=== PATIENT | male | born 1950 | race Caucasian/White ===

== ENCOUNTER 2016-06-14 17:12 | Inpatient (IN) | payer OTHER, MEDICAID ==
[~2016-06-14] VITALS: Ht 165.1 cm; Wt 86.6 kg
[~2016-06-14 17:12] MED LIST: ASPI81TA2 PO; AZIT250T PO; CIPR-211 PO; CLOP75TA2 PO; CYM30 PO; FURO-149 PO; GABA-533 PO; GLIP5TAB13 PO; INSU100V9 SUBCUT; LACT10SO66 PO; METF-510 PO; MORP15TA60 PO; NADO80TA14 PO; OMEP20CA10 PO; TRAM50TA92 PO; TRAZ-123 PO
[2016-06-14 17:32] VITALS: BP 89/57; PULSE 86; RESP 20; TEMP 97.8; O2SAT 97
--- NOTE | 2016-06-14 17:40 | NUR ---
Placed in room 02. Placed on manager cardiac cath, blood pressure machine and pulse oximeter. To gown for exam. Side rails up. Report given to NOREEN Daniels.
--- NOTE | 2016-06-14 17:51 | NUR ---
Patient returning to ER C/O sore throat for the past 7 days. 7 days ago patient was admitted to [facility] and discharged 2 days ago. Patient is returning stating that the sore throat did not get better, mild throat swelling and reddness. Patient has chronic liver failure with lower back and abdominal pain 01/15. At this time patient C/O sore throat, nausea, belching, hicups, lower back pain and abdominal pain. Significant abdominal distension.
--- NOTE | 2016-06-14 18:03 | NUR ---
ER MD Null at bedside for evaluation
[2016-06-14] MEDS ORDERED: NACL 0.9% 1,000 ML IV ONE (18:17)
--- NOTE | 2016-06-14 18:25 | NUR ---
# 22 gauge angiocath placed to left forearm. Use of asceptic technique. Opsite placed over site. Blood return noted. Blood for lab drawn from site. Flushed with 10 cc of normal saline. No evidence of infiltration noted. Patient tolerated well.
[2016-06-14] MEDS ORDERED: DIPHENHYDRAMINE INJ 50 MG/ML VIAL IVP ONE (18:30)
[2016-06-14] MEDS ORDERED: chlorproMAZINE HCL 50 MG/ 2 ML AMP IV ONE (18:30)
[2016-06-14 18:48] LABS: BILIRUBIN,URINE NEGATIVE (NEGATIVE); BLOOD, URINE NEGATIVE (NEGATIVE); CLARITY/URINE CLEAR (CLEAR); COLOR,URINE YELLOW (YELLOW); GLUCOSE,URINE NEGATIVE (NEGATIVE); KETONES,URINE NEGATIVE (NEGATIVE); LEUKOCYTE ESTERASE ,URINE NEGATIVE (NEGATIVE); NITRITE, URINE NEGATIVE (NEGATIVE); PH,URINE 5.5 (5.0-8.0); PROTEIN URINE NEGATIVE (NEGATIVE)
[2016-06-14 18:54] LABS: HEMATOCRIT 24.4 % (36-54); HEMOGLOBIN 8.2 g/dL (14.0-18.0); MEAN CORPUSCULAR HEMOGLOBIN 29 pg (27-31); MEAN CORPUSCULAR HGB CONC 34 % (32-36); MEAN CORPUSCULAR VOLUME 85 fL (79.0-98.0); PLATELET COUNT (AUTO) 142 K/uL (130-430); RED BLOOD CELL COUNT(AUTO) 2.85 MIL/uL (4.2-6.2); RED CELL DISTRIBUTION WIDTH 15.5 % (9.0-15.0); WHITE BLOOD COUNT (AUTO) 3.9 K/uL (4.8-10.8)
[2016-06-14 18:57] LABS: CALCIUM 7.9 mg/dL (8.4-11.0); CREATININE 1.3 mg/dL (0.55-1.30); POTASSIUM 4.6 mmol/L (3.5-5.1)
[2016-06-14 19:02] LABS: ALBUMIN 1.7 g/dL (3.4-4.8); TOTAL BILIRUBIN 0.6 mg/dL (0.0-1.0); TOTAL PROTEIN, SERUM 7.1 g/dL (6.4-8.3)
[2016-06-14 19:24] LABS: ATYPICAL LYMPHOCYTES % 5 % (0-0); BAND % (MANUAL) 18 % (0-6); BASOPHILS % (MANUAL) 1 % (0-2); EOSINOPHILS % (MANUAL) 2 % (0-7); LYMPHOCYTES % (MANUAL) 14 % (20-46); MONOCYTES % (MANUAL) 14 % (0-11)
--- NOTE | 2016-06-14 19:47 | NUR ---
Medication reconciliation completed with information provided by - patient states no change in home meds since last admission. Any prior medication reconciliation on file was reviewed and corrected.
--- NOTE | 2016-06-14 20:04 | NUR ---
Patient will be admitted to care of DR FARNSWORTH. Admitted to MS unit. Will go to room 135. Belongings list completed. Summary report printed. Report given to NOREEN.
--- NOTE | 2016-06-14 20:09 | NUR ---
Transfer to [facility]. IV present no sign or symptom of infiltration.
[2016-06-14] MEDS ORDERED: INSULIN REGULAR, HUMAN 100 UNITS/ML, 10 ML VIAL (novoLIN R) SUBCUT PRN ×2 (20:15→21:45)
--- NOTE | 2016-06-14 20:22 | NUR ---
ADMISSION: The patient, DECLAN GATICA, 66 y/o, M admitted by DEVON FARNSWORTH MD, was given written information regarding hospital policies, unit procedures and contact persons. Valuables were checked and .
--- NOTE | 2016-06-14 20:30 | NUR ---
Opening note Patient is new admit with chief complaint of back pain and sore throat. Complaining of 6/10 back pain at this time. Skin is intact with a bruise on the inner aspect of the right anticubital space, 2 cmX 2cm noted. Patient is alert and oriented X4, breath sounds reveal wheezes on expiration in all lobes bilaterally. self repositioning and uses urinal which is at bedside. Continue to monitor
[2016-06-14 20:50] VITALS: BP 112/66; PULSE 74; RESP 16; TEMP 97.2; O2SAT 99
--- NOTE | 2016-06-14 21:08 | NUR ---
DR. FARNSWORTH AT BEDSIDE. MD AT BEDSIDE. CONTINUING SEPSIS PROTOCOL. ORDERED BLOOD CULTURES AND LACTIC ACIDS, NO FLUIDS PER MD.
[2016-06-14] MEDS: MORPHINE 2 MG/ML INJ. SYRINGE IVP PRN (21:25)
[2016-06-14] MEDS ORDERED: AZITHROMYCIN 500 MG in NS 250 ML IV ONE (21:30)
--- NOTE | 2016-06-14 22:35 | NUR ---
rounds Patient is self repositioning, is voiding with urinal at bedside. No signs of acute distress noted at this time, bed in low position, and call light within reach. Awaiting results of pneumococcal and strep swabs from lab. frequent visual checks made, continue to monitor
--- NOTE | 2016-06-14 23:16 | NUR ---
PENDING CALL BACK FROM DAUGHTER STILL WAITING FOR CALL BACK FROM JOHN CHOI'S DAUGHTER, TO CONFIRM MEDICATION RECONCILIATION.
[2016-06-14] MEDS ORDERED: AZITHROMYCIN 500 MG/VIAL (ZITHROMAX) IV ONE (23:29)
[2016-06-14] MEDS: BENZOCAINE/MENTHOL 1 EACH LOZENGE MM PRN (23:55)
[2016-06-14 23:58] VITALS: BP 112/66; PULSE 74; RESP 16; TEMP 97.4; O2SAT 99
[2016-06-15 00:08] VITALS: BP 93/60; PULSE 76; RESP 18; TEMP 97.4; O2SAT 94
--- NOTE | 2016-06-15 00:09 | NUR ---
SPOKE TO PT'S DAUGHTER PER STEPH, PT'S DAUGHTER, PT IS STILL TAKING MS CONTIN WHICH SHE MONITORS INTAKE CLOSELY. WILL PAGE MD TO LET HIM KNOW. MD ASKED TO BE NOTIFIED.
--- NOTE | 2016-06-15 00:10 | NUR ---
PAGED DR. FARNSWORTH TO INFORM HIM OF PT'S HOME MED MS CONTIN.
[2016-06-15] MEDS ORDERED: MORPHINE SULFATE 15 MG TABLET.SA PO ONE (00:30)
--- NOTE | 2016-06-15 00:49 | NUR ---
Consultation(s) Paged Reason for consultation: Bandemia Was consult called: Yes Person who was notified: Lori Consulting Physician: Eloisa Patel; Dr Dutta is on-call for Dr Peter Boarding Kennel Or Cattery Operator Specialty: ID Boarding Kennel Or Cattery Operator Reason for consultation: Liver Cirrhosis Was consult called: Yes Person who was notified: Lori Consulting Physician: Mirela Tabor Boarding Kennel Or Cattery Operator Specialty: GI Boarding Kennel Or Cattery Operator
[2016-06-15 01:45] LABS: INFLUENZA A&B ANTIGEN SCREEN NEGATIVE FOR A & B (NEGATIVE)
--- NOTE | 2016-06-15 02:16 | NUR ---
rounds Patient has received extended release ms contin for complaint of back pain, respirations are even, and measure 16 breaths per minute. no signs of acute distress, bed is in low position, call light within reach, urinal at bedside frequent visual checks made, continue to monitor Addendum: 06/15/16 at 0221 by Mg Rutledge RN note entered for 29 time slot
--- NOTE | 2016-06-15 02:19 | NUR ---
rounds Patient is sleeping in supine position, no pain behaviors noted at this time. No signs of acute distress.Bed in low position, call light is within reach, IV fluids are infusing per MAR instructions, no signs of infiltration, or phlebitis at the site. Frequent visual checks made, continue to monitor
[2016-06-15 02:33] LABS: STREPTOCOCCUS A SCREEN (RAPID) NEGATIVE (NEGATIVE)
[2016-06-15] MEDS: MORPHINE 2 MG/ML INJ. SYRINGE IVP PRN ×5 (04:08→23:35)
[2016-06-15 04:10] VITALS: BP 112/50; PULSE 57; RESP 18; TEMP 97.1; O2SAT 95
--- NOTE | 2016-06-15 07:33 | NUR ---
closing note Patient in supine position, able to make needs known, able to reposition, self. No reports of pain or signs of acute distress. Bedding and clothing clean and dry Report given to oncoming day shift nurse, care endorsed.
--- NOTE | 2016-06-15 08:00 | NUR ---
HANDOFF REPORT WITH WALKING ROUNDS TO PATIENT. NEEDS MET AT THIS TIME. VITAL SIGNS WITHIN NORMAL LIMITS.
[2016-06-15] MEDS: ASPIRIN 81 MG TAB.CHEW PO SCH (08:58)
[2016-06-15] MEDS: GABAPENTIN 400 MG CAPSULE PO SCH ×2 (08:58→20:43)
[2016-06-15] MEDS: OMEPRAZOLE 20 MG CAPSULE.DR (PriLOSEC) PO SCH (08:58)
[2016-06-15] MEDS: LACTULOSE 20 GM/30 ML UDC PO SCH (08:58)
[2016-06-15] MEDS: DULoxetine HCL 30 MG CAPSULE.DR (CYMBALTA) PO SCH (08:58)
--- NOTE | 2016-06-15 10:00 | NUR ---
PATIENT GIVEN PRN PAIN MEDICATION LAST HOUR. GOOD RELIEF. RESTING BUT AWAKEN TO TOUCH. SAYS PAIN IS BETTER.
[2016-06-15 10:59] LABS: CALCIUM 7.9 mg/dL (8.4-11.0); CREATININE 1.21 mg/dL (0.55-1.30); POTASSIUM 4.7 mmol/L (3.5-5.1)
[2016-06-15 11:05] LABS: HEMATOCRIT 22.9 % (36-54); HEMOGLOBIN 7.6 g/dL (14.0-18.0); MEAN CORPUSCULAR HEMOGLOBIN 28 pg (27-31); MEAN CORPUSCULAR HGB CONC 33 % (32-36); MEAN CORPUSCULAR VOLUME 86 fL (79.0-98.0); PLATELET COUNT (AUTO) 119 K/uL (130-430); RED BLOOD CELL COUNT(AUTO) 2.68 MIL/uL (4.2-6.2); RED CELL DISTRIBUTION WIDTH 15.7 % (9.0-15.0); WHITE BLOOD COUNT (AUTO) 3.3 K/uL (4.8-10.8)
[2016-06-15 11:19] LABS: BAND % (MANUAL) 3 % (0-6); BASOPHILS % (MANUAL) 0 % (0-2); EOSINOPHILS % (MANUAL) 5 % (0-7); LYMPHOCYTES % (MANUAL) 11 % (20-46); METAMYELOCYTES % 1 % (0-0); MONOCYTES % (MANUAL) 23 % (0-11)
--- NOTE | 2016-06-15 11:30 | NUR ---
BEDSIDE VISIT FROM PATIENT DAUGHTER AND SON-IN-LAW. PATIENT SAYS HE IS READY FOR LUNCH. NO INSULIN COVERAGE REQUIRED.
[2016-06-15 12:01] VITALS: BP 98/56; PULSE 93; RESP 18; TEMP 97.9; O2SAT 93
--- NOTE | 2016-06-15 13:00 | NUR ---
PATIENT ROUNDS. NEEDS MET AT THIS TIME. REPOSITION WITH HEELS FLOATING.
--- NOTE | 2016-06-15 15:00 | NUR ---
ROUNDS TO PATIENT. RESTING AT THIS TIME. TOLERATED LUNCH 75%.
[2016-06-15 16:29] VITALS: BP 108/56; PULSE 81; RESP 18; TEMP 97.3; O2SAT 97
--- NOTE | 2016-06-15 17:00 | NUR ---
PATIENT ROUNDS, ACCUCHECK, REPOSITION AND PRN MORPHINE FOR PAIN. REQUESTS LOZENGE FOR THROAT DISCOMFORT.
[2016-06-15] MEDS: BENZOCAINE/MENTHOL 1 EACH LOZENGE MM PRN ×2 (18:16→23:39)
--- NOTE | 2016-06-15 19:11 | NUR ---
HANDOFF REPORT FOR NOC NURSE.
[2016-06-15 19:40] VITALS: BP 130/68; PULSE 87; RESP 18; TEMP 97.5; O2SAT 95
--- NOTE | 2016-06-15 19:50 | NUR ---
Initial Notes Pt is A/Ox4. Pt is pleasant and cooperative. VSS. POC discussed with pt, pt verbalized understanding. IV intact with no s/s of infection. Pt is ambulatory with assist, with steady gait noted. Safety precautions in place, side rails up x3 with bed in lowest, locked position, bed alarm on at all times. Pt stated that he felt sleepy and requested his medications early. Abdominal distention noted, with tenderness. Pt hx of chronic liver failure. Pt educated air conditioning unit tester light use, and correct back demonstration noted. Call light in hand. Will continue to monitor.
[2016-06-15] MEDS: AZITHROMYCIN 500 MG in NS 250 ML IV SCH (20:48)
--- NOTE | 2016-06-15 23:40 | NUR ---
Pain Management Pt c/o lower back pain 12/15. Covering RN notified and medicated with Morphine 2MG IVP for severe pain. No acute distress or sob noted. All needs met. Call light in hand. Will continue to monitor.
--- NOTE | 2016-06-15 23:41 | NUR ---
PAIN AND COUGH Pt. c/o severe pain to back and lower left side. Pt. also has a dry cough and requested lozenge. Pt. medicated with Morphine IVP as ordered PRN for severe pain and Cepacol as ordered PRN for cough. See EMAR. Emptied 100ml from urinal. Pt. requested ice chips. Educated pt. regarding medication and s/e. Pt. verbalized understanding. Safety measures in place. Call light to right hand. Will cont. to monitor.
[2016-06-16 00:04] VITALS: BP 113/68; PULSE 92; RESP 18; TEMP 97.6; O2SAT 95
--- NOTE | 2016-06-16 00:29 | NUR ---
ROUNDS Late entry due to pt. care. Checked on pt. to reassess pain. Pt. states pain is currently at a "5/10" and that Morphine "worked a little bit." Pt. denies any other needs at this time. Will endorse to SHARA Cespedes.
--- NOTE | 2016-06-16 03:29 | NUR ---
REQUESTED SNACK Pt. requested cranberry juice and saltine crackers. Emptied 100ml of yellow urine from urinal. Pt. denies any other needs at this time. Safety measures in place. Will continue to monitor.
[2016-06-16 03:52] VITALS: BP 118/62; PULSE 90; RESP 18; TEMP 97; O2SAT 97
[2016-06-16] MEDS: BENZOCAINE/MENTHOL 1 EACH LOZENGE MM PRN (05:52)
--- NOTE | 2016-06-16 06:01 | NUR ---
Blood sugar/I/S Blood sugar checked, 103, no insulin coverage given per sliding scale. Pt c/o sob, oxygen checked 96% on room air. Some audible wheezing noted. Pt given I/S at this time, and educated regarding helping prevent PNA and expanding lungs. Correct back demonstration noted. Pt noted to use a total of 750cc of total inspiratory effort at this time. All needs met at this time. Call light in hand. Will continue to monitor,
--- NOTE | 2016-06-16 06:47 | NUR ---
Closing Notes Pt is awake, alert and oriented. Pt denies any pain at this time. VSS. IV intact. Pt in stable condition. Blood sugar checked, 103. No insulin given per sliding scale. All needs met throughout shift. Will endorse care to am nurse. Call light in hand. Will continue to monitor.
[2016-06-16 07:08] LABS: HEMATOCRIT 24.2 % (36-54); MEAN CORPUSCULAR HEMOGLOBIN 29 pg (27-31); MEAN CORPUSCULAR HGB CONC 33 % (32-36); MEAN CORPUSCULAR VOLUME 87 fL (79.0-98.0); PLATELET COUNT (AUTO) 129 K/uL (130-430); RED BLOOD CELL COUNT(AUTO) 2.79 MIL/uL (4.2-6.2); RED CELL DISTRIBUTION WIDTH 16.3 % (9.0-15.0)
[2016-06-16 07:44] LABS: INR 1.1 (0.80-1.20); PROTHROMBIN TIME 11.8 SECS (9.5-12.5)
[2016-06-16 07:51] LABS: ALBUMIN 1.6 g/dL (3.4-4.8); CREATININE 1.12 mg/dL (0.55-1.30); POTASSIUM 4.7 mmol/L (3.5-5.1); TOTAL BILIRUBIN 0.8 mg/dL (0.0-1.0)
[2016-06-16 08:00] VITALS: BP 93/58; PULSE 91; RESP 20; TEMP 97.7; O2SAT 95
--- NOTE | 2016-06-16 08:00 | NUR ---
OPENING NOTE PATIENT IS SLEEPING, DENIES ANY PAIN AT THIS TIME. SBP93, NO SIGNS OF DISTRESS. VITALS OBTAINED. ALL WNL EXCEPT LOW BP IS TYPICAL FOR PATIENT'S HISTORY
--- NOTE | 2016-06-16 08:31 | NUR ---
PATIENT IS SITTING UP EATING BREAKFAST. NO SIGNS OF ASPIRATION.
--- NOTE | 2016-06-16 09:14 | NUR ---
Nutrition Update Lauri Scale 16 noted. Pt admitted for intractable back pain. Diet: CCHO, 2 gm Na BMI: 32 kg/m2 RD to follow per nutrition care standards.
[2016-06-16 09:25] LABS: ATYPICAL LYMPHOCYTES % 0 % (0-0); BAND % (MANUAL) 2 % (0-6); BASOPHILS % (MANUAL) 0 % (0-2); EOSINOPHILS % (MANUAL) 2 % (0-7); LYMPHOCYTES % (MANUAL) 12 % (20-46); MONOCYTES % (MANUAL) 21 % (0-11)
[2016-06-16] MEDS: GABAPENTIN 400 MG CAPSULE PO SCH ×2 (09:58→20:43)
[2016-06-16] MEDS: OMEPRAZOLE 20 MG CAPSULE.DR (PriLOSEC) PO SCH (09:58)
[2016-06-16] MEDS: DULoxetine HCL 30 MG CAPSULE.DR (CYMBALTA) PO SCH (09:58)
[2016-06-16] MEDS: LACTULOSE 20 GM/30 ML UDC PO SCH (09:58)
[2016-06-16] MEDS: ASPIRIN 81 MG TAB.CHEW PO SCH (09:58)
--- NOTE | 2016-06-16 10:09 | NUR ---
PATIENT MEDICATED PER ORDERS. DENIES ANY PAIN. ABLE TO SWALLOW WITHOUT DIFFICULTY
--- NOTE | 2016-06-16 11:41 | NUR ---
DR RASMUSSEN IN TO SEE PATIENT. NEW ORDERS GIVEN
[2016-06-16 12:00] VITALS: BP 88/50; PULSE 99; RESP 18; TEMP 97.2
--- NOTE | 2016-06-16 12:12 | NUR ---
BG 154, INSULIN HELD PT RECEIVED 20 UNITS OF LEVEMIR EARLIER AND TENDS TO DROP HIS BG QUICKLY
[2016-06-16] MEDS: ONDANSETRON HCL 4 MG/2 ML VIAL IVP PRN (12:43)
--- NOTE | 2016-06-16 12:49 | NUR ---
PT C/O NAUSEA. IS NOT EATING HIS MEAL. MEDICATED WITH ZOFRAN IVP.
--- NOTE | 2016-06-16 14:00 | NUR ---
DIFLUCAN IV AVAILABLE. PHARMACY NOTIFIED TO CHANGE EMAR TIME TO REFLECT MEDICATION AVAILABILITY. ISO COORDINATOR AT BEDSIDE TO PREP FOR PARACENTESIS. PT BP CURRENTLY 115/65. DENIES ANY NAUSEA.
[2016-06-16] MEDS ORDERED: COMMUNICATION ORDER XX ONE (14:15)
[2016-06-16] MEDS: FLUCONAZOLE 200 mg/ NS 100 ML IV SCH (14:15)
[2016-06-16] MEDS ORDERED: FLUCONAZOLE 200 mg/ NS 100 ML IV SCH (14:30)
--- NOTE | 2016-06-16 14:53 | NUR ---
MD AT BEDSIDE FOR PARACENTESIS. PATIENT IS TOLERATING WELL.
[2016-06-16] MEDS ORDERED: ALBUMIN HUMAN 25% 100 ML IV ONE (16:30)
[2016-06-16 16:41] VITALS: Ht 165.1 cm; Wt 86.6 kg
[2016-06-16 18:01] VITALS: BP 105/62; PULSE 89; RESP 18; TEMP 97.8; O2SAT 95
--- NOTE | 2016-06-16 20:15 | NUR ---
OPENING NOTE PATIENT IS A/OX4. VITAL SIGNS ARE STABLE. BREATHING IS NON LABORED. NO SIGNS OF DISTRESS. IV SHOWS NO SIGNS OF COMPLICATIONS. PATIENT REFUSED BED ALARM. PATIENT INSTRUCTED TO CALL FOR ASSISTANCE. CALL LIGHT IS WITHIN REACH. WILL CONTINUE TO MONITOR.
[2016-06-16] MEDS: MORPHINE 2 MG/ML INJ. SYRINGE IVP PRN (20:44)
[2016-06-16] MEDS: AZITHROMYCIN 500 MG in NS 250 ML IV SCH (20:44)
--- NOTE | 2016-06-16 22:30 | NUR ---
ROUNDS PATIENT IV INFILTRATED. INSERTED NEW IV TO THE RIGHT HAND 22G.
[2016-06-16 23:56] VITALS: BP 97/58; PULSE 84; RESP 16; TEMP 97.6; O2SAT 95
[2016-06-17] MEDS: MORPHINE 2 MG/ML INJ. SYRINGE IVP PRN ×5 (00:40→22:48)
--- NOTE | 2016-06-17 00:45 | NUR ---
ROUNDS PROVIDE PATIENT JUICE AND ICE WATER.
--- NOTE | 2016-06-17 02:50 | NUR ---
ROUNDS PATIENT IS IN BED SLEEPING. NO SIGNS OF DISTRESS. BREATHING IS NON LABORED. CALL LIGHT IS WITHIN REACH. PATIENT REFUSES BED ALARM. WILL CONTINUE TO MONITOR.
[2016-06-17 04:24] VITALS: BP_SYST 131; BP_SYST 133; BP_DIAS 65; BP_DIAS 90; PULSE 76; RESP 20; TEMP 99; O2SAT 96
--- NOTE | 2016-06-17 06:30 | NUR ---
CLOSING NOTES PATIENT IS IN BED SLEEPING. BREATHING IS NON LABORED. NO SIGNS OF DISTRESS. CALL LIGHT IS WITHIN REACH. PATIENT REFUSED BED ALARM. SAFETY MEASURES ARE IN PLACE. WILL ENDORSE TO THE MORNING NURSE
[2016-06-17 07:16] LABS: CALCIUM 8.3 mg/dL (8.4-11.0); CREATININE 1.1 mg/dL (0.55-1.30); PHOSPHORUS 3.5 mg/dL (2.7-4.5); POTASSIUM 4.7 mmol/L (3.5-5.1)
[2016-06-17 07:35] LABS: HEMATOCRIT 23.1 % (36-54); HEMOGLOBIN 7.8 g/dL (14.0-18.0); MEAN CORPUSCULAR HEMOGLOBIN 29 pg (27-31); MEAN CORPUSCULAR HGB CONC 34 % (32-36); MEAN CORPUSCULAR VOLUME 86 fL (79.0-98.0); PLATELET COUNT (AUTO) 125 K/uL (130-430); RED BLOOD CELL COUNT(AUTO) 2.69 MIL/uL (4.2-6.2); RED CELL DISTRIBUTION WIDTH 16.5 % (9.0-15.0)
[2016-06-17 07:43] LABS: WHITE BLOOD COUNT (AUTO) 4.4 K/uL (4.8-10.8)
[2016-06-17 08:00] VITALS: BP 111/66; PULSE 96; RESP 18; TEMP 97.4; O2SAT 96
--- NOTE | 2016-06-17 08:00 | NUR ---
initial notes rec patient awake, eating breakfast with ivl on the r hand intact. no infiltration noted. c/o pain on his lower back and will medicate patient. resp easy and unlabored. bed in low position and call light within reached. fall/ safety measures rendered. will continue to monitor patient.
[2016-06-17] MEDS: ASPIRIN 81 MG TAB.CHEW PO SCH (08:42)
[2016-06-17] MEDS: OMEPRAZOLE 20 MG CAPSULE.DR (PriLOSEC) PO SCH (08:42)
[2016-06-17] MEDS: DULoxetine HCL 30 MG CAPSULE.DR (CYMBALTA) PO SCH (08:42)
[2016-06-17] MEDS: GABAPENTIN 400 MG CAPSULE PO SCH ×2 (08:42→21:08)
[2016-06-17] MEDS: LACTULOSE 20 GM/30 ML UDC PO SCH (08:54)
[2016-06-17 10:16] LABS: ATYPICAL LYMPHOCYTES % 0 % (0-0); BAND % (MANUAL) 3 % (0-6); BASOPHILS % (MANUAL) 0 % (0-2); EOSINOPHILS % (MANUAL) 2 % (0-7); LYMPHOCYTES % (MANUAL) 18 % (20-46); MONOCYTES % (MANUAL) 20 % (0-11)
[2016-06-17 12:12] VITALS: BP 115/68; PULSE 93; RESP 19; TEMP 97.1; O2SAT 93
[2016-06-17] MEDS: FLUCONAZOLE 200 mg/ NS 100 ML IV SCH (12:25)
--- NOTE | 2016-06-17 12:43 | NUR ---
rounds pt was medicated for pain as requested. no hypo hyperglycemic reaction noted.
[2016-06-17 18:10] VITALS: BP 108/72; PULSE 85; RESP 20; TEMP 97.8; O2SAT 96
--- NOTE | 2016-06-17 18:30 | NUR ---
closing notes medicated for pain as requested. no sob noted. call light withn reached for assistance.
[2016-06-17 20:20] VITALS: BP 113/72; PULSE 91; RESP 16; TEMP 97.9; O2SAT 97
--- NOTE | 2016-06-17 20:27 | NUR ---
OPENING NOTES PATIENT IS IN BED RESTING. VITAL SIGNS ARE STABLE. BREATHING IS NON LABORED. NO SIGNS OF DISTRESS. PATIENT HAS COMPLAINTS OF PAINFUL HICCUPS. WILL NOTIFY MD. CALL LIGHT IS WITHIN REACH. PATIENT REFUSES BED ALARM. FAMILY IS AT BEDSIDE. WILL CONTINUE TO MONITOR.
--- NOTE | 2016-06-17 20:30 | NUR ---
SPOKE TO [facility]. WILL INPUT KNEW ORDERS.
[2016-06-17] MEDS ORDERED: THORAZINE (chlorproMAZINE) 25 MG TAB PO PRN (20:45)
[2016-06-17] MEDS ORDERED: NITROGLYCERIN 0.4 MG TAB.SUBL SL PRN (20:45)
[2016-06-17] MEDS: AZITHROMYCIN 500 MG in NS 250 ML IV SCH (21:09)
--- NOTE | 2016-06-17 23:15 | NUR ---
ROUNDS PATIENT IS IN BED RESTING AND WATCHING TV. NO SIGNS OF DISTRESS. BREATHING IS NON LABORED. CALL LIGHT IS WITHIN REACH. PATIENT REFUSED BED ALARM. WILL CONTINUE TO MONITOR.
[2016-06-17] MEDS: ONDANSETRON HCL 4 MG/2 ML VIAL IVP PRN (23:18)
[2016-06-18] VITALS (7 sets, daily range): BP systolic 88–124; BP diastolic 56–74; PULSE 90–103; RESP 16–18; TEMP 96.8–99.2; O2SAT 94–97
[2016-06-18] MEDS: chlorproMAZINE HCL 50 MG/ 2 ML AMP IVP PRN (00:10)
--- NOTE | 2016-06-18 00:50 | NUR ---
ROUNDS GAVE PATIENT A BLANKET.
--- NOTE | 2016-06-18 03:55 | NUR ---
ROUNDS PATIENT IS IN BED SLEEPING. NO SIGNS OF DISTRESS. BREATHING IS NON LABORED. CALL LIGHT IS WITHIN REACH WILL CONTINUE TO MONITOR.
[2016-06-18] MEDS ORDERED: NITROGLYCERIN 0.4 MG TAB.SUBL SL ONE (06:30)
--- NOTE | 2016-06-18 06:34 | NUR ---
CLOSING NOTES PATIENT IS IN BED SLEEPING. NO SIGNS OF DISTRESS. BREATHING IS NON LABORED. CALL LIGHT IS WITHIN REACH. PATIENT REFUSES BED ALARM. SAFETY MEASURES ARE IN PLACE. WILL ENDORSE TO MORNING NURSE.
[2016-06-18] MEDS: MORPHINE 2 MG/ML INJ. SYRINGE IVP PRN ×3 (06:46→21:30)
--- NOTE | 2016-06-18 08:20 | NUR ---
initial notes rec patient asleep with hob elevated. ivf infusing well on the r hand. no infiltration noted. c/o pain on his lower back and will medicated patient. bed in low position and side rails up and locked. call light within reached and knows when to call for assists.will continue to monitor patient.
[2016-06-18] MEDS: LACTULOSE 20 GM/30 ML UDC PO SCH (09:06)
[2016-06-18] MEDS: DULoxetine HCL 30 MG CAPSULE.DR (CYMBALTA) PO SCH (09:06)
[2016-06-18] MEDS: ASPIRIN 81 MG TAB.CHEW PO SCH (09:06)
[2016-06-18] MEDS: GABAPENTIN 400 MG CAPSULE PO SCH ×2 (09:06→21:33)
[2016-06-18] MEDS: OMEPRAZOLE 20 MG CAPSULE.DR (PriLOSEC) PO SCH (09:07)
--- NOTE | 2016-06-18 10:00 | NUR ---
rounds due meds given and reminded that pain med is due at 11a. pt went to sleep.
[2016-06-18] MEDS: FLUCONAZOLE 200 mg/ NS 100 ML IV SCH (12:02)
--- NOTE | 2016-06-18 12:10 | NUR ---
rounds seen by dr mtz and with orders. no hypo hyperglycemic reaction noted. medicated for painno acute distress.
--- NOTE | 2016-06-18 12:43 | NUR ---
DISCHARGE PLANNING DC to SNF. Faxed SNF referral to [facility]. Will follow up. Addendum: 06/18/16 at 1529 by Yuridia TYLER Met with patient at bedside regarding SNF placement at [facility]. Patient agreeable and did not have any questions or concerns pertaining to his discharge plan at this time. Spoke with Kyrie in admitting at [facility], patient accepted and will give bed assignment upon discharge order. NOREEN Mcnamara made aware.
--- NOTE | 2016-06-18 14:00 | NUR ---
rounds seen by dr mtz and with orders.
--- NOTE | 2016-06-18 17:49 | NUR ---
rounds dr garrido was called re pt is accepted at [facility].
--- NOTE | 2016-06-18 19:00 | NUR ---
closing notes made charge nurses aware cynthia and neeraj that [facility] called and pt is accepted. also that dr morris was called and awaiting to call back. no sob noted. call light within reached.
[2016-06-18] MEDS: AZITHROMYCIN 500 MG in NS 250 ML IV SCH (21:34)
[2016-06-19 00:10] VITALS: BP 121/70; PULSE 98; RESP 16; TEMP 99.7; O2SAT 95
[2016-06-19] MEDS: MORPHINE 2 MG/ML INJ. SYRINGE IVP PRN ×2 (01:34→10:24)
[2016-06-19 04:48] VITALS: BP 110/63; PULSE 90; RESP 18; TEMP 97.5; O2SAT 96
[2016-06-19] MEDS: chlorproMAZINE HCL 50 MG/ 2 ML AMP IVP PRN ×2 (05:35→14:58)
--- NOTE | 2016-06-19 08:00 | NUR ---
Received patient alert, awake, orientedx4 no s/s of distress. informed about the plan of care. pt verbalized understanding. ivf at kvo rate infusing site patent. encourage to call when assistance needed. call light within reach. will monitor
[2016-06-19 08:17] VITALS: BP 94/56; PULSE 97; RESP 17; TEMP 96.1; O2SAT 95
[2016-06-19] MEDS: GABAPENTIN 400 MG CAPSULE PO SCH (10:22)
[2016-06-19] MEDS: LACTULOSE 20 GM/30 ML UDC PO SCH (10:23)
[2016-06-19] MEDS: DULoxetine HCL 30 MG CAPSULE.DR (CYMBALTA) PO SCH (10:23)
[2016-06-19] MEDS: OMEPRAZOLE 20 MG CAPSULE.DR (PriLOSEC) PO SCH (10:23)
[2016-06-19] MEDS: ASPIRIN 81 MG TAB.CHEW PO SCH (10:23)
[2016-06-19 12:00] VITALS: BP 100/64; PULSE 90; RESP 17; TEMP 96.9; O2SAT 96
--- NOTE | 2016-06-19 12:30 | NUR ---
BLOOD SUGAR 157. PATIENT REFUSED SLIDING SCALE COVERAGE.
[2016-06-19] MEDS: FLUCONAZOLE 200 mg/ NS 100 ML IV SCH (12:31)
--- NOTE | 2016-06-19 12:32 | NUR ---
DC PLANNING Received call from Dipti @ [facility], pt is on transplant list & wanted labs faxed to her. States already spoke w Dr Hua, & they will follow pt when @ SNF. Faxed labs to Dipti, fax [phone], ph [phone].
--- NOTE | 2016-06-19 13:30 | NUR ---
PATIENT REFUSED TO EAT LUNCH TRAY SERVED.
[2016-06-19 16:00] VITALS: BP 105/65; PULSE 65; RESP 18; TEMP 96.9; O2SAT 96
--- NOTE | 2016-06-19 16:00 | NUR ---
NOTES: INFORMED MD MARROQUIN (DAUGHTER) STEPH WANTS TO TALK TO HIM.CALLED STEPH AND SPOKE WITH HER.
--- NOTE | 2016-06-19 16:08 | NUR ---
DISCHARGE PLANNING DC order to SNF. Spoke with Kyrie in admitting at [facility] patient assigned to room 12B RN to report , bed available anytime. RN Cathy made aware. Called [facility] spoke with Roxana placed BLS transport on will call. Placed transportation packet in nurses station. Met with patient at bedside who is agreeable with his discharge to SNF today.
[2016-06-19] MEDS ORDERED: traMADol HCL HCL 50 MG TABLET (ULTRAM) PO PRN (16:45)
--- NOTE | 2016-06-19 17:31 | NUR ---
[facility] P[facility] Spoke with Roxana to set up pick-up time for 1999.
--- NOTE | 2016-06-19 18:54 | NUR ---
assisted patient to the restroom had large bowel movement.
--- NOTE | 2016-06-19 18:55 | NUR ---
notes: all needs met, vital sign stable, afebrile. family was informed about the transfer. belongings check and patient agreed. report given Marquis douglass. [phone]. Addendum: 06/19/16 at 1905 by Thong Faria RN [facility], room assigned 12B.
[2016-06-20] MEDS ORDERED: CIPROFLOXACIN HCL 500 MG TABLET PO SCH (10:00)
== END 2016-06-19 20:15 | DRG 871 ==
LOC: SED 17:12 → SMU 20:04
PROVIDERS: ADMIT Internal Medicine; ATTEND Family Medicine
PROC: 0W9G3ZZ Drainage of Peritoneal Cavity, Percutaneous Approach (ICD-10-PCS; principal; 2016-06-16)
DX: A41.9 Sepsis, unspecified organism (principal); E43 Unspecified severe protein-calorie malnutrition; B37.89 Other sites of candidiasis; D61.818 Other pancytopenia; R18.8 Other ascites; E87.1 Hypo-osmolality and hyponatremia; J02.8 Acute pharyngitis due to other specified organisms; K74.60 Unspecified cirrhosis of liver; K75.81 Nonalcoholic steatohepatitis (NASH); D72.825 Bandemia; I10 Essential (primary) hypertension; N28.9 Disorder of kidney and ureter, unspecified; D73.1 Hypersplenism; E11.9 Type 2 diabetes mellitus without complications; K21.9 Gastro-esophageal reflux disease without esophagitis; Z85.05 Personal history of malignant neoplasm of liver; R13.10 Dysphagia, unspecified; Z95.5 Presence of coronary angioplasty implant and graft
CPT/HCPCS: 36415; 49083; 80048; 80053; 81003; 82962; 83605; 83690-TC; 83735-TC; 84100-TC; 85007; 85027; 85610-TC; 85730-TC; 86403; 86710; 86738; 87040-TC; 87081; 96361; 96374; 96375; 99285; C1729; J0456; J1200; J1450; J1815; J2270; J2405; J3230; J7030; J7050; P9046

== ENCOUNTER 2016-07-10 18:34 | Inpatient (IN) | payer OTHER, MEDICAID ==
[~2016-07-10] VITALS: Ht 165.1 cm; Wt 91.6 kg
--- NOTE | 2016-07-10 18:35 | NUR ---
Arrived via S ambulance for paracentesis. Patient to ER bed 1 to gown for evaluation. Side rails up. Report given to Jessa SORTO.
[2016-07-10 18:40] VITALS: BP 113/83; PULSE 110; RESP 18; TEMP 97.3; O2SAT 99
--- NOTE | 2016-07-10 18:57 | NUR ---
Patient awake in bed, stable condition, no shortness of breath noted, breathing unlabored. Patient states began having lower back pain and diffuse abdominal pain yesterday. Abdomen firm and distended. Patient denies nausea/vomtiing. No other complaints/injuries per patient or noted. Addendum: 07/10/16 at 1859 by MAMIE Denies injury/trauma.
--- NOTE | 2016-07-10 19:10 | NUR ---
Pt BIB ambulance from [facility] with c/o bilateral quadrants pain and RUQ pain 7/10, constant per pt. Pt stated that he was sent by primary physician Melita for paracentesis. Pt A&Ox4, denies chestpain, denies N/V/D. Pt on 4L O2 via NC, abdomen distended and tender, bowel sound x4, skin jaundice. No sign of injury noted. WIll continue to monitor
[2016-07-10 19:44] LABS: BASOPHILS % (AUTO) 0.6 % (0.0-2.0); EOSINOPHILS # (AUTO) 0.1 K/uL (0.0-0.4); EOSINOPHILS % (AUTO) 3.4 % (0.0-4.0); HEMOGLOBIN 8.8 g/dL (14.0-18.0); LYMPHOCYTES # (AUTO) 0.4 K/uL (1.0-5.5); MEAN CORPUSCULAR HEMOGLOBIN 30 pg (27-31); MEAN CORPUSCULAR HGB CONC 34 % (32-36); MEAN CORPUSCULAR VOLUME 87 fL (79.0-98.0); MONOCYTES # (AUTO) 0.6 K/uL (0.0-1.0); MONOCYTES % (AUTO) 15.1 % (1.7-9.3); NEUTROPHILS # (AUTO) 2.8 K/uL (1.8-7.7); NEUTROPHILS % (AUTO) 70.9 % (40.0-70.0); PLATELET COUNT (AUTO) 139 K/uL (130-430); RED BLOOD CELL COUNT(AUTO) 2.99 MIL/uL (4.2-6.2); RED CELL DISTRIBUTION WIDTH 16.3 % (9.0-15.0)
[2016-07-10 19:52] LABS: CALCIUM 8.5 mg/dL (8.4-11.0); CREATININE 1.4 mg/dL (0.55-1.30); POTASSIUM 4.3 mmol/L (3.5-5.1)
[2016-07-10 19:53] LABS: WHITE BLOOD COUNT (AUTO) 3.9 K/uL (4.8-10.8)
[2016-07-10 19:56] LABS: ALBUMIN 1.9 g/dL (3.4-4.8); TOTAL BILIRUBIN 0.6 mg/dL (0.0-1.0); TOTAL PROTEIN, SERUM 8.2 g/dL (6.4-8.3)
--- NOTE | 2016-07-10 20:00 | NUR ---
stated that pt is not sepsis
[2016-07-10 20:04] LABS: BILIRUBIN,URINE NEGATIVE (NEGATIVE); BLOOD, URINE NEGATIVE (NEGATIVE); CLARITY/URINE CLEAR (CLEAR); COLOR,URINE YELLOW (YELLOW); GLUCOSE,URINE TRACE (NEGATIVE); KETONES,URINE TRACE (NEGATIVE); LEUKOCYTE ESTERASE ,URINE NEGATIVE (NEGATIVE); NITRITE, URINE NEGATIVE (NEGATIVE); PH,URINE 5.5 (5.0-8.0); PROTEIN URINE TRACE (NEGATIVE)
[2016-07-10 20:07] LABS: INR 1.1 (0.80-1.20); PROTHROMBIN TIME 11.8 SECS (9.5-12.5)
[2016-07-10] MEDS ORDERED: ONDA4TAB5 PO (20:07)
[2016-07-10] MEDS ORDERED: MEGE400O PO (20:07)
[2016-07-10] MEDS ORDERED: TRAM50TA92 PO (20:07)
[2016-07-10] MEDS ORDERED: OMEP20CA10 PO (20:07)
--- NOTE | 2016-07-10 20:30 | NUR ---
Pt stated his pain is controlled after receiving morphine, and he feels comfortable
[2016-07-10] MEDS ORDERED: MORPHINE 4 MG/ML INJ. SYRINGE IVP ONE (20:45)
--- NOTE | 2016-07-10 21:05 | NUR ---
Patient will be admitted to care of . Admitted to med-surg unit. Will go to room 101B. Belongings list completed. Summary report printed. Report given to Rocael SORTO
--- NOTE | 2016-07-10 21:10 | NUR ---
ADMISSION NOTE Received patient from ER via [facility], received report from TETO SORTO. Patient admitted with diagnosis of ASCITES. Patient oriented to hospital routine, call light, toileting and safety-patient verbalized understanding.
[2016-07-10 21:21] VITALS: BP 154/93; PULSE 106; RESP 20; TEMP 98.4; O2SAT 98
--- NOTE | 2016-07-10 21:30 | NUR ---
INITIAL NOTES: PT IS ALERT AND ORIENTED ; ON O2 2L NC ; VITALS ARE STABLE ; NOT IN ANY ACUTE DISTRESS;PT STATED PAIN IS TOLERABLE SINCE HE RECEIVED PAIN MEDICATION IN ER ; ABDOMEN IS DISTENDED ; ASSESSMENT DONE AND DOCUMENTED ; CALL ROUSSEAU IN REACH ; INSTRUCTED TO CALL FOR ANY HELP;WILL CONTINUE TO MONITOR.
[2016-07-10 21:34] VITALS: BP 132/87; PULSE 107; RESP 18; O2SAT 98
--- NOTE | 2016-07-10 22:00 | NUR ---
PAGED: DR MARROQUIN PAGED TO DO THE MED REC AND OTHER ORDERS
--- NOTE | 2016-07-10 22:30 | NUR ---
PAGED: DR MARROQUIN PAGED AGAIN SINCE NO CALL BACK YET
--- NOTE | 2016-07-10 22:40 | NUR ---
CALLED BACK : DR MARROQUIN CALLED BACK AND STATED THAT HE WILL BE HERE IS 10 MINUTES
--- NOTE | 2016-07-10 23:00 | NUR ---
ROUNDS: DR MARROQUIN MADE ROUNDS; ENTERED ORDERES AND MED REC Addendum: 07/11/16 at 0126 by Sara Ellison RN REQUESTED MD TO ORDER ONE TIME ORDER FOR THE REGULAR MEDS THAT HE TAKES AT NIGHT ; STATED HE CAN START HIS ALL MEDS FROM TOMORROW EXCEPT REGULAR INSULIN . ASKED ABOUT THE LEVEMIR ; STATED "YOU CAN START IT FROM TOMORROW"
--- NOTE | 2016-07-10 23:05 | NUR ---
MD ORDER: INFORMED MD ABOUT THE AMMONIA LEVEL ,WBC AND ALL ABNORMAL LABS; MD STATED PT IS NOT SEPTIC ,FOR AMMONIA , PT IS GETTING LACTULOSE EVERY DAY, MD STATED HE ENTERED THE ORDER TO CONTINUE THE SAME DOSE FROM TOMORROW .
--- NOTE | 2016-07-10 23:15 | NUR ---
BS : BS 258, PROVIDED 6 UNITS OF REGULAR INSULIN
[2016-07-10] MEDS: INSULIN REGULAR, HUMAN 100 UNITS/ML, 10 ML VIAL (novoLIN R) SUBCUT PRN (23:17)
[2016-07-11] VITALS (7 sets, daily range): BP systolic 131–145; BP diastolic 77–83; PULSE 98–115; RESP 16–20; TEMP 96.7–98.4; O2SAT 93–100
--- NOTE | 2016-07-11 01:26 | NUR ---
RN ROUNDS: PT IS SLEEPING COMFORTABLY ; NOT IN ANY ACUTE DISTRESS;ON O2 2L NC ; WILL CONTINUE TO MONITOR.
--- NOTE | 2016-07-11 03:00 | NUR ---
RN NOTES: PT IS SLEEPING COMFORTABLY; NOT IN ANY ACUTE DISTRESS; WILL CONTINUE TO MONITOR.
--- NOTE | 2016-07-11 05:20 | NUR ---
RN NOTES: PT IS AWAKE; NOT IN ANY ACUTE DISTRESS; WILL CONTINUE TO MONITOR.
[2016-07-11] MEDS: OMEPRAZOLE 20 MG CAPSULE.DR (PriLOSEC) PO SCH ×2 (06:14→17:38)
[2016-07-11] MEDS: INSULIN REGULAR, HUMAN 100 UNITS/ML, 10 ML VIAL (novoLIN R) SUBCUT PRN ×4 (06:17→21:42)
--- NOTE | 2016-07-11 06:20 | NUR ---
BS: BS 214, R INSULIN 4 UNITS GIVEN ; PT IS COMFORTABLE .
--- NOTE | 2016-07-11 07:20 | NUR ---
CLOSING NOTES: REPORT GIVEN TO RN AT BEDSIDE , PT IS SLEEPING, NOT IN ANY ACUTE DISTRESS; NO SIGNIFICANT CHANGES IN THE CONDITION.
[2016-07-11] MEDS ORDERED: ONDANSETRON 4 MG ODT TAB PO PRN (08:00)
--- NOTE | 2016-07-11 08:00 | NUR ---
initial notes rec patient awake alert and eating breakfast with hob elevated. ivl on the r hand intact. no infiltration noted. ambulates with min assists to the br. noted abd to be distended and will have paracentesis later. no co/ pain. bed in low position and side rails up and locked. call light within reached. willcontinue to monitor patient.
--- NOTE | 2016-07-11 08:00 | NUR ---
initial rounds rec patient awake alert but non verbally responsive. hob elevated, with a trache and no sob noted. noted with non productive cough and suctioned obtaining small amount of thick phlegm. ivl on the l hand. no infiltration noted. bed in low position and side rails up and locked. call light within reached. fall safety precaution observed. Addendum: 07/11/16 at 1557 by Cici Kim RN intended for another patient.
[2016-07-11] MEDS ORDERED: INSULIN GLARGINE 100 UNITS/ML 10 ML VIAL SUBCUT SCH (09:00)
[2016-07-11] MEDS: MEGESTROL ACETATE 400 MG/10 ML UDC PO SCH ×2 (09:28→21:30)
[2016-07-11] MEDS: GABAPENTIN 400 MG CAPSULE PO SCH ×2 (09:28→21:31)
[2016-07-11] MEDS: CLOPIDOGREL BISULFATE 75 MG TABLET PO SCH (09:29)
[2016-07-11] MEDS: LACTULOSE 20 GM/30 ML UDC PO SCH (09:29)
[2016-07-11] MEDS: DULoxetine HCL 30 MG CAPSULE.DR (CYMBALTA) PO SCH (09:29)
[2016-07-11] MEDS: ASPIRIN 81 MG TAB.CHEW PO SCH (09:29)
[2016-07-11] MEDS: traMADol HCL HCL 50 MG TABLET (ULTRAM) PO PRN ×2 (09:32→21:31)
--- NOTE | 2016-07-11 10:00 | NUR ---
rounds due meds given as ordered. sleeps at intervals. no sob noted.
--- NOTE | 2016-07-11 12:00 | NUR ---
rounds seen by dr mtz and examined patient. informed that paracentesis procedure will be done at 1400. denies pain.
--- NOTE | 2016-07-11 14:00 | NUR ---
rounds no hypo hyperglycemic reaction noted. call light within reached.
--- NOTE | 2016-07-11 15:03 | NUR ---
rounds paracentesis was done at bedside and obtaining 350 cc of cloudy looking drainage. dr mtz was called and notified.
[2016-07-11] MEDS: LEVALBUTEROL HCL 0.63 MG/3 ML VIAL.NEB INH PRN (15:54)
--- NOTE | 2016-07-11 18:30 | NUR ---
closing notes ambulating at bedside. no hypo hyperglycemic reaction noted. denies pain.
--- NOTE | 2016-07-11 20:01 | NUR ---
Opening note Patient is alert and oriented X4, report received from day shift RN. No complaints of pain, able to reposition self, currently in supine position. BP 131/78, 96.9, o2 sat 95% r/a, HR 100, RR14 and no labored. frequent visual checks to be made, continue to monitor
--- NOTE | 2016-07-11 22:10 | NUR ---
Rounds Patient is able to reposition self, he is currently in supine position, turned to left. Bed is in low position, call light is within reach. Patient able to make needs known, no complaints of pain and no signs of acute distress at this time. Continue to monitor
[2016-07-12 00:36] VITALS: BP 136/72; PULSE 111; RESP 18; TEMP 97.2; O2SAT 95
--- NOTE | 2016-07-12 00:47 | NUR ---
Pt reports SOB Patient reports shortness of breath. He had removed his nasal canula and it was on ground. New canula given, O2 therapy resumed at 2lpm per MD orders. O2 sat is 99 at this time. Frequent check backs to be made.
[2016-07-12] MEDS: TEMAZEPAM 15 MG CAPSULE PO PRN ×2 (01:04→21:56)
--- NOTE | 2016-07-12 02:07 | NUR ---
Patient refuses bed alarm Patient refuses to allow bed alarm to be activated, but he is consistent in using call light for bathroom needs. He also has a urinal within reach at bedside. call light is within reach, bed is in low position, nasal canula is in use, O2 flow is 2lpm. No signs of acute distress. Patient makes no pain behaviors at this time, he is sleeping, continue to monitor
--- NOTE | 2016-07-12 02:47 | NUR ---
Care endorsed Report given to NOREEN Cote at bedside, patient is sleeping no signs of pain, care endorsed
--- NOTE | 2016-07-12 03:00 | NUR ---
Hourly Rounding patient resting this hour on NC @ 2 LPM HOB elevated respirations regular also unlabored bed to low position , monitor for safety / .
--- NOTE | 2016-07-12 03:26 | NUR ---
Patient is Refusing SCD procedures explained / .
[2016-07-12 03:55] VITALS: BP 134/71; PULSE 89; RESP 18; TEMP 97.2; O2SAT 96
--- NOTE | 2016-07-12 05:15 | NUR ---
Patient resting this hour call reyna with patient , on 02 NC @ 2 LPM respirations regular also unlabored no complaints made / .
[2016-07-12] MEDS: OMEPRAZOLE 20 MG CAPSULE.DR (PriLOSEC) PO SCH ×2 (06:29→16:28)
[2016-07-12] MEDS: INSULIN REGULAR, HUMAN 100 UNITS/ML, 10 ML VIAL (novoLIN R) SUBCUT PRN ×4 (06:33→22:01)
[2016-07-12 07:26] LABS: CALCIUM 8.6 mg/dL (8.4-11.0); CREATININE 0.99 mg/dL (0.55-1.30); POTASSIUM 4.2 mmol/L (3.5-5.1)
[2016-07-12 07:27] LABS: BASOPHILS % (AUTO) 0.5 % (0.0-2.0); EOSINOPHILS # (AUTO) 0.2 K/uL (0.0-0.4); EOSINOPHILS % (AUTO) 4.9 % (0.0-4.0); HEMATOCRIT 25.8 % (36-54); HEMOGLOBIN 8.6 g/dL (14.0-18.0); LYMPHOCYTES # (AUTO) 0.4 K/uL (1.0-5.5); MEAN CORPUSCULAR HEMOGLOBIN 29 pg (27-31); MEAN CORPUSCULAR HGB CONC 33 % (32-36); MEAN CORPUSCULAR VOLUME 87 fL (79.0-98.0); MONOCYTES # (AUTO) 0.7 K/uL (0.0-1.0); MONOCYTES % (AUTO) 14.3 % (1.7-9.3); NEUTROPHILS # (AUTO) 3.3 K/uL (1.8-7.7); NEUTROPHILS % (AUTO) 71.3 % (40.0-70.0); PLATELET COUNT (AUTO) 153 K/uL (130-430); RED BLOOD CELL COUNT(AUTO) 2.98 MIL/uL (4.2-6.2); RED CELL DISTRIBUTION WIDTH 16.4 % (9.0-15.0); WHITE BLOOD COUNT (AUTO) 4.6 K/uL (4.8-10.8)
--- NOTE | 2016-07-12 07:45 | NUR ---
PATIENT SITTING ON CHAIR ALERT AWAKE ORIENTED X 4 NO SIGN OF DISTRESS OR SOB NO PAIN VERBALIZED, MONITORED CANE DEVICE USE PATIENT AMBULATED TO RESTROOM NO COMPLICATIONS, HAD BM AND URINE, IV SITE SLAINE LOCK RIGHT HAND INTACT, STOMACH DISTENDED NONTENDER, CURENTLY SITTING ON CHAIR EATING BREAKFAST, CALL LIGHT WITHIN REACH CHANGED LINENS
--- NOTE | 2016-07-12 08:27 | NUR ---
DOCTOR WAS HERE IN THE HOSPITAL HE WAS NOTIFIED ABOUT THE CONSULTATION
[2016-07-12] MEDS: ASPIRIN 81 MG TAB.CHEW PO SCH (08:32)
[2016-07-12] MEDS: CLOPIDOGREL BISULFATE 75 MG TABLET PO SCH (08:32)
[2016-07-12] MEDS: LACTULOSE 20 GM/30 ML UDC PO SCH (08:32)
[2016-07-12] MEDS: MEGESTROL ACETATE 400 MG/10 ML UDC PO SCH ×2 (08:32→21:56)
[2016-07-12] MEDS: GABAPENTIN 400 MG CAPSULE PO SCH ×2 (08:32→21:56)
[2016-07-12] MEDS: DULoxetine HCL 30 MG CAPSULE.DR (CYMBALTA) PO SCH (08:37)
--- NOTE | 2016-07-12 09:22 | NUR ---
Nutrition Update Lauri Scale 16 noted. Pt admitted for ascites. Diet: [facility] BMI: 33.6 kg/m2 RD to follow per nutrition care standards.
[2016-07-12 09:53] VITALS: BP 132/81; PULSE 100; RESP 18; TEMP 97; O2SAT 96
[2016-07-12 12:00] VITALS: BP 136/93; PULSE 110; RESP 18; TEMP 96.5; O2SAT 97
[2016-07-12] MEDS: MUPIROCIN 2% TOPICAL OINTMENT 22 GM TP SCH ×2 (12:00→21:57)
--- NOTE | 2016-07-12 12:02 | NUR ---
PATIENT SLEEPING IN BED EASILY AROUSABLE, NO COMPLAINT OF PAIN VITALS WNL, NO SOB, BS 226 GAVE 4 UNITS REGULAR INSULIN, CALL FROM LAB PATIENT POSITIVE FOR MRSA NARES ISOLATION PROTOCOL IN PLACE, DR MARROQUIN ORDERED BACTROBIN, PATIENT LYING SUPINE BED IN LOW POSITION CALL LIGHT IN PLACE SIDE RAISL UP
[2016-07-12 16:05] VITALS: BP 137/90; PULSE 118; RESP 18; TEMP 96.8; O2SAT 95
--- NOTE | 2016-07-12 18:10 | NUR ---
PATIENT ALERT AND ORIENTED X 4 UP IN BED EATING DINNER HOB ELEVATED MRSA NARES PRECAUTIONS IN [place], BS 222 GAVE 4 UNITS OF REGULAR INSULIN, NO COMPLAINT OF PAIN NO SOB, ABDOMEN UNCHANGED, BED IN LOW POSITION CALL LIGHT IN APLCE SIDE RAILS UP
--- NOTE | 2016-07-12 20:21 | NUR ---
patient awake alert sitting up in bed , uses cane for ambulation fall measures implemented call reyna with patient / .
[2016-07-12 20:37] VITALS: BP 131/70; PULSE 92; RESP 20; TEMP 97.5; O2SAT 96
--- NOTE | 2016-07-12 22:00 | NUR ---
Bactroban Topical ointment applied to nares as ordered / .
--- NOTE | 2016-07-12 22:52 | NUR ---
Patient on Isolation contact for MRSA & aware ( nares ) .
[2016-07-13 00:45] VITALS: BP 135/78; PULSE 90; RESP 18; TEMP 97.6; O2SAT 98
--- NOTE | 2016-07-13 01:12 | NUR ---
Hourly Rounding patient awake using bedside urinal , fall precautions implemented no Diabetic reactions noted call reyna with patient / .
[2016-07-13] MEDS: traMADol HCL HCL 50 MG TABLET (ULTRAM) PO PRN ×3 (02:12→22:06)
[2016-07-13 04:00] VITALS: BP 140/76; PULSE 86; RESP 17; TEMP 98.4; O2SAT 100
--- NOTE | 2016-07-13 04:34 | NUR ---
Ultram 50 MG PO given for general pain 09/15 & helpful .
[2016-07-13] MEDS: OMEPRAZOLE 20 MG CAPSULE.DR (PriLOSEC) PO SCH ×2 (06:12→16:36)
[2016-07-13] MEDS: INSULIN REGULAR, HUMAN 100 UNITS/ML, 10 ML VIAL (novoLIN R) SUBCUT PRN ×4 (06:15→22:13)
[2016-07-13 07:21] LABS: BASOPHILS % (AUTO) 0.2 % (0.0-2.0); EOSINOPHILS # (AUTO) 0.2 K/uL (0.0-0.4); EOSINOPHILS % (AUTO) 4.5 % (0.0-4.0); HEMATOCRIT 25.6 % (36-54); HEMOGLOBIN 8.6 g/dL (14.0-18.0); LYMPHOCYTES # (AUTO) 0.4 K/uL (1.0-5.5); LYMPHOCYTES % (AUTO) 8.9 % (20.5-51.5); MEAN CORPUSCULAR HEMOGLOBIN 29 pg (27-31); MEAN CORPUSCULAR HGB CONC 34 % (32-36); MEAN CORPUSCULAR VOLUME 87 fL (79.0-98.0); MONOCYTES # (AUTO) 0.8 K/uL (0.0-1.0); MONOCYTES % (AUTO) 15.5 % (1.7-9.3); NEUTROPHILS # (AUTO) 3.5 K/uL (1.8-7.7); NEUTROPHILS % (AUTO) 70.9 % (40.0-70.0); PLATELET COUNT (AUTO) 132 K/uL (130-430); RED BLOOD CELL COUNT(AUTO) 2.95 MIL/uL (4.2-6.2); RED CELL DISTRIBUTION WIDTH 16.4 % (9.0-15.0); WHITE BLOOD COUNT (AUTO) 4.9 K/uL (4.8-10.8)
[2016-07-13 08:06] LABS: ALBUMIN 1.7 g/dL (3.4-4.8); CALCIUM 8.6 mg/dL (8.4-11.0); CREATININE 1.1 mg/dL (0.55-1.30); POTASSIUM 4.4 mmol/L (3.5-5.1); TOTAL BILIRUBIN 0.7 mg/dL (0.0-1.0); TOTAL PROTEIN, SERUM 7.8 g/dL (6.4-8.3)
[2016-07-13] MEDS: MUPIROCIN 2% TOPICAL OINTMENT 22 GM TP SCH ×2 (08:32→22:11)
[2016-07-13] MEDS: MEGESTROL ACETATE 400 MG/10 ML UDC PO SCH ×2 (08:32→22:05)
[2016-07-13] MEDS: ASPIRIN 81 MG TAB.CHEW PO SCH (08:32)
[2016-07-13] MEDS: LACTULOSE 20 GM/30 ML UDC PO SCH (08:32)
[2016-07-13] MEDS: DULoxetine HCL 30 MG CAPSULE.DR (CYMBALTA) PO SCH (08:32)
[2016-07-13] MEDS: GABAPENTIN 400 MG CAPSULE PO SCH ×2 (08:32→22:05)
[2016-07-13] MEDS: CLOPIDOGREL BISULFATE 75 MG TABLET PO SCH (08:32)
[2016-07-13 11:11] VITALS: BP 135/94; PULSE 121; RESP 20; TEMP 97; O2SAT 93
[2016-07-13 14:00] VITALS: BP 108/79; PULSE 116; RESP 20; TEMP 96.5; O2SAT 97
--- NOTE | 2016-07-13 17:53 | NUR ---
0800 PATIENT ALERT ADN ORIENTED NO SIGN OF DISTRESS OR SOB NO PAIN VERBALIZED, DR MORAN ORDERED U/S GUIDED PARACENTESIS CANNOT BE DONE TIL TOMORROW, PATIENT LYING IN BED SUPINE BED IN LOW POSITION CALL LIGHT IN APCLE SIDE RAILS UP
--- NOTE | 2016-07-13 17:54 | NUR ---
PATIENT SLEEPING EASILY AROUSABLE, NO SIGN OF DISTRESS, EATING DINNER ON BEDSIDE TABLE, HOB ELEVATED, BS 285 GAVE 6 UNITS OF REGULAR INSULIN PRESCRIBED, BED IN LOW POSITION CALL LIGHT IN PLACE SIDE RAISL UP, FAMILY MEMBER HAD QUESTION IN REGARDS TO PATIENT GOING TO [facility] FOR LIVER TRANSPLANT ASSESSMENT TOMORROW, DR MORAN INFORM FAMILY MEMBER PATIENT WILL NOT BE GOING TOMORROW
[2016-07-13] MEDS: LEVALBUTEROL HCL 0.63 MG/3 ML VIAL.NEB INH PRN ×2 (19:45→23:16)
[2016-07-13 20:32] VITALS: BP 114/65; PULSE 95; RESP 18; TEMP 97.8; O2SAT 96
--- NOTE | 2016-07-13 20:57 | NUR ---
Patient awake alert family @ the bedside patient alert verbally indicative , skin dry warm assist for position change , call reyna with patient / .
--- NOTE | 2016-07-13 20:58 | NUR ---
Patient for AM procedure U/S Guided Paracentesis and aware , family also here & aware / .
[2016-07-13] MEDS: TEMAZEPAM 15 MG CAPSULE PO PRN (22:05)
[2016-07-14 00:43] VITALS: BP 138/72; PULSE 82; RESP 17; TEMP 98.7; O2SAT 98
--- NOTE | 2016-07-14 02:31 | NUR ---
Hourly Rounding patient resting HOB elevated call reyna with patient using bedside urinal as needed / .
--- NOTE | 2016-07-14 02:33 | NUR ---
Ultram 50 MG po given for general pain 09/15 & helpful .
--- NOTE | 2016-07-14 02:35 | NUR ---
Restoril 15 MG po given for insomnia & helpful / .
[2016-07-14 04:14] VITALS: BP 136/70; PULSE 80; RESP 17; TEMP 97.9; O2SAT 96
--- NOTE | 2016-07-14 05:46 | NUR ---
assist patient out of bed to rest room , ambulates with cane fall measures implemented activity tolerated / .
[2016-07-14] MEDS: OMEPRAZOLE 20 MG CAPSULE.DR (PriLOSEC) PO SCH ×2 (06:53→17:22)
[2016-07-14] MEDS: INSULIN REGULAR, HUMAN 100 UNITS/ML, 10 ML VIAL (novoLIN R) SUBCUT PRN ×4 (06:55→21:32)
[2016-07-14 07:46] VITALS: BP 148/79; PULSE 107; PULSE 79; RESP 19; TEMP 96.9; O2SAT 100; O2SAT 97
--- NOTE | 2016-07-14 07:55 | NUR ---
INITIAL NOTES RECEIVED PATIENT ON BED ASLEEP.BREATHING EVEN AND UNLABORED WITH O2 AT 2L/M VIA NASAL CANNULA.NO ACUTE DISTRESS.IV SALINE LOCK INTACT AND PATENT;NO SIGNS AND SYMPTOMS OF INFILTRATION.SAFETY AND FALL PRECAUTIONS IN PLACE.CALL LIGHT WITHIN REACH
[2016-07-14] MEDS: GABAPENTIN 400 MG CAPSULE PO SCH ×2 (08:33→21:43)
[2016-07-14] MEDS: DULoxetine HCL 30 MG CAPSULE.DR (CYMBALTA) PO SCH (08:33)
[2016-07-14] MEDS: MEGESTROL ACETATE 400 MG/10 ML UDC PO SCH ×2 (08:33→21:35)
[2016-07-14] MEDS: CLOPIDOGREL BISULFATE 75 MG TABLET PO SCH (08:33)
[2016-07-14] MEDS: LACTULOSE 20 GM/30 ML UDC PO SCH (08:33)
[2016-07-14] MEDS: ASPIRIN 81 MG TAB.CHEW PO SCH (08:33)
[2016-07-14] MEDS: MUPIROCIN 2% TOPICAL OINTMENT 22 GM TP SCH ×2 (08:34→21:00)
[2016-07-14] MEDS: traMADol HCL HCL 50 MG TABLET (ULTRAM) PO PRN ×2 (08:37→21:35)
--- NOTE | 2016-07-14 11:20 | NUR ---
NOTES WITH ONGOING PARACENTESIS;TOLERATING PROCEDURE WELL
[2016-07-14 12:00] VITALS: BP 144/95; PULSE 108; RESP 20; TEMP 97; O2SAT 97
--- NOTE | 2016-07-14 12:03 | NUR ---
NOTES PATIENT'S S/P PARACENTESIS SITE BLEEDING;NEW PRESSURE DRESSING APPLIED
[2016-07-14 14:50] VITALS: Ht 165.1 cm; Wt 91.6 kg
--- NOTE | 2016-07-14 14:50 | NUR ---
NOTES PATIENT ON BED ASLEEP;NO ACUTE DISTRESS
[2016-07-14 15:53] LABS: SOURCE/TYPE ,BODY FLUID PARACENTESIS
[2016-07-14 15:54] LABS: APPEARANCE,SPUN,BODY FLUID CLEAR (CLEAR); BF APPEARANCE UNSPUN SLIGHTLY CLOUDY (CLEAR); BODY FLUID COLOR LT YELLOW (LT YELLOW); BODY FLUID SOURCE/ TYPE ASCITES; BODY FLUID TOTAL VOLUME 4400 mL; LYMPHOCYTES, BODY FLUID 12 %; MONOCYTES,BODY FLUID 85 %; NEUTROPHIL, BODY FLUID 3 %
[2016-07-14 16:00] VITALS: BP 150/96; PULSE 89; RESP 20; TEMP 97; O2SAT 97
--- NOTE | 2016-07-14 16:00 | NUR ---
NOTES CHECKED PATIENT;NEEDS ATTENDED TO
[2016-07-14 17:13] LABS: RBC, BODY FLUID 2486 /uL
[2016-07-14 17:14] LABS: BODY FLUID GLUCOSE 277 mg/dL; BODY FLUID TOTAL PROTEIN 0.5 g/dL
--- NOTE | 2016-07-14 18:23 | NUR ---
CLOSING NOTES PATIENT ON BED AWAKE.BREATHING EVEN AND UNLABORED WITH O2 AT 2L/M VIA NASAL CANNULA.IV SALINE LOCK INTACT AND PATENT;NO SIGNS AND SYMPTOMS OF INFILTRATION.SAFETY AND FALL PRECAUTIONS IN PLACE.CALL LIGHT WITHIN REACH.WILL ENDORSE TO NEXT SHIFT ACCORDINGLY
[2016-07-14] MEDS: LEVALBUTEROL HCL 0.63 MG/3 ML VIAL.NEB INH PRN (19:43)
--- NOTE | 2016-07-14 19:50 | NUR ---
initial nursing notes: Patient is awake. Patient has BLE edema +2. Patient has family members at the bedside visiting the patient.
[2016-07-14 20:03] VITALS: BP 152/84; RESP 16; TEMP 97.2; O2SAT 98
--- NOTE | 2016-07-14 21:50 | NUR ---
nursing rounds: Patient is ambulatory to the bathroom using a cane.
--- NOTE | 2016-07-14 23:50 | NUR ---
nursing rounds: Patient is asleep in bed. Patient has no shortness of breath.
[2016-07-15] VITALS: BP 148/84; PULSE 92; RESP 17; TEMP 97.8; O2SAT 98
[2016-07-15] MEDS: LEVALBUTEROL HCL 0.63 MG/3 ML VIAL.NEB INH PRN (00:46)
--- NOTE | 2016-07-15 01:50 | NUR ---
nursing rounds: Patient calmly resting in bed. Patient has no respiratory distress.
--- NOTE | 2016-07-15 03:50 | NUR ---
nursing rounds: Patient ambulates to the bathroom with a cane. No falls and no injuries noted.
[2016-07-15 04:07] VITALS: BP 145/82; PULSE 90; RESP 18; TEMP 97.9; O2SAT 98
--- NOTE | 2016-07-15 05:50 | NUR ---
nursing rounds: Patient is asleep in bed.
[2016-07-15] MEDS: OMEPRAZOLE 20 MG CAPSULE.DR (PriLOSEC) PO SCH (06:39)
[2016-07-15] MEDS: INSULIN REGULAR, HUMAN 100 UNITS/ML, 10 ML VIAL (novoLIN R) SUBCUT PRN ×2 (06:41→11:05)
--- NOTE | 2016-07-15 07:41 | NUR ---
INITIAL NOTES RECEIVED PATIENT ON BED ASLEEP.BREATHING EVEN AND UNLABORED.NO ACUTE DISTRESS.IV SALINE LOCK INTACT AND PATENT;NO SIGNS AND SYMPTOMS OF INFILTRATION.SAFETY AND FALL PRECAUTIONS IN PLACE.CALL LIGHT WITHIN REACH
[2016-07-15 07:43] VITALS: BP 136/84; PULSE 113; RESP 20; TEMP 96.9; O2SAT 94
[2016-07-15 07:47] LABS: BASOPHILS % (AUTO) 0.5 % (0.0-2.0); EOSINOPHILS # (AUTO) 0.2 K/uL (0.0-0.4); EOSINOPHILS % (AUTO) 3.5 % (0.0-4.0); HEMATOCRIT 26.4 % (36-54); HEMOGLOBIN 8.7 g/dL (14.0-18.0); LYMPHOCYTES # (AUTO) 0.4 K/uL (1.0-5.5); LYMPHOCYTES % (AUTO) 7.9 % (20.5-51.5); MEAN CORPUSCULAR HEMOGLOBIN 29 pg (27-31); MEAN CORPUSCULAR HGB CONC 33 % (32-36); MEAN CORPUSCULAR VOLUME 87 fL (79.0-98.0); MONOCYTES # (AUTO) 0.8 K/uL (0.0-1.0); NEUTROPHILS % (AUTO) 74.1 % (40.0-70.0); PLATELET COUNT (AUTO) 129 K/uL (130-430); RED BLOOD CELL COUNT(AUTO) 3.02 MIL/uL (4.2-6.2); RED CELL DISTRIBUTION WIDTH 16.9 % (9.0-15.0); WHITE BLOOD COUNT (AUTO) 5.4 K/uL (4.8-10.8)
[2016-07-15 07:53] LABS: CALCIUM 8.6 mg/dL (8.4-11.0); CREATININE 1.07 mg/dL (0.55-1.30); POTASSIUM 4.4 mmol/L (3.5-5.1)
--- NOTE | 2016-07-15 09:06 | NUR ---
closing nursing notes: Patient is awake, alert and oriented X 4. Patient denies of having pain. Patient is in no acute respiratory distress. Saline lock intact, no bleeding and no infiltration noted. No episodes of fall and no injuries throughout the maintenance mechanic 2nd shift. Provided nursing report to incoming morning shift nurse, NOREEN Carlos, at patient's bedside.
[2016-07-15] MEDS: GABAPENTIN 400 MG CAPSULE PO SCH (09:30)
[2016-07-15] MEDS: MEGESTROL ACETATE 400 MG/10 ML UDC PO SCH (09:30)
[2016-07-15] MEDS: CLOPIDOGREL BISULFATE 75 MG TABLET PO SCH (09:30)
[2016-07-15] MEDS: DULoxetine HCL 30 MG CAPSULE.DR (CYMBALTA) PO SCH (09:30)
[2016-07-15] MEDS: ASPIRIN 81 MG TAB.CHEW PO SCH (09:30)
[2016-07-15] MEDS: LACTULOSE 20 GM/30 ML UDC PO SCH (09:31)
[2016-07-15] MEDS: MUPIROCIN 2% TOPICAL OINTMENT 22 GM TP SCH (09:32)
[2016-07-15] MEDS: traMADol HCL HCL 50 MG TABLET (ULTRAM) PO PRN (09:39)
[2016-07-15 11:02] LABS: WBC, BODY FLUID 40 /uL
[2016-07-15 11:32] VITALS: BP 126/76; PULSE 110; RESP 19; TEMP 97; O2SAT 93
--- NOTE | 2016-07-15 12:59 | NUR ---
NOTES CAME AND EXAMINED THE PATIENT;WITH ORDER FOR DISCHARGE AND CARRIED OUT
--- NOTE | 2016-07-15 13:36 | NUR ---
DISCHARGE PLANNING DC order back to [facility]. Faxed SNF referral to [facility] . Will follow up. Addendum: 07/15/16 at 1456 by Yuridia Jacobson DP Spoke with Yobany in admitting at [facility] patient assigned to room 12B RN to report , bed available anytime. NOREEN Carlos made aware. Called [facility] spoke with Manual arranged BLS transport brain picker 4:30pm. Placed transportation packet in nurses station. JAGDEEP Mon notifying family.
[2016-07-15 15:11] VITALS: BP 126/76; PULSE 110; RESP 19; TEMP 97; O2SAT 94
--- NOTE | 2016-07-15 15:20 | NUR ---
NOTES CALLED PATIENT'S DAUGHTER;SPOKE WITH TONIA;INFORMED REGARDING PATIENT'S TRANSFER TO [facility] TODAY AT 1630 SAID OK
[2016-07-15 15:23] VITALS: BP 132/87; PULSE 106; RESP 19; TEMP 97; O2SAT 98
--- NOTE | 2016-07-15 15:50 | NUR ---
NOTES CALLED [facility];SPOKE WITH ROXANN);REPORT GIVEN
--- NOTE | 2016-07-15 16:13 | NUR ---
NOTES CHECKED PATIENT;NEEDS ATTENDED TO
--- NOTE | 2016-07-15 17:30 | NUR ---
NOTES SERVED DINNER;ABLE TO EAT WELL
--- NOTE | 2016-07-15 17:51 | NUR ---
PT TRANSFERRED Report given to MARY fisher . Transfer packet with Transfer Orders and Medication Reconciliation form given to EMT with report. Exitcare provided. [facility] ID band removed, replaced with ID band with pt's name and . IV catheter removed, intact and dressing applied, no active bleeding. All belongings sent with patient. Patient left floor via gurney escorted by EMT in no distress.
== END 2016-07-15 17:51 | DRG 441 ==
LOC: SED 18:34 → SMU 20:56
PROVIDERS: ADMIT Family Medicine; ATTEND Family Medicine
PROC: 0W9G3ZX Drainage of Peritoneal Cavity, Percutaneous Approach, Diagnostic (ICD-10-PCS; principal; 2016-07-11)
PROC: BW40ZZZ Ultrasonography of Abdomen (ICD-10-PCS; 2016-07-11)
DX: K72.90 Hepatic failure, unspecified without coma (principal); E43 Unspecified severe protein-calorie malnutrition; R18.8 Other ascites; E11.9 Type 2 diabetes mellitus without complications; K74.60 Unspecified cirrhosis of liver; I10 Essential (primary) hypertension; D63.8 Anemia in other chronic diseases classified elsewhere; Z68.33 Body mass index [BMI] 33.0-33.9, adult; Z79.82 Long term (current) use of aspirin; Z79.899 Other long term (current) drug therapy; Z85.05 Personal history of malignant neoplasm of liver
CPT/HCPCS: 36415; 49083; 71010; 80048; 80053; 81003; 82140-TC; 82947-TC; 82962; 84157-TC; 85025; 85610-TC; 85730-TC; 87070-TC; 87081; 88108; 88305; 89051-TC; 89060-TC; 93005; 94640; 94760; 96374; 97116-GP; 99285; C1729; J1815; J2270; Q0162

== ENCOUNTER 2016-07-21 14:35 | Inpatient (IN) | payer OTHER, MEDICAID ==
[~2016-07-21] VITALS: Ht 165.1 cm; Wt 86.2 kg
[2016-07-21 14:35] VITALS: BP 150/83; PULSE 110; RESP 20; TEMP 97.7; O2SAT 96
[~2016-07-21 14:35] MED LIST changes: +MEGE400O PO; +ONDA4TAB5 PO
[2016-07-21 16:32] LABS: ABG TOTAL HEMOGLOBIN 9.3 G/dL (12.0-18.0); BLOOD GAS BASE EXCESS 1.9 mmol/L (-3.0-3.0); BLOOD GAS HHB 7.7 % (0.0-6.0); BLOOD GAS PH 7.441 (7.350-7.450); BLOOD O2Hb% 90.7 % (94.0-97.0)
[2016-07-21 16:42] LABS: BASOPHILS # (AUTO) 0.1 K/uL (0.0-0.2); BASOPHILS % (AUTO) 2.3 % (0.0-2.0); EOSINOPHILS # (AUTO) 0.1 K/uL (0.0-0.4); EOSINOPHILS % (AUTO) 2.4 % (0.0-4.0); HEMATOCRIT 27.6 % (36-54); HEMOGLOBIN 9.1 g/dL (14.0-18.0); LYMPHOCYTES # (AUTO) 0.4 K/uL (1.0-5.5); LYMPHOCYTES % (AUTO) 7.8 % (20.5-51.5); MEAN CORPUSCULAR HEMOGLOBIN 29 pg (27-31); MEAN CORPUSCULAR HGB CONC 33 % (32-36); MEAN CORPUSCULAR VOLUME 88 fL (79.0-98.0); MONOCYTES # (AUTO) 0.6 K/uL (0.0-1.0); MONOCYTES % (AUTO) 12.3 % (1.7-9.3); NEUTROPHILS # (AUTO) 3.5 K/uL (1.8-7.7); NEUTROPHILS % (AUTO) 75.2 % (40.0-70.0); PLATELET COUNT (AUTO) 125 K/uL (130-430); RED BLOOD CELL COUNT(AUTO) 3.13 MIL/uL (4.2-6.2); RED CELL DISTRIBUTION WIDTH 17.3 % (9.0-15.0); WHITE BLOOD COUNT (AUTO) 4.7 K/uL (4.8-10.8)
[2016-07-21] MEDS ORDERED: FUROSEMIDE 100 MG/10 ML VIAL IVP ONE (16:45)
[2016-07-21 17:04] LABS: INR 1.1 (0.80-1.20); PROTHROMBIN TIME 12.1 SECS (9.5-12.5)
[2016-07-21 17:08] LABS: CALCIUM 8.9 mg/dL (8.4-11.0); CREATININE 1.06 mg/dL (0.55-1.30); POTASSIUM 4.2 mmol/L (3.5-5.1)
[2016-07-21 17:13] LABS: ALBUMIN 1.9 g/dL (3.4-4.8); TOTAL BILIRUBIN 0.6 mg/dL (0.0-1.0); TOTAL PROTEIN, SERUM 8.3 g/dL (6.4-8.3)
[2016-07-21] MEDS ORDERED: traMADol HCL HCL 50 MG TABLET (ULTRAM) PO ONE (17:45)
[2016-07-21] MEDS ORDERED: LEVALBUTEROL HCL 0.63 MG/3 ML VIAL.NEB INH PRN (19:45)
[2016-07-21 19:50] VITALS: BP 134/76; PULSE 117; RESP 20; TEMP 96.8; O2SAT 96
[2016-07-21 21:25] VITALS: BP 139/81; PULSE 112
[2016-07-21 21:35] VITALS: BP 134/76; PULSE 117; RESP 20; TEMP 96.8; O2SAT 96
[2016-07-21] MEDS: GABAPENTIN 400 MG CAPSULE PO SCH (22:23)
[2016-07-21] MEDS: OMEPRAZOLE 20 MG CAPSULE.DR (PriLOSEC) PO SCH (22:23)
[2016-07-21] MEDS: MEGESTROL ACETATE 400 MG/10 ML UDC PO SCH (22:23)
[2016-07-21] MEDS: traMADol HCL HCL 50 MG TABLET (ULTRAM) PO PRN (22:24)
[2016-07-21] MEDS: INSULIN REGULAR, HUMAN 100 UNITS/ML, 10 ML VIAL (novoLIN R) SUBCUT PRN (22:25)
[2016-07-22] VITALS (17 sets, daily range): BP systolic 105–139; BP diastolic 56–86; PULSE 105–123; RESP 14–24; TEMP 97–98.1; O2SAT 96–99
[2016-07-22] MEDS: LEVALBUTEROL HCL 0.63 MG/3 ML VIAL.NEB INH SCH ×3 (00:57→16:36)
[2016-07-22] MEDS: INSULIN REGULAR, HUMAN 100 UNITS/ML, 10 ML VIAL (novoLIN R) SUBCUT PRN ×2 (05:52→12:31)
[2016-07-22] MEDS ORDERED: INSULIN GLARGINE 100 UNITS/ML 10 ML VIAL SUBCUT SCH (09:00)
[2016-07-22] MEDS: MEGESTROL ACETATE 400 MG/10 ML UDC PO SCH (09:12)
[2016-07-22] MEDS: DULoxetine HCL 30 MG CAPSULE.DR (CYMBALTA) PO SCH (09:12)
[2016-07-22] MEDS: GABAPENTIN 400 MG CAPSULE PO SCH ×2 (09:12→21:39)
[2016-07-22] MEDS: OMEPRAZOLE 20 MG CAPSULE.DR (PriLOSEC) PO SCH ×2 (09:12→21:00)
[2016-07-22] MEDS: LACTULOSE 20 GM/30 ML UDC PO SCH (09:12)
[2016-07-22] MEDS: ASPIRIN 81 MG TAB.CHEW PO SCH (09:12)
[2016-07-22] MEDS: CLOPIDOGREL BISULFATE 75 MG TABLET PO SCH (09:12)
[2016-07-22] MEDS: traMADol HCL HCL 50 MG TABLET (ULTRAM) PO PRN (12:36)
[2016-07-22] MEDS: ONDANSETRON 4 MG ODT TAB PO PRN (13:24)
[2016-07-22] MEDS ORDERED: ONDANSETRON HCL 4 MG/2 ML VIAL IVP PRN (13:30)
[2016-07-22] MEDS ORDERED: NITROGLYCERIN 0.4 MG TAB.SUBL SL PRN (13:30)
[2016-07-22] MEDS ORDERED: ONDANSETRON HCL 4 MG/2 ML VIAL IVP ONE (13:30)
[2016-07-22] MEDS ORDERED: NITROGLYCERIN 0.4 MG TAB.SUBL SL ONE (13:36)
[2016-07-22] MEDS: NITROGLYCERIN 0.4 MG/HR PATCH.TD24 TD SCH (13:45)
[2016-07-22 14:05] LABS: CALCIUM 8.8 mg/dL (8.4-11.0); POTASSIUM 4.1 mmol/L (3.5-5.1)
[2016-07-22 14:06] LABS: CREATININE 1.13 mg/dL (0.55-1.30)
[2016-07-22 14:14] LABS: ALBUMIN 1.8 g/dL (3.4-4.8); TOTAL BILIRUBIN 0.7 mg/dL (0.0-1.0)
[2016-07-22] MEDS ORDERED: NITROGLYCERIN 0.4 MG/HR PATCH.TD24 TD ONE (17:00)
[2016-07-22] MEDS: FAMOTIDINE 20 MG TABLET PO SCH (21:40)
[2016-07-23] VITALS (24 sets, daily range): BP systolic 93–140; BP diastolic 39–96; PULSE 78–115; RESP 14–22; TEMP 97.9–98.6; O2SAT 94–100; Ht 165.1 cm; Wt 86.2 kg
[2016-07-23] MEDS: LEVALBUTEROL HCL 0.63 MG/3 ML VIAL.NEB INH SCH ×5 (00:22→19:51)
[2016-07-23 07:14] LABS: ANION GAP 5 (5-15); CALCIUM 8.6 mg/dL (8.4-11.0); CHLORIDE 101 mmol/L (98-107); CREATININE 1.14 mg/dL (0.55-1.30); GLUCOSE 125 mg/dL (70-99); POTASSIUM 4.2 mmol/L (3.5-5.1); SODIUM SERUM 135 mmol/L (136-145); UREA NITROGEN, BLOOD 32 mg/dL (8-21)
[2016-07-23 07:23] LABS: ALANINE AMINOTRANSFERASE 24 U/L (12-78); ALBUMIN 1.7 g/dL (3.4-4.8); ASPARTATE AMINOTRANSFERASE 24 U/L (10-37); TOTAL BILIRUBIN 0.6 mg/dL (0.0-1.0); TOTAL PROTEIN, SERUM 7.5 g/dL (6.4-8.3)
[2016-07-23 08:02] LABS: GFR AFRICAN AMERICAN 83 mL/min (>90)
[2016-07-23] MEDS: GABAPENTIN 400 MG CAPSULE PO SCH ×2 (09:10→20:46)
[2016-07-23] MEDS: CLOPIDOGREL BISULFATE 75 MG TABLET PO SCH (09:10)
[2016-07-23] MEDS: ASPIRIN 81 MG TAB.CHEW PO SCH (09:10)
[2016-07-23] MEDS: DULoxetine HCL 30 MG CAPSULE.DR (CYMBALTA) PO SCH (09:10)
[2016-07-23] MEDS: LACTULOSE 20 GM/30 ML UDC PO SCH (09:10)
[2016-07-23] MEDS: NITROGLYCERIN 0.4 MG/HR PATCH.TD24 TD SCH (09:11)
[2016-07-23] MEDS ORDERED: SPIRONOLACTONE 25 MG TABLET (ALDACTONE) PO ONE (10:00)
[2016-07-23] MEDS: traMADol HCL HCL 50 MG TABLET (ULTRAM) PO PRN (10:06)
[2016-07-23] MEDS ORDERED: FUROSEMIDE 40 MG/4 ML VIAL IVP ONE (10:15)
[2016-07-23] MEDS ORDERED: PROPRANOLOL HCL 10 MG TABLET (INDERAL) PO ONE (10:15)
[2016-07-23] MEDS: OMEPRAZOLE 20 MG CAPSULE.DR (PriLOSEC) PO SCH ×2 (11:12→20:46)
[2016-07-23] MEDS: FAMOTIDINE 20 MG TABLET PO SCH ×2 (11:12→20:47)
[2016-07-23] MEDS: INSULIN REGULAR, HUMAN 100 UNITS/ML, 10 ML VIAL (novoLIN R) SUBCUT PRN (13:36)
[2016-07-23] MEDS: MUPIROCIN 2% TOPICAL OINTMENT 22 GM TP SCH ×2 (13:41→20:47)
[2016-07-23] MEDS: PROPRANOLOL HCL 10 MG TABLET (INDERAL) PO SCH (20:48)
[2016-07-24] VITALS (20 sets, daily range): BP systolic 95–129; BP diastolic 55–77; PULSE 70–83; RESP 13–19; TEMP 95.7–98.5; O2SAT 95–100
[2016-07-24] MEDS: traMADol HCL HCL 50 MG TABLET (ULTRAM) PO PRN ×3 (00:14→23:13)
[2016-07-24] MEDS: LEVALBUTEROL HCL 0.63 MG/3 ML VIAL.NEB INH SCH ×4 (01:49→19:00)
[2016-07-24 06:48] LABS: BASOPHILS % (AUTO) 0.4 % (0.0-2.0); EOSINOPHILS # (AUTO) 0.1 K/uL (0.0-0.4); EOSINOPHILS % (AUTO) 3.5 % (0.0-4.0); HEMOGLOBIN 8.6 g/dL (14.0-18.0); LYMPHOCYTES # (AUTO) 0.5 K/uL (1.0-5.5); LYMPHOCYTES % (AUTO) 11.3 % (20.5-51.5); MEAN CORPUSCULAR HEMOGLOBIN 29 pg (27-31); MEAN CORPUSCULAR HGB CONC 33 % (32-36); MEAN CORPUSCULAR VOLUME 89 fL (79.0-98.0); MONOCYTES # (AUTO) 0.5 K/uL (0.0-1.0); MONOCYTES % (AUTO) 12.4 % (1.7-9.3); NEUTROPHILS % (AUTO) 72.4 % (40.0-70.0); PLATELET COUNT (AUTO) 125 K/uL (130-430); RED BLOOD CELL COUNT(AUTO) 2.94 MIL/uL (4.2-6.2); RED CELL DISTRIBUTION WIDTH 17.6 % (9.0-15.0); WHITE BLOOD COUNT (AUTO) 4.1 K/uL (4.8-10.8)
[2016-07-24 06:51] LABS: ALBUMIN 1.6 g/dL (3.4-4.8); CALCIUM 8.4 mg/dL (8.4-11.0); CREATININE 1.17 mg/dL (0.55-1.30); POTASSIUM 4.5 mmol/L (3.5-5.1); TOTAL BILIRUBIN 0.5 mg/dL (0.0-1.0); TOTAL PROTEIN, SERUM 7.4 g/dL (6.4-8.3)
[2016-07-24] MEDS: FUROSEMIDE 40 MG/4 ML VIAL IVP SCH (08:56)
[2016-07-24] MEDS: SPIRONOLACTONE 25 MG TABLET (ALDACTONE) PO SCH (08:56)
[2016-07-24] MEDS: GABAPENTIN 400 MG CAPSULE PO SCH ×2 (08:57→21:38)
[2016-07-24] MEDS: ASPIRIN 81 MG TAB.CHEW PO SCH (08:57)
[2016-07-24] MEDS: OMEPRAZOLE 20 MG CAPSULE.DR (PriLOSEC) PO SCH ×2 (08:57→21:38)
[2016-07-24] MEDS: CLOPIDOGREL BISULFATE 75 MG TABLET PO SCH (08:57)
[2016-07-24] MEDS: LACTULOSE 20 GM/30 ML UDC PO SCH (08:58)
[2016-07-24] MEDS: PROPRANOLOL HCL 10 MG TABLET (INDERAL) PO SCH ×2 (08:58→23:20)
[2016-07-24] MEDS: DULoxetine HCL 30 MG CAPSULE.DR (CYMBALTA) PO SCH (08:58)
[2016-07-24] MEDS: FAMOTIDINE 20 MG TABLET PO SCH ×2 (08:58→21:38)
[2016-07-24] MEDS: NITROGLYCERIN 0.4 MG/HR PATCH.TD24 TD SCH (09:01)
[2016-07-24] MEDS: MUPIROCIN 2% TOPICAL OINTMENT 22 GM TP SCH ×2 (09:01→21:40)
[2016-07-24] MEDS: INSULIN REGULAR, HUMAN 100 UNITS/ML, 10 ML VIAL (novoLIN R) SUBCUT PRN (12:35)
[2016-07-24] MEDS: ONDANSETRON 4 MG ODT TAB PO PRN (15:48)
[2016-07-25 00:02] VITALS: BP 102/59; PULSE 82; RESP 18; TEMP 97; O2SAT 96
[2016-07-25] MEDS: LEVALBUTEROL HCL 0.63 MG/3 ML VIAL.NEB INH SCH ×3 (01:00→13:43)
[2016-07-25 04:13] VITALS: BP 105/68; PULSE 88; RESP 18; TEMP 97.2; O2SAT 93
[2016-07-25 07:21] LABS: BASOPHILS % (AUTO) 0.2 % (0.0-2.0); EOSINOPHILS # (AUTO) 0.1 K/uL (0.0-0.4); EOSINOPHILS % (AUTO) 3.1 % (0.0-4.0); HEMATOCRIT 25.6 % (36-54); HEMOGLOBIN 8.5 g/dL (14.0-18.0); LYMPHOCYTES # (AUTO) 0.5 K/uL (1.0-5.5); LYMPHOCYTES % (AUTO) 11.1 % (20.5-51.5); MEAN CORPUSCULAR HEMOGLOBIN 29 pg (27-31); MEAN CORPUSCULAR HGB CONC 33 % (32-36); MEAN CORPUSCULAR VOLUME 88 fL (79.0-98.0); MONOCYTES # (AUTO) 0.7 K/uL (0.0-1.0); MONOCYTES % (AUTO) 15.2 % (1.7-9.3); NEUTROPHILS # (AUTO) 3.3 K/uL (1.8-7.7); NEUTROPHILS % (AUTO) 70.4 % (40.0-70.0); PLATELET COUNT (AUTO) 138 K/uL (130-430); RED CELL DISTRIBUTION WIDTH 16.5 % (9.0-15.0); WHITE BLOOD COUNT (AUTO) 4.6 K/uL (4.8-10.8)
[2016-07-25 07:34] LABS: CALCIUM 8.5 mg/dL (8.4-11.0); CREATININE 1.37 mg/dL (0.55-1.30)
[2016-07-25] MEDS: LACTULOSE 20 GM/30 ML UDC PO SCH (10:08)
[2016-07-25] MEDS: PROPRANOLOL HCL 10 MG TABLET (INDERAL) PO SCH (10:10)
[2016-07-25] MEDS: OMEPRAZOLE 20 MG CAPSULE.DR (PriLOSEC) PO SCH (10:10)
[2016-07-25] MEDS: SPIRONOLACTONE 25 MG TABLET (ALDACTONE) PO SCH (10:11)
[2016-07-25] MEDS: CLOPIDOGREL BISULFATE 75 MG TABLET PO SCH (10:11)
[2016-07-25] MEDS: GABAPENTIN 400 MG CAPSULE PO SCH (10:12)
[2016-07-25] MEDS: FAMOTIDINE 20 MG TABLET PO SCH (10:12)
[2016-07-25] MEDS: DULoxetine HCL 30 MG CAPSULE.DR (CYMBALTA) PO SCH (10:13)
[2016-07-25] MEDS: ASPIRIN 81 MG TAB.CHEW PO SCH (10:13)
[2016-07-25] MEDS: FUROSEMIDE 40 MG/4 ML VIAL IVP SCH (10:13)
[2016-07-25] MEDS: NITROGLYCERIN 0.4 MG/HR PATCH.TD24 TD SCH (10:14)
[2016-07-25 10:17] VITALS: BP 100/55; TEMP 96.9
[2016-07-25] MEDS: traMADol HCL HCL 50 MG TABLET (ULTRAM) PO PRN (10:38)
[2016-07-25] MEDS: MUPIROCIN 2% TOPICAL OINTMENT 22 GM TP SCH (10:39)
[2016-07-25 12:28] VITALS: BP 109/67; PULSE 85; RESP 16; TEMP 97; O2SAT 95
[2016-07-25 16:00] VITALS: BP 109/64; PULSE 90; RESP 17; TEMP 96.9; O2SAT 96
[2016-07-25] MEDS ORDERED: SUCRALFATE 1 GM/10 ML UDC GT SCH (17:00)
[2016-07-25] MEDS: INSULIN REGULAR, HUMAN 100 UNITS/ML, 10 ML VIAL (novoLIN R) SUBCUT PRN (17:55)
[2016-07-25 23:15] VITALS: BP 102/49; PULSE 95; RESP 17; TEMP 97.1; O2SAT 99
== END 2016-07-25 23:30 | disposition short-term general hospital (02) | DRG 432 ==
LOC: SED 14:35 → STU 18:30 → SIC 07-22 13:40 → SMU 07-24 18:29
PROVIDERS: ADMIT Family Medicine; ATTEND Family Medicine
PROC: 0W993ZZ Drainage of Right Pleural Cavity, Percutaneous Approach (ICD-10-PCS; principal; 2016-07-22)
DX: K74.60 Unspecified cirrhosis of liver (principal); E43 Unspecified severe protein-calorie malnutrition; J90 Pleural effusion, not elsewhere classified; R18.8 Other ascites; E11.9 Type 2 diabetes mellitus without complications; D64.9 Anemia, unspecified; I25.10 Atherosclerotic heart disease of native coronary artery without angina pectoris; Z85.05 Personal history of malignant neoplasm of liver; Z95.5 Presence of coronary angioplasty implant and graft; Z85.858 Personal history of malignant neoplasm of other endocrine glands; Z68.31 Body mass index [BMI] 31.0-31.9, adult
CPT/HCPCS: 32555; 36415; 36600; 49083; 71010; 80048; 80053; 82140-TC; 82550-TC; 82803-TC; 82962; 83735-TC; 83880; 84100-TC; 84484; 85025; 85610-TC; 85730-TC; 87081; 93005; 93306; 94640; 94760; 96374; 99285; C1729; J1815; J1940; J2405; Q0162

== ENCOUNTER 2016-08-07 13:47 | Inpatient (IN) | payer OTHER, MEDICAID ==
[~2016-08-07] VITALS: Ht 165.1 cm; Wt 84.4 kg
[2016-08-07 14:10] VITALS: BP 131/92; PULSE 122; RESP 26; TEMP 97.8; O2SAT 98
--- NOTE | 2016-08-07 14:16 | NUR ---
Placed in room 03. Placed on cardiac/vascular sonographer, blood pressure machine and pulse oximeter. To gown for exam. Side rails up.
[2016-08-07] MEDS ORDERED: PIPERACILLIN/TAZO 3.38 GM in NS 50 ML IV ONE (14:30)
--- NOTE | 2016-08-07 14:36 | NUR ---
Zosyn infusing to rt wrist with no s/s of infiltration at this time.
--- NOTE | 2016-08-07 14:41 | NUR ---
BIb family for n/v x3 days and abd pain.
[2016-08-07] MEDS ORDERED: MORPHINE 4 MG/ML INJ. SYRINGE IVP ONE (14:45)
[2016-08-07] MEDS ORDERED: ONDANSETRON HCL 4 MG/2 ML VIAL IVP ONE (14:45)
[2016-08-07 14:46] LABS: BASOPHILS % (AUTO) 0.8 % (0.0-2.0); EOSINOPHILS # (AUTO) 0.1 K/uL (0.0-0.4); EOSINOPHILS % (AUTO) 1.6 % (0.0-4.0); HEMATOCRIT 25.6 % (36-54); HEMOGLOBIN 8.6 g/dL (14.0-18.0); LYMPHOCYTES # (AUTO) 0.4 K/uL (1.0-5.5); LYMPHOCYTES % (AUTO) 8.2 % (20.5-51.5); MEAN CORPUSCULAR HEMOGLOBIN 29 pg (27-31); MEAN CORPUSCULAR HGB CONC 34 % (32-36); MEAN CORPUSCULAR VOLUME 87 fL (79.0-98.0); MONOCYTES # (AUTO) 0.5 K/uL (0.0-1.0); MONOCYTES % (AUTO) 10.6 % (1.7-9.3); NEUTROPHILS # (AUTO) 3.8 K/uL (1.8-7.7); NEUTROPHILS % (AUTO) 78.8 % (40.0-70.0); PLATELET COUNT (AUTO) 122 K/uL (130-430); RED BLOOD CELL COUNT(AUTO) 2.94 MIL/uL (4.2-6.2); RED CELL DISTRIBUTION WIDTH 17.4 % (9.0-15.0); WHITE BLOOD COUNT (AUTO) 4.8 K/uL (4.8-10.8)
--- NOTE | 2016-08-07 14:49 | NUR ---
ER MD Mendoza at bedside evaluating the patient
[2016-08-07 15:02] LABS: CALCIUM 8.4 mg/dL (8.4-11.0); CREATININE 1.44 mg/dL (0.55-1.30); POTASSIUM 4.3 mmol/L (3.5-5.1)
[2016-08-07 15:05] LABS: INR 1.2 (0.80-1.20); PROTHROMBIN TIME 12.8 SECS (9.5-12.5)
[2016-08-07 15:06] LABS: TOTAL BILIRUBIN 0.5 mg/dL (0.0-1.0); TOTAL PROTEIN, SERUM 7.9 g/dL (6.4-8.3)
[2016-08-07 15:34] LABS: BILIRUBIN,URINE 1+ (NEGATIVE); BLOOD, URINE NEGATIVE (NEGATIVE); CLARITY/URINE CLEAR (CLEAR); COLOR,URINE YELLOW (YELLOW); GLUCOSE,URINE NEGATIVE (NEGATIVE); KETONES,URINE TRACE (NEGATIVE); LEUKOCYTE ESTERASE ,URINE NEGATIVE (NEGATIVE); NITRITE, URINE NEGATIVE (NEGATIVE); PH,URINE 5.5 (5.0-8.0); PROTEIN URINE NEGATIVE (NEGATIVE); UROBILINOGEN,URINE 0.2 (0.2-1.0)
--- NOTE | 2016-08-07 15:42 | NUR ---
Medication reconciliation - family states "no changes since last admission"
[2016-08-07] MEDS ORDERED: FUROSEMIDE 40 MG/4 ML VIAL IVP ONE (16:30)
--- NOTE | 2016-08-07 16:56 | NUR ---
Patient will be admitted to care of DR MARROQUIN. Admitted to TELE unit. Will go to room 135. Belongings list completed. Summary report printed. Report given to NOREEN.
--- NOTE | 2016-08-07 17:07 | NUR ---
Transfer to TELE 102A via ACLS protocol. Licensed nurse present. IV present no signs or symptoms of infiltration.
--- NOTE | 2016-08-07 17:17 | NUR ---
ADMIT NOTE Received pt from ER to the floor with a diagnosis of intractable n/v, pleural effusion. Admission process initiated. patient oriented to pain management, safety and call light-teach back done.
[2016-08-07] MEDS ORDERED: LevALBUTEROL HCL 1.25 MG/0.5 ML *CONC.* VIAL.NEB (XOPENEX CONC.) INH PRN (17:30)
--- NOTE | 2016-08-07 17:30 | NUR ---
initial notes rec patient form er from home. c/o of nausea /vomiting for 3 days . awake alert oriented with hob elevated. accompanied by 2 daughters, ivl on the r forearm intact. no infiltration noted. no nausea and vomiting at this time or c/o pain. made patient comfortable. bed in low position and side rails up and locked. call light within reached and knows when to call for assistance. wii continue to monitor patient.
[2016-08-07 17:36] VITALS: BP 135/79; PULSE 105; RESP 18; TEMP 96.8; O2SAT 99
--- NOTE | 2016-08-07 17:44 | NUR ---
CALLED PULMONOLOGY CONSULT TO DR WILBERT PEREZ QUALITY IMPROVEMENT ANALYST RE: PLEURAL EFFUSION. SPOKE TO AILEEN
[2016-08-07] MEDS ORDERED: PANTOPRAZOLE SODIUM 40 MG/VIAL (PROTONIX) IVP ONE (18:00)
[2016-08-07] MEDS: KCL 20 mEq in 0.45% NS 1000 mL 1,000 ML IV SCH (18:03)
[2016-08-07] MEDS: MORPHINE 2 MG/ML INJ. SYRINGE IVP PRN (18:38)
--- NOTE | 2016-08-07 19:00 | NUR ---
closing notes pt is comfortable at this time. no acute distress. with o2 at 2 liters via nasal cannula. no nausea vomiting noted. bed in low position, side rails up and locked. will endorsed to night nurse.
--- NOTE | 2016-08-07 19:26 | NUR ---
paged for Dr Hua, dialed pager #: .
[2016-08-07 19:30] VITALS: BP 117/73; PULSE 101; RESP 18; TEMP 97.9
--- NOTE | 2016-08-07 19:30 | NUR ---
INITIAL NOTE Patient resting on the bed. Denied of pain. AO x 4. Respiration even and unlabored. No acute distress. On O2 2L/min via NC, O2 sat 98%. Skin warm and dry to touch. IV intact to MELINA, no redness, no swelling, no drainage. On 1/2NS with 20mEqKCl at 75ml/hr, infusing well. Discussed the safety issue, use call light when need help, and plan of care, verbally understanding. Per morning shift nurse-NOREEN Salgado patient requested sleeping pill, will follow up with Dr. Hua. Safety measure maintained. Call light within reached. Bed in low position, side rails up, bed alarm on. Will continue to monitor.
[2016-08-07] MEDS: LevALBUTEROL HCL 1.25 MG/0.5 ML *CONC.* VIAL.NEB (XOPENEX CONC.) INH SCH (19:35)
[2016-08-07 19:36] VITALS: BP 135/79; PULSE 99
--- NOTE | 2016-08-07 19:45 | NUR ---
ALENA DIAZ CALLED BACK AND REFUSED TO GIVE ORDER OF SLEEPING PILL
[2016-08-07] MEDS: GABAPENTIN 400 MG CAPSULE PO SCH (21:29)
[2016-08-07] MEDS: MEGESTROL ACETATE 400 MG/10 ML UDC PO SCH (21:29)
[2016-08-07] MEDS: INSULIN REGULAR, HUMAN 100 UNITS/ML, 10 ML VIAL (novoLIN R) SUBCUT PRN (21:38)
--- NOTE | 2016-08-07 21:40 | NUR ---
ROUND Patient resting on the bed comfortable. Respiration even and unlabored. No acute distress. Continue on O2 2L/min via NC. Call light within reached. Bed in low position, side rails up, bed alarm on. Emptied urinal at this time. Will continue to monitor.
--- NOTE | 2016-08-07 23:35 | NUR ---
ROUND Patient sleeping comfortable. Respiration even and unlabored. No acute distress. Continue on O2 2L/min via NC. Call light within reached. Bed in low position, side rails up, bed alarm on. Will continue to monitor.
[2016-08-08] VITALS (7 sets, daily range): BP systolic 101–129; BP diastolic 53–67; PULSE 94–117; RESP 16–19; TEMP 96.2–97.9; O2SAT 95–100
[2016-08-08] MEDS: LevALBUTEROL HCL 1.25 MG/0.5 ML *CONC.* VIAL.NEB (XOPENEX CONC.) INH SCH ×4 (01:00→20:59)
--- NOTE | 2016-08-08 01:40 | NUR ---
ROUND Patient sleeping comfortable. Respiration even and unlabored. No acute distress. On O2 2L/min via NC. Bed in low position, side rails up, bed alarm on. Call light within reached. Will continue to monitor.
--- NOTE | 2016-08-08 03:35 | NUR ---
ROUND Patient sleeping comfortable. Respiration even an unlabored. On O2 via NC. No acute distress. Bed in low position, side rails up, bed alarm on. Call light within reached. Continue to monitor.
--- NOTE | 2016-08-08 05:20 | NUR ---
ROUND Patient resting on the bed. Denied of pain. Respiration even and unlabored. On O2 2L/min via NC. No acute distress. Call light within reached. safety measure maintained. Bed in low position, bed alarm on, side rails up. Continue to monitor.
[2016-08-08] MEDS: KCL 20 mEq in 0.45% NS 1000 mL 1,000 ML IV SCH ×2 (06:35→19:27)
--- NOTE | 2016-08-08 06:55 | NUR ---
CLOSING NOTE Patient resting on the bed. Denied of pain. Respiration even and unlabored. No acute distress. On O2 2L/min via NC. Skin warm and dry to touch. IV intact to MELINA, no redness, no swelling, no drainage. On 1/2NS with 20mEqKCl at 75ml/hr, infusing well. All needs met. Hourly rounding during shift. Safety measure maintained. Call light within reached. Bed in low position, side rails up, bed alarm on. Will endorse to morning shift nurse.
--- NOTE | 2016-08-08 07:31 | NUR ---
PATIENT REFUSED TO SIGN THE BELONGING LIST Patient stated "I don't sign the paper. Ask my daughter to sign when she come." Endorse to morning shift Rebeca.
[2016-08-08 07:34] LABS: CALCIUM 8.3 mg/dL (8.4-11.0); CREATININE 1.5 mg/dL (0.55-1.30); PHOSPHORUS 4.5 mg/dL (2.7-4.5); POTASSIUM 4.9 mmol/L (3.5-5.1)
[2016-08-08 07:37] LABS: HEMATOCRIT 24.6 % (36-54); HEMOGLOBIN 8.1 g/dL (14.0-18.0); MEAN CORPUSCULAR HEMOGLOBIN 29 pg (27-31); MEAN CORPUSCULAR HGB CONC 33 % (32-36); MEAN CORPUSCULAR VOLUME 89 fL (79.0-98.0); PLATELET COUNT (AUTO) 90 K/uL (130-430); RED BLOOD CELL COUNT(AUTO) 2.75 MIL/uL (4.2-6.2); RED CELL DISTRIBUTION WIDTH 17.4 % (9.0-15.0)
--- NOTE | 2016-08-08 08:30 | NUR ---
Patient wants to hold medication. Says he would like a paracentesis for his abdomen.
[2016-08-08] MEDS: ASPIRIN 81 MG TAB.CHEW PO SCH (08:51)
[2016-08-08] MEDS: DULoxetine HCL 30 MG CAPSULE.DR (CYMBALTA) PO SCH (08:51)
[2016-08-08] MEDS: GABAPENTIN 400 MG CAPSULE PO SCH ×2 (08:51→20:30)
[2016-08-08] MEDS: PANTOPRAZOLE SODIUM 40 MG/VIAL (PROTONIX) IVP SCH (08:52)
[2016-08-08] MEDS: CLOPIDOGREL BISULFATE 75 MG TABLET PO SCH (08:52)
[2016-08-08] MEDS: LACTULOSE 20 GM/30 ML UDC PO SCH (08:52)
[2016-08-08] MEDS: MEGESTROL ACETATE 400 MG/10 ML UDC PO SCH ×2 (08:52→20:30)
[2016-08-08 09:04] LABS: ATYPICAL LYMPHOCYTES % 0 % (0-0); BAND % (MANUAL) 2 % (0-6); BASOPHILS % (MANUAL) 0 % (0-2); EOSINOPHILS % (MANUAL) 5 % (0-7); LYMPHOCYTES % (MANUAL) 15 % (20-46); MONOCYTES % (MANUAL) 14 % (0-11)
--- NOTE | 2016-08-08 10:29 | NUR ---
Rounds to patient. Needs met at this time.
[2016-08-08] MEDS: INSULIN REGULAR, HUMAN 100 UNITS/ML, 10 ML VIAL (novoLIN R) SUBCUT PRN ×2 (11:35→21:41)
[2016-08-08] MEDS: MORPHINE 2 MG/ML INJ. SYRINGE IVP PRN ×2 (14:28→19:44)
--- NOTE | 2016-08-08 19:35 | NUR ---
PM ASSESSMENT PT. A/OX4, VITAL SIGNS STABLE, NO DISTRESS NOTED, PT. C/O PAIN RATED 7/10 ACHING PAIN TO ABDOMEN AREA, NOTED WITH ABDOMINAL DISTENTION AND BANDAGE TO LEFT LOWER ABDOMEN, UPDATED WITH PLAN OF CARE, ENCOURAGED PT. TO USE CALL LIGHT FOR ASSISTANCE, CALL LIGHT WITHIN REACH, WILL CONTINUE TO MONITOR.
[2016-08-08] MEDS: ONDANSETRON HCL 4 MG/2 ML VIAL IVP PRN (19:43)
--- NOTE | 2016-08-08 21:30 | NUR ---
ACCUCHECK BLOOD OFYZW=[id number], 6 UNITS REGULAR INSULIN GIVEN ORDERED. WILL CONTINUE TO MONITOR.
[2016-08-08] MEDS: TEMAZEPAM 15 MG CAPSULE PO PRN (21:39)
--- NOTE | 2016-08-08 22:30 | NUR ---
RN ROUNDS PT. RESTING QUIETLY, VITAL SIGNS STABLE, NO DISTRESS NOTED, DENIES PAIN, CALL LIGHT WITHIN REACH, WILL CONTINUE TO MONITOR.
--- NOTE | 2016-08-09 | NUR ---
RN ROUNDS PT. RESTING QUIETLY, VITAL SIGNS STABLE, NO DISTRESS NOTED, DENIES PAIN, CALL LIGHT WITHIN REACH, WILL CONTINUE TO MONITOR.
[2016-08-09] MEDS: LevALBUTEROL HCL 1.25 MG/0.5 ML *CONC.* VIAL.NEB (XOPENEX CONC.) INH SCH ×4 (01:18→19:32)
--- NOTE | 2016-08-09 02:00 | NUR ---
RN ROUNDS PT. RESTING QUIETLY, VITAL SIGNS STABLE, NO DISTRESS NOTED, DENIES PAIN, CALL LIGHT WITHIN REACH, WILL CONTINUE TO MONITOR.
--- NOTE | 2016-08-09 04:00 | NUR ---
RN ROUNDS PT. RESTING QUIETLY, VITAL SIGNS STABLE, NO DISTRESS NOTED, DENIES PAIN, CALL LIGHT WITHIN REACH, WILL CONTINUE TO MONITOR.
[2016-08-09 04:25] VITALS: BP 107/67; PULSE 56; RESP 18; TEMP 96.4; O2SAT 100
[2016-08-09] MEDS: ONDANSETRON HCL 4 MG/2 ML VIAL IVP PRN ×4 (05:20→19:44)
[2016-08-09] MEDS: MORPHINE 2 MG/ML INJ. SYRINGE IVP PRN ×4 (05:21→19:44)
--- NOTE | 2016-08-09 05:21 | NUR ---
PAIN AND NAUSEA PT. C/O NAUSEA AND "LOWER ABDOMINAL PAIN RATED 8/10 ACHING PAIN." ZOFRAN 4 MG IVP AND MORPHINE 2MG IVP GIVEN ORDERED. VITAL SIGNS STABLE, NO DISTRESS NOTED, WILL CONTINUE TO MONITOR.
[2016-08-09] MEDS: INSULIN REGULAR, HUMAN 100 UNITS/ML, 10 ML VIAL (novoLIN R) SUBCUT PRN ×3 (06:16→20:58)
--- NOTE | 2016-08-09 06:27 | NUR ---
ACCUCHECK, CLOSING NOTES BLOOD CCCLI=771, 4 UNITS REGULAR INSULIN GIVEN ORDERED, VITAL SIGNS STABLE, NO DISTRESS NOTED, DENIES PAIN. IV ACCESS PATENT AND BENIGN, KEPT COMFORTABLE.
[2016-08-09 06:30] LABS: BASOPHILS % (AUTO) 0.5 % (0.0-2.0); EOSINOPHILS # (AUTO) 0.1 K/uL (0.0-0.4); EOSINOPHILS % (AUTO) 3.2 % (0.0-4.0); HEMATOCRIT 24.7 % (36-54); HEMOGLOBIN 8.1 g/dL (14.0-18.0); LYMPHOCYTES # (AUTO) 0.3 K/uL (1.0-5.5); LYMPHOCYTES % (AUTO) 8.8 % (20.5-51.5); MEAN CORPUSCULAR HEMOGLOBIN 29 pg (27-31); MEAN CORPUSCULAR HGB CONC 33 % (32-36); MEAN CORPUSCULAR VOLUME 89 fL (79.0-98.0); MONOCYTES # (AUTO) 0.5 K/uL (0.0-1.0); MONOCYTES % (AUTO) 12.6 % (1.7-9.3); NEUTROPHILS # (AUTO) 2.8 K/uL (1.8-7.7); NEUTROPHILS % (AUTO) 74.9 % (40.0-70.0); PLATELET COUNT (AUTO) 94 K/uL (130-430); RED BLOOD CELL COUNT(AUTO) 2.78 MIL/uL (4.2-6.2); RED CELL DISTRIBUTION WIDTH 17.7 % (9.0-15.0); WHITE BLOOD COUNT (AUTO) 3.7 K/uL (4.8-10.8)
[2016-08-09 06:54] LABS: ALBUMIN 1.6 g/dL (3.4-4.8); CALCIUM 7.9 mg/dL (8.4-11.0); CREATININE 1.38 mg/dL (0.55-1.30); POTASSIUM 4.2 mmol/L (3.5-5.1); TOTAL BILIRUBIN 0.3 mg/dL (0.0-1.0); TOTAL PROTEIN, SERUM 6.9 g/dL (6.4-8.3)
[2016-08-09 09:02] VITALS: BP 102/65; PULSE 112; RESP 18; TEMP 96.6; O2SAT 97
[2016-08-09] MEDS: MEGESTROL ACETATE 400 MG/10 ML UDC PO SCH ×2 (10:39→20:54)
[2016-08-09] MEDS: PANTOPRAZOLE SODIUM 40 MG/VIAL (PROTONIX) IVP SCH (10:39)
[2016-08-09] MEDS: LACTULOSE 20 GM/30 ML UDC PO SCH (10:39)
[2016-08-09] MEDS: CLOPIDOGREL BISULFATE 75 MG TABLET PO SCH (10:40)
[2016-08-09] MEDS: GABAPENTIN 400 MG CAPSULE PO SCH ×2 (10:40→20:54)
[2016-08-09] MEDS: DULoxetine HCL 30 MG CAPSULE.DR (CYMBALTA) PO SCH (10:40)
[2016-08-09] MEDS: ASPIRIN 81 MG TAB.CHEW PO SCH (10:40)
[2016-08-09] MEDS: KCL 20 mEq in 0.45% NS 1000 mL 1,000 ML IV SCH (10:58)
[2016-08-09 12:01] VITALS: BP 101/65; PULSE 116; RESP 20; TEMP 97.3; O2SAT 100
[2016-08-09 16:02] VITALS: BP 110/65; PULSE 121; RESP 20; TEMP 97.3; O2SAT 99
--- NOTE | 2016-08-09 16:03 | NUR ---
Nutrition Update Lauri Scale 16 noted Pt was admitted for intractable nausea and vomiting, pleural effusion Diet: [facility] BMI: 31.0 kg/m2 RD to follow up per nutrition care standards.
[2016-08-09 19:35] VITALS: BP 107/67; PULSE 114; RESP 18; TEMP 96.9
--- NOTE | 2016-08-09 19:35 | NUR ---
PM ASSESSMENT PT. A/OX4, VITAL SIGNS STABLE, NO DISTRESS NOTED, PT. C/O LOWER ABDOMINAL PAIN RATED 7/10 ACHING PAIN, MORPHINE 2 MG IVP GIVEN, PT. ALSO C/O NAUSEA, ZOFRAN 4 MG IVP GIVEN. UPDATED WITH PLAN OF CARE, ENCOURAGED PT. TO USE CALL LIGHT FOR ASSISTANCE, CALL LIGHT WITHIN REACH, WILL CONTINUE TO MONITOR.
[2016-08-09] MEDS: TEMAZEPAM 15 MG CAPSULE PO PRN (20:54)
--- NOTE | 2016-08-09 21:37 | NUR ---
ACCUCHECK BLOOD ELZXI=282, 6 UNITS REGULAR INSULIN GIVEN ORDERED. WILL CONTINUE TO MONITOR.
--- NOTE | 2016-08-09 23:40 | NUR ---
RN ROUNDS PT. RESTING QUIETLY, VITAL SIGNS STABLE, NO DISTRESS NOTED, DENIES PAIN, CALL LIGHT WITHIN REACH, WILL CONTINUE TO MONITOR.
[2016-08-09 23:57] VITALS: BP 107/71; PULSE 107; RESP 18; TEMP 97.4; O2SAT 100
[2016-08-10] MEDS: KCL 20 mEq in 0.45% NS 1000 mL 1,000 ML IV SCH ×2 (00:44→13:45)
[2016-08-10] MEDS: MORPHINE 2 MG/ML INJ. SYRINGE IVP PRN ×4 (00:45→17:05)
[2016-08-10] MEDS: ONDANSETRON HCL 4 MG/2 ML VIAL IVP PRN ×4 (00:45→17:05)
[2016-08-10] MEDS: LevALBUTEROL HCL 1.25 MG/0.5 ML *CONC.* VIAL.NEB (XOPENEX CONC.) INH SCH ×4 (01:21→23:02)
--- NOTE | 2016-08-10 01:46 | NUR ---
RN ROUNDS PT. RESTING QUIETLY, VITAL SIGNS STABLE, NO DISTRESS NOTED, DENIES PAIN, CALL LIGHT WITHIN REACH, WILL CONTINUE TO MONITOR.
--- NOTE | 2016-08-10 03:41 | NUR ---
RN ROUNDS PT. RESTING QUIETLY, VITAL SIGNS STABLE, NO DISTRESS NOTED, DENIES PAIN, CALL LIGHT WITHIN REACH, WILL CONTINUE TO MONITOR.
[2016-08-10 04:11] VITALS: BP 111/67; PULSE 112; RESP 18; TEMP 98.3; O2SAT 93
--- NOTE | 2016-08-10 05:30 | NUR ---
RN ROUNDS PT. RESTING QUIETLY, VITAL SIGNS STABLE, NO DISTRESS NOTED, DENIES PAIN, CALL LIGHT WITHIN REACH, WILL CONTINUE TO MONITOR.
--- NOTE | 2016-08-10 06:18 | NUR ---
PAIN, ACCUCHECK, CLOSING NOTE PT. C/O SEVERE PAIN TO LOWER ABDOMINAL AREA, MORPHINE 2 MG IVP GIVEN ORDERED, PT. C/O NAUSEA, ZOFRAN 4 MG IVP GIVEN ORDERED, BLOOD SUGAR [id number]=203, 6 UNITS REGULAR INSULIN GIVEN ORDERED. IV ACCESS PATENT AND BENIGN, ALL ANTICIPATED NEEDS MET, KEPT COMFORTABLE.
[2016-08-10] MEDS: INSULIN REGULAR, HUMAN 100 UNITS/ML, 10 ML VIAL (novoLIN R) SUBCUT PRN ×4 (06:19→21:18)
[2016-08-10 08:00] VITALS: BP 117/76; PULSE 110; RESP 18; TEMP 97.3; O2SAT 98
--- NOTE | 2016-08-10 08:00 | NUR ---
INITIAL NOTE PT LAYING IN BED, RESTING, NO S/S OF DISTRESS OR COMPLAINT OF PAIN AT THIS TIME, PT ALERT AND ORIENTED X4, NASAL CANULA IN PLACE, VSS, IV TO RIGHT FOREARM INTACT, NO S/S OF INFILTRATION NOTED. PT REORIENTED TO USE OF CALL LIGHT AND IT IS PLACED WITHIN REACH, BED IN LOW POSITION AN LOCKED, SAFETY MEASURES IN PLACE, WILL CONTINUE TO MONITOR.
[2016-08-10] MEDS: ASPIRIN 81 MG TAB.CHEW PO SCH (08:38)
[2016-08-10] MEDS: DULoxetine HCL 30 MG CAPSULE.DR (CYMBALTA) PO SCH (08:38)
[2016-08-10] MEDS: LACTULOSE 20 GM/30 ML UDC PO SCH (08:38)
[2016-08-10] MEDS: MEGESTROL ACETATE 400 MG/10 ML UDC PO SCH ×2 (08:38→21:07)
[2016-08-10] MEDS: GABAPENTIN 400 MG CAPSULE PO SCH ×2 (08:38→21:06)
[2016-08-10] MEDS: PANTOPRAZOLE SODIUM 40 MG/VIAL (PROTONIX) IVP SCH (08:39)
[2016-08-10] MEDS: CLOPIDOGREL BISULFATE 75 MG TABLET PO SCH (08:39)
[2016-08-10 09:52] VITALS: BP 111/67; PULSE 103
--- NOTE | 2016-08-10 10:00 | NUR ---
Pt sitting in side chair, no s/s of distress or complaint of pain at this time, safety measures in place, call light within reach, will continue to monitor
--- NOTE | 2016-08-10 12:00 | NUR ---
ACCUCHECK 258, 6 UNITS ADMINISTERED PER SLIDING SCALE COMPLAINT OF ABDOMINAL/ BACK PAIN AND NAUSEA, PRN MEDICATION ADMINISTERED, WILL REASSESS. CALL LIGHT WITHIN REACH, SAFETY MEASURES IN PLACE.
--- NOTE | 2016-08-10 12:30 | NUR ---
DR HEARN, COVERING FOR DR WON TOMLIN Addendum: 08/10/16 at 1233 by Salima Grullon RN DR ATKINS*
[2016-08-10 12:32] VITALS: BP 107/67; PULSE 107; RESP 17; TEMP 97.6; O2SAT 97
--- NOTE | 2016-08-10 14:30 | NUR ---
Rounds pt is nauseous and vomiting despite being administration of Zofran prn, pt states this happens daily, asked for crackers and jemageno and stated it will pass, crackers and lauern provided, will reasses
--- NOTE | 2016-08-10 15:15 | NUR ---
pt states he in longer nauseous or vomiting, states the felling has passed and his stomach has settled now. needs attended to, safety measures in place, will continue to monitor.
[2016-08-10 15:29] VITALS: BP 106/65; PULSE 104; RESP 19; TEMP 97; O2SAT 99
--- NOTE | 2016-08-10 17:25 | NUR ---
Accucheck and pain management Accucheck 325, covered with 8 units per sliding scale per sliding scale Pt complained of abdominal and back pain, administered prn pain medication and antinausea medication, will reassess. safety measures in place, needs attended too, pt reminded to please call for assistance when getting out of bed due to pain medication administration strength. Will follow up.
--- NOTE | 2016-08-10 19:00 | NUR ---
CLOSING NOTE PT LAYING IN BED, RECEIVING BREATHING TREATMENT AT THIS TIME, NO S/S OF DISTRESS OR COMPLAINT OF PAIN AT THIS TIME, IV TO RIGHT FOREARM PATENT AND INFUSING, SCDS IN PLACE. ALL NEEDS ATTENDED TO THROUGH OUT THE SHIFT, SAFETY MEASURES IN PLACE, BED IN LOW POSITION AND LOCKED, CALL LIGHT WITHIN REACH, WILL GIVE REPORT TO FOLLOW ING SHIFT.
[2016-08-10 19:10] VITALS: BP 111/73; PULSE 112; RESP 18; TEMP 97.8; O2SAT 99
--- NOTE | 2016-08-10 19:10 | NUR ---
INITIAL NOTES RECVD PT IN BED, A/A/O X4.NO C/O PAIN AND NO SOB NOTED. V/S 111/73,97.8,112,18,99%. IV NOTED TO R F/A G20,NO INFILTRATE AND GOOD BLOOD RETURN. BUE ARE STRONG AND BLE ARE WEAK. DISCUSSED PLAN OF CARE WITH PT AND VERBALIZED UNDERSTANDING. CALL LIGHT WITHIN REACH,WILL CONT TO MONITOR.
--- NOTE | 2016-08-10 21:10 | NUR ---
ROUNDS PT IS AWAKE @ THIS TIME.NO C/O PAIN AND NO RESPI DISTRESS NOTED. CALL LIGHT WITHIN REACH,WILL CONT TO MONITOR.
[2016-08-10] MEDS: TEMAZEPAM 15 MG CAPSULE PO PRN (21:20)
--- NOTE | 2016-08-10 23:10 | NUR ---
ROUNDS PT IS COMFORTABLY RESTING @ THIS TIME. NO C/O PAIN AND NO RESPI DISTRESS NOTED. NO C/O PAIN AND NO DISTRESS NOTED.CALL LIGHT WITHIN REACH,WILL CONT TO MONITOR.
[2016-08-11] VITALS: BP 95/63; PULSE 98; RESP 17; TEMP 96.9; O2SAT 99
[2016-08-11] MEDS: LevALBUTEROL HCL 1.25 MG/0.5 ML *CONC.* VIAL.NEB (XOPENEX CONC.) INH SCH ×4 (01:00→19:42)
--- NOTE | 2016-08-11 01:10 | NUR ---
ROUNDS ADMIN SNACKS PT REQUESTED. CALL LIGHT WITHIN REACH,WILL CONT OT MONITOR.
[2016-08-11] MEDS: MORPHINE 2 MG/ML INJ. SYRINGE IVP PRN ×3 (02:26→23:30)
[2016-08-11] MEDS: ONDANSETRON HCL 4 MG/2 ML VIAL IVP PRN ×3 (02:27→22:23)
[2016-08-11] MEDS: KCL 20 mEq in 0.45% NS 1000 mL 1,000 ML IV SCH (02:27)
--- NOTE | 2016-08-11 03:10 | NUR ---
ROUNDS PT IS RESTING COMFORTABLY. NO C/O PAIN AND NO SOB NOTED. BED IN LOW POSITION, CALL LIGHT WITHIN REACH. WILL CONT TO MONITOR.
[2016-08-11 04:00] VITALS: BP 109/68; PULSE 62; RESP 18; TEMP 97.4; O2SAT 97
[2016-08-11] MEDS: INSULIN REGULAR, HUMAN 100 UNITS/ML, 10 ML VIAL (novoLIN R) SUBCUT PRN ×4 (06:24→22:51)
--- NOTE | 2016-08-11 06:59 | NUR ---
FINAL NOTES PT IS AWAKE,COMFORTABLY RESTING IN BED. NO C/O PAIN AND NO SOB NOTED.V/S ARE WNL. ALL NEEDS MET AND ANTICIPATED BY NOC NURSES. CALL LIGHT IN REACH. BED IN LOW POSITION. ENDORSED.
[2016-08-11 07:27] LABS: BASOPHILS % (AUTO) 0.4 % (0.0-2.0); EOSINOPHILS # (AUTO) 0.1 K/uL (0.0-0.4); EOSINOPHILS % (AUTO) 2.7 % (0.0-4.0); HEMATOCRIT 25.3 % (36-54); HEMOGLOBIN 8.2 g/dL (14.0-18.0); LYMPHOCYTES # (AUTO) 0.3 K/uL (1.0-5.5); LYMPHOCYTES % (AUTO) 5.8 % (20.5-51.5); MEAN CORPUSCULAR HEMOGLOBIN 29 pg (27-31); MEAN CORPUSCULAR HGB CONC 33 % (32-36); MEAN CORPUSCULAR VOLUME 89 fL (79.0-98.0); MONOCYTES # (AUTO) 0.4 K/uL (0.0-1.0); MONOCYTES % (AUTO) 8.5 % (1.7-9.3); NEUTROPHILS % (AUTO) 82.6 % (40.0-70.0); RED BLOOD CELL COUNT(AUTO) 2.84 MIL/uL (4.2-6.2); RED CELL DISTRIBUTION WIDTH 17.3 % (9.0-15.0); WHITE BLOOD COUNT (AUTO) 4.8 K/uL (4.8-10.8)
[2016-08-11 07:34] LABS: ALBUMIN 1.7 g/dL (3.4-4.8); CALCIUM 8.2 mg/dL (8.4-11.0); CREATININE 1.3 mg/dL (0.55-1.30); TOTAL BILIRUBIN 0.4 mg/dL (0.0-1.0)
[2016-08-11 07:57] VITALS: BP 120/67; PULSE 96; RESP 20; TEMP 97.3; O2SAT 94
[2016-08-11 07:58] LABS: POTASSIUM 6.1 mmol/L (3.5-5.1)
--- NOTE | 2016-08-11 08:00 | NUR ---
NOTE PT SITTING UP IN BED EATING HIS BREAKFAST. NO SOB/RESP DISTRESS OR ABDOMINAL PAIN/DISCOMFORT OR N/V NOTED AT THIS TIME. PT HAS HIS TELE UNIT ATTACHED AND IVF'S INFUSING WELL THROUGH RIGHT HAND IV SITE. PT HAS O2 ON AT 2L/NC AT THIS TIME. CALL LIGHT WITHIN REACH.
[2016-08-11 08:32] LABS: PLATELET COUNT (AUTO) 96 K/uL (130-430)
[2016-08-11] MEDS: LACTULOSE 20 GM/30 ML UDC PO SCH (08:42)
[2016-08-11] MEDS: MEGESTROL ACETATE 400 MG/10 ML UDC PO SCH ×2 (08:42→22:49)
[2016-08-11] MEDS: CLOPIDOGREL BISULFATE 75 MG TABLET PO SCH (08:42)
[2016-08-11] MEDS: DULoxetine HCL 30 MG CAPSULE.DR (CYMBALTA) PO SCH (08:43)
[2016-08-11] MEDS: ASPIRIN 81 MG TAB.CHEW PO SCH (08:43)
[2016-08-11] MEDS: GABAPENTIN 400 MG CAPSULE PO SCH ×2 (08:43→22:49)
[2016-08-11] MEDS: PANTOPRAZOLE SODIUM 40 MG/VIAL (PROTONIX) IVP SCH (08:43)
[2016-08-11] MEDS ORDERED: D5/0.45 NS 1,000 ML IV SCH (08:45)
[2016-08-11] MEDS ORDERED: SODIUM POLYSTYRENE SULFONATE 15 GM/60 ML UDBTL PO ONE (08:45)
--- NOTE | 2016-08-11 11:00 | NUR ---
NOTE PT AMBULATES TO THE RESTROOM INDEPENDENTLY WITH WALKER, GAIT IS WEAK AND SLOW. IVF'S INFUSING AND KAYEXALATE PO GIVEN. NO NEEDS NOTED AT THIS TIME. CALL LIGHT WITHIN REACH.
--- NOTE | 2016-08-11 11:30 | NUR ---
NOTE PT WAS ONLY ABLE TO DRINK 45MG OF KAYEXALATE - PT HAS HAD 2 SMALL EPISODES OF EMESIS FROM DRINKING KAYEXALATE. PT SITTING ON SIDE OF BED AT THIS TIME FOR COMFORT AT THIS TIME.
[2016-08-11 11:35] VITALS: BP 122/67; PULSE 117; RESP 16; TEMP 97.6; O2SAT 91
--- NOTE | 2016-08-11 15:30 | NUR ---
NOTE PT HAS BEEN AMBULATING TO THE RESTROOM WITH IV POLE WITH STEADY GAIT. PT HAD BOWEL MOVEMENT AND VOIDS WITHOUT DIFFICULTY OR ANY PROBLEMS AT THIS TIME. CALL LIGHT WITHIN REACH. NO NEEDS NOTED AT THIS TIME.
[2016-08-11 15:48] VITALS: BP 118/74; PULSE 118; RESP 19; TEMP 96.6; O2SAT 100
--- NOTE | 2016-08-11 18:35 | NUR ---
NOTE PT SITTING UP IN BED EATING HIS DINNER. PT WAS IN AND OUT OF SLEEP ALL AFTERNOON. PT STATES HE HAS SOME NAUSEA, ZOFRAN IVP WAS GIVEN TO PT DURING DINNER. NO SOB/RESP DISTRESS OR PAIN/DISCOMFORT NOTED AT THIS TIME. PT HAS HIS O2 AT 2L/NC ON, WHICH HE TAKES ON AND OFF ALL SHIFT. IVF'S INFUSING WELL ALL SHIFT THROUGH RIGHT HAND IV SITE. CALL LIGHT WITHIN REACH.
[2016-08-11 20:00] VITALS: BP 125/76; PULSE 117; RESP 22; TEMP 97.5; O2SAT 96
--- NOTE | 2016-08-11 20:00 | NUR ---
Rounds Received patient lying in bed resting and watching tv, denies of any pain, no acute distress, no nausea or vomiting noted. IV fluid infusing well. Instructed patient to call nurse when getting out of bed, call light within reach, bed alarm on. Family at the bedside.
--- NOTE | 2016-08-11 21:12 | NUR ---
Nausea and vomiting Informed Dr Hua patient vomited x3 small amount with at least 50ml of liquid with food and c/o nausea, Zofran not due yet. Order received just wait for the next dose of Zofran and DC IV fluid.
[2016-08-12] VITALS (8 sets, daily range): BP systolic 109–130; BP diastolic 64–78; PULSE 64–117; RESP 17–18; TEMP 96.6–97.8; O2SAT 92–99; Ht 165.1 cm; Wt 84.4 kg
[2016-08-12] MEDS: LevALBUTEROL HCL 1.25 MG/0.5 ML *CONC.* VIAL.NEB (XOPENEX CONC.) INH SCH ×4 (00:12→19:40)
--- NOTE | 2016-08-12 00:26 | NUR ---
PATIENT RESTING: Patient resting quietly. No acute distress noted. Zofran and Morphine given with effective result noted. Call light within reach.
[2016-08-12] MEDS: TEMAZEPAM 15 MG CAPSULE PO PRN (00:33)
--- NOTE | 2016-08-12 02:10 | NUR ---
PATIENT RESTING: Patient resting quietly. No acute distress noted. Call light within reach.
--- NOTE | 2016-08-12 04:02 | NUR ---
PATIENT RESTING: Patient resting quietly. No acute distress noted. Call light within reach.
[2016-08-12] MEDS: INSULIN REGULAR, HUMAN 100 UNITS/ML, 10 ML VIAL (novoLIN R) SUBCUT PRN ×4 (06:15→22:30)
[2016-08-12] MEDS: ONDANSETRON HCL 4 MG/2 ML VIAL IVP PRN ×3 (06:20→21:05)
[2016-08-12] MEDS: MORPHINE 2 MG/ML INJ. SYRINGE IVP PRN ×3 (06:23→21:05)
--- NOTE | 2016-08-12 06:49 | NUR ---
Closing notes Patient slept most of the night. pain medication and nausea medication given this morning.
[2016-08-12 07:37] LABS: CREATININE 1.11 mg/dL (0.55-1.30); POTASSIUM 4.6 mmol/L (3.5-5.1)
[2016-08-12] MEDS: MEGESTROL ACETATE 400 MG/10 ML UDC PO SCH ×2 (08:54→22:24)
[2016-08-12] MEDS: ASPIRIN 81 MG TAB.CHEW PO SCH (08:54)
[2016-08-12] MEDS: DULoxetine HCL 30 MG CAPSULE.DR (CYMBALTA) PO SCH (08:54)
[2016-08-12] MEDS: LACTULOSE 20 GM/30 ML UDC PO SCH (08:54)
[2016-08-12] MEDS: CLOPIDOGREL BISULFATE 75 MG TABLET PO SCH (08:54)
[2016-08-12] MEDS: GABAPENTIN 400 MG CAPSULE PO SCH ×2 (08:55→22:24)
--- NOTE | 2016-08-12 09:00 | NUR ---
Nutrition Update Lauri Scale 18 noted. Pt admitted for intractable nausea and vomiting, pleural effusion. Diet: [facility] BMI: 31 kg/m2 RD to follow per nutrition care standards.
[2016-08-12] MEDS: PANTOPRAZOLE SODIUM 40 MG/VIAL (PROTONIX) IVP SCH (09:40)
--- NOTE | 2016-08-12 13:29 | NUR ---
CONSULT CALLED FOR CONSULT WITH KATLYN LAYTON REASON: INTRACTABLE NAUSEA AND VOMITING. SPOKE WITH RUDY
[2016-08-12] MEDS ORDERED: FUROSEMIDE 40 MG/4 ML VIAL IVP ONE (14:15)
--- NOTE | 2016-08-12 17:45 | NUR ---
PAGED DR. MEYER REGARDING BS [phone]; AWAITING CALL BACK.
--- NOTE | 2016-08-12 18:30 | NUR ---
RE PAGED DR. MEYER REGARDING BS [phone]; AWAITING CALL BACK FOR ANY FURTHER ORDERS.
--- NOTE | 2016-08-12 18:43 | NUR ---
SPOKE WITH DR. MEYER; NO NEW ORDERS, JUST COVER PATIENT WITH EXISTING SLIDING SCALE ORDERS OF 12 UNITS; ALREADY CARRIED OUT. NO EVIDENCE OF ANY HYPO OR HYOERGLYCEMIA.
--- NOTE | 2016-08-12 20:00 | NUR ---
Rounds Received patient lying in bed resting, denies of any pain, no nausea or vomiting, no acute distress noted. IV site checked intact and patent on saline lock. Instructed patient to call nurse when getting out of bed, call light within reach.
--- NOTE | 2016-08-12 21:05 | NUR ---
Rounds Patient resting quietly, pain medication and nausea medication given earlier with effective result noted. call light within reach.
--- NOTE | 2016-08-13 00:10 | NUR ---
Rounds Instructed patient NPO due to procedure EGD in A.M. patient verbalizes understanding. Vital sign wnl. call light within reach.
[2016-08-13 00:23] VITALS: BP 124/70; PULSE 111; RESP 20; TEMP 96.2; O2SAT 99
[2016-08-13] MEDS: LevALBUTEROL HCL 1.25 MG/0.5 ML *CONC.* VIAL.NEB (XOPENEX CONC.) INH SCH ×4 (01:00→19:00)
--- NOTE | 2016-08-13 02:00 | NUR ---
Rounds Patient resting quietly, no s/s of any pain, no acute distress noted. call light within reach.
[2016-08-13] MEDS: ONDANSETRON HCL 4 MG/2 ML VIAL IVP PRN ×3 (02:47→21:01)
[2016-08-13] MEDS: MORPHINE 2 MG/ML INJ. SYRINGE IVP PRN ×3 (02:48→18:07)
--- NOTE | 2016-08-13 04:10 | NUR ---
Rounds Patient resting quietly, pain medication given earlier with effective result noted. call light within reach.
[2016-08-13 04:25] VITALS: BP 113/93; PULSE 116; RESP 16; TEMP 97; O2SAT 98
--- NOTE | 2016-08-13 07:00 | NUR ---
Closing notes Patient on breathing tx at this time. Blood sugar this morning 261, insulin coverage not administer due to patient NPO, plan for EGD today, no IV fluid going, will call MD to notify. Endorsed to on coming nurse to monitor blood sugar. Charge nurse made aware.
--- NOTE | 2016-08-13 07:11 | NUR ---
Paged Dr Mcintosh paged Dr Mcintosh regarding clarification if patient is going to have EGD today we need order. And also need a diet order.
--- NOTE | 2016-08-13 07:13 | NUR ---
Awaiting for Dr Mcintosh to call back
[2016-08-13 07:15] LABS: ALBUMIN 1.7 g/dL (3.4-4.8); CALCIUM 8.2 mg/dL (8.4-11.0); CREATININE 1.32 mg/dL (0.55-1.30); PHOSPHORUS 3.3 mg/dL (2.7-4.5); POTASSIUM 4.6 mmol/L (3.5-5.1); TOTAL BILIRUBIN 0.3 mg/dL (0.0-1.0); TOTAL PROTEIN, SERUM 6.8 g/dL (6.4-8.3)
--- NOTE | 2016-08-13 07:29 | NUR ---
trade union secretary paged Dr Mcintosh, Dr Nation senior construction estimator. awaiting for MD to call back. This is 2nd paged.
--- NOTE | 2016-08-13 07:35 | NUR ---
Notes Endorsed to on coming nurse to follow up the call to Dr Nation and the blood sugar coverage.
[2016-08-13 07:36] LABS: HEMATOCRIT 23.2 % (36-54); HEMOGLOBIN 7.8 g/dL (14.0-18.0); MEAN CORPUSCULAR HEMOGLOBIN 30 pg (27-31); MEAN CORPUSCULAR HGB CONC 34 % (32-36); MEAN CORPUSCULAR VOLUME 89 fL (79.0-98.0); RED BLOOD CELL COUNT(AUTO) 2.61 MIL/uL (4.2-6.2); RED CELL DISTRIBUTION WIDTH 17.7 % (9.0-15.0)
--- NOTE | 2016-08-13 07:50 | NUR ---
AM ROUNDS PT A/Ox4, denies pain at this time...HL to RFA flushes well...Pt aware of NPO status for EGD today...calll light/phone w/in reach....Will cont to monitor
[2016-08-13] MEDS: PANTOPRAZOLE SODIUM 40 MG/VIAL (PROTONIX) IVP SCH (08:29)
--- NOTE | 2016-08-13 08:35 | NUR ---
RN ROUNDS PATIENT RESTING IN BED, STATES HE HAS ABDOMINAL PAIN AND IS FEELING NAUSEA, EDUCATED THE PATIENT ON MEDICATIONS AND POTENTIAL SIDE EFFECTS, PATIENT VERBALIZED UNDERSTANDING AND TOLERATED WELL, IV SITE IS PATENT WITH NO SIGNS OF INFILTRATION AT THIS TIME, PATIENT UNDERSTANDS PLAN OF CARE AND THAT HE IS NPO AT THIS TIME FOR AN EGD TODAY WITH DR VENTURA, PATIENT HAS NO QUESTIONS AT THIS TIME REGARDING THE PROCEDURE, BED IN LOWEST POSITION, TWO SIDE RAILS UP, BED ALARM ON, CALL LIGHT NEXT TO THE PATIENT'S HAND, INSTRUCTED PATIENT TO CALL FOR ANY ASSISTANCE, PATIENT VERBALIZED UNDERSTANDING, FALL PRECAUTIONS IN PLACE.
[2016-08-13 08:50] VITALS: BP 113/93; PULSE 115
[2016-08-13] MEDS ORDERED: MIDAZOLAM HCL 5 MG/5 ML VIAL ONE (08:54)
[2016-08-13] MEDS ORDERED: fentaNYL CITRATE/PF 100 MCG/2 ML AMP ONE (08:54)
[2016-08-13] MEDS: GABAPENTIN 400 MG CAPSULE PO SCH ×2 (09:00→21:03)
[2016-08-13] MEDS: MEGESTROL ACETATE 400 MG/10 ML UDC PO SCH ×2 (09:00→21:03)
[2016-08-13] MEDS ORDERED: fentaNYL CITRATE/PF 100 MCG/2 ML AMP IVP ONE (09:26)
[2016-08-13] MEDS ORDERED: MIDAZOLAM HCL 5 MG/5 ML VIAL IVP ONE (09:28)
[2016-08-13 09:31] LABS: ATYPICAL LYMPHOCYTES % 0 % (0-0); BAND % (MANUAL) 0 % (0-6); BASOPHILS % (MANUAL) 0 % (0-2); EOSINOPHILS % (MANUAL) 3 % (0-7); LYMPHOCYTES % (MANUAL) 6 % (20-46); MONOCYTES % (MANUAL) 9 % (0-11)
[2016-08-13 09:32] LABS: PLATELET COUNT (AUTO) 108 K/uL (130-430)
[2016-08-13] MEDS ORDERED: FLUCONAZOLE 200 MG TABLET (DIFLUCAN) PO ONE (09:45)
--- NOTE | 2016-08-13 10:49 | NUR ---
BACK IN ROOM FROM GI LAB PT W/EYES CLOSED..EASILY AROUSABLE W/VERBAL STIMULI....PT INFORMED OF CONTINUED NPO STATUS FOR GASTRIC EMPTING STUDY...WILL MONITOR
--- NOTE | 2016-08-13 11:30 | NUR ---
BS: 265..INSULIN HELD..PT NPO SINCE MIDNIGHT FOR EGD AND GASTRIC EMPTYING PROCEDURE PT SALINE LOCK, NO FLUIDS....
--- NOTE | 2016-08-13 12:05 | NUR ---
Initial note: RECEIVED REPORT AT BEDSIDE, PT RESTING, EASY TO AROUSE, ALERT AND ORIENTED X4, NO S/S OF DISTRESS OR COMPLAINT OF PAIN, CURRENTLY NPO PENDING PROCEDURE, IV NOTED TO RFA SALINE LOCKED, PATENT, NO S/S OF INFILTRATION NOTED. SAFETY MEASURES IN PLACE, BED IN LOW POSITION AND LOCKED, CALL LIGHT WITHIN REACH, WILL FOLLOW UP.
--- NOTE | 2016-08-13 12:07 | NUR ---
NOREEN FONG TO ASSUME CARE...REPORT GIVEN
[2016-08-13 12:15] VITALS: BP 120/82; PULSE 120; RESP 20; TEMP 99; O2SAT 97
--- NOTE | 2016-08-13 13:33 | NUR ---
PT PICKED UP FOR PROCEDURE
--- NOTE | 2016-08-13 16:13 | NUR ---
PT RETURNED FROM PROCEDURE VIA WHEEL CHAIR, NO S/S OF DISTRESS OR SOB NOTED, PT RETURNED TO BED, SAFETY MEASURES IN PLACE, CALL LIGHT WITHIN REACH, WILL FOLLOW UP
[2016-08-13 16:15] VITALS: BP 122/80; PULSE 110; RESP 18; TEMP 98.6; O2SAT 96
[2016-08-13] MEDS: DULoxetine HCL 30 MG CAPSULE.DR (CYMBALTA) PO SCH (16:47)
[2016-08-13] MEDS: ASPIRIN 81 MG TAB.CHEW PO SCH (16:47)
[2016-08-13] MEDS: CLOPIDOGREL BISULFATE 75 MG TABLET PO SCH (16:47)
[2016-08-13] MEDS: LACTULOSE 20 GM/30 ML UDC PO SCH (17:26)
[2016-08-13] MEDS: INSULIN REGULAR, HUMAN 100 UNITS/ML, 10 ML VIAL (novoLIN R) SUBCUT PRN ×2 (17:27→21:07)
--- NOTE | 2016-08-13 17:30 | NUR ---
ACCUCHECK 248, COVERED PER SLIDING SCALE.
--- NOTE | 2016-08-13 18:30 | NUR ---
CLOSING NOTE PT LAYING IN BED, FAMILY AT BEDSIDE, NO COMPLAINT OF PAIN OR S/S OF DISTRESS NOTED, IV TO RFA PATENT AND INTACT, ALL NEEDS ATTENDED TO THROUGHOUT SHIFT, SAFETY MEASURES IN PLACE, BED IN LOW POSITION AND LOCKED, CALL LIGHT WITHIN REACH, WILL GIVE REPORT TO FOLLOWING SHIFT.
--- NOTE | 2016-08-13 20:00 | NUR ---
OPENING NOTE Pt. and bedside report received from day shift nurse. Pt. is awake and in stable condition. Spouse at bedside. Safety measures discussed with pt. and how to use call light for any needs. Bed alarm on. Will continue to monitor.
--- NOTE | 2016-08-13 20:50 | NUR ---
HEMOGLOBIN Late entry due to pt. care. Dr. Partidaium aware of pt.'s hemoglobin level of 7.8. No new orders were given at this time.
[2016-08-13] MEDS: TEMAZEPAM 15 MG CAPSULE PO PRN (21:03)
--- NOTE | 2016-08-13 22:01 | NUR ---
NAUSEA/DUE MEDS Late entry due to pt. care. Due meds administered as ordered. Zofran administered as ordered d/t pt. c/o nausea and vomiting. Educated pt. regarding his ordered (clear liqiuid, no red ) diet because he asked for crackers. Pt. verbalized understanding and requested chicken broth and orange jello instead. Accucheck done, pt.'s blood sugar 301. Insulin coverage given as ordered. Educated pt. regarding medications. Pt. verbalized understanding. Plan of care and safety measures reviewed with pt. Pt. denies any other needs at this time. Encouraged pt. to use call light for any needs, tony. when getting OOB. Will continue to monitor.
[2016-08-13 22:17] VITALS: BP 130/85; PULSE 92; RESP 18; TEMP 97; O2SAT 95
[2016-08-14] VITALS (7 sets, daily range): BP systolic 106–136; BP diastolic 64–80; PULSE 49–111; RESP 16–20; TEMP 96–98.1; O2SAT 93–98
--- NOTE | 2016-08-14 01:47 | NUR ---
ROUNDS Pt. is resting quietly in bed with no s/s of acute distress. Safety measures in place. Call light to right hand. Bed alarm on. Will continue to monitor.
[2016-08-14] MEDS: LevALBUTEROL HCL 1.25 MG/0.5 ML *CONC.* VIAL.NEB (XOPENEX CONC.) INH SCH ×4 (02:19→19:48)
[2016-08-14] MEDS: ONDANSETRON HCL 4 MG/2 ML VIAL IVP PRN ×3 (02:52→18:14)
[2016-08-14] MEDS: MORPHINE 2 MG/ML INJ. SYRINGE IVP PRN ×3 (02:53→18:15)
--- NOTE | 2016-08-14 03:05 | NUR ---
REQUESTED JELLO Late entry due to pt. care. Resource nurse, Fabrice Bravo RN stated pt. was medicated for pain and nausea. Pt. requested orange jello and ice chips. No other needs at this time. Safety measures in place. Bed alarm on. Will continue to monitor.
--- NOTE | 2016-08-14 04:59 | NUR ---
ROUNDS Pt. is resting quietly in bed with no s/s of acute distress. Safety measures in place. Bed alarm on. Will continue to monitor.
[2016-08-14] MEDS: INSULIN REGULAR, HUMAN 100 UNITS/ML, 10 ML VIAL (novoLIN R) SUBCUT PRN ×4 (06:27→21:01)
[2016-08-14 07:11] LABS: BASOPHILS % (AUTO) 0.6 % (0.0-2.0); EOSINOPHILS # (AUTO) 0.1 K/uL (0.0-0.4); EOSINOPHILS % (AUTO) 3.8 % (0.0-4.0); HEMATOCRIT 24.1 % (36-54); HEMOGLOBIN 7.9 g/dL (14.0-18.0); LYMPHOCYTES # (AUTO) 0.3 K/uL (1.0-5.5); LYMPHOCYTES % (AUTO) 8.1 % (20.5-51.5); MEAN CORPUSCULAR HEMOGLOBIN 29 pg (27-31); MEAN CORPUSCULAR HGB CONC 33 % (32-36); MEAN CORPUSCULAR VOLUME 90 fL (79.0-98.0); MONOCYTES # (AUTO) 0.4 K/uL (0.0-1.0); MONOCYTES % (AUTO) 11.2 % (1.7-9.3); NEUTROPHILS % (AUTO) 76.3 % (40.0-70.0); PLATELET COUNT (AUTO) 85 K/uL (130-430); RED BLOOD CELL COUNT(AUTO) 2.68 MIL/uL (4.2-6.2); RED CELL DISTRIBUTION WIDTH 17.7 % (9.0-15.0); WHITE BLOOD COUNT (AUTO) 3.8 K/uL (4.8-10.8)
[2016-08-14 07:41] LABS: ALBUMIN 1.8 g/dL (3.4-4.8); BILIRUBIN,DIRECT 0.2 mg/dL (0.0-0.3); CALCIUM 8.5 mg/dL (8.4-11.0); CREATININE 1.08 mg/dL (0.55-1.30); PHOSPHORUS 3.2 mg/dL (2.7-4.5); POTASSIUM 4.5 mmol/L (3.5-5.1); TOTAL BILIRUBIN 0.4 mg/dL (0.0-1.0); TOTAL PROTEIN, SERUM 6.8 g/dL (6.4-8.3)
--- NOTE | 2016-08-14 07:49 | NUR ---
CLOSING NOTE All needs met throughout shift. Pt. is stable; report given and endorsed care to day shift nurse.
--- NOTE | 2016-08-14 08:00 | NUR ---
OPENING NOTE PT LAYING IN BED, EASY TO AROUSE, ALERT AND ORIENTED X4, NO S/S OF DISTRESS OR PAIN NOTED, VSS, IV TO RFA INTACT, SAFETY MEASURES IN PLACE, BED IN LOW POSITION AND LOCKED, CALL LIGHT WITHIN REACH.
--- NOTE | 2016-08-14 09:30 | NUR ---
DAUGHTER AT BEDSIDE, REQUESTED IF SHE COULD AID HER FATHER IN TAKING A SHOWER, MATERIAL AND TOWELS PROVIDED IV SITE WRAPPED IN GLOVE AND TAPPED, AIDED TO RESTROOM, WILL FOLLOW UP
[2016-08-14] MEDS: MEGESTROL ACETATE 400 MG/10 ML UDC PO SCH ×2 (09:33→20:57)
[2016-08-14] MEDS: LACTULOSE 20 GM/30 ML UDC PO SCH (09:33)
[2016-08-14] MEDS: PANTOPRAZOLE SODIUM 40 MG/VIAL (PROTONIX) IVP SCH (09:33)
[2016-08-14] MEDS: DULoxetine HCL 30 MG CAPSULE.DR (CYMBALTA) PO SCH (09:34)
[2016-08-14] MEDS: CLOPIDOGREL BISULFATE 75 MG TABLET PO SCH (09:34)
[2016-08-14] MEDS: ASPIRIN 81 MG TAB.CHEW PO SCH (09:34)
[2016-08-14] MEDS: GABAPENTIN 400 MG CAPSULE PO SCH ×2 (09:34→20:57)
[2016-08-14] MEDS: FLUCONAZOLE 100 MG TABLET (DIFLUCAN) PO SCH (09:34)
--- NOTE | 2016-08-14 11:30 | NUR ---
ACCUCHECK 224, COVERED PER SLIDING SCALE
--- NOTE | 2016-08-14 13:30 | NUR ---
ROUNDS PT SITTING IN BED, NO COMPLAINT OF NAUSEA, VOMITING OR PAIN AT THIS TIME, TOLERATING CHANGE IN DIET WELL, PT STATES HE HAS NO NEEDS AT THIS TIME, WILL CONTINUE TO MONITOR
--- NOTE | 2016-08-14 15:30 | NUR ---
ROUNDS PT RESTING, EVEN RISE AND FALL OF CHEST NOTED, SAFETY MEASURES IN PLACE, CALL LIGHT WITHIN REACH, WILL CONTINUE TO MONITOR.
[2016-08-14] MEDS ORDERED: FUROSEMIDE 20 MG/2 ML VIAL IVP ONE (16:00)
--- NOTE | 2016-08-14 17:00 | NUR ---
accucheck 285, covered per sliding scale
--- NOTE | 2016-08-14 19:00 | NUR ---
CLOSING NOTE PT SITTING IN BED, EATING, NO S/S OF DISTRESS NOTED, NO COMPLAINT OF PAIN, NAUSEA OR VOMITING, IV SITE PATENT AND INTACT, ALL NEEDS ATTENDED TO THROUGHOUT SHIFT, SAFETY MEASURES MAINTAINED, CALL LIGHT WITHIN REACH, WILL GIVE REPORT TO FOLLOWING SHIFT.
--- NOTE | 2016-08-14 19:50 | NUR ---
OPENING NOTE Pt. and bedside report received from day shift nurse. Pt. is awake and in stable condition. Safety measures discussed with pt. and how to use call light for any needs. Bed alarm on. Will continue to monitor.
[2016-08-14] MEDS: TEMAZEPAM 15 MG CAPSULE PO PRN (21:06)
--- NOTE | 2016-08-14 22:00 | NUR ---
ROUNDS Late entry due to pt. care. Pt. is resting quietly in bed with no s/s of acute distress. Safety measures in place. Bed alarm on. Will continue to monitor.
--- NOTE | 2016-08-15 00:19 | NUR ---
ROUNDS Pt. is awake and resting quietly in bed with no s/s of acute distress. Pt. denies any pain or discomfort. Denies any nausea at this time. Safety measures in place. Bed alarm on. Encouraged pt. to use call light for any needs. Will continue to monitor.
[2016-08-15 00:41] VITALS: BP 125/80; PULSE 108; RESP 16; TEMP 97.2; O2SAT 97
[2016-08-15] MEDS: MORPHINE 2 MG/ML INJ. SYRINGE IVP PRN ×4 (00:52→16:16)
[2016-08-15] MEDS: ONDANSETRON HCL 4 MG/2 ML VIAL IVP PRN ×3 (00:52→16:17)
--- NOTE | 2016-08-15 00:52 | NUR ---
PAIN/NAUSEA Pt. c/o pain and nausea. Pt. medicated with Morphine and Zofran IVP as ordered PRN. See EMAR. Educated pt. regarding medication and s/e. Pt. verbalized understanding. Safety measures in place. Encouraged pt. to use call light for any needs. Will continue to monitor.
[2016-08-15] MEDS: LevALBUTEROL HCL 1.25 MG/0.5 ML *CONC.* VIAL.NEB (XOPENEX CONC.) INH SCH ×3 (01:25→13:28)
--- NOTE | 2016-08-15 01:25 | NUR ---
RT AT BEDSIDE Pt. resting quietly in bed, RT at bedside. No s/s of acute distress. Safety measures in place. Bed alarm on. Will continue to monitor.
[2016-08-15 03:46] VITALS: BP 116/74; PULSE 108; RESP 18; TEMP 97.2; O2SAT 94
--- NOTE | 2016-08-15 04:07 | NUR ---
ROUNDS Pt. is resting quietly in bed with no s/s of acute distress. Safety measures in place. Bed alarm on. Call light on lap. Will continue to monitor.
--- NOTE | 2016-08-15 04:56 | NUR ---
PAIN/NAUSEA/JELLO Pt. is awake with c/o generalized "7/10" pain and nausea. Pt. medicated with Morphine IVP and Zofran IVP as ordered PRN. See EMAR. No s/s of acute distress. Educated pt. regarding medication and s/e and to use call light for any needs especially when gettign OOB. Pt. verbalized understanding. Pt. requested jello. Safety measures in place. Call light on lap. Will continue to monitor.
[2016-08-15] MEDS: INSULIN REGULAR, HUMAN 100 UNITS/ML, 10 ML VIAL (novoLIN R) SUBCUT PRN ×3 (06:49→17:19)
[2016-08-15 07:47] LABS: ALBUMIN 1.7 g/dL (3.4-4.8); BILIRUBIN,DIRECT 0.2 mg/dL (0.0-0.3); CALCIUM 8.4 mg/dL (8.4-11.0); CREATININE 1.06 mg/dL (0.55-1.30); POTASSIUM 4.3 mmol/L (3.5-5.1); TOTAL BILIRUBIN 0.3 mg/dL (0.0-1.0); TOTAL PROTEIN, SERUM 6.8 g/dL (6.4-8.3)
[2016-08-15 08:00] VITALS: BP 124/75; PULSE 107; RESP 20; TEMP 96; O2SAT 95
--- NOTE | 2016-08-15 08:24 | NUR ---
OPENING NOTE RECEIVED REPORT FROM NIGHT NURSE, PATIENT IS RESTING IN BED COMFORTABLY WITH COMPLAINTS OF PAIN BUT IS AWARE THAT HE CANNOT GET PAIN MEDICATION UNTIL 0900, NO NOTED DISTRESS OR SOB. PATIENT IS ALERT AND ORIENTED AND ABLE TO COMMUNICATE NEEDS TO STAFF. PATIENT IS AMBULATORY WITH ASSISTANCE. BED IS IN LOWEST POSITION AND PATIENT IS EDUCATED NOT TO GET UP WITHOUT ASSISTANCE. CALL LIGHT IS WITHIN REACH AND WILL CONTINUE TO MONITOR.
[2016-08-15] MEDS: FLUCONAZOLE 100 MG TABLET (DIFLUCAN) PO SCH (08:58)
[2016-08-15] MEDS: MEGESTROL ACETATE 400 MG/10 ML UDC PO SCH (08:58)
[2016-08-15] MEDS: LACTULOSE 20 GM/30 ML UDC PO SCH (08:58)
[2016-08-15] MEDS: DULoxetine HCL 30 MG CAPSULE.DR (CYMBALTA) PO SCH (08:58)
[2016-08-15] MEDS: PANTOPRAZOLE SODIUM 40 MG/VIAL (PROTONIX) IVP SCH (08:58)
[2016-08-15] MEDS: CLOPIDOGREL BISULFATE 75 MG TABLET PO SCH (08:58)
[2016-08-15] MEDS: ASPIRIN 81 MG TAB.CHEW PO SCH (08:58)
[2016-08-15] MEDS: GABAPENTIN 400 MG CAPSULE PO SCH (08:58)
--- NOTE | 2016-08-15 11:37 | NUR ---
NOTE PATIENT'S BS WAS 263 AND 6 UNITS OF REGULAR INSULIN WAS GIVEN WITH ANOTHER RN TO WITNESS. DR ARRIAGA WAS IN TO SEE THE PATIENT AND NEW ORDER TO INCREASE THE DIET TO CCHO AND TO GIVE REGLAN 10MG PO TID BEFORE MEALS WAS NOTED AND CARRIED OUT. THE PATIENT IS AWARE. NO COMPLAINTS OF PAIN, NO NOTED DISTRESS, DISCOMFORT OR SOB. FAMILY IS AT BEDSIDE AND CALL LIGHT IS WITHIN REACH AND WILL CONTINUE TO MONITOR.
[2016-08-15 12:30] VITALS: BP 140/81; PULSE 115; RESP 18; TEMP 98; O2SAT 97
--- NOTE | 2016-08-15 14:19 | NUR ---
NOTE PATIENT IS RESTING IN BED COMFORTABLY WITH NO COMPLAINTS OF PAIN, NO NOTED DISTRESS, DISCOMFORT OR SOB. PATIENT TOLERATED CCHO DIET. BED IS IN LOWEST POSITION AND CALL LIGHT IS WITHIN REACH. WILL CONTINUE TO MONITOR.
--- NOTE | 2016-08-15 16:00 | NUR ---
NOTE DR MARROQUIN WAS IN TO SEE THE PATIENT AND NEW ORDER TO DISCHARGE HOME. DAUGHTER TONIA WAS CALLED AND SPOKE TO DR MARROQUIN. HE WANTS THE PATIENT TO FOLLOW UP WITH HIM ON THURSDAY AND GAVE PRESCRIPTIONS TO THE PATIENT. TRANSITIONAL CARE WILL BE PROVIDED AND DISCHARGE PAPERWORK WILL BE COMPLETED. PATIENT IS COMPLAINING OF PAIN AND MORPHINE WAS GIVEN. CALL LIGHT IS WITHIN REACH AND WILL CONTINUE TO MONITOR.
[2016-08-15 16:07] VITALS: BP 138/78; PULSE 109; RESP 18; TEMP 97.9; O2SAT 97
[2016-08-15] MEDS: METOCLOPRAMIDE HCL 10 MG TABLET PO SCH ×2 (16:16→17:18)
[2016-08-15 17:37] VITALS: BP 135/70; PULSE 102; RESP 18; TEMP 97.9; O2SAT 97
--- NOTE | 2016-08-15 18:58 | NUR ---
DISCHARGE PATIENT'S GRANDSON IS HERE TO TAKE THE PATIENT HOME AND TRANSITIONAL CARE WAS PROVIDED TO THE PATIENT AND HE VERBALIZED UNDERSTANDING. PATIENT WILL BE LEAVING IN STABLE CONDITION WITH NO COMPLAINTS OF PAIN, NO NOTED DISTRESS, DISCOMFORT OR SOB. ALL BELONGINGS WERE TAKEN WITH THE GRANDSON
--- NOTE | 2016-08-27 16:21 | NUR ---
Late Entry for Discharge Follow Up Phone Call ASSEMBLING INSPECTOR phoned patient's daughter Daphne, , on 08/18/16 and left a voicemail message with offer of assistance and Social Service contact information. On 08/19/16, the voicemail was full. Patient was readmitted before more follow up calls could be made.
== END 2016-08-15 18:58 | disposition home or self-care (01) | DRG 441 ==
LOC: SED 13:47 → STU 17:01 → SMU 08-12 15:21
PROVIDERS: ADMIT Family Medicine; ATTEND Family Medicine
PROC: 0W9G3ZZ Drainage of Peritoneal Cavity, Percutaneous Approach (ICD-10-PCS; 2016-08-08)
PROC: 0W993ZZ Drainage of Right Pleural Cavity, Percutaneous Approach (ICD-10-PCS; 2016-08-09)
PROC: 0DB58ZX Excision of Esophagus, Via Natural or Artificial Opening Endoscopic, Diagnostic (ICD-10-PCS; 2016-08-13)
PROC: 0DB68ZX Excision of Stomach, Via Natural or Artificial Opening Endoscopic, Diagnostic (ICD-10-PCS; 2016-08-13)
PROC: 0DB98ZX Excision of Duodenum, Via Natural or Artificial Opening Endoscopic, Diagnostic (ICD-10-PCS; principal; 2016-08-13 09:00)
DX: K76.6 Portal hypertension (principal); E43 Unspecified severe protein-calorie malnutrition; J90 Pleural effusion, not elsewhere classified; E87.1 Hypo-osmolality and hyponatremia; R18.8 Other ascites; K21.0 Gastro-esophageal reflux disease with esophagitis; E11.65 Type 2 diabetes mellitus with hyperglycemia; D64.9 Anemia, unspecified; E86.0 Dehydration; K74.69 Other cirrhosis of liver; D69.6 Thrombocytopenia, unspecified; N18.9 Chronic kidney disease, unspecified; E11.43 Type 2 diabetes mellitus with diabetic autonomic (poly)neuropathy; E11.22 Type 2 diabetes mellitus with diabetic chronic kidney disease; E11.69 Type 2 diabetes mellitus with other specified complication; K29.70 Gastritis, unspecified, without bleeding; K31.84 Gastroparesis; K80.20 Calculus of gallbladder without cholecystitis without obstruction; Z85.05 Personal history of malignant neoplasm of liver; Z87.891 Personal history of nicotine dependence; Z68.31 Body mass index [BMI] 31.0-31.9, adult
CPT/HCPCS: 32555; 36415; 43239; 49083; 71010; 78264-TC; 80048; 80053; 80076; 81003; 82962; 83605; 83690-TC; 83735-TC; 84100-TC; 85007; 85025; 85027; 85610-TC; 87040-TC; 87070-TC; 87081; 87116; 88108; 88305; 88312; 88313; 93005; 94640; 94760; 96365; 96375; 99285; A9541; C1729; C9113; J1815; J1940; J2250; J2270; J2405; J3010; J3480; J8597

== ENCOUNTER 2016-08-22 10:16 | Inpatient (IN) | payer OTHER, MEDICAID ==
[~2016-08-22] VITALS: Ht 162.6 cm; Wt 99.8 kg
[2016-08-22 10:17] VITALS: BP 126/80; PULSE 91; RESP 16; TEMP 98.4; O2SAT 97
--- NOTE | 2016-08-22 10:30 | NUR ---
Radiolgy tech at the bedside performing cxr.
--- NOTE | 2016-08-22 10:40 | NUR ---
# 20 gauge angiocath placed to right wrist SL. Use of asceptic technique. Opsite placed over site. Blood return noted. Blood for lab drawn from site. Flushed with 10 cc of normal saline. No evidence of infiltration noted. Patient tolerated well.
[2016-08-22 11:12] LABS: BASOPHILS % (AUTO) 0.2 % (0.0-2.0); EOSINOPHILS % (AUTO) 1.3 % (0.0-4.0); HEMATOCRIT 25.9 % (36-54); HEMOGLOBIN 8.5 g/dL (14.0-18.0); LYMPHOCYTES # (AUTO) 0.3 K/uL (1.0-5.5); LYMPHOCYTES % (AUTO) 9.4 % (20.5-51.5); MEAN CORPUSCULAR HEMOGLOBIN 30 pg (27-31); MEAN CORPUSCULAR HGB CONC 33 % (32-36); MEAN CORPUSCULAR VOLUME 90 fL (79.0-98.0); MONOCYTES # (AUTO) 0.4 K/uL (0.0-1.0); MONOCYTES % (AUTO) 10.6 % (1.7-9.3); NEUTROPHILS % (AUTO) 78.5 % (40.0-70.0); PLATELET COUNT (AUTO) 94 K/uL (130-430); RED BLOOD CELL COUNT(AUTO) 2.87 MIL/uL (4.2-6.2); RED CELL DISTRIBUTION WIDTH 17.7 % (9.0-15.0); WHITE BLOOD COUNT (AUTO) 3.7 K/uL (4.8-10.8)
[2016-08-22] MEDS ORDERED: KETOROLAC TROMETHAMINE 30 MG VIAL IVP ONE (11:15)
[2016-08-22 11:18] LABS: CALCIUM 8.2 mg/dL (8.4-11.0); CREATININE 1.31 mg/dL (0.55-1.30); POTASSIUM 4.4 mmol/L (3.5-5.1)
[2016-08-22 11:19] LABS: INR 1.2 (0.80-1.20); PROTHROMBIN TIME 12.6 SECS (9.5-12.5)
[2016-08-22 11:25] LABS: ALBUMIN 1.9 g/dL (3.4-4.8); TOTAL BILIRUBIN 0.5 mg/dL (0.0-1.0); TOTAL PROTEIN, SERUM 7.1 g/dL (6.4-8.3)
--- NOTE | 2016-08-22 11:55 | NUR ---
orthophotography technician at the bedside performing US.
--- NOTE | 2016-08-22 11:55 | NUR ---
DR CANDELARIO AT BEDSIDE PERFORMING AN ULTRASOUND. DR GARCIA SPEAKING WITH DR CANDELARIO
[2016-08-22 12:19] LABS: BILIRUBIN,URINE NEGATIVE (NEGATIVE); BLOOD, URINE NEGATIVE (NEGATIVE); CLARITY/URINE CLEAR (CLEAR); COLOR,URINE YELLOW (YELLOW); GLUCOSE,URINE NEGATIVE (NEGATIVE); KETONES,URINE TRACE (NEGATIVE); LEUKOCYTE ESTERASE ,URINE NEGATIVE (NEGATIVE); NITRITE, URINE NEGATIVE (NEGATIVE); PH,URINE 5.5 (5.0-8.0); PROTEIN URINE NEGATIVE (NEGATIVE); UROBILINOGEN,URINE 0.2 (0.2-1.0)
--- NOTE | 2016-08-22 12:41 | NUR ---
DR GARCIA SPEAKING WITH FAMILY AND PT.
--- NOTE | 2016-08-22 13:14 | NUR ---
DR GARCIA SPEAKING WITH DR MARROQUIN
[2016-08-22] MEDS ORDERED: NACL 0.9% 1,000 ML IV ONE (13:15)
[2016-08-22] MEDS ORDERED: MORPHINE 4 MG/ML INJ. SYRINGE IVP ONE (13:15)
[2016-08-22] MEDS ORDERED: KCL 20 mEq in 0.45% NS 1000 mL 1,000 ML IV SCH (13:30)
--- NOTE | 2016-08-22 14:05 | NUR ---
Patient will be admitted to care of DR MARROQUIN. Admitted to TELE unit. Will go to room 135. Belongings list completed. Summary report printed. Report given to NURSE.
--- NOTE | 2016-08-22 14:09 | NUR ---
ADMISSION NOTE Received patient from ER via gurney. Patient admitted with diagnosis of ABDOMINAL PAIN AND WEAKNESS. Patient is awake, alert, oriented X 3. Patient oriented to hospital room, call light, toileting, pain management and safety-teach back done. Patient informed that HEIDY will be THE nurse and that their room number is [id number]. Personal belongings checked and Belongings List documented. Call light within reach.
[2016-08-22 14:10] VITALS: BP 129/75; PULSE 103; RESP 16; TEMP 97.1; O2SAT 92
--- NOTE | 2016-08-22 15:55 | NUR ---
Crackers ok with clear liquid diet at this time per Doctor Melita.
[2016-08-22] MEDS ORDERED: GLUCOSE 15 GM GEL (in 37.5 GM TUBE) PO PRN ×2 (17:30)
[2016-08-22] MEDS ORDERED: DEXTROSE 50%-WATER 50 ML DISP.SYRIN IVP PRN ×2 (17:30)
[2016-08-22] MEDS: traMADol HCL HCL 50 MG TABLET (ULTRAM) PO PRN (17:50)
--- NOTE | 2016-08-22 18:47 | NUR ---
Handoff report for noc nurse. Patient needs met. Pictures taken for chart.
--- NOTE | 2016-08-22 18:54 | NUR ---
Note izabela in EDM - 08/22/16 at 1855 by NADIA Patient will be admitted to care of DR MARROQUIN. Admitted to TELE unit. Will go to room 135. Belongings list completed. Summary report printed. Report given to NURSE.
[2016-08-22 19:27] VITALS: BP 109/69; PULSE 101; RESP 18; TEMP 97.6; O2SAT 97
[2016-08-22 19:35] VITALS: BP 118/68; PULSE 98; RESP 17; TEMP 97.3; O2SAT 95
--- NOTE | 2016-08-22 19:35 | NUR ---
INITIAL NOTE PT. RECEIVED AAOX4, NO S/S OF SOB OR DISTRESS NOTED. VSS. PT STATES HE IS HAVING GENERALIZED PAIN, WILL MEDICATE ORDERED. IV ACCESS NOTED TO RIGHT FOREARM, SALINE LOCK. NO REDNESS OR SWELLING AT THE SITE. PT. HAS SCDS ON BILATERALLY. STATES HE IS FEELING WEAK. ENCOURAGED PT. NOT TO AMBULATE WITHOUT ANY ASSISTANCE, VERBALIZES UNDERSTANDING AND AGREES TO CALL IF HE NEEDS ANYTHING. PT. STATES HE USES THE URINAL. PLAN OF CARE DISCUSSED, VERBALIZES UNDERSTANDING. WILL CONTINUE TO MONITOR. SAFETY AND FALL PRECAUTIONS IN PLACE. CALL LIGHT IN REACH. ALARM ON.
[2016-08-22] MEDS: GABAPENTIN 400 MG CAPSULE PO SCH (21:13)
[2016-08-22] MEDS: PANTOPRAZOLE SODIUM 40 MG/VIAL (PROTONIX) IVP SCH (21:13)
[2016-08-22] MEDS: MEGESTROL ACETATE 400 MG/10 ML UDC PO SCH (21:13)
[2016-08-22] MEDS: INSULIN REGULAR, HUMAN 100 UNITS/ML, 10 ML VIAL (novoLIN R) SUBCUT PRN (21:28)
--- NOTE | 2016-08-22 22:00 | NUR ---
ROUNDS PT. RESTING IN BED, NO S/S OF SOB OR DISTRESS NOTED AT THIS TIME. PT. STATES HE IS HAVING PAIN AND WOULD LIKE MEDICATION, BUT IS NOT DUE FOR HIS PRN MEDICATION YET. WILL ADMINISTER IT WHEN IT IS DUE, ORDERED. ENCOURAGED PT TO USE RELAXATION TECHNIQUES AND DEEP BREATHING. PROVIDED PT. WITH ICE CHIPS PER HIS REQUEST. 150 CC OF CLEAR YELLOW URINE EMPTIED FROM URINAL. WILL CONTINUE TO MONITOR FOR ANY CHANGES. SAFETY AND FALL PRECAUTIONS IN PLACE. CALL LIGHT IN REACH, BED ALARM ON.
--- NOTE | 2016-08-23 00:15 | NUR ---
ROUNDS PT. REQUESTING PAIN MEDICATION. WILL ADMINISTER ORDERED. PROVIDED PT. WITH ICE CHIPS PER HIS REQUEST. PT. ASKING FOR SANDWICH BUT NONE ARE AVAILABLE AT THIS TIME. INFORMED BOOTMAKER HAND, WHO STATED SHE WILL GET ONE FOR HIM. WILL CONTINUE TO MONITOR FOR ANY CHANGES. SAFETY AND FALL PRECAUTIONS IN PLACE, CALL LIGHT IN REACH.
[2016-08-23] MEDS: traMADol HCL HCL 50 MG TABLET (ULTRAM) PO PRN ×3 (00:44→18:47)
[2016-08-23 01:16] VITALS: BP 126/74; PULSE 68; RESP 18; TEMP 97.9; O2SAT 96
--- NOTE | 2016-08-23 02:05 | NUR ---
ROUNDS PT. RESTING IN BED EATING SANDWICH. NO S/S OF SOB OR DISTRESS NOTED. WILL CONTINUE TO MONITOR FOR ANY CHANGES. SAFETY AND FALL PRECAUTIONS IN PLACE. CALL LIGHT IN REACH, BED ALARM ON.
--- NOTE | 2016-08-23 04:10 | NUR ---
ROUNDS PT. RESTING IN BED WITH EYES CLOSED. CHEST RISE AND FALL NOTED. NO S/S OF SOB OR DISTRESS NOTED. NO FACIAL GRIMACING INDICATING ANY PAIN. WILL CONTINUE TO MONITOR FOR ANY CHANGES. SAFETY AND FALL PRECAUTIONS IN PLACE. CALL LIGHT IN REACH, BED ALARM ON.
[2016-08-23 04:36] VITALS: BP 109/64; PULSE 92; RESP 20; TEMP 98.5; O2SAT 98
--- NOTE | 2016-08-23 06:32 | NUR ---
CLOSING NOTE PT. RESTING IN BED WITH EYES CLOSED. EASILY AWAKENS. BLOOD SUGAR THIS AM WAS 143, NO INSULIN COVERAGE WAS NEEDED PER SLIDING SCALE. ALL NECESSARY NEEDS WERE MET. SAFETY AND FALL PRECAUTIONS WERE MAINTAINED. WILL ENDORSE CARE TO AM NURSE. CALL LIGHT IN REACH, BED ALARM ON.
[2016-08-23 07:10] LABS: EOSINOPHILS # (AUTO) 0.1 K/uL (0.0-0.4); LYMPHOCYTES # (AUTO) 0.3 K/uL (1.0-5.5); WHITE BLOOD COUNT (AUTO) 2.8 K/uL (4.8-10.8)
[2016-08-23 07:19] LABS: CREATININE 1.28 mg/dL (0.55-1.30); PHOSPHORUS 3.6 mg/dL (2.7-4.5); POTASSIUM 4.2 mmol/L (3.5-5.1)
--- NOTE | 2016-08-23 07:20 | NUR ---
AM NOTES: RECEIVED PT AWAKE, ALERT, ORIENTED X4, ON ROOM AIR, NO RESP DISTRESS NOTED, SALINE LOCK IV AT RT FA, ON NSR, DENIES ANY CHEST PAIN, TO CONTINUE TO MONITOR CLOSELY.
[2016-08-23 08:00] VITALS: BP 130/96; PULSE 94; RESP 22; TEMP 96.8; O2SAT 96
[2016-08-23 08:26] LABS: BASOPHILS % (AUTO) 0.4 % (0.0-2.0); EOSINOPHILS % (AUTO) 3.3 % (0.0-4.0); HEMATOCRIT 24.3 % (36-54); LYMPHOCYTES % (AUTO) 9.9 % (20.5-51.5); MEAN CORPUSCULAR HEMOGLOBIN 30 pg (27-31); MEAN CORPUSCULAR HGB CONC 33 % (32-36); MEAN CORPUSCULAR VOLUME 90 fL (79.0-98.0); MONOCYTES # (AUTO) 0.4 K/uL (0.0-1.0); NEUTROPHILS % (AUTO) 73.4 % (40.0-70.0); PLATELET COUNT (AUTO) 75 K/uL (130-430); RED BLOOD CELL COUNT(AUTO) 2.71 MIL/uL (4.2-6.2); RED CELL DISTRIBUTION WIDTH 17.5 % (9.0-15.0)
[2016-08-23] MEDS: PANTOPRAZOLE SODIUM 40 MG/VIAL (PROTONIX) IVP SCH ×2 (08:59→22:03)
[2016-08-23] MEDS: MEGESTROL ACETATE 400 MG/10 ML UDC PO SCH ×2 (08:59→22:03)
[2016-08-23] MEDS: LACTULOSE 20 GM/30 ML UDC PO SCH (08:59)
[2016-08-23] MEDS ORDERED: INSULIN GLARGINE 100 UNITS/ML 10 ML VIAL SUBCUT SCH (09:00)
[2016-08-23] MEDS: ASPIRIN 81 MG TAB.CHEW PO SCH (09:00)
[2016-08-23] MEDS: DULoxetine HCL 30 MG CAPSULE.DR (CYMBALTA) PO SCH (09:00)
[2016-08-23] MEDS: CLOPIDOGREL BISULFATE 75 MG TABLET PO SCH (09:00)
[2016-08-23] MEDS: GABAPENTIN 400 MG CAPSULE PO SCH ×2 (09:00→22:04)
--- NOTE | 2016-08-23 09:00 | NUR ---
NURSE: PT COMPLAINED OF LOW BACK PAIN, TRAMADOL WAS GIVEN, V/S STABLE, NO SOB NOTED.
[2016-08-23] MEDS: INSULIN REGULAR, HUMAN 100 UNITS/ML, 10 ML VIAL (novoLIN R) SUBCUT PRN ×3 (11:13→22:08)
--- NOTE | 2016-08-23 12:00 | NUR ---
NURSE: PT IS HAVING LUNCH, GOOD APPETITE.
[2016-08-23 12:20] VITALS: BP 123/77; PULSE 100; RESP 18; TEMP 97.2; O2SAT 97
[2016-08-23] MEDS: ONDANSETRON HCL 4 MG/2 ML VIAL IVP PRN (13:12)
--- NOTE | 2016-08-23 13:20 | NUR ---
NURSE: PT WAS VOMITING, ZOFRAN IV GIVEN, TOLD HIM TO SLOW SOWN ON HIS ORAL INTAKE.
--- NOTE | 2016-08-23 15:00 | NUR ---
NURSE: PT AMBULATED TO THE BATHROOM WITH LITTLE HELP, NO DIZZINESS NOTED, PER PT HE IS OK, NO SOB NOTED TOO.+
[2016-08-23 15:41] VITALS: BP 116/58; PULSE 99; RESP 16; TEMP 97.3; O2SAT 96
--- NOTE | 2016-08-23 16:00 | NUR ---
NURSE: PT IS RESTING ON BED, V/S STABLE.
[2016-08-23 19:40] VITALS: BP 110/68; PULSE 102; RESP 18; TEMP 97.9; O2SAT 97
--- NOTE | 2016-08-23 19:40 | NUR ---
INITIAL NOTE PT. RECEIVED AAOX4, NO S/S OF SOB OR DISTRESS NOTED. VSS. SINUS TACH ON THE MONITOR. PT STATES HE IS HAVING GENERALIZED PAIN, WILL MEDICATE ORDERED. PT. ALSO COMPLAINS OF NAUSEA, WILL MEDICATE WITH PRN MEDICATIONS ORDERED. IV ACCESS NOTED TO RIGHT FOREARM, SALINE LOCK. NO REDNESS OR SWELLING AT THE SITE. PT. HAS SCDS ON BILATERALLY. ENCOURAGED PT. NOT TO AMBULATE WITHOUT ANY ASSISTANCE, VERBALIZES UNDERSTANDING AND AGREES TO CALL IF HE NEEDS ANYTHING. PT. STATES HE USES THE URINAL. PLAN OF CARE DISCUSSED, VERBALIZES UNDERSTANDING. WILL CONTINUE TO MONITOR. SAFETY AND FALL PRECAUTIONS IN PLACE. CALL LIGHT IN REACH. ALARM ON.
--- NOTE | 2016-08-23 22:01 | NUR ---
ROUNDS PT. RESTING IN BED. NO S/S OF SOB OR DISTRESS NOTED. PROVIDED PT. WITH A SANDWICH AND JUICE PER HIS REQUEST. WILL CONTINUE TO MONITOR FOR ANY CHANGES. SAFETY AND FALL PRECAUTIONS IN PLACE. CALL LIGHT IN REACH.
[2016-08-24] VITALS (7 sets, daily range): BP systolic 100–129; BP diastolic 71–82; PULSE 104–125; RESP 18–20; TEMP 96.9–97.9; O2SAT 95–98
--- NOTE | 2016-08-24 00:03 | NUR ---
ROUNDS PT. RESTING IN BED WITH EYES CLOSED. CHEST RISE AND FALL NOTED. NO S/S OF SOB OR DISTRESS NOTED. NO FACIAL GRIMACING INDICATING ANY PAIN. WILL CONTINUE TO MONITOR. SAFETY AND FALL PRECAUTIONS IN PLACE. CALL LIGHT IN REACH.
[2016-08-24] MEDS: ONDANSETRON HCL 4 MG/2 ML VIAL IVP PRN ×3 (01:07→19:58)
[2016-08-24] MEDS: traMADol HCL HCL 50 MG TABLET (ULTRAM) PO PRN ×4 (01:07→22:39)
--- NOTE | 2016-08-24 02:01 | NUR ---
ROUNDS PT. RESTING IN BED WATCHING TELEVISION. NO S/S OF SOB OR DISTRESS. NO COMPLAINTS OF PAIN. WILL CONTINUE TO MONITOR. CALL LIGHT IN REACH.
--- NOTE | 2016-08-24 04:03 | NUR ---
ROUNDS PT. COMPLAINING OF A COUGH, ASKED FOR JUICE AND CRACKERS TO HELP WITH COUGH. PROVIDED TO PT. NO OTHER S/S OF DISTRESS AT THIS TIME. WILL CONTINUE TO MONITOR. SAFETY AND FALL PRECAUTIONS IN PLACE. CALL LIGHT IN REACH.
[2016-08-24] MEDS: INSULIN REGULAR, HUMAN 100 UNITS/ML, 10 ML VIAL (novoLIN R) SUBCUT PRN ×3 (06:48→17:25)
--- NOTE | 2016-08-24 06:50 | NUR ---
closing note pt. resting in bed, no s/s of sob or distress noted. pt. denies pain at this time. accu check done, bs 202, 4 units butcherette per sliding scale. all necessary needs were met. safety and fall precautions were maintained. will endorse care to am nurse. call light in reach.
--- NOTE | 2016-08-24 08:00 | NUR ---
NOTES RECEIVED IN BED, PT IS AAOX4, C/O PAIN 6/10 ON HIS ABD AND BACK. WILL PROVIDE PAIN MED. PT AFEBRILE, NO SOB, NO DISTRESS. LEGS SQUEEZERS ON.
[2016-08-24] MEDS: CLOPIDOGREL BISULFATE 75 MG TABLET PO SCH (08:07)
[2016-08-24] MEDS: GABAPENTIN 400 MG CAPSULE PO SCH ×2 (08:07→20:57)
[2016-08-24] MEDS: ASPIRIN 81 MG TAB.CHEW PO SCH (08:07)
[2016-08-24] MEDS: MEGESTROL ACETATE 400 MG/10 ML UDC PO SCH ×2 (08:08→20:57)
[2016-08-24] MEDS: LACTULOSE 20 GM/30 ML UDC PO SCH (08:08)
[2016-08-24] MEDS: DULoxetine HCL 30 MG CAPSULE.DR (CYMBALTA) PO SCH (08:08)
[2016-08-24] MEDS: PANTOPRAZOLE SODIUM 40 MG/VIAL (PROTONIX) IVP SCH ×2 (08:08→20:56)
--- NOTE | 2016-08-24 10:00 | NUR ---
PT ASSISTED TO BEDSIDE COMMODE, PT INSTRUCTED TO CALL FOR ASSIST TO GO BACK TO BED. CALLIGHT W/IN REACH.
--- NOTE | 2016-08-24 12:00 | NUR ---
PT IN BED, NO SOB, NO DISTRESS, NO C/O PAIN. CALLIGHT IN REACH AND BED IN LOW POSITION. LEG SQUEZERS FUNTIONAL. INSTRUCTED PT TO CALL FOR ASSIST TO PREVENT FALL.
--- NOTE | 2016-08-24 14:00 | NUR ---
PT ASSISTED TO BEDSIDE COMMODE, CALLIGHT WITHIN REACH, TOLD TO CALL FOR ASSIST TO GO BACK TO BED, PT'S SPOUSE AT BEDSIDE. PT VOMITED. GIVEN FRANCA EARLIER.
--- NOTE | 2016-08-24 16:00 | NUR ---
NOTES; PT IN BED, NO C/O PAIN. NO DISTRESS, NO SOB, CALLIGHT W/IN REACH, BED AT LOW POSITION. BED ALARM ON. LEG SQUEEZERS ON. INSTRUCTED TO CALL FOR ASSIST AND USE CALL LIGHT.
--- NOTE | 2016-08-24 18:00 | NUR ---
PT IN BED, NO SOB, NO DISTRESS. PT EATING DINNER, ALL REQUEST TAKEN CARE ON. CALLIGHT WITH IN REACH, BED AT LOW POSITION. LEG SQUEEZERS ON. WILL CONTINUE TO MONITOR.
--- NOTE | 2016-08-24 19:15 | NUR ---
change of shift.initial pt.assessment.pt.presents lethargic affect.breathing pattern labored.pt.presents room air status.nausea.2 f/u w/v/s,02sat% assessment.call light placed w/in pt's reach.
--- NOTE | 2016-08-24 19:45 | NUR ---
pt.assessed.v/s assessed.o2-sat%=96%i inquired if pt.felt sob,.pt.stated yes.i applied o2 @2l/min vis nasal cannulae. v/s values w/in normal limits:exc:h/r:=111bmp/.i inquired if pt.felt nausea:pt.stated yes;2 f/u w/ nausea medication. call light placed w/in pt's reach.
--- NOTE | 2016-08-24 20:00 | NUR ---
pt.assessed.pt.repositioned self.i have administered zofran:4mg ivp.o2 sat%=98%@2l/min via nc.pt.had inquired re: pain medicAtion:i reviewed the emar.pt.had recived ultram:1tab po @1730p.i apprised the pt.of the the houtr @which the pain medication had been administered.pt is due @2230p.i inquired if pt.anxiety:pt.appeared restless.pt.stated yes i reviewed the emar.no medication ordered: 2 f/u w..call light placed w/in pt's reach.urinal emptied. basin 4 sputum emptied.
--- NOTE | 2016-08-24 20:30 | NUR ---
assessd the blood glucose:130mg/dl.
--- NOTE | 2016-08-24 20:58 | NUR ---
paged for Dr Hua, dialed . s/w Dr Benjie Shrestha is on-call for Dr Hua.
--- NOTE | 2016-08-24 21:00 | NUR ---
2100p medications administered.urinal emptied.basin:oral sputum emptied.pt.stated he is feeling better:re:nausea. no return call per :apprised the pt.call ligth placed w/in pt's reach.
[2016-08-24] MEDS ORDERED: LORazepam 1 MG TABLET PO SCH (21:45)
--- NOTE | 2016-08-24 22:00 | NUR ---
pt.assessed.pt.repositioned.urinal emptied.basin;oral sputum emptied.:on-call returned call.i apprised of the pt.re:anxiety. ordered;ativan:0.5mg po 1 tab x1. consented 2 the o2 2l/min via nasal cannulae.call light placed w/in pt.reach.
--- NOTE | 2016-08-24 22:25 | NUR ---
i have administered ultram:1 tab;pain.i have administered ativan:0.5mg po 1 tab x1. 2 f/u w/ the efficacy of the medications per protocol.call light placed w/in pt's reach.
[2016-08-25] VITALS (7 sets, daily range): BP systolic 108–128; BP diastolic 65–86; PULSE 95–116; RESP 16–20; TEMP 97.6–98.7; O2SAT 97–100; Ht 162.6 cm; Wt 99.8 kg
--- NOTE | 2016-08-25 | NUR ---
pt.assessed.o2 sat%=96%@2l/min.pt.repositioned.pt.presents quiescent affect:calm,asleep.v/s assessed. call light placed w/in pt's reach.
--- NOTE | 2016-08-25 02:00 | NUR ---
pt.assessed.pt.presents quiescent affect;calm,asleep.o2 sat%=96%o2 @2l/min via nc.no distress/discomfort noted. pt.repositioned.call light placed w/in pt's reach.
--- NOTE | 2016-08-25 04:00 | NUR ---
pt.assessed.pt.repositioned.pt.presents quiescent affect;calm,asleep.breathing pattern w/in normal limits.o2 -sat%= 96%@2l/min.v/s values w/in normal limits.no c/o pain,nausea.call ligth placed w/in pt's reach.
--- NOTE | 2016-08-25 05:54 | NUR ---
pt.assessed.blood glucose assessed:103mg/dl.labor crew supervisor rose mary lab sample.i inquired if the pt.presents any request. pt.stated no.no manifestation of pain,nausea.pt.states he is comfortable.call light placed w/in pt's reach.
[2016-08-25 07:06] LABS: CALCIUM 8.2 mg/dL (8.4-11.0); CREATININE 1.3 mg/dL (0.55-1.30); POTASSIUM 4.3 mmol/L (3.5-5.1)
[2016-08-25 07:18] LABS: BASOPHILS % (AUTO) 0.3 % (0.0-2.0); EOSINOPHILS # (AUTO) 0.1 K/uL (0.0-0.4); EOSINOPHILS % (AUTO) 3.2 % (0.0-4.0); HEMATOCRIT 25.4 % (36-54); LYMPHOCYTES # (AUTO) 0.4 K/uL (1.0-5.5); LYMPHOCYTES % (AUTO) 9.5 % (20.5-51.5); MEAN CORPUSCULAR HEMOGLOBIN 30 pg (27-31); MEAN CORPUSCULAR HGB CONC 33 % (32-36); MEAN CORPUSCULAR VOLUME 90 fL (79.0-98.0); MONOCYTES # (AUTO) 0.4 K/uL (0.0-1.0); MONOCYTES % (AUTO) 9.6 % (1.7-9.3); NEUTROPHILS # (AUTO) 3.3 K/uL (1.8-7.7); NEUTROPHILS % (AUTO) 77.4 % (40.0-70.0); RED BLOOD CELL COUNT(AUTO) 2.81 MIL/uL (4.2-6.2); WHITE BLOOD COUNT (AUTO) 4.3 K/uL (4.8-10.8)
[2016-08-25 07:32] LABS: HEMOGLOBIN 8.4 g/dL (14.0-18.0)
--- NOTE | 2016-08-25 08:00 | NUR ---
Initial Notes Patient A/O x4. Respirations even and unlabored with use of nasal cannula at 2 L/min. IV access patent and saline locked. Abdomen slightly distended, bowel sounds present. Use of call light reviewed in Kenyan, patient and family at bedside acknowledged understanding.
[2016-08-25] MEDS: GABAPENTIN 400 MG CAPSULE PO SCH ×2 (09:01→21:16)
[2016-08-25] MEDS: CLOPIDOGREL BISULFATE 75 MG TABLET PO SCH (09:01)
[2016-08-25] MEDS: LACTULOSE 20 GM/30 ML UDC PO SCH (09:02)
[2016-08-25] MEDS: DULoxetine HCL 30 MG CAPSULE.DR (CYMBALTA) PO SCH (09:02)
[2016-08-25] MEDS: MEGESTROL ACETATE 400 MG/10 ML UDC PO SCH ×2 (09:02→21:16)
[2016-08-25] MEDS: ASPIRIN 81 MG TAB.CHEW PO SCH (09:02)
[2016-08-25] MEDS: traMADol HCL HCL 50 MG TABLET (ULTRAM) PO PRN ×2 (09:02→21:17)
[2016-08-25] MEDS: PANTOPRAZOLE SODIUM 40 MG/VIAL (PROTONIX) IVP SCH ×2 (09:03→21:15)
--- NOTE | 2016-08-25 09:03 | NUR ---
Nutrition Update Lauri Scale 13 noted. Pt admitted for acute abd pain and tachycardia. Diet: [facility] BMI: 37.8 kg/m2 RD to follow per nutrition care standards.
[2016-08-25 09:23] LABS: PLATELET COUNT (AUTO) 95 K/uL (130-430)
--- NOTE | 2016-08-25 10:00 | NUR ---
Notes Morning medications have been administered. No difficulty swallowing. No aspiration noted.
[2016-08-25] MEDS: INSULIN REGULAR, HUMAN 100 UNITS/ML, 10 ML VIAL (novoLIN R) SUBCUT PRN ×3 (11:38→21:23)
--- NOTE | 2016-08-25 12:00 | NUR ---
Notes at bedside stated she will assist patient at lunch time.
--- NOTE | 2016-08-25 13:14 | NUR ---
Initial Notes Patient A/O x4. Respirations even and unlabored with use of nasal cannula at 2 L/min. IV access patent and saline locked. Abdomen slightly distended, bowel sounds present. Use of call light reviewed in Hungarian, patient and family at bedside acknowledged understanding. Addendum: 08/25/16 at 1318 by Jose Breen RN Note intended for 0800
--- NOTE | 2016-08-25 17:15 | NUR ---
Notes Paracentesis has been completed in patient's room. Patient tolerated well. No acute distress noted.
--- NOTE | 2016-08-25 19:15 | NUR ---
change of shift.initial pt.assessment.pt.presents s/p paracentesis:vacu-taners@side of wall 2 b disposed of.pt requsting snack items.2 b provided. call light placed w/in pt's reach.family @bedside.
--- NOTE | 2016-08-25 19:30 | NUR ---
Closing Note Patient needs met throughout shift. Patient was sleepy throughout shift but awakens easily. Paracentesis consent obtained, placed in chart. Paracentesis was completed, 2 L output. No respiratory distress or difficulty breathing noted throughout shift. Patient care endorsed to oncoming shift nurse.
--- NOTE | 2016-08-25 20:00 | NUR ---
pt.assessed.v/s assessed.pt.presents stable status.pt.requesting ice chips/crackers.2 b provided. call light w/in pt's reach.urinal emptied.
--- NOTE | 2016-08-25 21:00 | NUR ---
2100p medications administered.pt.requested medication:pain.i have administered ultram:1 tab po.2 f/u re: efficacy:pain medication.
[2016-08-25] MEDS: ONDANSETRON HCL 4 MG/2 ML VIAL IVP PRN (21:20)
--- NOTE | 2016-08-25 22:00 | NUR ---
pt.assessed.pt.repositioned.pt.states the pain medication effective.pt.requested ice chips,crackers.i have provided the snack items.urinal emptied.
[2016-08-26] VITALS: BP 125/80; PULSE 105; RESP 18; TEMP 97.8; O2SAT 98
--- NOTE | 2016-08-26 | NUR ---
pt.assessed.v/s assessed.values w/ normal limits;exc:tachycardia.pt.repositioned.no request@this hour. call light placed w/in pt's reach.
--- NOTE | 2016-08-26 02:00 | NUR ---
pt./assessed.pt.repositioned.pt.presents quiescent affect:calm,asleep.no distress/discomfort manifested. call light placed w/in pt's reach.
[2016-08-26] MEDS: traMADol HCL HCL 50 MG TABLET (ULTRAM) PO PRN ×2 (02:53→09:20)
[2016-08-26 04:00] VITALS: BP 115/75; PULSE 103; RESP 18; TEMP 97.4; O2SAT 96
--- NOTE | 2016-08-26 04:00 | NUR ---
pt.assessed.v/s assessed.values w/n normal limits:exc:slight tachycardia.pt.assumed request bedpan4 bowel movement: gas passed no fecal material.pt.repositioned,i inquired if pt.presented any request.pt.requested crackers,apple juice. have provided the snack items.maryana roche placed w/in pt's reach.
--- NOTE | 2016-08-26 06:15 | NUR ---
pt.assessed.pt.required complete bed linen change.pt.presents.increased weakness. pt.bloodglucose assessed:200mg/dl.i have administered2 units:insulin.
[2016-08-26] MEDS: INSULIN REGULAR, HUMAN 100 UNITS/ML, 10 ML VIAL (novoLIN R) SUBCUT PRN ×2 (06:51→11:19)
--- NOTE | 2016-08-26 07:50 | NUR ---
Initial Note Received pt in bed, no s/s of distress or sob noted, pt has no c/o pain at this time, pt in stable condition. Pt aaox4 verbal. Pt on oxygen 2 liters via nasal cannula. Noted left lower quadrant with a bandage s/p paracentesis, no bleeding noted. Pt has bilateral scd's in place. Bed at lowest position, call light within reach, will continue to monitor pt for any changes, fall precautions in place, bed alarm on. Pt instructed to call for assistance when needed.
[2016-08-26 08:00] VITALS: BP 117/74; PULSE 102; RESP 18; TEMP 98.6; O2SAT 98
[2016-08-26] MEDS: ASPIRIN 81 MG TAB.CHEW PO SCH (08:35)
[2016-08-26] MEDS: DULoxetine HCL 30 MG CAPSULE.DR (CYMBALTA) PO SCH (08:35)
[2016-08-26] MEDS: PANTOPRAZOLE SODIUM 40 MG/VIAL (PROTONIX) IVP SCH (08:35)
[2016-08-26] MEDS: CLOPIDOGREL BISULFATE 75 MG TABLET PO SCH (08:35)
[2016-08-26] MEDS: LACTULOSE 20 GM/30 ML UDC PO SCH (08:35)
[2016-08-26] MEDS: MEGESTROL ACETATE 400 MG/10 ML UDC PO SCH (08:36)
[2016-08-26] MEDS: GABAPENTIN 400 MG CAPSULE PO SCH (08:36)
[2016-08-26] MEDS: ONDANSETRON HCL 4 MG/2 ML VIAL IVP PRN (08:40)
--- NOTE | 2016-08-26 09:10 | NUR ---
Medication Reassessment Pt no longer feels nauseas, no vomiting noted, will continue to monitor pt for any changes.
--- NOTE | 2016-08-26 10:03 | NUR ---
Rounds Pt in bed, no s/s of distress or sob noted, pt has no c/o pain at this time, pt in stable condition, will continue to monitor pt for any changes, resting comfortably.
--- NOTE | 2016-08-26 10:38 | NUR ---
Family Call Attempted to call family, daughter at [phone], no one answered, unable to leave voicemail due to voicemail box being full. Will attempt to call back to notify of d/c orders.
[2016-08-26 10:58] VITALS: BP 122/86; PULSE 109; RESP 18; TEMP 98.6; O2SAT 96
[2016-08-26 12:00] VITALS: BP 122/56; PULSE 110; RESP 18; TEMP 98.6; O2SAT 95
--- NOTE | 2016-08-26 12:25 | NUR ---
D/C Patient Patient given medication reconciliation form and D/C instructions. Exit Care provided. Patient verbalized understanding. MD discussed with patient the results and treatment provided. Ambulatory with assist for discharge to home. Patient in stable condition, ID band removed. IV catheter removed, intact and dressing applied, no active bleeding. Patient educated on pain management. All belongings sent with patient.
--- NOTE | 2016-09-01 15:17 | NUR ---
Discharge Follow Up Phone Calls: Yeast Fermentation Attendant called and left voice mails for pt ([phone]) on 08/27/16, 08/28/16, 09/01/16. Yeast Fermentation Attendant contact information was provided and pt was encouraged to call back with any needs or concerns. Yeast Fermentation Attendant will continue to remain available for pt to call back, but no further follow up calls will be made at this time.
== END 2016-08-26 12:25 | disposition home or self-care (01) | DRG 435 ==
LOC: SED 10:16 → SMU 13:37 → STU 13:54
PROVIDERS: ADMIT Family Medicine; ATTEND Family Medicine
PROC: 0W9G3ZZ Drainage of Peritoneal Cavity, Percutaneous Approach (ICD-10-PCS; principal; 2016-08-25)
DX: C22.9 Malignant neoplasm of liver, not specified as primary or secondary (principal); E43 Unspecified severe protein-calorie malnutrition; R18.8 Other ascites; E11.9 Type 2 diabetes mellitus without complications; D64.9 Anemia, unspecified; I10 Essential (primary) hypertension; Z79.82 Long term (current) use of aspirin; Z79.899 Other long term (current) drug therapy; Z90.49 Acquired absence of other specified parts of digestive tract; Z68.37 Body mass index [BMI] 37.0-37.9, adult
CPT/HCPCS: 36415; 49083; 71010; 76705; 80048; 80053; 81003; 82962; 83605; 83735-TC; 84100-TC; 85025; 85610-TC; 85730-TC; 87040-TC; 87081; 93005; 96361; 96374; 96375; 97116-GP; 99285; C1729; C9113; J1815; J1885; J2270; J2405; J3480; J7030

== ENCOUNTER 2016-09-11 10:38 | Inpatient (IN) | payer OTHER, MEDICAID ==
[2016-09-11] VITALS (10 sets, daily range): BP systolic 123–149
[~2016-09-11] VITALS: Ht 160 cm; Wt 74.8 kg
[~2016-09-11 10:38] MED LIST changes: -AZIT250T PO; -CIPR-211 PO; -FURO-149 PO; -METF-510 PO; -MORP15TA60 PO; -NADO80TA14 PO; -TRAZ-123 PO
[2016-09-11 11:11] LABS: BASOPHILS % (AUTO) 0.7 % (0.0-2.0); EOSINOPHILS # (AUTO) 0.1 K/uL (0.0-0.4); EOSINOPHILS % (AUTO) 2.8 % (0.0-4.0); HEMATOCRIT 30.1 % (36-54); HEMOGLOBIN 10.3 g/dL (14.0-18.0); LYMPHOCYTES # (AUTO) 0.6 K/uL (1.0-5.5); LYMPHOCYTES % (AUTO) 20.2 % (20.5-51.5); MEAN CORPUSCULAR HEMOGLOBIN 30 pg (27-31); MEAN CORPUSCULAR HGB CONC 34 % (32-36); MEAN CORPUSCULAR VOLUME 87 fL (79.0-98.0); MONOCYTES # (AUTO) 0.4 K/uL (0.0-1.0); MONOCYTES % (AUTO) 15.8 % (1.7-9.3); NEUTROPHILS # (AUTO) 1.7 K/uL (1.8-7.7); NEUTROPHILS % (AUTO) 60.5 % (40.0-70.0); PLATELET COUNT (AUTO) 114 K/uL (130-430); RED BLOOD CELL COUNT(AUTO) 3.47 MIL/uL (4.2-6.2); RED CELL DISTRIBUTION WIDTH 16.4 % (9.0-15.0); WHITE BLOOD COUNT (AUTO) 2.8 K/uL (4.8-10.8)
[2016-09-11 11:24] LABS: INR 1.2 (0.80-1.20); PROTHROMBIN TIME 12.9 SECS (9.5-12.5)
[2016-09-11 11:39] LABS: ANION GAP 4 (5-15); CALCIUM 8.2 mg/dL (8.4-11.0); CHLORIDE 103 mmol/L (98-107); CREATININE 0.92 mg/dL (0.55-1.30); GLUCOSE 150 mg/dL (70-99); SODIUM SERUM 133 mmol/L (136-145); UREA NITROGEN, BLOOD 19 mg/dL (8-21)
[2016-09-11 11:41] LABS: GFR AFRICAN AMERICAN 106 mL/min (>90)
[2016-09-11 11:42] LABS: POTASSIUM 5.8 mmol/L (3.5-5.1)
[2016-09-11 11:47] LABS: ALANINE AMINOTRANSFERASE 96 U/L (12-78); ALBUMIN 2.5 g/dL (3.4-4.8); ASPARTATE AMINOTRANSFERASE 90 U/L (10-37); TOTAL BILIRUBIN 2.2 mg/dL (0.0-1.0); TOTAL PROTEIN, SERUM 7.2 g/dL (6.4-8.3)
[2016-09-11 11:49] LABS: ALCOHOL, BLOOD < 3 mg/dL (<10)
[2016-09-11] MEDS ORDERED: INSULIN REGULAR, HUMAN 10 UNITS/0.1 ML INJ IVP ONE (12:15)
[2016-09-11] MEDS ORDERED: SODIUM POLYSTYRENE SULFONATE 15 GM/60 ML UDBTL PO ONE (12:15)
[2016-09-11] MEDS ORDERED: CALCIUM CHLORIDE 1 GM/10ML VIAL (13.6 mEq Ca++/VIAL) IVP ONE (12:15)
[2016-09-11] MEDS ORDERED: SODIUM BICARBONATE 8.4% JECT 50 MEQ/50 ML SYRINGE IVP ONE (12:15)
[2016-09-11] MEDS ORDERED: DEXTROSE 50% JECT 50 ML DISP.SYRIN IVP ONE (12:15)
[2016-09-11 12:37] LABS: BILIRUBIN,URINE NEGATIVE (NEGATIVE); BLOOD, URINE NEGATIVE (NEGATIVE); CLARITY/URINE CLEAR (CLEAR); COLOR,URINE YELLOW (YELLOW); GLUCOSE,URINE NEGATIVE (NEGATIVE); KETONES,URINE NEGATIVE (NEGATIVE); LEUKOCYTE ESTERASE ,URINE NEGATIVE (NEGATIVE); NITRITE, URINE NEGATIVE (NEGATIVE); PROTEIN URINE NEGATIVE (NEGATIVE)
[2016-09-11 12:39] LABS: UROBILINOGEN,URINE >=8 (0.2-1.0)
[2016-09-11 12:48] LABS: BARBITURATE, URINE NEGATIVE (NEG <=200); BENZODIAZEPINE, URINE NEGATIVE (NEG <=150); CANNABINOID, URINE NEGATIVE (NEG <=50); COCAINE, URINE NEGATIVE (NEG <=150); METHAMPHETAMINES SCREEN,URINE NEGATIVE (NEG <=500); OPIATE, URINE POSITIVE (NEG <=100); PHENCYCLIDINE SCREEN,URINE NEGATIVE (NEG <=25); UR TRICYCLIC ANTIDEPRESSANTS NEGATIVE (NEG <=300); URINE AMPHETAMINE NEGATIVE (NEG <=500); URINE METHADONE NEGATIVE (NEG <=200); URINE OXYCODONE SCREEN NEGATIVE (NEG <=100); URINE PROPOXYPHENE SCREEN NEGATIVE (NEG <=300)
[2016-09-11] MEDS ORDERED: LORazepam 2 MG/ML VIAL (FOR ER USE) IVP ONE (13:30)
[2016-09-11] MEDS ORDERED: DIPHENHYDRAMINE INJ 50 MG/ML VIAL IVP ONE (13:30)
[2016-09-11] MEDS ORDERED: GLUCOSE 15 GM GEL (in 37.5 GM TUBE) PO PRN ×2 (16:15)
[2016-09-11] MEDS ORDERED: DEXTROSE 50%-WATER 50 ML DISP.SYRIN IVP PRN ×2 (16:15)
[2016-09-11] MEDS: LACTULOSE 20 GM/30 ML UDC NG SCH ×2 (16:52→20:47)
[2016-09-11] MEDS: 0.45% NACL 1,000 ML IV SCH (16:53)
[2016-09-11] MEDS ORDERED: LACTULOSE 20 GM/30 ML UDC ONE (16:54)
[2016-09-11] MEDS: PANTOPRAZOLE SODIUM 40 MG/VIAL (PROTONIX) IVP SCH (20:47)
[2016-09-11] MEDS: GABAPENTIN 400 MG CAPSULE PO SCH (20:47)
[2016-09-12] VITALS (24 sets, daily range): BP systolic 117–164
[2016-09-12] MEDS: 0.45% NACL 1,000 ML IV SCH ×2 (05:20→17:30)
[2016-09-12 06:29] LABS: HEMOGLOBIN 9.5 g/dL (14.0-18.0)
[2016-09-12 06:39] LABS: ALBUMIN 2.2 g/dL (3.4-4.8); CALCIUM 8.5 mg/dL (8.4-11.0); CREATININE 0.95 mg/dL (0.55-1.30); PHOSPHORUS 3.4 mg/dL (2.7-4.5); POTASSIUM 3.3 mmol/L (3.5-5.1); TOTAL BILIRUBIN 1.7 mg/dL (0.0-1.0); TOTAL PROTEIN, SERUM 6.4 g/dL (6.4-8.3)
[2016-09-12 06:45] LABS: MEAN CORPUSCULAR HEMOGLOBIN 30 pg (27-31); MEAN CORPUSCULAR HGB CONC 34 % (32-36); MEAN CORPUSCULAR VOLUME 88 fL (79.0-98.0); PLATELET COUNT (AUTO) 95 K/uL (130-430); WHITE BLOOD COUNT (AUTO) 3.2 K/uL (4.8-10.8)
[2016-09-12 07:32] LABS: BASOPHILS % (MANUAL) 0 % (0-2); EOSINOPHILS % (MANUAL) 0 % (0-7); LYMPHOCYTES % (MANUAL) 19 % (20-46); MONOCYTES % (MANUAL) 9 % (0-11)
[2016-09-12] MEDS: ASPIRIN 81 MG TAB.CHEW PO SCH (09:01)
[2016-09-12] MEDS: GABAPENTIN 400 MG CAPSULE PO SCH ×2 (09:01→21:36)
[2016-09-12] MEDS: LACTULOSE 20 GM/30 ML UDC NG SCH ×4 (09:01→21:36)
[2016-09-12] MEDS: CLOPIDOGREL BISULFATE 75 MG TABLET PO SCH (09:01)
[2016-09-12] MEDS: DULoxetine HCL 30 MG CAPSULE.DR (CYMBALTA) PO SCH (09:01)
[2016-09-12] MEDS: PANTOPRAZOLE SODIUM 40 MG/VIAL (PROTONIX) IVP SCH ×2 (09:01→21:36)
[2016-09-12] MEDS ORDERED: RIFAXIMIN 200 MG TABLET NG ONE (11:00)
[2016-09-12] MEDS: INSULIN REGULAR, HUMAN 100 UNITS/ML, 10 ML VIAL (novoLIN R) SUBCUT PRN ×2 (18:13→23:48)
[2016-09-12] MEDS ORDERED: LACTULOSE 20 GM/30 ML UDC ONE (21:36)
[2016-09-12] MEDS ORDERED: RIFAXIMIN 200 MG TABLET ONE ×2 (21:40→21:42)
[2016-09-12] MEDS: RIFAXIMIN 200 MG TABLET NG SCH (21:45)
[2016-09-13] VITALS (24 sets, daily range): BP systolic 134–157
[2016-09-13] MEDS: 0.45% NACL 1,000 ML IV SCH ×2 (05:01→17:51)
[2016-09-13] MEDS: INSULIN REGULAR, HUMAN 100 UNITS/ML, 10 ML VIAL (novoLIN R) SUBCUT PRN ×3 (05:11→17:54)
[2016-09-13 06:38] LABS: CALCIUM 7.9 mg/dL (8.4-11.0); CREATININE 0.81 mg/dL (0.55-1.30)
[2016-09-13 06:42] LABS: BASOPHILS % (AUTO) 0.9 % (0.0-2.0); EOSINOPHILS # (AUTO) 0.1 K/uL (0.0-0.4); EOSINOPHILS % (AUTO) 2.7 % (0.0-4.0); HEMATOCRIT 27.7 % (36-54); HEMOGLOBIN 9.1 g/dL (14.0-18.0); LYMPHOCYTES # (AUTO) 0.6 K/uL (1.0-5.5); LYMPHOCYTES % (AUTO) 14.9 % (20.5-51.5); MEAN CORPUSCULAR HEMOGLOBIN 29 pg (27-31); MEAN CORPUSCULAR HGB CONC 33 % (32-36); MEAN CORPUSCULAR VOLUME 88 fL (79.0-98.0); MONOCYTES # (AUTO) 0.5 K/uL (0.0-1.0); NEUTROPHILS # (AUTO) 2.5 K/uL (1.8-7.7); NEUTROPHILS % (AUTO) 67.5 % (40.0-70.0); PLATELET COUNT (AUTO) 93 K/uL (130-430); RED BLOOD CELL COUNT(AUTO) 3.16 MIL/uL (4.2-6.2); RED CELL DISTRIBUTION WIDTH 16.2 % (9.0-15.0); WHITE BLOOD COUNT (AUTO) 3.8 K/uL (4.8-10.8)
[2016-09-13] MEDS: GABAPENTIN 400 MG CAPSULE PO SCH ×2 (08:41→20:04)
[2016-09-13] MEDS: ASPIRIN 81 MG TAB.CHEW PO SCH (08:41)
[2016-09-13] MEDS: DULoxetine HCL 30 MG CAPSULE.DR (CYMBALTA) PO SCH (08:41)
[2016-09-13] MEDS: PANTOPRAZOLE SODIUM 40 MG/VIAL (PROTONIX) IVP SCH ×2 (08:41→20:04)
[2016-09-13] MEDS: CLOPIDOGREL BISULFATE 75 MG TABLET PO SCH (08:41)
[2016-09-13] MEDS: LACTULOSE 20 GM/30 ML UDC NG SCH ×4 (09:00→20:04)
[2016-09-13] MEDS ORDERED: POTASSIUM CHLORIDE 20 MEQ TAB.PRT.SR PO ONE ×2 (09:15→13:00)
[2016-09-13] MEDS: RIFAXIMIN 200 MG TABLET NG SCH ×2 (09:22→20:05)
[2016-09-13] MEDS: MUPIROCIN 2% TOPICAL OINTMENT 22 GM TP SCH (20:06)
[2016-09-14] VITALS (16 sets, daily range): BP systolic 127–156
[2016-09-14] MEDS: INSULIN REGULAR, HUMAN 100 UNITS/ML, 10 ML VIAL (novoLIN R) SUBCUT PRN ×4 (03:59→17:04)
[2016-09-14] MEDS: 0.45% NACL 1,000 ML IV SCH ×2 (06:20→11:16)
[2016-09-14] MEDS: PANTOPRAZOLE SODIUM 40 MG/VIAL (PROTONIX) IVP SCH ×2 (08:21→20:36)
[2016-09-14] MEDS: DULoxetine HCL 30 MG CAPSULE.DR (CYMBALTA) PO SCH (08:22)
[2016-09-14] MEDS: ASPIRIN 81 MG TAB.CHEW PO SCH (08:22)
[2016-09-14] MEDS: CLOPIDOGREL BISULFATE 75 MG TABLET PO SCH (08:22)
[2016-09-14] MEDS: GABAPENTIN 400 MG CAPSULE PO SCH ×2 (08:22→20:29)
[2016-09-14] MEDS: LACTULOSE 20 GM/30 ML UDC NG SCH ×4 (08:22→20:28)
[2016-09-14] MEDS: MUPIROCIN 2% TOPICAL OINTMENT 22 GM TP SCH ×2 (08:22→20:37)
[2016-09-14] MEDS: RIFAXIMIN 200 MG TABLET NG SCH ×2 (09:07→20:27)
[2016-09-14 09:22] LABS: BASOPHILS % (AUTO) 0.3 % (0.0-2.0); EOSINOPHILS # (AUTO) 0.1 K/uL (0.0-0.4); EOSINOPHILS % (AUTO) 3.7 % (0.0-4.0); HEMATOCRIT 28.1 % (36-54); HEMOGLOBIN 9.1 g/dL (14.0-18.0); LYMPHOCYTES # (AUTO) 0.5 K/uL (1.0-5.5); LYMPHOCYTES % (AUTO) 12.2 % (20.5-51.5); MEAN CORPUSCULAR HEMOGLOBIN 29 pg (27-31); MEAN CORPUSCULAR HGB CONC 33 % (32-36); MEAN CORPUSCULAR VOLUME 89 fL (79.0-98.0); MONOCYTES # (AUTO) 0.6 K/uL (0.0-1.0); MONOCYTES % (AUTO) 14.2 % (1.7-9.3); NEUTROPHILS # (AUTO) 2.8 K/uL (1.8-7.7); NEUTROPHILS % (AUTO) 69.6 % (40.0-70.0); PLATELET COUNT (AUTO) 129 K/uL (130-430); RED BLOOD CELL COUNT(AUTO) 3.15 MIL/uL (4.2-6.2)
[2016-09-14 09:27] LABS: INR 1.2 (0.80-1.20); PROTHROMBIN TIME 12.9 SECS (9.5-12.5)
[2016-09-14 09:30] LABS: CALCIUM 7.9 mg/dL (8.4-11.0); CREATININE 0.78 mg/dL (0.55-1.30); POTASSIUM 3.6 mmol/L (3.5-5.1); TOTAL BILIRUBIN 1.3 mg/dL (0.0-1.0); TOTAL PROTEIN, SERUM 6.2 g/dL (6.4-8.3)
[2016-09-14] MEDS: ONDANSETRON HCL 4 MG/2 ML VIAL IVP PRN (13:35)
[2016-09-15] VITALS (7 sets, daily range): BP systolic 135–152
[2016-09-15] MEDS: 0.45% NACL 1,000 ML IV SCH ×2 (00:18→15:46)
[2016-09-15] MEDS: INSULIN REGULAR, HUMAN 100 UNITS/ML, 10 ML VIAL (novoLIN R) SUBCUT PRN ×5 (00:20→23:43)
[2016-09-15] MEDS ORDERED: traMADol HCL HCL 50 MG TABLET (ULTRAM) PO PRN (01:00)
[2016-09-15] MEDS: traMADol HCL HCL 50 MG TABLET (ULTRAM) GT PRN ×2 (02:51→23:45)
[2016-09-15] MEDS: GABAPENTIN 400 MG CAPSULE PO SCH ×3 (09:00→21:06)
[2016-09-15] MEDS: MUPIROCIN 2% TOPICAL OINTMENT 22 GM TP SCH ×2 (09:00→21:06)
[2016-09-15] MEDS: DULoxetine HCL 30 MG CAPSULE.DR (CYMBALTA) PO SCH ×2 (09:00→10:11)
[2016-09-15] MEDS: LACTULOSE 20 GM/30 ML UDC NG SCH ×5 (09:00→21:06)
[2016-09-15] MEDS: ASPIRIN 81 MG TAB.CHEW PO SCH ×2 (09:00→10:11)
[2016-09-15] MEDS: RIFAXIMIN 200 MG TABLET NG SCH ×3 (09:00→21:06)
[2016-09-15] MEDS: CLOPIDOGREL BISULFATE 75 MG TABLET PO SCH ×2 (09:00→10:11)
[2016-09-15] MEDS: PANTOPRAZOLE SODIUM 40 MG/VIAL (PROTONIX) IVP SCH ×2 (09:14→21:05)
[2016-09-15] MEDS: ONDANSETRON HCL 4 MG/2 ML VIAL IVP PRN (09:14)
[2016-09-16 04:00] VITALS: BP_SYST 117
[2016-09-16 07:23] LABS: BASOPHILS % (AUTO) 0.6 % (0.0-2.0); EOSINOPHILS # (AUTO) 0.2 K/uL (0.0-0.4); EOSINOPHILS % (AUTO) 4.8 % (0.0-4.0); HEMATOCRIT 26.4 % (36-54); HEMOGLOBIN 8.8 g/dL (14.0-18.0); LYMPHOCYTES # (AUTO) 0.7 K/uL (1.0-5.5); LYMPHOCYTES % (AUTO) 18.7 % (20.5-51.5); MEAN CORPUSCULAR HEMOGLOBIN 29 pg (27-31); MEAN CORPUSCULAR HGB CONC 33 % (32-36); MEAN CORPUSCULAR VOLUME 88 fL (79.0-98.0); MONOCYTES # (AUTO) 0.7 K/uL (0.0-1.0); MONOCYTES % (AUTO) 19.1 % (1.7-9.3); NEUTROPHILS # (AUTO) 1.9 K/uL (1.8-7.7); NEUTROPHILS % (AUTO) 56.8 % (40.0-70.0); PLATELET COUNT (AUTO) 120 K/uL (130-430); RED CELL DISTRIBUTION WIDTH 17.9 % (9.0-15.0); WHITE BLOOD COUNT (AUTO) 3.5 K/uL (4.8-10.8)
[2016-09-16 07:44] LABS: CALCIUM 7.7 mg/dL (8.4-11.0); CREATININE 0.82 mg/dL (0.55-1.30); PHOSPHORUS 2.6 mg/dL (2.7-4.5); POTASSIUM 3.6 mmol/L (3.5-5.1)
[2016-09-16 08:25] VITALS: BP_SYST 137
[2016-09-16] MEDS: PANTOPRAZOLE SODIUM 40 MG/VIAL (PROTONIX) IVP SCH ×2 (08:57→20:48)
[2016-09-16] MEDS: LACTULOSE 20 GM/30 ML UDC NG SCH (08:57)
[2016-09-16] MEDS: ASPIRIN 81 MG TAB.CHEW PO SCH (08:58)
[2016-09-16] MEDS: GABAPENTIN 400 MG CAPSULE PO SCH ×2 (08:58→20:48)
[2016-09-16] MEDS: CLOPIDOGREL BISULFATE 75 MG TABLET PO SCH (08:58)
[2016-09-16] MEDS: RIFAXIMIN 200 MG TABLET NG SCH ×2 (08:58→09:00)
[2016-09-16] MEDS: DULoxetine HCL 30 MG CAPSULE.DR (CYMBALTA) PO SCH (08:58)
[2016-09-16] MEDS: MUPIROCIN 2% TOPICAL OINTMENT 22 GM TP SCH ×2 (08:59→20:49)
[2016-09-16] MEDS ORDERED: COMMUNICATION ORDER XX ONE (09:00)
[2016-09-16] MEDS: ONDANSETRON HCL 4 MG/2 ML VIAL IVP PRN (10:37)
[2016-09-16] MEDS: 0.45% NACL 1,000 ML IV SCH (12:01)
[2016-09-16] MEDS: LACTULOSE 20 GM/30 ML UDC PO SCH ×3 (12:13→20:48)
[2016-09-16] MEDS: INSULIN REGULAR, HUMAN 100 UNITS/ML, 10 ML VIAL (novoLIN R) SUBCUT PRN ×3 (12:13→21:49)
[2016-09-16 12:17] VITALS: BP_SYST 139
[2016-09-16 16:27] VITALS: BP_SYST 128
[2016-09-16 20:01] VITALS: BP_SYST 140
[2016-09-16] MEDS ORDERED: RIFAXIMIN 200 MG TABLET PO SCH (21:00)
[2016-09-16] MEDS: traMADol HCL HCL 50 MG TABLET (ULTRAM) PO PRN (21:46)
[2016-09-17] VITALS: BP_SYST 144
[2016-09-17 04:00] VITALS: BP_SYST 131
[2016-09-17] MEDS: 0.45% NACL 1,000 ML IV SCH ×2 (05:15→16:57)
[2016-09-17] MEDS: INSULIN REGULAR, HUMAN 100 UNITS/ML, 10 ML VIAL (novoLIN R) SUBCUT PRN ×4 (05:18→23:55)
[2016-09-17] MEDS: ONDANSETRON HCL 4 MG/2 ML VIAL IVP PRN (05:20)
[2016-09-17] MEDS: LACTULOSE 20 GM/30 ML UDC PO SCH ×4 (08:06→20:20)
[2016-09-17] MEDS: PANTOPRAZOLE SODIUM 40 MG/VIAL (PROTONIX) IVP SCH ×2 (08:07→20:20)
[2016-09-17] MEDS: CLOPIDOGREL BISULFATE 75 MG TABLET PO SCH (08:07)
[2016-09-17] MEDS: DULoxetine HCL 30 MG CAPSULE.DR (CYMBALTA) PO SCH (08:07)
[2016-09-17] MEDS: ASPIRIN 81 MG TAB.CHEW PO SCH (08:07)
[2016-09-17] MEDS: GABAPENTIN 400 MG CAPSULE PO SCH ×2 (08:07→20:20)
[2016-09-17] MEDS: MUPIROCIN 2% TOPICAL OINTMENT 22 GM TP SCH ×2 (08:29→20:33)
[2016-09-17] MEDS ORDERED: RIFAXIMIN 550 MG TABLET PO ONE (09:45)
[2016-09-17 10:52] VITALS: BP_SYST 145
[2016-09-17 12:00] VITALS: BP_SYST 147
[2016-09-17 16:00] VITALS: BP_SYST 135; BP_SYST 139
[2016-09-17 19:57] VITALS: BP_SYST 130
[2016-09-17] MEDS: RIFAXIMIN 550 MG TABLET PO SCH (20:20)
[2016-09-17] MEDS: traMADol HCL HCL 50 MG TABLET (ULTRAM) PO PRN (21:57)
[2016-09-18 00:04] VITALS: BP_SYST 145
[2016-09-18 03:48] VITALS: BP_SYST 150
[2016-09-18] MEDS: 0.45% NACL 1,000 ML IV SCH (05:30)
[2016-09-18] MEDS: INSULIN REGULAR, HUMAN 100 UNITS/ML, 10 ML VIAL (novoLIN R) SUBCUT PRN ×3 (05:37→17:06)
[2016-09-18] MEDS: PANTOPRAZOLE SODIUM 40 MG/VIAL (PROTONIX) IVP SCH (10:02)
[2016-09-18] MEDS: CLOPIDOGREL BISULFATE 75 MG TABLET PO SCH (10:02)
[2016-09-18] MEDS: DULoxetine HCL 30 MG CAPSULE.DR (CYMBALTA) PO SCH (10:02)
[2016-09-18] MEDS: RIFAXIMIN 550 MG TABLET PO SCH (10:03)
[2016-09-18] MEDS: ASPIRIN 81 MG TAB.CHEW PO SCH (10:03)
[2016-09-18] MEDS: GABAPENTIN 400 MG CAPSULE PO SCH (10:03)
[2016-09-18] MEDS: LACTULOSE 20 GM/30 ML UDC PO SCH ×3 (11:01→17:00)
[2016-09-18] MEDS: MUPIROCIN 2% TOPICAL OINTMENT 22 GM TP SCH (11:01)
[2016-09-18 12:29] VITALS: BP_SYST 152
[2016-09-18 15:37] VITALS: BP_SYST 152
[2016-09-18 16:14] VITALS: BP_SYST 152
== END 2016-09-18 17:25 | DRG 441 ==
LOC: SED 10:38 → STU 12:14 → SIC 15:55 → STU 09-14 15:36
PROVIDERS: ADMIT Family Medicine; ATTEND Family Medicine
PROC: 02HV33Z Insertion of Infusion Device into Superior Vena Cava, Percutaneous Approach (ICD-10-PCS; principal; 2016-09-11)
PROC: B548ZZA Ultrasonography of Superior Vena Cava, Guidance (ICD-10-PCS; 2016-09-11)
DX: K72.00 Acute and subacute hepatic failure without coma (principal); E43 Unspecified severe protein-calorie malnutrition; D61.818 Other pancytopenia; K76.6 Portal hypertension; C22.8 Malignant neoplasm of liver, primary, unspecified as to type; D64.9 Anemia, unspecified; E87.5 Hyperkalemia; E11.9 Type 2 diabetes mellitus without complications; K74.60 Unspecified cirrhosis of liver; K75.81 Nonalcoholic steatohepatitis (NASH); Z85.05 Personal history of malignant neoplasm of liver; Z76.82 Awaiting organ transplant status; Z68.29 Body mass index [BMI] 29.0-29.9, adult
CPT/HCPCS: 36415; 70450-TC; 71010; 74000-TC; 76700-TC; 80048; 80053; 80307; 81003; 82105; 82140-TC; 82962; 83605; 83735-TC; 83880; 84100-TC; 84439; 84484; 85007; 85025; 85027; 85610-TC; 87040-TC; 87081; 93005; 96374; 96375; 97110-GP; 97116-GP; 97530-GP; 99291; C1751; C9113; G0482; J1815; J2060; J2405; J7030

== ENCOUNTER 2016-11-28 10:19 | Inpatient (IN) | payer OTHER, MEDICAID ==
[~2016-11-28] VITALS: Ht 162.6 cm; Wt 75.7 kg
[2016-11-28 10:33] VITALS: BP_SYST 127
[2016-11-28] MEDS ORDERED: NACL 0.9% 1,000 ML IV ONE (10:44)
[2016-11-28 11:00] LABS: BASOPHILS % (AUTO) 0.2 % (0.0-2.0); EOSINOPHILS # (AUTO) 0.3 K/uL (0.0-0.4); EOSINOPHILS % (AUTO) 6.9 % (0.0-4.0); HEMATOCRIT 25.4 % (36-54); HEMOGLOBIN 8.7 g/dL (14.0-18.0); LYMPHOCYTES # (AUTO) 0.8 K/uL (1.0-5.5); LYMPHOCYTES % (AUTO) 21.4 % (20.5-51.5); MEAN CORPUSCULAR HEMOGLOBIN 33 pg (27-31); MEAN CORPUSCULAR HGB CONC 34 % (32-36); MEAN CORPUSCULAR VOLUME 96 fL (79.0-98.0); MONOCYTES # (AUTO) 0.5 K/uL (0.0-1.0); MONOCYTES % (AUTO) 13.1 % (1.7-9.3); NEUTROPHILS # (AUTO) 2.2 K/uL (1.8-7.7); NEUTROPHILS % (AUTO) 58.4 % (40.0-70.0); PLATELET COUNT (AUTO) 110 K/uL (130-430); RED BLOOD CELL COUNT(AUTO) 2.63 MIL/uL (4.2-6.2); RED CELL DISTRIBUTION WIDTH 15.8 % (9.0-15.0); WHITE BLOOD COUNT (AUTO) 3.8 K/uL (4.8-10.8)
[2016-11-28 11:09] LABS: INR 1.1 (0.80-1.20); PROTHROMBIN TIME 12.3 SECS (9.5-12.5)
[2016-11-28 11:13] LABS: ALBUMIN 2.5 g/dL (3.4-4.8); CALCIUM 8.6 mg/dL (8.4-11.0); CREATININE 1.19 mg/dL (0.55-1.30); POTASSIUM 4.2 mmol/L (3.5-5.1); TOTAL BILIRUBIN 1.4 mg/dL (0.0-1.0); TOTAL PROTEIN, SERUM 7.2 g/dL (6.4-8.3)
[2016-11-28 11:27] LABS: BILIRUBIN,URINE NEGATIVE (NEGATIVE); BLOOD, URINE NEGATIVE (NEGATIVE); CLARITY/URINE CLEAR (CLEAR); COLOR,URINE YELLOW (YELLOW); GLUCOSE,URINE NEGATIVE (NEGATIVE); KETONES,URINE TRACE (NEGATIVE); LEUKOCYTE ESTERASE ,URINE NEGATIVE (NEGATIVE); NITRITE, URINE NEGATIVE (NEGATIVE); PROTEIN URINE TRACE (NEGATIVE)
[2016-11-28] MEDS ORDERED: 0.45% NACL 1,000 ML IV ONE (12:15)
[2016-11-28 12:50] VITALS: BP_SYST 146
[2016-11-28 12:58] VITALS: BP_SYST 146
[2016-11-28 17:02] VITALS: BP_SYST 142
[2016-11-28] MEDS ORDERED: MINERAL OIL 133 ML ENEMA RC ONE (17:15)
[2016-11-28] MEDS ORDERED: ONDANSETRON 4 MG ODT TAB PO PRN (17:15)
[2016-11-28] MEDS ORDERED: traMADol HCL HCL 50 MG TABLET (ULTRAM) PO PRN (17:15)
[2016-11-28] MEDS ORDERED: ONDANSETRON HCL 4 MG/2 ML VIAL IVP PRN (17:30)
[2016-11-28] MEDS ORDERED: traMADol HCL HCL 50 MG TABLET (ULTRAM) ONE (19:04)
[2016-11-28 19:20] VITALS: BP_SYST 138
[2016-11-28] MEDS: SENNOSIDES 8.6 MG TABLET PO SCH (21:13)
[2016-11-28] MEDS: MEGESTROL ACETATE 400 MG/10 ML UDC PO SCH (21:13)
[2016-11-28] MEDS: GABAPENTIN 400 MG CAPSULE PO SCH (21:13)
[2016-11-28] MEDS: INSULIN REGULAR, HUMAN 100 UNITS/ML, 10 ML VIAL (novoLIN R) SUBCUT PRN (21:23)
[2016-11-29 06:31] LABS: BASOPHILS % (AUTO) 0.3 % (0.0-2.0); EOSINOPHILS # (AUTO) 0.2 K/uL (0.0-0.4); EOSINOPHILS % (AUTO) 9.9 % (0.0-4.0); HEMATOCRIT 22.6 % (36-54); HEMOGLOBIN 7.7 g/dL (14.0-18.0); LYMPHOCYTES # (AUTO) 0.5 K/uL (1.0-5.5); LYMPHOCYTES % (AUTO) 21.4 % (20.5-51.5); MEAN CORPUSCULAR HEMOGLOBIN 33 pg (27-31); MEAN CORPUSCULAR HGB CONC 34 % (32-36); MEAN CORPUSCULAR VOLUME 96 fL (79.0-98.0); MONOCYTES # (AUTO) 0.4 K/uL (0.0-1.0); MONOCYTES % (AUTO) 15.4 % (1.7-9.3); NEUTROPHILS # (AUTO) 1.3 K/uL (1.8-7.7); PLATELET COUNT (AUTO) 83 K/uL (130-430); RED BLOOD CELL COUNT(AUTO) 2.37 MIL/uL (4.2-6.2); RED CELL DISTRIBUTION WIDTH 15.7 % (9.0-15.0); WHITE BLOOD COUNT (AUTO) 2.4 K/uL (4.8-10.8)
[2016-11-29 06:32] LABS: CALCIUM 7.9 mg/dL (8.4-11.0); CREATININE 0.94 mg/dL (0.55-1.30); POTASSIUM 3.5 mmol/L (3.5-5.1)
[2016-11-29 06:55] LABS: IRON (SERUM) 89 mcg/dL (59-158); TOTAL IRON BIND. CAPACITY 171 ug/dL (250-450)
[2016-11-29 08:00] VITALS: BP_SYST 141
[2016-11-29] MEDS ORDERED: LACTULOSE 20 GM/30 ML UDC PO SCH (09:00)
[2016-11-29] MEDS ORDERED: INSULIN GLARGINE 100 UNITS/ML 10 ML VIAL SUBCUT SCH (09:00)
[2016-11-29] MEDS: GABAPENTIN 400 MG CAPSULE PO SCH ×2 (09:17→20:20)
[2016-11-29] MEDS: MEGESTROL ACETATE 400 MG/10 ML UDC PO SCH ×2 (09:17→20:21)
[2016-11-29] MEDS: ASPIRIN 81 MG TAB.CHEW PO SCH (09:17)
[2016-11-29] MEDS: OMEPRAZOLE 20 MG CAPSULE.DR (PriLOSEC) PO SCH (09:18)
[2016-11-29] MEDS: CLOPIDOGREL BISULFATE 75 MG TABLET PO SCH (09:18)
[2016-11-29] MEDS: DULoxetine HCL 30 MG CAPSULE.DR (CYMBALTA) PO SCH (09:18)
[2016-11-29 12:00] VITALS: BP_SYST 122
[2016-11-29] MEDS: INSULIN REGULAR, HUMAN 100 UNITS/ML, 10 ML VIAL (novoLIN R) SUBCUT PRN ×2 (12:32→17:58)
[2016-11-29] MEDS ORDERED: MINERAL OIL 30 ML UDC PO ONE (14:15)
[2016-11-29] MEDS ORDERED: MAGNESIUM CITRATE 300 ML ORAL SOLUTION PO ONE (15:15)
[2016-11-29 16:00] VITALS: BP_SYST 139
[2016-11-29] MEDS: LACTULOSE 20 GM/30 ML UDC PO SCH ×2 (16:25→20:21)
[2016-11-29 19:10] VITALS: BP_SYST 142
[2016-11-29] MEDS: SENNOSIDES 8.6 MG TABLET PO SCH (20:21)
[2016-11-30 00:17] VITALS: BP_SYST 136
[2016-11-30 04:24] VITALS: BP_SYST 137
[2016-11-30 07:03] LABS: BASOPHILS % (AUTO) 0.4 % (0.0-2.0); CALCIUM 8.3 mg/dL (8.4-11.0); EOSINOPHILS # (AUTO) 0.2 K/uL (0.0-0.4); EOSINOPHILS % (AUTO) 6.4 % (0.0-4.0); HEMATOCRIT 30.5 % (36-54); HEMOGLOBIN 10.6 g/dL (14.0-18.0); LYMPHOCYTES # (AUTO) 0.6 K/uL (1.0-5.5); LYMPHOCYTES % (AUTO) 14.8 % (20.5-51.5); MEAN CORPUSCULAR HEMOGLOBIN 33 pg (27-31); MEAN CORPUSCULAR HGB CONC 35 % (32-36); MEAN CORPUSCULAR VOLUME 93 fL (79.0-98.0); MONOCYTES # (AUTO) 0.5 K/uL (0.0-1.0); MONOCYTES % (AUTO) 12.7 % (1.7-9.3); NEUTROPHILS # (AUTO) 2.5 K/uL (1.8-7.7); NEUTROPHILS % (AUTO) 65.7 % (40.0-70.0); PLATELET COUNT (AUTO) 76 K/uL (130-430); POTASSIUM 3.6 mmol/L (3.5-5.1); RED BLOOD CELL COUNT(AUTO) 3.28 MIL/uL (4.2-6.2); RED CELL DISTRIBUTION WIDTH 15.8 % (9.0-15.0); WHITE BLOOD COUNT (AUTO) 3.8 K/uL (4.8-10.8)
[2016-11-30 07:04] LABS: CREATININE 0.95 mg/dL (0.55-1.30)
[2016-11-30 08:00] VITALS: BP_SYST 141
[2016-11-30] MEDS: MEGESTROL ACETATE 400 MG/10 ML UDC PO SCH ×2 (09:17→22:05)
[2016-11-30] MEDS: LACTULOSE 20 GM/30 ML UDC PO SCH ×3 (09:17→22:05)
[2016-11-30] MEDS: LUBIPROSTONE 24 MCG CAPSULE PO SCH ×2 (09:17→22:05)
[2016-11-30] MEDS: CLOPIDOGREL BISULFATE 75 MG TABLET PO SCH (09:17)
[2016-11-30] MEDS: OMEPRAZOLE 20 MG CAPSULE.DR (PriLOSEC) PO SCH (09:17)
[2016-11-30] MEDS: GABAPENTIN 400 MG CAPSULE PO SCH ×2 (09:18→22:05)
[2016-11-30] MEDS: ASPIRIN 81 MG TAB.CHEW PO SCH (09:18)
[2016-11-30] MEDS: DULoxetine HCL 30 MG CAPSULE.DR (CYMBALTA) PO SCH (09:18)
[2016-11-30 12:26] VITALS: BP_SYST 131
[2016-11-30 16:22] VITALS: BP_SYST 120
[2016-11-30] MEDS ORDERED: NA PHOS,M-B/NA PHOS,DI-BA 118 ML (FLEET ENEMA) RC ONE (19:15)
[2016-11-30] MEDS: SENNOSIDES 8.6 MG TABLET PO SCH (22:05)
[2016-11-30] MEDS: INSULIN REGULAR, HUMAN 100 UNITS/ML, 10 ML VIAL (novoLIN R) SUBCUT PRN (22:21)
[2016-12-01 01:25] VITALS: BP_SYST 133
[2016-12-01 04:59] VITALS: BP_SYST 137
[2016-12-01] MEDS: INSULIN REGULAR, HUMAN 100 UNITS/ML, 10 ML VIAL (novoLIN R) SUBCUT PRN (06:10)
[2016-12-01 06:22] LABS: EOSINOPHILS # (AUTO) 0.3 K/uL (0.0-0.4); LYMPHOCYTES # (AUTO) 0.6 K/uL (1.0-5.5)
[2016-12-01 06:29] LABS: BASOPHILS % (AUTO) 0.3 % (0.0-2.0); EOSINOPHILS % (AUTO) 7.4 % (0.0-4.0); HEMATOCRIT 32.6 % (36-54); HEMOGLOBIN 10.9 g/dL (14.0-18.0); MEAN CORPUSCULAR HEMOGLOBIN 32 pg (27-31); MEAN CORPUSCULAR HGB CONC 34 % (32-36); MEAN CORPUSCULAR VOLUME 95 fL (79.0-98.0); MONOCYTES # (AUTO) 0.5 K/uL (0.0-1.0); MONOCYTES % (AUTO) 13.2 % (1.7-9.3); NEUTROPHILS # (AUTO) 2.6 K/uL (1.8-7.7); NEUTROPHILS % (AUTO) 64.1 % (40.0-70.0); RED BLOOD CELL COUNT(AUTO) 3.44 MIL/uL (4.2-6.2); RED CELL DISTRIBUTION WIDTH 16.1 % (9.0-15.0)
[2016-12-01 07:11] LABS: PLATELET COUNT (AUTO) 91 K/uL (130-430)
[2016-12-01 08:09] VITALS: BP_SYST 128
[2016-12-01] MEDS: DULoxetine HCL 30 MG CAPSULE.DR (CYMBALTA) PO SCH (09:08)
[2016-12-01] MEDS: GABAPENTIN 400 MG CAPSULE PO SCH (09:08)
[2016-12-01] MEDS: OMEPRAZOLE 20 MG CAPSULE.DR (PriLOSEC) PO SCH (09:09)
[2016-12-01] MEDS: LUBIPROSTONE 24 MCG CAPSULE PO SCH (09:09)
[2016-12-01] MEDS: CLOPIDOGREL BISULFATE 75 MG TABLET PO SCH (09:09)
[2016-12-01] MEDS: ASPIRIN 81 MG TAB.CHEW PO SCH (09:09)
[2016-12-01] MEDS: MEGESTROL ACETATE 400 MG/10 ML UDC PO SCH (09:10)
[2016-12-01] MEDS: LACTULOSE 20 GM/30 ML UDC PO SCH ×2 (09:10→16:48)
[2016-12-01 12:33] VITALS: BP_SYST 115
[2016-12-01] MEDS ORDERED: MAGNESIUM CITRATE 300 ML ORAL SOLUTION PO ONE (13:15)
[2016-12-01 16:19] VITALS: BP_SYST 127
[2016-12-01 16:53] VITALS: BP_SYST 127
[2016-12-01] MEDS ORDERED: BISACODYL 5 MG TABLET.DR (DULCOLAX) PO ONE (17:00)
[2016-12-01] MEDS ORDERED: GOLYTELY / COLYTE SOLUTION 4 LITERS PO ONE (18:00)
== END 2016-12-01 18:38 | disposition home or self-care (01) | DRG 388 ==
LOC: SED 10:19 → SMU 12:02
PROVIDERS: ADMIT Family Medicine; ATTEND Family Medicine
PROC: 30233N1 Transfusion of Nonautologous Red Blood Cells into Peripheral Vein, Percutaneous Approach (ICD-10-PCS; principal; 2016-11-29)
DX: K56.41 Fecal impaction (principal); E43 Unspecified severe protein-calorie malnutrition; K56.60 Unspecified intestinal obstruction; D64.9 Anemia, unspecified; K74.60 Unspecified cirrhosis of liver; E11.22 Type 2 diabetes mellitus with diabetic chronic kidney disease; N18.9 Chronic kidney disease, unspecified; Z68.28 Body mass index [BMI] 28.0-28.9, adult; Z79.82 Long term (current) use of aspirin; Z79.899 Other long term (current) drug therapy; Z90.49 Acquired absence of other specified parts of digestive tract; Z85.05 Personal history of malignant neoplasm of liver
CPT/HCPCS: 36415; 74000-TC; 80048; 80053; 81003; 82140-TC; 82272; 82962; 83540-TC; 83550-TC; 83690-TC; 85025; 85610-TC; 85730-TC; 86886; 86900; 86901; 86920; 96360; 99285; J1815; J2405; J7050; P9021

== ENCOUNTER 2017-03-10 10:20 | Inpatient (IN) | payer OTHER, MEDICAID ==
[~2017-03-10] VITALS: Ht 165.1 cm; Wt 64.9 kg
[2017-03-10 10:29] VITALS: BP_SYST 116
[2017-03-10] MEDS ORDERED: NACL 0.9% 1,000 ML IV ONE (10:34)
[2017-03-10] MEDS ORDERED: PANTOPRAZOLE SODIUM 40 MG/VIAL (PROTONIX) IVP ONE (10:45)
[2017-03-10] MEDS ORDERED: ONDANSETRON HCL 4 MG/2 ML VIAL IVP ONE (10:45)
[2017-03-10] MEDS ORDERED: OCTREOTIDE ACETATE 50 MCG/ML AMP IVP ONE (10:45)
[2017-03-10 11:17] LABS: BASOPHILS # (AUTO) 0.1 K/uL (0.0-0.2); BASOPHILS % (AUTO) 1.2 % (0.0-2.0); EOSINOPHILS # (AUTO) 0.2 K/uL (0.0-0.4); EOSINOPHILS % (AUTO) 4.4 % (0.0-4.0); HEMATOCRIT 28.8 % (36-54); LYMPHOCYTES # (AUTO) 0.7 K/uL (1.0-5.5); LYMPHOCYTES % (AUTO) 14.3 % (20.5-51.5); MEAN CORPUSCULAR HEMOGLOBIN 33 pg (27-31); MEAN CORPUSCULAR HGB CONC 34 % (32-36); MEAN CORPUSCULAR VOLUME 97 fL (79.0-98.0); MONOCYTES # (AUTO) 0.5 K/uL (0.0-1.0); MONOCYTES % (AUTO) 10.8 % (1.7-9.3); NEUTROPHILS # (AUTO) 3.5 K/uL (1.8-7.7); NEUTROPHILS % (AUTO) 69.3 % (40.0-70.0); PLATELET COUNT (AUTO) 100 K/uL (130-430); RED BLOOD CELL COUNT(AUTO) 2.97 MIL/uL (4.2-6.2); RED CELL DISTRIBUTION WIDTH 14.3 % (9.0-15.0)
[2017-03-10 11:19] LABS: HEMOGLOBIN 9.9 g/dL (14.0-18.0)
[2017-03-10 11:32] LABS: ANION GAP 13 (5-15); CALCIUM 8.8 mg/dL (8.4-11.0); CHLORIDE 104 mmol/L (98-107); CREATININE 1.06 mg/dL (0.55-1.30); GLUCOSE 104 mg/dL (70-99); INR 1.2 (0.80-1.20); POTASSIUM 3.7 mmol/L (3.5-5.1); PROTHROMBIN TIME 12.7 SECS (9.5-12.5); SODIUM SERUM 134 mmol/L (136-145); UREA NITROGEN, BLOOD 27 mg/dL (8-21)
[2017-03-10 11:33] LABS: GFR AFRICAN AMERICAN 90 mL/min (>90)
[2017-03-10 11:36] LABS: ALANINE AMINOTRANSFERASE 18 U/L (12-78); ALBUMIN 2.5 g/dL (3.4-4.8); ASPARTATE AMINOTRANSFERASE 21 U/L (10-37); LIPASE 92 U/L (73-393); TOTAL BILIRUBIN 1.1 mg/dL (0.0-1.0)
[2017-03-10 11:49] LABS: ALCOHOL, BLOOD < 3 mg/dL (<10)
[2017-03-10] MEDS ORDERED: PIPERACILLIN/TAZO 3.375 GM in NS 50 ML IV ONE (12:30)
[2017-03-10] MEDS ORDERED: LACTULOSE 20 GM/30 ML UDC PO ONE (12:30)
[2017-03-10] MEDS ORDERED: VANCOMYCIN HCL 1,000 MG in NS 250 ML IV ONE (12:30)
[2017-03-10] MEDS ORDERED: RIFAXIMIN 550 MG TABLET PO ONE (12:30)
[2017-03-10] MEDS ORDERED: KCL 20 mEq in 0.45% NS 1000 mL 1,000 ML IV ONE (13:15)
[2017-03-10] MEDS ORDERED: METF-305 PO (13:47)
[2017-03-10] MEDS ORDERED: LISI-600 PO (13:47)
[2017-03-10] MEDS ORDERED: RIFA550T5 PO (13:47)
[2017-03-10] MEDS ORDERED: GLIP-195 PO (13:47)
[2017-03-10] MEDS ORDERED: FURO-150 PO (13:47)
[2017-03-10] MEDS ORDERED: SPIR50TA PO (13:47)
[2017-03-10] MEDS ORDERED: PIPERACILLIN/TAZOBACTAM 3.375 GM/VIAL (ZOSYN) IV ONE (13:48)
[2017-03-10] MEDS ORDERED: VANCOMYCIN HCL 1000 MG/VIAL IV ONE (13:48)
[2017-03-10] MEDS ORDERED: METOCLOPRAMIDE HCL 10 MG/2 ML VIAL IVP ONE (14:15)
[2017-03-10] MEDS ORDERED: METOCLOPRAMIDE HCL 10 MG/2 ML VIAL ONE (14:18)
[2017-03-10 15:48] VITALS: BP_SYST 120
[2017-03-10] MEDS ORDERED: FLU VACC QS 2017-18(36MOS+)/PF 0.5 ML/SYR SYRINGE I.M. PRN (16:15)
[2017-03-10] MEDS: PIPERACILLIN/TAZO 3.375/DEX-IS 50 ML IV SCH (17:00)
[2017-03-10] MEDS ORDERED: MILK OF MAGNESIA 30 ML UDC PO PRN (18:00)
[2017-03-10] MEDS ORDERED: ONDANSETRON 4 MG ODT TAB PO PRN (18:00)
[2017-03-10] MEDS ORDERED: LevALBUTEROL HCL 1.25 MG/0.5 ML *CONC.* VIAL.NEB (XOPENEX CONC.) INH PRN (18:15)
[2017-03-10] MEDS ORDERED: INSULIN REGULAR, HUMAN 100 UNITS/ML, 10 ML VIAL (novoLIN R) SUBCUT PRN (18:15)
[2017-03-10] MEDS: glipiZIDE XL 5 MG TAB ( GLUCOTROL XL) PO SCH (20:52)
[2017-03-10] MEDS: MEGESTROL ACETATE 400 MG/10 ML UDC PO SCH (20:52)
[2017-03-10] MEDS: RIFAXIMIN 550 MG TABLET PO SCH (20:53)
[2017-03-10] MEDS: GABAPENTIN 400 MG CAPSULE PO SCH (20:53)
[2017-03-10] MEDS: OMEPRAZOLE 20 MG CAPSULE.DR (PriLOSEC) PO SCH (20:53)
[2017-03-10] MEDS: LevALBUTEROL HCL 1.25 MG/0.5 ML *CONC.* VIAL.NEB (XOPENEX CONC.) INH SCH (23:44)
[2017-03-10 23:54] VITALS: BP_SYST 120
[2017-03-11 00:02] VITALS: BP_SYST 98
[2017-03-11] MEDS: PIPERACILLIN/TAZO 3.375/DEX-IS 50 ML IV SCH ×5 (02:16→19:45)
[2017-03-11] MEDS: traMADol HCL HCL 50 MG TABLET (ULTRAM) PO PRN ×2 (04:21→09:52)
[2017-03-11 04:42] VITALS: BP_SYST 110
[2017-03-11 05:02] LABS: BASOPHILS % (AUTO) 0.5 % (0.0-2.0); EOSINOPHILS # (AUTO) 0.2 K/uL (0.0-0.4); EOSINOPHILS % (AUTO) 4.4 % (0.0-4.0); HEMATOCRIT 30.6 % (36-54); HEMOGLOBIN 10.2 g/dL (14.0-18.0); LYMPHOCYTES # (AUTO) 0.6 K/uL (1.0-5.5); LYMPHOCYTES % (AUTO) 15.2 % (20.5-51.5); MEAN CORPUSCULAR HEMOGLOBIN 33 pg (27-31); MEAN CORPUSCULAR HGB CONC 33 % (32-36); MEAN CORPUSCULAR VOLUME 99 fL (79.0-98.0); MONOCYTES # (AUTO) 0.4 K/uL (0.0-1.0); MONOCYTES % (AUTO) 10.7 % (1.7-9.3); NEUTROPHILS # (AUTO) 2.7 K/uL (1.8-7.7); NEUTROPHILS % (AUTO) 69.2 % (40.0-70.0); PLATELET COUNT (AUTO) 86 K/uL (130-430); RED BLOOD CELL COUNT(AUTO) 3.08 MIL/uL (4.2-6.2); RED CELL DISTRIBUTION WIDTH 14.9 % (9.0-15.0); WHITE BLOOD COUNT (AUTO) 3.9 K/uL (4.8-10.8)
[2017-03-11 05:14] LABS: CALCIUM 8.6 mg/dL (8.4-11.0); CREATININE 1.24 mg/dL (0.55-1.30); PHOSPHORUS 3.5 mg/dL (2.7-4.5); POTASSIUM 4.3 mmol/L (3.5-5.1)
[2017-03-11 05:22] LABS: INR 1.1 (0.80-1.20); PROTHROMBIN TIME 11.9 SECS (9.5-12.5)
[2017-03-11] MEDS: LevALBUTEROL HCL 1.25 MG/0.5 ML *CONC.* VIAL.NEB (XOPENEX CONC.) INH SCH ×3 (08:16→23:28)
[2017-03-11] MEDS ORDERED: RIFAXIMIN 550 MG TABLET PO SCH (09:00)
[2017-03-11] MEDS ORDERED: INSULIN GLARGINE 100 UNITS/ML 10 ML VIAL SUBCUT SCH (09:00)
[2017-03-11] MEDS: glipiZIDE XL 5 MG TAB ( GLUCOTROL XL) PO SCH ×2 (09:00→22:05)
[2017-03-11 10:47] VITALS: BP_SYST 110
[2017-03-11 11:49] VITALS: BP_SYST 123
[2017-03-11] MEDS: VANCOMYCIN HCL 1,250 MG in NS 250 ML IV SCH (12:27)
[2017-03-11] MEDS: DULoxetine HCL 30 MG CAPSULE.DR (CYMBALTA) PO SCH (12:28)
[2017-03-11] MEDS: GABAPENTIN 400 MG CAPSULE PO SCH ×2 (12:28→22:05)
[2017-03-11] MEDS: RIFAXIMIN 550 MG TABLET PO SCH ×2 (12:28→22:05)
[2017-03-11] MEDS: SPIRONOLACTONE 50 MG TABLET (ALDACTONE) PO SCH (12:29)
[2017-03-11] MEDS: FUROSEMIDE 20 MG TABLET PO SCH (12:29)
[2017-03-11] MEDS: OMEPRAZOLE 20 MG CAPSULE.DR (PriLOSEC) PO SCH ×2 (12:29→22:05)
[2017-03-11] MEDS: LISINOPRIL 20 MG TABLET PO SCH (12:30)
[2017-03-11] MEDS: MEGESTROL ACETATE 400 MG/10 ML UDC PO SCH ×2 (12:43→22:05)
[2017-03-11] MEDS: LACTULOSE 20 GM/30 ML UDC PO SCH ×2 (12:43→16:50)
[2017-03-11] MEDS ORDERED: LORazepam 2 MG/ML VIAL IM ONE (14:45)
[2017-03-11 14:51] LABS: INR 1.1 (0.80-1.20); PROTHROMBIN TIME 12.3 SECS (9.5-12.5)
[2017-03-11 17:12] VITALS: BP_SYST 114
[2017-03-11 22:51] VITALS: BP_SYST 126
[2017-03-11 23:56] LABS: BILIRUBIN,URINE NEGATIVE (NEGATIVE); BLOOD, URINE TRACE (NEGATIVE); CLARITY/URINE CLEAR (CLEAR); COLOR,URINE YELLOW (YELLOW); GLUCOSE,URINE NEGATIVE (NEGATIVE); KETONES,URINE TRACE (NEGATIVE); LEUKOCYTE ESTERASE ,URINE NEGATIVE (NEGATIVE); NITRITE, URINE NEGATIVE (NEGATIVE); PH,URINE 5.5 (5.0-8.0); PROTEIN URINE NEGATIVE (NEGATIVE)
[2017-03-12] VITALS (8 sets, daily range): BP systolic 100–132
[2017-03-12] LABS: BACTERIA,URINE MODERATE /HPF (None Seen); WBC,URINE 0-3 /HPF (0-3)
[2017-03-12] MEDS: PIPERACILLIN/TAZO 3.375/DEX-IS 50 ML IV SCH ×4 (00:53→17:38)
[2017-03-12] MEDS: LACTULOSE 20 GM/30 ML UDC NG SCH ×4 (00:53→17:50)
[2017-03-12 07:00] LABS: BASOPHILS % (AUTO) 0.5 % (0.0-2.0); EOSINOPHILS # (AUTO) 0.2 K/uL (0.0-0.4); EOSINOPHILS % (AUTO) 4.6 % (0.0-4.0); HEMATOCRIT 28.6 % (36-54); HEMOGLOBIN 9.4 g/dL (14.0-18.0); LYMPHOCYTES # (AUTO) 0.6 K/uL (1.0-5.5); LYMPHOCYTES % (AUTO) 13.7 % (20.5-51.5); MEAN CORPUSCULAR HEMOGLOBIN 33 pg (27-31); MEAN CORPUSCULAR HGB CONC 33 % (32-36); MEAN CORPUSCULAR VOLUME 99 fL (79.0-98.0); MONOCYTES # (AUTO) 0.6 K/uL (0.0-1.0); NEUTROPHILS # (AUTO) 2.8 K/uL (1.8-7.7); NEUTROPHILS % (AUTO) 67.2 % (40.0-70.0); RED BLOOD CELL COUNT(AUTO) 2.89 MIL/uL (4.2-6.2); WHITE BLOOD COUNT (AUTO) 4.2 K/uL (4.8-10.8)
[2017-03-12 07:23] LABS: CALCIUM 8.9 mg/dL (8.4-11.0); CREATININE 1.29 mg/dL (0.55-1.30); PHOSPHORUS 3.7 mg/dL (2.7-4.5); POTASSIUM 3.6 mmol/L (3.5-5.1)
[2017-03-12] MEDS: LevALBUTEROL HCL 1.25 MG/0.5 ML *CONC.* VIAL.NEB (XOPENEX CONC.) INH SCH (08:28)
[2017-03-12 08:33] LABS: PLATELET COUNT (AUTO) 76 K/uL (130-430)
[2017-03-12] MEDS: GABAPENTIN 400 MG CAPSULE PO SCH ×2 (09:58→21:10)
[2017-03-12] MEDS: glipiZIDE XL 5 MG TAB ( GLUCOTROL XL) PO SCH ×2 (09:58→21:10)
[2017-03-12] MEDS: RIFAXIMIN 550 MG TABLET PO SCH ×2 (09:58→21:10)
[2017-03-12] MEDS: VANCOMYCIN HCL 1,250 MG in NS 250 ML IV SCH (09:58)
[2017-03-12] MEDS: DULoxetine HCL 30 MG CAPSULE.DR (CYMBALTA) PO SCH (09:58)
[2017-03-12] MEDS: MEGESTROL ACETATE 400 MG/10 ML UDC PO SCH ×2 (09:59→21:10)
[2017-03-12] MEDS: OMEPRAZOLE 20 MG CAPSULE.DR (PriLOSEC) PO SCH ×2 (09:59→21:10)
[2017-03-12] MEDS: SPIRONOLACTONE 50 MG TABLET (ALDACTONE) PO SCH (10:13)
[2017-03-12] MEDS: FUROSEMIDE 20 MG TABLET PO SCH (10:13)
[2017-03-12] MEDS: LISINOPRIL 20 MG TABLET PO SCH (10:14)
[2017-03-12] MEDS ORDERED: LEVOFLOXACIN 500 MG/D5W 100 ML IV SCH (12:00)
[2017-03-12] MEDS ORDERED: KCL 20 mEq in 0.45% NS 1000 mL 1,000 ML IV SCH (13:15)
[2017-03-12] MEDS ORDERED: MINERAL OIL 133 ML ENEMA RC ONE (13:30)
== END 2017-03-13 00:30 | disposition short-term general hospital (02) | DRG 441 ==
LOC: SED 10:20 → STU 13:01
PROVIDERS: ADMIT Family Medicine; ATTEND Family Medicine
PROC: 02HV33Z Insertion of Infusion Device into Superior Vena Cava, Percutaneous Approach (ICD-10-PCS; principal; 2017-03-12)
PROC: B548ZZA Ultrasonography of Superior Vena Cava, Guidance (ICD-10-PCS; 2017-03-12)
DX: K72.90 Hepatic failure, unspecified without coma (principal); J18.9 Pneumonia, unspecified organism; E43 Unspecified severe protein-calorie malnutrition; C22.9 Malignant neoplasm of liver, not specified as primary or secondary; R18.8 Other ascites; D64.9 Anemia, unspecified; K74.60 Unspecified cirrhosis of liver; E11.9 Type 2 diabetes mellitus without complications; I10 Essential (primary) hypertension; Z85.05 Personal history of malignant neoplasm of liver; Z79.899 Other long term (current) drug therapy; E86.0 Dehydration; K56.41 Fecal impaction
CPT/HCPCS: 36415; 70450-TC; 71010; 80048; 80053; 81000-TC; 82140-TC; 82962; 83605; 83690-TC; 83735-TC; 84100-TC; 84484; 85025; 85610-TC; 85730-TC; 87040-TC; 87086; 93005; 94640; 94760; C1751; C1769; C9113; G0482; J1815; J1956; J2060; J2354; J2405; J2543; J2765; J3370; J3480; J7030; J7050; Q0162; Q2037

== ENCOUNTER 2020-06-26 22:23 | Inpatient (IN) | payer OTHER, MEDICAID, SELFPAY ==
[~2020-06-26] VITALS: Ht 162.6 cm; Wt 83.0 kg
[~2020-06-26 22:23] MED LIST changes: -ASPI81TA2 PO; -CLOP75TA2 PO; -CYM30 PO; +DOCU-144 PO; -GABA-533 PO; -GLIP5TAB13 PO; -INSU100V9 SUBCUT; -LACT10SO66 PO; +MAGN400T10 PO; -MEGE400O PO; +NEU400 PO; -OMEP20CA10 PO; -ONDA4TAB5 PO; +TACR1CAP2 PO; -TRAM50TA92 PO
[2020-06-26 22:35] VITALS: BP_SYST 150
[2020-06-26] MEDS ORDERED: SENN-104 PO (22:56)
[2020-06-26] MEDS ORDERED: GABA-533 PO (22:56)
[2020-06-26] MEDS ORDERED: MAGN400T10 PO (22:56)
[2020-06-26] MEDS ORDERED: TACR1CAP2 PO ×2 (22:56)
[2020-06-26 23:28] LABS: BILIRUBIN,URINE NEGATIVE (NEGATIVE); CLARITY/URINE CLEAR (CLEAR); COLOR,URINE YELLOW (YELLOW); GLUCOSE,URINE NEGATIVE (NEGATIVE); KETONES,URINE NEGATIVE (NEGATIVE); LEUKOCYTE ESTERASE ,URINE NEGATIVE (NEGATIVE); NITRITE, URINE NEGATIVE (NEGATIVE); PH,URINE 5.5 (5.0-8.0); PROTEIN URINE NEGATIVE (NEGATIVE); UROBILINOGEN,URINE 0.2 (0.2-1.0)
[2020-06-26 23:29] LABS: HEMOGLOBIN 8.7 g/dL (14.0-18.0); MEAN CORPUSCULAR HEMOGLOBIN 30 pg (27-31); WHITE BLOOD COUNT (AUTO) 3.1 K/uL (4.8-10.8)
[2020-06-26 23:30] LABS: BLOOD, URINE TRACE (NEGATIVE)
[2020-06-26 23:31] LABS: BACTERIA,URINE FEW /HPF (None Seen); WBC,URINE 0-3 /HPF (0-3)
[2020-06-26 23:39] LABS: BASOPHILS % (AUTO) 0.5 % (0.0-2.0); EOSINOPHILS # (AUTO) 0.1 K/uL (0.0-0.4); EOSINOPHILS % (AUTO) 4.6 % (0.0-4.0); HEMATOCRIT 25.8 % (36-54); LYMPHOCYTES # (AUTO) 0.7 K/uL (1.0-5.5); LYMPHOCYTES % (AUTO) 23.4 % (20.5-51.5); MEAN CORPUSCULAR HGB CONC 34 % (32-36); MEAN CORPUSCULAR VOLUME 89 fL (79.0-98.0); MONOCYTES # (AUTO) 0.3 K/uL (0.0-1.0); MONOCYTES % (AUTO) 10.7 % (1.7-9.3); NEUTROPHILS # (AUTO) 1.9 K/uL (1.8-7.7); NEUTROPHILS % (AUTO) 60.8 % (40.0-70.0); PLATELET COUNT (AUTO) 114 K/uL (130-430); RED BLOOD CELL COUNT(AUTO) 2.91 MIL/uL (4.2-6.2); RED CELL DISTRIBUTION WIDTH 14.1 % (9.0-15.0)
[2020-06-26 23:42] LABS: CALCIUM 8.3 mg/dL (8.4-11.0); CREATININE 1.81 mg/dL (0.55-1.30); POTASSIUM 5.2 mmol/L (3.5-5.1)
[2020-06-26 23:49] LABS: ALBUMIN 3.2 g/dL (3.4-4.8); TOTAL BILIRUBIN 0.1 mg/dL (0.0-1.0)
[2020-06-27] MEDS ORDERED: SODIUM POLYSTYRENE SULFONATE 15 GM/60 ML UDBTL PO ONE (00:45)
[2020-06-27] MEDS ORDERED: NS 500 ML IV ONE (00:45)
[2020-06-27 02:29] VITALS: BP_SYST 152
[2020-06-27] MEDS: D5/0.45 NS 1,000 ML IV SCH ×3 (03:20→21:22)
[2020-06-27 07:37] VITALS: BP_SYST 130
[2020-06-27] MEDS: INSULIN REGULAR, HUMAN 100 UNITS/ML, 10 ML VIAL (humuLIN R) SUBCUT PRN ×2 (11:57→18:48)
[2020-06-27 12:08] VITALS: BP_SYST 155
[2020-06-27] MEDS ORDERED: amLODIPine BESYLATE 10 MG TABLET PO ONE (14:30)
[2020-06-27 17:31] VITALS: BP_SYST 165
[2020-06-27 20:00] VITALS: BP_SYST 134
[2020-06-27] MEDS ORDERED: DOCUSATE SODIUM 100 MG CAPSULE PO ONE (21:12)
[2020-06-27] MEDS: MAGNESIUM OXIDE 400 MG TABLET PO SCH (21:24)
[2020-06-27] MEDS: TACROLIMUS ANHYDROUS 1 MG CAPSULE (PROGRAF) PO SCH (21:24)
[2020-06-27] MEDS: DOCUSATE SODIUM 100 MG CAPSULE PO SCH (21:47)
[2020-06-28 00:48] VITALS: BP_SYST 120
[2020-06-28] MEDS: INSULIN REGULAR, HUMAN 100 UNITS/ML, 10 ML VIAL (humuLIN R) SUBCUT PRN ×4 (06:52→21:28)
[2020-06-28] MEDS: D5/0.45 NS 1,000 ML IV SCH ×3 (07:07→18:59)
[2020-06-28 07:08] LABS: BASOPHILS % (AUTO) 0.6 % (0.0-2.0); EOSINOPHILS # (AUTO) 0.1 K/uL (0.0-0.4); HEMOGLOBIN 9.2 g/dL (14.0-18.0); LYMPHOCYTES # (AUTO) 0.6 K/uL (1.0-5.5); LYMPHOCYTES % (AUTO) 23.2 % (20.5-51.5); MEAN CORPUSCULAR HEMOGLOBIN 30 pg (27-31); MEAN CORPUSCULAR HGB CONC 34 % (32-36); MEAN CORPUSCULAR VOLUME 88 fL (79.0-98.0); MONOCYTES # (AUTO) 0.3 K/uL (0.0-1.0); MONOCYTES % (AUTO) 11.1 % (1.7-9.3); NEUTROPHILS # (AUTO) 1.7 K/uL (1.8-7.7); NEUTROPHILS % (AUTO) 60.1 % (40.0-70.0); PLATELET COUNT (AUTO) 112 K/uL (130-430); RED BLOOD CELL COUNT(AUTO) 3.05 MIL/uL (4.2-6.2); WHITE BLOOD COUNT (AUTO) 2.8 K/uL (4.8-10.8)
[2020-06-28 07:41] LABS: TOTAL IRON BIND. CAPACITY 189 ug/dL (250-450)
[2020-06-28 07:46] LABS: CALCIUM 8.3 mg/dL (8.4-11.0); CREATININE 1.35 mg/dL (0.55-1.30); POTASSIUM 5.6 mmol/L (3.5-5.1)
[2020-06-28] MEDS: TACROLIMUS ANHYDROUS 1 MG CAPSULE (PROGRAF) PO SCH ×2 (08:00→20:29)
[2020-06-28] MEDS ORDERED: DOCUSATE SODIUM 100 MG CAPSULE PO ONE ×2 (09:12→20:59)
[2020-06-28] MEDS: GABAPENTIN 400 MG CAPSULE PO SCH ×3 (09:13→21:17)
[2020-06-28] MEDS: MAGNESIUM OXIDE 400 MG TABLET PO SCH ×3 (09:13→21:17)
[2020-06-28] MEDS: SENNOSIDES/DOCUSATE SODIUM 1 TAB TABLET(SENOKOT-S) PO SCH (09:13)
[2020-06-28] MEDS: DOCUSATE SODIUM 100 MG CAPSULE PO SCH ×3 (09:14→21:18)
[2020-06-28] MEDS: amLODIPine BESYLATE 10 MG TABLET PO SCH (09:14)
[2020-06-28 12:53] VITALS: BP_SYST 130
[2020-06-28] MEDS ORDERED: SODIUM POLYSTYRENE SULFONATE 15 GM/60 ML UDBTL PO ONE (15:00)
[2020-06-28 16:06] VITALS: BP_SYST 140
[2020-06-28 22:35] VITALS: BP_SYST 120
[2020-06-29] VITALS: BP_SYST 119
[2020-06-29] MEDS: D5/0.45 NS 1,000 ML IV SCH ×2 (06:19→16:12)
[2020-06-29] MEDS: INSULIN REGULAR, HUMAN 100 UNITS/ML, 10 ML VIAL (humuLIN R) SUBCUT PRN ×3 (06:21→16:47)
[2020-06-29 08:00] VITALS: BP_SYST 137
[2020-06-29] MEDS: TACROLIMUS ANHYDROUS 1 MG CAPSULE (PROGRAF) PO SCH ×2 (08:06→20:02)
[2020-06-29] MEDS: MAGNESIUM OXIDE 400 MG TABLET PO SCH ×2 (08:07→21:24)
[2020-06-29] MEDS: SENNOSIDES/DOCUSATE SODIUM 1 TAB TABLET(SENOKOT-S) PO SCH (08:07)
[2020-06-29] MEDS: GABAPENTIN 400 MG CAPSULE PO SCH ×2 (08:07→21:24)
[2020-06-29] MEDS: amLODIPine BESYLATE 10 MG TABLET PO SCH (08:07)
[2020-06-29] MEDS: DOCUSATE SODIUM 100 MG CAPSULE PO SCH ×2 (08:07→21:24)
[2020-06-29 08:29] LABS: CALCIUM 8.1 mg/dL (8.4-11.0); CREATININE 1.37 mg/dL (0.55-1.30); POTASSIUM 5.9 mmol/L (3.5-5.1)
[2020-06-29 08:49] LABS: EOSINOPHILS # (AUTO) 0.3 K/uL (0.0-0.4); HEMOGLOBIN 9.1 g/dL (14.0-18.0); LYMPHOCYTES # (AUTO) 0.7 K/uL (1.0-5.5); MONOCYTES # (AUTO) 0.4 K/uL (0.0-1.0); NEUTROPHILS # (AUTO) 2.1 K/uL (1.8-7.7); RED BLOOD CELL COUNT(AUTO) 3.04 MIL/uL (4.2-6.2)
[2020-06-29 08:54] LABS: BASOPHILS % (AUTO) 0.7 % (0.0-2.0); EOSINOPHILS % (AUTO) 7.4 % (0.0-4.0); HEMATOCRIT 27.1 % (36-54); LYMPHOCYTES % (AUTO) 21.2 % (20.5-51.5); MEAN CORPUSCULAR HEMOGLOBIN 30 pg (27-31); MEAN CORPUSCULAR HGB CONC 34 % (32-36); MEAN CORPUSCULAR VOLUME 89 fL (79.0-98.0); MONOCYTES % (AUTO) 10.7 % (1.7-9.3); RED CELL DISTRIBUTION WIDTH 13.8 % (9.0-15.0)
[2020-06-29 08:57] LABS: WHITE BLOOD COUNT (AUTO) 3.5 K/uL (4.8-10.8)
[2020-06-29 12:00] VITALS: BP_SYST 129
[2020-06-29 12:16] LABS: PLATELET COUNT (AUTO) 120 K/uL (130-430)
[2020-06-29 16:00] VITALS: BP_SYST 154
[2020-06-29] MEDS ORDERED: SODIUM POLYSTYRENE SULFONATE 15 GM/60 ML UDBTL PO ONE (17:30)
[2020-06-29 20:00] VITALS: BP_SYST 142
[2020-06-29] MEDS ORDERED: DOCUSATE SODIUM 100 MG CAPSULE PO ONE (21:19)
[2020-06-29] MEDS: PANTOPRAZOLE SODIUM 40 MG TAB PO SCH (21:24)
[2020-06-30] VITALS: BP_SYST 138
[2020-06-30] MEDS: D5/0.45 NS 1,000 ML IV SCH ×2 (06:23→19:45)
[2020-06-30 07:41] LABS: BASOPHILS % (AUTO) 0.5 % (0.0-2.0); EOSINOPHILS # (AUTO) 0.1 K/uL (0.0-0.4); EOSINOPHILS % (AUTO) 4.2 % (0.0-4.0); HEMATOCRIT 25.4 % (36-54); HEMOGLOBIN 8.6 g/dL (14.0-18.0); LYMPHOCYTES # (AUTO) 0.7 K/uL (1.0-5.5); MEAN CORPUSCULAR HEMOGLOBIN 30 pg (27-31); MEAN CORPUSCULAR HGB CONC 34 % (32-36); MEAN CORPUSCULAR VOLUME 88 fL (79.0-98.0); MONOCYTES # (AUTO) 0.3 K/uL (0.0-1.0); NEUTROPHILS # (AUTO) 1.9 K/uL (1.8-7.7); NEUTROPHILS % (AUTO) 62.3 % (40.0-70.0); PLATELET COUNT (AUTO) 112 K/uL (130-430); WHITE BLOOD COUNT (AUTO) 3.1 K/uL (4.8-10.8)
[2020-06-30] MEDS: MAGNESIUM OXIDE 400 MG TABLET PO SCH ×2 (07:56→21:37)
[2020-06-30] MEDS: SENNOSIDES/DOCUSATE SODIUM 1 TAB TABLET(SENOKOT-S) PO SCH (07:56)
[2020-06-30] MEDS: GABAPENTIN 400 MG CAPSULE PO SCH ×2 (07:56→21:37)
[2020-06-30] MEDS: TACROLIMUS ANHYDROUS 1 MG CAPSULE (PROGRAF) PO SCH ×2 (07:57→20:03)
[2020-06-30] MEDS: amLODIPine BESYLATE 10 MG TABLET PO SCH (07:57)
[2020-06-30 08:00] VITALS: BP_SYST 143
[2020-06-30] MEDS: DOCUSATE SODIUM 100 MG CAPSULE PO SCH ×2 (08:04→21:38)
[2020-06-30 08:40] LABS: CALCIUM 8.2 mg/dL (8.4-11.0); CREATININE 1.41 mg/dL (0.55-1.30); POTASSIUM 4.6 mmol/L (3.5-5.1)
[2020-06-30] MEDS: INSULIN REGULAR, HUMAN 100 UNITS/ML, 10 ML VIAL (humuLIN R) SUBCUT PRN ×2 (11:46→16:39)
[2020-06-30 12:44] VITALS: BP_SYST 131
[2020-06-30 16:43] VITALS: BP_SYST 153
[2020-06-30 20:00] VITALS: BP_SYST 149
[2020-06-30] MEDS: PANTOPRAZOLE SODIUM 40 MG TAB PO SCH (21:38)
[2020-07-01 00:20] VITALS: BP_SYST 135
[2020-07-01] MEDS: D5/0.45 NS 1,000 ML IV SCH ×2 (02:33→16:13)
[2020-07-01] MEDS: INSULIN REGULAR, HUMAN 100 UNITS/ML, 10 ML VIAL (humuLIN R) SUBCUT PRN ×2 (06:24→16:17)
[2020-07-01 06:45] LABS: BASOPHILS % (AUTO) 0.4 % (0.0-2.0); EOSINOPHILS # (AUTO) 0.1 K/uL (0.0-0.4); EOSINOPHILS % (AUTO) 4.8 % (0.0-4.0); HEMATOCRIT 25.8 % (36-54); HEMOGLOBIN 8.8 g/dL (14.0-18.0); LYMPHOCYTES # (AUTO) 0.7 K/uL (1.0-5.5); MEAN CORPUSCULAR HEMOGLOBIN 30 pg (27-31); MEAN CORPUSCULAR HGB CONC 34 % (32-36); MEAN CORPUSCULAR VOLUME 87 fL (79.0-98.0); MONOCYTES # (AUTO) 0.3 K/uL (0.0-1.0); MONOCYTES % (AUTO) 10.7 % (1.7-9.3); NEUTROPHILS # (AUTO) 1.7 K/uL (1.8-7.7); NEUTROPHILS % (AUTO) 60.1 % (40.0-70.0); PLATELET COUNT (AUTO) 109 K/uL (130-430); RED BLOOD CELL COUNT(AUTO) 2.97 MIL/uL (4.2-6.2); RED CELL DISTRIBUTION WIDTH 13.8 % (9.0-15.0); WHITE BLOOD COUNT (AUTO) 2.8 K/uL (4.8-10.8)
[2020-07-01 07:37] LABS: CALCIUM 8.1 mg/dL (8.4-11.0); CREATININE 1.3 mg/dL (0.55-1.30); POTASSIUM 4.5 mmol/L (3.5-5.1)
[2020-07-01] MEDS: TACROLIMUS ANHYDROUS 1 MG CAPSULE (PROGRAF) PO SCH (07:59)
[2020-07-01] MEDS: GABAPENTIN 400 MG CAPSULE PO SCH (08:01)
[2020-07-01] MEDS: MAGNESIUM OXIDE 400 MG TABLET PO SCH (08:01)
[2020-07-01] MEDS: SENNOSIDES/DOCUSATE SODIUM 1 TAB TABLET(SENOKOT-S) PO SCH (08:02)
[2020-07-01] MEDS: DOCUSATE SODIUM 100 MG CAPSULE PO SCH (08:04)
[2020-07-01] MEDS: amLODIPine BESYLATE 10 MG TABLET PO SCH (08:04)
[2020-07-01 09:52] VITALS: BP_SYST 127
[2020-07-01 13:06] VITALS: BP_SYST 149
[2020-07-01 17:02] VITALS: BP_SYST 132
[2020-07-01 17:19] VITALS: BP_SYST 127
== END 2020-07-01 18:10 | disposition home or self-care (01) | DRG 683 ==
LOC: SED 22:23 → SMU 06-27 01:32
PROVIDERS: ADMIT Family Medicine; ATTEND Family Medicine
DX: N17.9 Acute kidney failure, unspecified (principal); Z94.4 Liver transplant status; E87.5 Hyperkalemia; E11.22 Type 2 diabetes mellitus with diabetic chronic kidney disease; K21.9 Gastro-esophageal reflux disease without esophagitis; E86.0 Dehydration; D64.9 Anemia, unspecified; I12.9 Hypertensive chronic kidney disease with stage 1 through stage 4 chronic kidney disease, or unspecified chronic kidney disease; N18.9 Chronic kidney disease, unspecified; Z20.822 Contact with and (suspected) exposure to COVID-19
CPT/HCPCS: 36415; 71045; 80048; 80053; 81000-TC; 82550-TC; 82962; 83540-TC; 83550-TC; 83735-TC; 84484; 85025; 93005; 96360; 99285; J7507

== ENCOUNTER 2021-05-20 12:36 | Outpatient (CLI) | payer OTHER, MEDICAID ==
[~2021-05-20 12:36] MED LIST changes: -DOCU-144 PO; +KAY15 PO; +SENN-295 PO
== END 2021-05-20 20:27 | disposition home or self-care (01) ==
LOC: SRD 12:36
PROVIDERS: ATTEND Family Medicine
DX: R91.8 Other nonspecific abnormal finding of lung field (principal); J90 Pleural effusion, not elsewhere classified; I70.0 Atherosclerosis of aorta
CPT/HCPCS: 71046-TC

== ENCOUNTER 2022-04-25 15:24 | Inpatient (IN) | payer OTHER, MEDICAID ==
[~2022-04-25] VITALS: Ht 162.6 cm; Wt 79.8 kg
[~2022-04-25 15:24] MED LIST changes: +OMEP20CA15 PO
[2022-04-25 15:30] VITALS: BP_SYST 151
[2022-04-25 16:41] LABS: BASOPHILS % (AUTO) 0.2 % (0.0-2.0); EOSINOPHILS % (AUTO) 0.1 % (0.0-4.0); HEMATOCRIT 28.2 % (36-54); HEMOGLOBIN 9.7 g/dL (14.0-18.0); LYMPHOCYTES # (AUTO) 0.5 K/uL (1.0-5.5); LYMPHOCYTES % (AUTO) 9.8 % (20.5-51.5); MEAN CORPUSCULAR HEMOGLOBIN 30 pg (27-31); MEAN CORPUSCULAR HGB CONC 34 % (32-36); MEAN CORPUSCULAR VOLUME 86 fL (79.0-98.0); MONOCYTES # (AUTO) 0.5 K/uL (0.0-1.0); MONOCYTES % (AUTO) 9.4 % (1.7-9.3); NEUTROPHILS # (AUTO) 4.4 K/uL (1.8-7.7); NEUTROPHILS % (AUTO) 80.5 % (40.0-70.0); PLATELET COUNT (AUTO) 115 K/uL (130-430); RED BLOOD CELL COUNT(AUTO) 3.28 MIL/uL (4.2-6.2); RED CELL DISTRIBUTION WIDTH 13.7 % (9.0-15.0); WHITE BLOOD COUNT (AUTO) 5.5 K/uL (4.8-10.8)
[2022-04-25 16:49] LABS: ANION GAP 5 (5-15); CALCIUM 9.5 mg/dL (8.4-11.0); CHLORIDE 102 mmol/L (98-107); CREATININE 2.28 mg/dL (0.55-1.30); GLUCOSE 298 mg/dL (70-99); UREA NITROGEN, BLOOD 67 mg/dL (8-21)
[2022-04-25 16:58] LABS: ALANINE AMINOTRANSFERASE 12 U/L (12-78); ALBUMIN 3.8 g/dL (3.4-4.8); ASPARTATE AMINOTRANSFERASE 10 U/L (10-37); TOTAL BILIRUBIN 0.3 mg/dL (0.0-1.0)
[2022-04-25 17:01] LABS: GFR AFRICAN AMERICAN 37 mL/min (>90)
[2022-04-25] MEDS ORDERED: NACL 0.9% 1,000 ML IV ONE (17:30)
[2022-04-25] MEDS ORDERED: INSULIN REGULAR, HUMAN 100 UNITS/ML, 3 ML VIAL IVP ONE (17:30)
[2022-04-25] MEDS ORDERED: INSULIN REGULAR, HUMAN 10 UNITS/0.1 ML, 3 ML VIAL ONE (18:00)
[2022-04-25] MEDS ORDERED: ZOLPIDEM TARTRATE 5 MG TABLET PO PRN (21:30)
[2022-04-25] MEDS ORDERED: SODIUM POLYSTYRENE SULFONATE 15 GM/60 ML UDBTL PO ONE ×2 (21:30→23:45)
[2022-04-25] MEDS ORDERED: ACETAMINOPHEN 325 MG TABLET PO PRN (21:30)
[2022-04-25 21:53] LABS: CALCIUM 8.3 mg/dL (8.4-11.0); CREATININE 1.95 mg/dL (0.55-1.30)
[2022-04-25 22:52] VITALS: BP_SYST 148
[2022-04-25] MEDS ORDERED: PANTOPRAZOLE SODIUM 40 MG TAB PO ONE (23:41)
[2022-04-25] MEDS ORDERED: ONDANSETRON HCL 4 MG/2 ML VIAL IVP PRN (23:45)
[2022-04-25] MEDS: 0.45% NACL 1,000 ML IV SCH (23:56)
[2022-04-26] MEDS: INSULIN REGULAR, HUMAN 100 UNITS/ML, 3 ML VIAL (humuLIN R) SUBCUT PRN ×4 (05:59→20:04)
[2022-04-26 07:00] VITALS: BP_SYST 136
[2022-04-26 07:41] LABS: BASOPHILS % (AUTO) 0.3 % (0.0-2.0); EOSINOPHILS % (AUTO) 0.7 % (0.0-4.0); HEMATOCRIT 27.4 % (36-54); HEMOGLOBIN 9.4 g/dL (14.0-18.0); LYMPHOCYTES # (AUTO) 0.7 K/uL (1.0-5.5); LYMPHOCYTES % (AUTO) 15.2 % (20.5-51.5); MEAN CORPUSCULAR HEMOGLOBIN 30 pg (27-31); MEAN CORPUSCULAR HGB CONC 34 % (32-36); MEAN CORPUSCULAR VOLUME 86 fL (79.0-98.0); MONOCYTES # (AUTO) 0.4 K/uL (0.0-1.0); MONOCYTES % (AUTO) 8.3 % (1.7-9.3); NEUTROPHILS # (AUTO) 3.3 K/uL (1.8-7.7); NEUTROPHILS % (AUTO) 75.5 % (40.0-70.0); PLATELET COUNT (AUTO) 108 K/uL (130-430); RED BLOOD CELL COUNT(AUTO) 3.17 MIL/uL (4.2-6.2); WHITE BLOOD COUNT (AUTO) 4.3 K/uL (4.8-10.8)
[2022-04-26 08:00] VITALS: BP_SYST 136
[2022-04-26 08:09] LABS: ALBUMIN 3.4 g/dL (3.4-4.8); CALCIUM 8.3 mg/dL (8.4-11.0); CREATININE 1.84 mg/dL (0.55-1.30); TOTAL BILIRUBIN 0.2 mg/dL (0.0-1.0)
[2022-04-26] MEDS: PANTOPRAZOLE SODIUM 40 MG TAB PO SCH ×2 (08:22→20:00)
[2022-04-26] MEDS: MAGNESIUM OXIDE 400 MG TABLET PO SCH ×2 (08:22→20:00)
[2022-04-26] MEDS: TACROLIMUS ANHYDROUS 1 MG CAPSULE (PROGRAF) PO SCH ×2 (08:22→20:01)
[2022-04-26] MEDS: GABAPENTIN 400 MG CAPSULE PO SCH ×2 (08:22→20:00)
[2022-04-26] MEDS: amLODIPine BESYLATE 10 MG TABLET PO SCH (08:25)
[2022-04-26] MEDS ORDERED: PANTOPRAZOLE SODIUM 40 MG TAB PO SCH (09:00)
[2022-04-26] MEDS ORDERED: OMEPRAZOLE Non-Formulary 20 MG CAPSULE.DR PO SCH (09:00)
[2022-04-26 11:14] LABS: TOTAL IRON BIND. CAPACITY 191 ug/dL (250-450)
[2022-04-26 12:00] VITALS: BP_SYST 125
[2022-04-26] MEDS: 0.45% NACL 1,000 ML IV SCH (12:00)
[2022-04-26] MEDS: SODIUM POLYSTYRENE SULFONATE 15 GM/60 ML UDBTL PO SCH (15:46)
[2022-04-26 20:00] VITALS: BP_SYST 132
[2022-04-26] MEDS: SENNOSIDES/DOCUSATE SODIUM 1 TAB TABLET(SENOKOT-S) PO SCH (20:00)
[2022-04-27] VITALS: BP_SYST 18
[2022-04-27] MEDS: 0.45% NACL 1,000 ML IV SCH ×3 (01:46→20:06)
[2022-04-27 07:25] LABS: BASOPHILS % (AUTO) 0.5 % (0.0-2.0); EOSINOPHILS # (AUTO) 0.1 K/uL (0.0-0.4); EOSINOPHILS % (AUTO) 2.6 % (0.0-4.0); HEMATOCRIT 25.9 % (36-54); LYMPHOCYTES # (AUTO) 0.6 K/uL (1.0-5.5); LYMPHOCYTES % (AUTO) 22.6 % (20.5-51.5); MEAN CORPUSCULAR HEMOGLOBIN 30 pg (27-31); MEAN CORPUSCULAR HGB CONC 35 % (32-36); MEAN CORPUSCULAR VOLUME 86 fL (79.0-98.0); MONOCYTES # (AUTO) 0.3 K/uL (0.0-1.0); MONOCYTES % (AUTO) 10.3 % (1.7-9.3); NEUTROPHILS # (AUTO) 1.8 K/uL (1.8-7.7); PLATELET COUNT (AUTO) 98 K/uL (130-430); RED BLOOD CELL COUNT(AUTO) 3.03 MIL/uL (4.2-6.2); RED CELL DISTRIBUTION WIDTH 14.2 % (9.0-15.0); WHITE BLOOD COUNT (AUTO) 2.9 K/uL (4.8-10.8)
[2022-04-27 07:39] LABS: CREATININE 1.65 mg/dL (0.55-1.30)
[2022-04-27 07:54] LABS: CALCIUM 7.9 mg/dL (8.4-11.0)
[2022-04-27 08:00] VITALS: BP_SYST 145
[2022-04-27 08:06] LABS: FERRITIN 240 ng/mL (30-400); FOLATE (FOLIC ACID) 6.3 ng/mL (>3.0)
[2022-04-27] MEDS: TACROLIMUS ANHYDROUS 1 MG CAPSULE (PROGRAF) PO SCH ×2 (08:09→20:04)
[2022-04-27] MEDS: GABAPENTIN 400 MG CAPSULE PO SCH ×2 (08:10→20:04)
[2022-04-27] MEDS: amLODIPine BESYLATE 10 MG TABLET PO SCH (08:11)
[2022-04-27] MEDS: MAGNESIUM OXIDE 400 MG TABLET PO SCH ×2 (08:12→20:04)
[2022-04-27] MEDS: PANTOPRAZOLE SODIUM 40 MG TAB PO SCH ×2 (08:12→20:04)
[2022-04-27] MEDS ORDERED: SODIUM POLYSTYRENE SULFONATE 15 GM/60 ML UDBTL ONE (08:51)
[2022-04-27] MEDS: SODIUM POLYSTYRENE SULFONATE 15 GM/60 ML UDBTL PO SCH (09:01)
[2022-04-27 11:27] VITALS: BP_SYST 140
[2022-04-27] MEDS: INSULIN REGULAR, HUMAN 100 UNITS/ML, 3 ML VIAL (humuLIN R) SUBCUT PRN (11:33)
[2022-04-27 15:26] VITALS: BP_SYST 118
[2022-04-27 20:00] VITALS: BP_SYST 129
[2022-04-27] MEDS: SENNOSIDES/DOCUSATE SODIUM 1 TAB TABLET(SENOKOT-S) PO SCH (20:04)
[2022-04-28] VITALS (7 sets, daily range): BP systolic 122–153
[2022-04-28 07:51] LABS: BASOPHILS % (AUTO) 0.5 % (0.0-2.0); EOSINOPHILS # (AUTO) 0.1 K/uL (0.0-0.4); EOSINOPHILS % (AUTO) 2.7 % (0.0-4.0); HEMATOCRIT 26.7 % (36-54); HEMOGLOBIN 8.9 g/dL (14.0-18.0); LYMPHOCYTES # (AUTO) 0.6 K/uL (1.0-5.5); MEAN CORPUSCULAR HEMOGLOBIN 29 pg (27-31); MEAN CORPUSCULAR HGB CONC 33 % (32-36); MEAN CORPUSCULAR VOLUME 87 fL (79.0-98.0); MONOCYTES # (AUTO) 0.3 K/uL (0.0-1.0); MONOCYTES % (AUTO) 12.3 % (1.7-9.3); NEUTROPHILS # (AUTO) 1.6 K/uL (1.8-7.7); NEUTROPHILS % (AUTO) 62.5 % (40.0-70.0); PLATELET COUNT (AUTO) 102 K/uL (130-430); RED BLOOD CELL COUNT(AUTO) 3.09 MIL/uL (4.2-6.2); RED CELL DISTRIBUTION WIDTH 14.4 % (9.0-15.0); WHITE BLOOD COUNT (AUTO) 2.6 K/uL (4.8-10.8)
[2022-04-28 08:05] LABS: CALCIUM 8.4 mg/dL (8.4-11.0); CREATININE 1.71 mg/dL (0.55-1.30)
[2022-04-28] MEDS: TACROLIMUS ANHYDROUS 1 MG CAPSULE (PROGRAF) PO SCH ×2 (08:23→22:19)
[2022-04-28] MEDS: GABAPENTIN 400 MG CAPSULE PO SCH ×2 (08:37→22:19)
[2022-04-28] MEDS: PANTOPRAZOLE SODIUM 40 MG TAB PO SCH ×2 (08:37→22:19)
[2022-04-28] MEDS: amLODIPine BESYLATE 10 MG TABLET PO SCH (08:38)
[2022-04-28] MEDS: MAGNESIUM OXIDE 400 MG TABLET PO SCH ×2 (08:38→22:20)
[2022-04-28] MEDS: SODIUM POLYSTYRENE SULFONATE 15 GM/60 ML UDBTL PO SCH (08:39)
[2022-04-28] MEDS: 0.45% NACL 1,000 ML IV SCH (15:07)
[2022-04-28] MEDS: INSULIN REGULAR, HUMAN 100 UNITS/ML, 3 ML VIAL (humuLIN R) SUBCUT PRN (16:55)
[2022-04-28] MEDS: SENNOSIDES/DOCUSATE SODIUM 1 TAB TABLET(SENOKOT-S) PO SCH (22:19)
[2022-04-29] MEDS: 0.45% NACL 1,000 ML IV SCH (06:11)
[2022-04-29 07:52] VITALS: BP_SYST 135
[2022-04-29] MEDS: TACROLIMUS ANHYDROUS 1 MG CAPSULE (PROGRAF) PO SCH (08:10)
[2022-04-29] MEDS: GABAPENTIN 400 MG CAPSULE PO SCH (08:30)
[2022-04-29] MEDS: SODIUM POLYSTYRENE SULFONATE 15 GM/60 ML UDBTL PO SCH (08:30)
[2022-04-29] MEDS: MAGNESIUM OXIDE 400 MG TABLET PO SCH (08:30)
[2022-04-29] MEDS: amLODIPine BESYLATE 10 MG TABLET PO SCH (08:31)
[2022-04-29] MEDS: PANTOPRAZOLE SODIUM 40 MG TAB PO SCH (08:31)
[2022-04-29 12:00] VITALS: BP_SYST 124
[2022-04-29] MEDS: INSULIN REGULAR, HUMAN 100 UNITS/ML, 3 ML VIAL (humuLIN R) SUBCUT PRN (12:30)
[2022-04-29 14:19] VITALS: BP_SYST 130
[2022-04-29] MEDS ORDERED: LACT10SO6 PO ×2 (14:49→15:10)
[2022-04-29 16:00] VITALS: BP_SYST 118
== END 2022-04-29 17:10 | disposition home or self-care (01) | DRG 640 ==
LOC: SED 15:24 → STU 21:11 → SMU 04-28 20:32
PROVIDERS: ADMIT Family Medicine; ATTEND Family Medicine
DX: E87.5 Hyperkalemia (principal); N17.0 Acute kidney failure with tubular necrosis; Z94.4 Liver transplant status; E87.1 Hypo-osmolality and hyponatremia; E86.0 Dehydration; D64.9 Anemia, unspecified; E87.6 Hypokalemia; K74.60 Unspecified cirrhosis of liver; N18.9 Chronic kidney disease, unspecified; I12.9 Hypertensive chronic kidney disease with stage 1 through stage 4 chronic kidney disease, or unspecified chronic kidney disease; E11.22 Type 2 diabetes mellitus with diabetic chronic kidney disease; Z20.822 Contact with and (suspected) exposure to COVID-19
CPT/HCPCS: 36415; 80048; 80053; 82607; 82728; 82746; 82962; 83540; 83550; 83735; 84484; 85025; 93005; 96361; 96374; 99285; G0378; J1815; J7030; J7507

== ENCOUNTER 2022-05-08 18:23 | Inpatient (IN) | payer OTHER, MEDICAID ==
[~2022-05-08] VITALS: Ht 162.6 cm; Wt 83.0 kg
[~2022-05-08 18:23] MED LIST changes: +LACT10SO6 PO
[2022-05-08 19:26] VITALS: BP_SYST 134
--- NOTE | 2022-05-08 19:33 | NUR ---
Patient triaged and placed in waiting room. VS checked and patient appears in no acute distress at this time. Accompanied by self, awaiting available bed, and MD notified of need for MSE.
[2022-05-08 21:32] LABS: BASOPHILS % (AUTO) 0.4 % (0.0-2.0); EOSINOPHILS # (AUTO) 0.1 K/uL (0.0-0.4); EOSINOPHILS % (AUTO) 2.3 % (0.0-4.0); HEMATOCRIT 25.3 % (36-54); HEMOGLOBIN 8.7 g/dL (14.0-18.0); LYMPHOCYTES # (AUTO) 0.7 K/uL (1.0-5.5); LYMPHOCYTES % (AUTO) 21.8 % (20.5-51.5); MEAN CORPUSCULAR HEMOGLOBIN 30 pg (27-31); MEAN CORPUSCULAR HGB CONC 35 % (32-36); MEAN CORPUSCULAR VOLUME 87 fL (79.0-98.0); MONOCYTES # (AUTO) 0.3 K/uL (0.0-1.0); MONOCYTES % (AUTO) 9.1 % (1.7-9.3); NEUTROPHILS % (AUTO) 66.4 % (40.0-70.0); PLATELET COUNT (AUTO) 102 K/uL (130-430); RED BLOOD CELL COUNT(AUTO) 2.92 MIL/uL (4.2-6.2); RED CELL DISTRIBUTION WIDTH 14.7 % (9.0-15.0); WHITE BLOOD COUNT (AUTO) 3.1 K/uL (4.8-10.8)
[2022-05-08 21:44] LABS: CALCIUM 8.4 mg/dL (8.4-11.0); CREATININE 1.93 mg/dL (0.55-1.30)
[2022-05-08 21:50] LABS: ALBUMIN 3.4 g/dL (3.4-4.8); TOTAL BILIRUBIN 0.3 mg/dL (0.0-1.0)
--- NOTE | 2022-05-08 22:48 | NUR ---
Patient arrived to room 7 & connected to CM. Per report, patient has K+ 6.0.
--- NOTE | 2022-05-08 22:50 | NUR ---
Patient C/O 09/15 Left sided CP x 3 days with generalized weakness.
[2022-05-08] MEDS ORDERED: SODIUM POLYSTYRENE SULFONATE 15 GM/60 ML UDBTL PO ONE (23:00)
[2022-05-08] MEDS ORDERED: INSULIN REGULAR, HUMAN 10 UNITS/0.1 ML, 3 ML VIAL IVP ONE (23:00)
[2022-05-08] MEDS ORDERED: DOCU-144 PO (23:00)
[2022-05-08] MEDS ORDERED: DEXTROSE 50% JECT 50 ML DISP.SYRIN IVP ONE (23:00)
--- NOTE | 2022-05-08 23:04 | NUR ---
Medication reconciliation completed with information provided by patient. Any prior medication reconciliation on file was reviewed and corrected.
--- NOTE | 2022-05-08 23:13 | NUR ---
Admit bed requested Patient will be admitted to care of . Admitted to TELE unit. Diagnosis: HYPERKALEMIA, RENAL FAILURE Inpatient :Yes Observation : No Orientation concerns or request close to nursing station :Yes Covid Status NEGATIVE On vent or bipap : NONE Isolation requirements : NO Needs a sitter : NO From Home : Yes Requires Dialysis : No Med Rec Completed :No
--- NOTE | 2022-05-08 23:13 | NUR ---
ELIS OBTAINED AND SENT TO LAB
--- NOTE | 2022-05-08 23:30 | NUR ---
sL 22 gauge placed to .
--- NOTE | 2022-05-09 00:32 | NUR ---
Patient transferred to room 102A via JAGDEEP boyer, RN & EMT
[2022-05-09 00:55] LABS: BILIRUBIN,URINE NEGATIVE (NEGATIVE); BLOOD, URINE 1+ (NEGATIVE); COLOR,URINE YELLOW (YELLOW); GLUCOSE,URINE 1+ (NEGATIVE); KETONES,URINE NEGATIVE (NEGATIVE); LEUKOCYTE ESTERASE ,URINE NEGATIVE (NEGATIVE); NITRITE, URINE NEGATIVE (NEGATIVE); PH,URINE 5.5 (5.0-8.0); PROTEIN URINE NEGATIVE (NEGATIVE); UROBILINOGEN,URINE 0.2 (0.2-1.0)
[2022-05-09 00:56] LABS: CLARITY/URINE HAZY (CLEAR)
[2022-05-09 01:09] LABS: RBC,URINE 0-3 /HPF (0-3)
[2022-05-09 01:10] LABS: BACTERIA,URINE FEW /HPF (None Seen); MUCUS,URINE None Seen /LPF (None Seen); WBC,URINE NONE SEEN /HPF (0-3)
[2022-05-09 01:18] VITALS: BP_SYST 127
--- NOTE | 2022-05-09 01:48 | NUR ---
snack Patient requested ice water, one jello and one gram cracker and they were provided.
[2022-05-09] MEDS: 0.45% NACL 1,000 ML IV SCH ×3 (03:23→23:38)
[2022-05-09] MEDS: SODIUM POLYSTYRENE SULFONATE 15 GM/60 ML UDBTL PO SCH ×3 (06:41→21:06)
[2022-05-09] MEDS: INSULIN REGULAR, HUMAN 100 UNITS/ML, 3 ML VIAL (humuLIN R) SUBCUT PRN ×4 (06:43→21:15)
[2022-05-09 08:02] LABS: BASOPHILS % (AUTO) 0.3 % (0.0-2.0); EOSINOPHILS # (AUTO) 0.1 K/uL (0.0-0.4); EOSINOPHILS % (AUTO) 2.1 % (0.0-4.0); HEMATOCRIT 24.2 % (36-54); HEMOGLOBIN 8.2 g/dL (14.0-18.0); LYMPHOCYTES # (AUTO) 0.6 K/uL (1.0-5.5); LYMPHOCYTES % (AUTO) 20.9 % (20.5-51.5); MEAN CORPUSCULAR HEMOGLOBIN 30 pg (27-31); MEAN CORPUSCULAR HGB CONC 34 % (32-36); MEAN CORPUSCULAR VOLUME 86 fL (79.0-98.0); MONOCYTES # (AUTO) 0.3 K/uL (0.0-1.0); MONOCYTES % (AUTO) 9.2 % (1.7-9.3); NEUTROPHILS % (AUTO) 67.5 % (40.0-70.0); PLATELET COUNT (AUTO) 99 K/uL (130-430); RED CELL DISTRIBUTION WIDTH 14.3 % (9.0-15.0)
[2022-05-09 08:16] VITALS: BP_SYST 145
[2022-05-09 11:45] VITALS: BP_SYST 134
[2022-05-09] MEDS ORDERED: ONDANSETRON HCL 4 MG/2 ML VIAL IVP PRN (12:00)
[2022-05-09 13:33] LABS: CALCIUM 7.7 mg/dL (8.4-11.0); CREATININE 1.77 mg/dL (0.55-1.30)
--- NOTE | 2022-05-09 13:34 | NUR ---
Report received from ALLYSON Castaneda for continuity of care. Patient in stable condition.
--- NOTE | 2022-05-09 13:35 | NUR ---
Report received from ALLYSON Castaneda for continuity of care. Patient in stable condition.
[2022-05-09 16:00] VITALS: BP_SYST 124
[2022-05-09 17:15] LABS: CALCIUM 7.5 mg/dL (8.4-11.0); CREATININE 1.52 mg/dL (0.55-1.30)
--- NOTE | 2022-05-09 18:53 | NUR ---
Called Dr. Fagan regarding latest potassium 5.0 for patient latest labs.
--- NOTE | 2022-05-09 18:54 | NUR ---
Report given to shift manager RN for continuity of care. Patient stable condition.
[2022-05-09 20:00] VITALS: BP_SYST 153
[2022-05-09] MEDS: GABAPENTIN 400 MG CAPSULE PO SCH (20:11)
[2022-05-09] MEDS: MAGNESIUM OXIDE 400 MG TABLET PO SCH (20:12)
[2022-05-09] MEDS: DOCUSATE SODIUM 100 MG CAPSULE PO SCH (20:12)
[2022-05-09] MEDS: ZOLPIDEM TARTRATE 5 MG TABLET PO SCH (20:12)
[2022-05-09] MEDS: TACROLIMUS ANHYDROUS 1 MG CAPSULE (PROGRAF) PO SCH (20:13)
[2022-05-09] MEDS: LACTULOSE 20 GM/30 ML UDC PO SCH (21:06)
[2022-05-10] VITALS: BP_SYST 137
--- NOTE | 2022-05-10 01:10 | NUR ---
CONSULTATION CALLED FOR DR. MORATAYA FOR CONSULT OF RENAL FAILURE ORDER BY DR. MEYER SPOKE WITH ASH
[2022-05-10] MEDS: SODIUM POLYSTYRENE SULFONATE 15 GM/60 ML UDBTL PO SCH ×3 (05:26→22:00)
[2022-05-10 07:44] LABS: BASOPHILS % (AUTO) 0.5 % (0.0-2.0); EOSINOPHILS # (AUTO) 0.1 K/uL (0.0-0.4); EOSINOPHILS % (AUTO) 2.8 % (0.0-4.0); HEMATOCRIT 24.4 % (36-54); HEMOGLOBIN 8.4 g/dL (14.0-18.0); LYMPHOCYTES # (AUTO) 0.6 K/uL (1.0-5.5); LYMPHOCYTES % (AUTO) 24.7 % (20.5-51.5); MEAN CORPUSCULAR HEMOGLOBIN 30 pg (27-31); MEAN CORPUSCULAR HGB CONC 34 % (32-36); MEAN CORPUSCULAR VOLUME 86 fL (79.0-98.0); MONOCYTES # (AUTO) 0.3 K/uL (0.0-1.0); MONOCYTES % (AUTO) 11.3 % (1.7-9.3); NEUTROPHILS # (AUTO) 1.4 K/uL (1.8-7.7); NEUTROPHILS % (AUTO) 60.7 % (40.0-70.0); PLATELET COUNT (AUTO) 98 K/uL (130-430); RED BLOOD CELL COUNT(AUTO) 2.85 MIL/uL (4.2-6.2); RED CELL DISTRIBUTION WIDTH 14.3 % (9.0-15.0); WHITE BLOOD COUNT (AUTO) 2.4 K/uL (4.8-10.8)
[2022-05-10 07:47] LABS: CALCIUM 7.3 mg/dL (8.4-11.0); CREATININE 1.49 mg/dL (0.55-1.30)
--- NOTE | 2022-05-10 08:00 | NUR ---
AM NOTES PATIENT HAD MEDS AT BEDSIDE, REFUSED TO PUT IN PHARMACY EXPLAINED THE HOSPITAL POLICY BUT STILL INSISTED TO KEEP IT. PATIENT WANTED TO TAKE HIS OWN PROGRAF AND WANTS TO TAKE IT ON HIS OWN SO HE CAN TAKE IT EXACTLY ON TIME. STATED THAT HE NEEDS TO TAKE IT AT EXACTLY AT 8AM AND 8PM DUE TO HIS LIVER TRANSPLANT, DR FARNSWORTH MADE AWARE AND AGREED TO TAKE HIS OWN MEDS. 0900 - SEEN BR DR MORATAYA 1200- VISITED BY RELATIVE 1700- IV LEAKING, NEW IV RE INSERTED ON RIGHT WRIST.
[2022-05-10 08:30] VITALS: BP_SYST 166
[2022-05-10] MEDS: PANTOPRAZOLE SODIUM 40 MG TAB PO SCH (09:00)
[2022-05-10] MEDS ORDERED: OMEPRAZOLE Non-Formulary 20 MG CAPSULE.DR PO SCH (09:00)
[2022-05-10] MEDS: LACTULOSE 20 GM/30 ML UDC PO SCH ×3 (09:53→20:52)
[2022-05-10] MEDS: DOCUSATE SODIUM 100 MG CAPSULE PO SCH ×2 (09:53→20:52)
[2022-05-10] MEDS: GABAPENTIN 400 MG CAPSULE PO SCH ×2 (09:54→20:50)
[2022-05-10] MEDS: MAGNESIUM OXIDE 400 MG TABLET PO SCH ×2 (09:54→20:54)
[2022-05-10] MEDS: TACROLIMUS ANHYDROUS 1 MG CAPSULE (PROGRAF) PO SCH (09:56)
[2022-05-10 11:32] VITALS: BP_SYST 142
[2022-05-10] MEDS: 0.45% NACL 1,000 ML IV SCH ×2 (12:10→15:25)
[2022-05-10] MEDS: INSULIN REGULAR, HUMAN 100 UNITS/ML, 3 ML VIAL (humuLIN R) SUBCUT PRN ×3 (12:15→21:00)
[2022-05-10] MEDS ORDERED: COMMUNICATION ORDER XX ONE (12:45)
[2022-05-10 15:23] VITALS: BP_SYST 134
--- NOTE | 2022-05-10 19:50 | NUR ---
Opening notes/Prograf at bedside Pt AAOx4, VSS, no s/s distress. Pt's home meds Prograf at bedside and pt to take his own Prograf meds schedule for 8AM and 8PM. IVF infusing at ordered rate R. wrist 22G clear and patent. Pt refused lactulose and colace and states he already has diarrhea. K+ level was 4.7 (normal). Call light within reach. Bed low, locked, siderails up x2. To monitor.
[2022-05-10 20:00] VITALS: BP_SYST 144
[2022-05-10] MEDS: ZOLPIDEM TARTRATE 5 MG TABLET PO SCH (20:50)
[2022-05-10] MEDS: TACROLIMUS 1 MG PO SCH (20:54)
[2022-05-11 00:15] VITALS: BP_SYST 146
[2022-05-11] MEDS: 0.45% NACL 1,000 ML IV SCH ×3 (03:44→21:51)
[2022-05-11] MEDS: SODIUM POLYSTYRENE SULFONATE 15 GM/60 ML UDBTL PO SCH ×3 (06:00→21:51)
--- NOTE | 2022-05-11 06:13 | NUR ---
Closing notes Pt awake, alert, labs drawn. IVF infusing at ordered rate R. wrist 24G no s/s infiltration. BS check 129. Call light within reach. Bed low, locked, siderails up x2. To endorse care to AM nurse.
[2022-05-11 08:00] VITALS: BP_SYST 138
--- NOTE | 2022-05-11 08:00 | NUR ---
OPENING NOTE Patient sitting up in bed resting, no sign of distress and denies pain. Patient updated on his plan of care, verbalized understanding. Patient is hopeful to go home later today. Patient states that he had loose stools over night and would like to decline the stool softeners with his morning medications. Breathing is nonlabored and even. All needs met at this time and safety checks made.
[2022-05-11 08:10] LABS: EOSINOPHILS # (AUTO) 0.1 K/uL (0.0-0.4); EOSINOPHILS % (AUTO) 3.6 % (0.0-4.0); HEMATOCRIT 24.5 % (36-54); HEMOGLOBIN 8.6 g/dL (14.0-18.0); LYMPHOCYTES # (AUTO) 0.6 K/uL (1.0-5.5); MEAN CORPUSCULAR HEMOGLOBIN 30 pg (27-31); MEAN CORPUSCULAR HGB CONC 35 % (32-36); MEAN CORPUSCULAR VOLUME 85 fL (79.0-98.0); MONOCYTES # (AUTO) 0.2 K/uL (0.0-1.0); MONOCYTES % (AUTO) 8.7 % (1.7-9.3); NEUTROPHILS # (AUTO) 1.3 K/uL (1.8-7.7); PLATELET COUNT (AUTO) 100 K/uL (130-430); RED CELL DISTRIBUTION WIDTH 14.7 % (9.0-15.0); WHITE BLOOD COUNT (AUTO) 2.2 K/uL (4.8-10.8)
[2022-05-11 08:11] LABS: CALCIUM 7.3 mg/dL (8.4-11.0); CREATININE 1.39 mg/dL (0.55-1.30)
[2022-05-11] MEDS: GABAPENTIN 400 MG CAPSULE PO SCH ×2 (08:28→21:51)
[2022-05-11] MEDS: PANTOPRAZOLE SODIUM 40 MG TAB PO SCH (08:28)
[2022-05-11] MEDS: MAGNESIUM OXIDE 400 MG TABLET PO SCH ×2 (08:28→21:50)
[2022-05-11] MEDS: LACTULOSE 20 GM/30 ML UDC PO SCH ×3 (08:29→21:50)
[2022-05-11] MEDS: DOCUSATE SODIUM 100 MG CAPSULE PO SCH ×2 (08:29→21:50)
[2022-05-11] MEDS: TACROLIMUS 1 MG PO SCH ×2 (08:29→20:00)
[2022-05-11 08:44] LABS: BASOPHILS % (AUTO) 0.4 % (0.0-2.0); NEUTROPHILS % (AUTO) 61.3 % (40.0-70.0)
[2022-05-11] MEDS: INSULIN REGULAR, HUMAN 100 UNITS/ML, 3 ML VIAL (humuLIN R) SUBCUT PRN ×2 (11:25→17:21)
[2022-05-11 12:00] VITALS: BP_SYST 141
--- NOTE | 2022-05-11 13:00 | NUR ---
ROUNDS Patient in bed resting with eyes closed, no sign of distress or pain. Patient was observed ambulating with steady gait. Comfort measures provided and assisted patient with hygiene care and changed linens. All needs met at this time and safety checks made.
--- NOTE | 2022-05-11 13:17 | NUR ---
Dietitian Recommendations * Continue on renal diet * Consider bowel regimen * Water recommendations refer to * Pt prefers decaf coffee throughout the day, RD entered in [employer], MPH, RD Please refer to RD Assessment for further details Addendum: 05/11/22 at [address] Amended: Links added.
--- NOTE | 2022-05-11 18:55 | NUR ---
CLOSING NOTE Patient in bed resting, no sign of distress and denies pain. Patient wishes to be discharged. Patient updated on his plan of care and his most recent lab results including potassium. Comfort measures provided throughout the shift. All needs met at this time and safety checks made. Will endorse to night warehouse selector nurse.
[2022-05-11 20:00] VITALS: BP_SYST 137
[2022-05-11] MEDS: ZOLPIDEM TARTRATE 5 MG TABLET PO SCH (21:50)
[2022-05-12] VITALS: BP_SYST 142
[2022-05-12 04:00] VITALS: BP_SYST 135
[2022-05-12] MEDS: SODIUM POLYSTYRENE SULFONATE 15 GM/60 ML UDBTL PO SCH ×2 (06:24→14:38)
[2022-05-12] MEDS: INSULIN REGULAR, HUMAN 100 UNITS/ML, 3 ML VIAL (humuLIN R) SUBCUT PRN ×2 (06:25→11:34)
[2022-05-12 07:40] LABS: BASOPHILS % (AUTO) 0.4 % (0.0-2.0); EOSINOPHILS # (AUTO) 0.1 K/uL (0.0-0.4); HEMATOCRIT 22.3 % (36-54); HEMOGLOBIN 7.7 g/dL (14.0-18.0); LYMPHOCYTES # (AUTO) 0.5 K/uL (1.0-5.5); LYMPHOCYTES % (AUTO) 25.8 % (20.5-51.5); MEAN CORPUSCULAR HEMOGLOBIN 29 pg (27-31); MEAN CORPUSCULAR HGB CONC 35 % (32-36); MEAN CORPUSCULAR VOLUME 85 fL (79.0-98.0); MONOCYTES # (AUTO) 0.3 K/uL (0.0-1.0); MONOCYTES % (AUTO) 12.2 % (1.7-9.3); NEUTROPHILS # (AUTO) 1.2 K/uL (1.8-7.7); NEUTROPHILS % (AUTO) 58.6 % (40.0-70.0); PLATELET COUNT (AUTO) 90 K/uL (130-430); RED BLOOD CELL COUNT(AUTO) 2.62 MIL/uL (4.2-6.2); RED CELL DISTRIBUTION WIDTH 14.2 % (9.0-15.0); WHITE BLOOD COUNT (AUTO) 2.1 K/uL (4.8-10.8)
[2022-05-12 08:00] VITALS: BP_SYST 149
[2022-05-12] MEDS: 0.45% NACL 1,000 ML IV SCH (08:00)
--- NOTE | 2022-05-12 08:00 | NUR ---
Initial Notes patient is Aox4. No ss of distress noted. Breathing is even and nonlabored, on room air. Vital signs obtained, as documented. Patient denies pain and is eating breakfast. Bed locked and at lowest position. Call light within reach.
[2022-05-12 08:28] LABS: CALCIUM 7.7 mg/dL (8.4-11.0); CREATININE 1.52 mg/dL (0.55-1.30)
[2022-05-12] MEDS: DOCUSATE SODIUM 100 MG CAPSULE PO SCH (09:00)
[2022-05-12] MEDS: TACROLIMUS 1 MG PO SCH (10:07)
[2022-05-12] MEDS: PANTOPRAZOLE SODIUM 40 MG TAB PO SCH (10:07)
[2022-05-12] MEDS: LACTULOSE 20 GM/30 ML UDC PO SCH ×2 (10:07→14:38)
[2022-05-12] MEDS: MAGNESIUM OXIDE 400 MG TABLET PO SCH (10:08)
[2022-05-12] MEDS: GABAPENTIN 400 MG CAPSULE PO SCH (10:08)
--- NOTE | 2022-05-12 10:25 | NUR ---
Notes Patient ambulated to restroom, gait steady. Patient denies pain. No distress noted. Bed linens changed. Patient was given washcloths and towel for self bed bath. Safety precautions in place and call light within reach.
[2022-05-12 11:25] VITALS: BP_SYST 145
--- NOTE | 2022-05-12 12:00 | NUR ---
Notes Patient is eating lunch. No change in assessment, patient denies pain. Safety precaution in place and call light within reach.
[2022-05-12 15:22] VITALS: BP_SYST 122; BP_SYST 145
--- NOTE | 2022-05-12 16:00 | NUR ---
D/C Patient Patient given medication reconciliation form and D/C instructions. Exit Care provided. Patient verbalized understanding. MD discussed with patient the results and treatment provided. Ambulatory with steady gait for discharge to home. Patient in stable condition, ID band removed. IV catheter removed, intact and dressing applied, no active bleeding. Rx of given. Patient educated on pain management. All belongings sent with patient.
== END 2022-05-12 15:35 | disposition home or self-care (01) | DRG 682 ==
LOC: SED 18:23 → STU 23:00 → SMU 05-11 16:15
PROVIDERS: ADMIT Family Medicine; ATTEND Family Medicine
DX: N17.9 Acute kidney failure, unspecified (principal); K76.7 Hepatorenal syndrome; Z94.4 Liver transplant status; E87.5 Hyperkalemia; E86.0 Dehydration; D64.9 Anemia, unspecified; K21.9 Gastro-esophageal reflux disease without esophagitis; I12.9 Hypertensive chronic kidney disease with stage 1 through stage 4 chronic kidney disease, or unspecified chronic kidney disease; E11.22 Type 2 diabetes mellitus with diabetic chronic kidney disease; N18.9 Chronic kidney disease, unspecified
CPT/HCPCS: 36415; 71045; 71250-TC; 76376; 76770; 80048; 80053; 81000; 82140; 82962; 83605; 85025; 87040; 87081; 93005; 96374; 96375; 99285; G0378; J1815; J7507

== ENCOUNTER 2022-05-27 12:18 | Inpatient (IN) | payer OTHER, MEDICAID ==
[~2022-05-27] VITALS: Ht 162.6 cm; Wt 82.6 kg
[~2022-05-27 12:18] MED LIST changes: +DOCU-144 PO; -KAY15 PO; -LACT10SO6 PO; -SENN-295 PO
--- NOTE | 2022-05-27 12:20 | NUR ---
Yanira gurrola in ED - 05/27/22 at 1241 by [email or web address] Placed in room 02 . Placed on threat monitoring analyst, blood pressure machine and pulse oximeter. To gown for exam. Side rails up.
[2022-05-27 12:37] VITALS: BP_SYST 122
--- NOTE | 2022-05-27 12:41 | NUR ---
Placed in room 01 . Placed on hall monitor, blood pressure machine and pulse oximeter. To gown for exam. Side rails up. Report given to Rufina SORTO .
--- NOTE | 2022-05-27 12:44 | NUR ---
# 20 gauge angiocath placed to RIGHT HAND. Use of asceptic technique. Opsite placed over site. Blood return noted. Flushed with 10 cc of normal saline. No evidence of infiltration noted. Patient tolerated well.
--- NOTE | 2022-05-27 12:45 | NUR ---
RECEIVED PT FROM NOREEN EDMOND. PT HAS C/O C/P. PT IS AAOX4. RESP E/U. ON R/A. DENIES PAIN AT THIS TIME. NORMAL S1S2 NOTED. DENIES N/V/D/C. PERPHERAL PULSES NORMAL. SKIN CDI, WARM, NO EDEMA. SIDERAILS UP X2.
--- NOTE | 2022-05-27 12:50 | NUR ---
EKG OBTAINED, PT NSR.
[2022-05-27] MEDS ORDERED: NITROGLYCERIN 0.4 MG TAB.SUBL SL ONE (13:15)
[2022-05-27] MEDS ORDERED: ASPIRIN 81 MG TAB.CHEW PO ONE (13:15)
--- NOTE | 2022-05-27 13:37 | NUR ---
PT RECEIVING CXR.
--- NOTE | 2022-05-27 13:43 | NUR ---
SCHEDULED MEDS GIVEN AND TOLERATED WELL.
[2022-05-27 14:17] LABS: CALCIUM 7.7 mg/dL (8.4-11.0); CHLORIDE 106 mmol/L (98-107); CREATININE 2.06 mg/dL (0.55-1.30); GLUCOSE 289 mg/dL (70-99); UREA NITROGEN, BLOOD 62 mg/dL (8-21)
[2022-05-27 14:24] LABS: ALANINE AMINOTRANSFERASE 20 U/L (12-78); ALBUMIN 3.5 g/dL (3.4-4.8); ASPARTATE AMINOTRANSFERASE 10 U/L (10-37); TOTAL BILIRUBIN 0.5 mg/dL (0.0-1.0)
[2022-05-27 14:28] LABS: BASOPHILS % (AUTO) 0.4 % (0.0-2.0); EOSINOPHILS # (AUTO) 0.1 K/uL (0.0-0.4); EOSINOPHILS % (AUTO) 2.6 % (0.0-4.0); HEMATOCRIT 23.1 % (36-54); HEMOGLOBIN 7.8 g/dL (14.0-18.0); LYMPHOCYTES # (AUTO) 0.7 K/uL (1.0-5.5); LYMPHOCYTES % (AUTO) 30.7 % (20.5-51.5); MEAN CORPUSCULAR HEMOGLOBIN 30 pg (27-31); MEAN CORPUSCULAR HGB CONC 34 % (32-36); MEAN CORPUSCULAR VOLUME 89 fL (79.0-98.0); MONOCYTES # (AUTO) 0.2 K/uL (0.0-1.0); MONOCYTES % (AUTO) 10.7 % (1.7-9.3); NEUTROPHILS # (AUTO) 1.3 K/uL (1.8-7.7); NEUTROPHILS % (AUTO) 55.6 % (40.0-70.0); PLATELET COUNT (AUTO) 95 K/uL (130-430); RED BLOOD CELL COUNT(AUTO) 2.59 MIL/uL (4.2-6.2); RED CELL DISTRIBUTION WIDTH 15.9 % (9.0-15.0); WHITE BLOOD COUNT (AUTO) 2.3 K/uL (4.8-10.8)
[2022-05-27 14:32] LABS: ANION GAP 9 (5-15)
[2022-05-27 14:38] LABS: GFR AFRICAN AMERICAN 41 mL/min (>90)
--- NOTE | 2022-05-27 14:54 | NUR ---
COVID SWAB SENT TO LAB.
[2022-05-27] MEDS ORDERED: INSULIN REGULAR, HUMAN 10 UNITS/0.1 ML, 3 ML VIAL IVP ONE (15:00)
[2022-05-27] MEDS ORDERED: CALCIUM CHLORIDE 1 GM in NS 100 ML IV ONE (15:00)
[2022-05-27] MEDS ORDERED: SODIUM POLYSTYRENE SULFONATE 15 GM/60 ML UDBTL PO ONE ×2 (15:00→20:00)
[2022-05-27] MEDS ORDERED: DEXTROSE 50% JECT 50 ML DISP.SYRIN IVP ONE (15:00)
[2022-05-27] MEDS ORDERED: SODIUM BICARBONATE 8.4% JECT 50 MEQ/50 ML SYRINGE IVP ONE (15:00)
--- NOTE | 2022-05-27 15:12 | NUR ---
CALCIUM CLORIDE IVPB INITIATED. D50 IVP GIVEN, 10 UNITS REG INSULIN IVP GIVEN, BICARB 100MEQ IVP GIVEN, KAYEXALATE 60GMS PO GIVEN AND TOLERATED WELL.
[2022-05-27] MEDS: NACL 0.9% 1,000 ML IV SCH (15:15)
[2022-05-27] MEDS ORDERED: NEU400 PO (15:56)
[2022-05-27] MEDS ORDERED: OMEP20CA15 PO (15:56)
[2022-05-27] MEDS ORDERED: TACR1CAP2 PO (15:56)
[2022-05-27] MEDS ORDERED: MAGN400T10 PO (15:56)
[2022-05-27] MEDS ORDERED: DOCU-156 PO (15:56)
--- NOTE | 2022-05-27 15:56 | NUR ---
Medication reconciliation completed with information provided by PATIENT'S MEDICATION BOTTLES. Any prior medication reconciliation on file was reviewed and corrected.
--- NOTE | 2022-05-27 16:23 | NUR ---
Admit bed requested Patient will be admitted to care of . Admitted to TELE unit. Diagnosis HYPERKALEMIA Inpatient (Yes or No) YES Observation (Yes or No) NO Orientation concerns or request close to nursing station (Yes or No) NO Covid Status NEGATIVE On vent or bipap NO Isolation requirements NO Needs a sitter NO From Home (Yes or if No enter name of facility) HOME Requires Dialysis (Yes or No) NO Med Rec Completed (Yes of No) YES
[2022-05-27] MEDS ORDERED: GLUCOSE (DEXTROSE) ORAL GEL -Adults PO PRN (17:45)
[2022-05-27] MEDS ORDERED: DEXTROSE 50% JECT 50 ML DISP.SYRIN IVP PRN (17:45)
[2022-05-27] MEDS ORDERED: D5W 1,000 ML IV PRN (17:45)
--- NOTE | 2022-05-27 17:49 | NUR ---
REPORTED TO DR. YU PT'S BS 64, GLUCOSE GEL WILL BE GIVEN. NNOS.
[2022-05-27 18:48] LABS: CALCIUM 9.4 mg/dL (8.4-11.0); CREATININE 1.92 mg/dL (0.55-1.30)
--- NOTE | 2022-05-27 19:23 | NUR ---
ENDORSED ALL CARE TO NOREEN GARVEY. ALL QUESTIONS AND CONCERNS ADDRESSED.
[2022-05-27] MEDS ORDERED: MAGNESIUM OXIDE 400 MG TABLET PO SCH (21:00)
[2022-05-27] MEDS: TACROLIMUS ANHYDROUS 1 MG CAPSULE (PROGRAF) PO SCH (22:30)
--- NOTE | 2022-05-27 22:39 | NUR ---
Patient will be admitted to care of DR FARNSWORTH . Admitted to unit. Will go to room . Belongings list completed. Complete and up to date summary report printed. SBAR report to be given at bedside with opportunity for questions.
[2022-05-27 22:47] VITALS: BP_SYST 155
[2022-05-27] MEDS: GABAPENTIN 400 MG CAPSULE PO SCH (22:54)
[2022-05-27] MEDS: DOCUSATE SODIUM 100 MG CAPSULE PO SCH (22:54)
[2022-05-27] MEDS: SOD FERRIC GLUC COMPLEX/SUC 125 MG in NS 100 ML IV SCH (22:54)
[2022-05-27] MEDS: MAGNESIUM OXIDE 400 MG TABLET PO SCH (22:54)
[2022-05-28] VITALS: BP_SYST 149
[2022-05-28] MEDS: NACL 0.9% 1,000 ML IV SCH ×3 (00:35→20:20)
--- NOTE | 2022-05-28 02:39 | NUR ---
patient is AAOX4. vitals are stable. patient arrived on unit from ER approx 1030. patient updated on plan of care for shift. patient states he has no questions or concerns at this time. patient informed to use call light if he needs to ambulate for any reason due to high risk for calls. call light within reach, bed set to low, locked, and alarm on. will continue to monitor patient.
--- NOTE | 2022-05-28 05:11 | NUR ---
CONSULTATION PAGED/CALLED Reason for Consultation: HYPERKALEMIA Person Who was Notified: DACIA Consulting Physician: DR.PHAM ROMERO [facility] Rv Service Technician Specialty: Ordering Physician:
[2022-05-28] MEDS: PANTOPRAZOLE SODIUM 40 MG TAB PO SCH (06:00)
[2022-05-28] MEDS ORDERED: OMEPRAZOLE Non-Formulary 20 MG CAPSULE.DR PO SCH (07:00)
--- NOTE | 2022-05-28 07:15 | NUR ---
OPENING NOTE RECEIVED SBAR FROM NIGHT RN. PATIENT IN BED, RESPIRATIONS EVEN, NON LABORED, BED IN LOW AND LOCKED POSITION CALL LIGHT WITHIN REACH.
[2022-05-28 08:00] VITALS: BP_SYST 148
[2022-05-28] MEDS: GABAPENTIN 400 MG CAPSULE PO SCH ×2 (08:11→20:00)
[2022-05-28] MEDS: DOCUSATE SODIUM 100 MG CAPSULE PO SCH ×2 (08:11→20:05)
[2022-05-28] MEDS: TACROLIMUS ANHYDROUS 1 MG CAPSULE (PROGRAF) PO SCH ×2 (08:13→20:00)
[2022-05-28] MEDS: MAGNESIUM OXIDE 400 MG TABLET PO SCH ×2 (08:19→20:05)
[2022-05-28 08:44] LABS: BASOPHILS % (AUTO) 0.4 % (0.0-2.0); EOSINOPHILS % (AUTO) 2.2 % (0.0-4.0); HEMOGLOBIN 7.5 g/dL (14.0-18.0); LYMPHOCYTES # (AUTO) 0.6 K/uL (1.0-5.5); LYMPHOCYTES % (AUTO) 30.3 % (20.5-51.5); MEAN CORPUSCULAR HEMOGLOBIN 31 pg (27-31); MEAN CORPUSCULAR HGB CONC 35 % (32-36); MEAN CORPUSCULAR VOLUME 88 fL (79.0-98.0); MONOCYTES # (AUTO) 0.3 K/uL (0.0-1.0); MONOCYTES % (AUTO) 12.6 % (1.7-9.3); NEUTROPHILS # (AUTO) 1.1 K/uL (1.8-7.7); NEUTROPHILS % (AUTO) 54.5 % (40.0-70.0); PLATELET COUNT (AUTO) 100 K/uL (130-430); RED BLOOD CELL COUNT(AUTO) 2.44 MIL/uL (4.2-6.2); RED CELL DISTRIBUTION WIDTH 15.7 % (9.0-15.0); WHITE BLOOD COUNT (AUTO) 2.1 K/uL (4.8-10.8)
[2022-05-28 08:55] LABS: HEMATOCRIT 21.5 % (36-54)
[2022-05-28 09:10] LABS: ALBUMIN 3.2 g/dL (3.4-4.8); CALCIUM 9.1 mg/dL (8.4-11.0); CREATININE 1.48 mg/dL (0.55-1.30); TOTAL BILIRUBIN 0.5 mg/dL (0.0-1.0)
--- NOTE | 2022-05-28 09:17 | NUR ---
MD DR JOYNER CALLED NEW ORDERS RECEIVED
--- NOTE | 2022-05-28 09:21 | NUR ---
MD DR PRESCOTT BEDSIDE EXAMINING PATIENT
[2022-05-28] MEDS ORDERED: SODIUM POLYSTYRENE SULFONATE 15 GM/60 ML UDBTL GT ONE (09:30)
--- NOTE | 2022-05-28 10:53 | NUR ---
ONCO/FRAN DR PRESCOTT WAS CALLED, RE: CRITICAL LABS. SPOKE TO PARAMJIT.
[2022-05-28 12:00] VITALS: BP_SYST 146
[2022-05-28] MEDS: INSULIN REGULAR, HUMAN 100 UNITS/ML, 3 ML VIAL (humuLIN R) SUBCUT PRN ×3 (12:16→19:50)
--- NOTE | 2022-05-28 12:49 | NUR ---
PATIENT IS AMBULATING INDEPENDENTLY IN THE ROOM. SAFE TO CONTINUE TO DO SO WITH NURSING SUPERVISION. NO NEED FOR PHYSICAL THERAPY.
[2022-05-28] MEDS ORDERED: SODIUM ZIRCONIUM CYCLOSILICATE 10 GM POWD.PACK PO ONE (13:00)
[2022-05-28 16:00] VITALS: BP_SYST 142
--- NOTE | 2022-05-28 17:40 | NUR ---
MD DR MARROQUIN BEDSIDE EXAMINING PATIENT, NEW ORDERS RECEIVED
--- NOTE | 2022-05-28 17:46 | NUR ---
IV IV BECAME DISLODGED. REMOVED WITH CATHETER INTACT. NO BLEEDING
[2022-05-28 18:18] LABS: BILIRUBIN,URINE NEGATIVE (NEGATIVE); BLOOD, URINE 1+ (NEGATIVE); CLARITY/URINE CLEAR (CLEAR); COLOR,URINE YELLOW (YELLOW); GLUCOSE,URINE NEGATIVE (NEGATIVE); KETONES,URINE NEGATIVE (NEGATIVE); LEUKOCYTE ESTERASE ,URINE NEGATIVE (NEGATIVE); NITRITE, URINE NEGATIVE (NEGATIVE); PH,URINE 5.5 (5.0-8.0); PROTEIN URINE NEGATIVE (NEGATIVE); UROBILINOGEN,URINE 0.2 (0.2-1.0)
--- NOTE | 2022-05-28 18:25 | NUR ---
NEW IV INSERTED NEW IV 22G RT ARM FLUSHED FREELY ATTACHED IVF'S RUNNING ORDERED
[2022-05-28 18:44] LABS: BACTERIA,URINE None Seen /HPF (None Seen); MUCUS,URINE None Seen /LPF (None Seen); RBC,URINE 0-3 /HPF (0-3); WBC,URINE NONE SEEN /HPF (0-3)
--- NOTE | 2022-05-28 19:16 | NUR ---
CLOSING NOTE PROVIDED SBAR TO NIGHT RN. PATIENT IN BED RESPIRATIONS EVEN, NON LABORED, BED IN LOW AND LOCKED POSITION CALL LIGHT WITHIN REACH.
[2022-05-28 20:00] VITALS: BP_SYST 148
[2022-05-28] MEDS: SENNOSIDES 8.6 MG TABLET PO SCH (20:00)
[2022-05-28] MEDS: SOD FERRIC GLUC COMPLEX/SUC 125 MG in NS 100 ML IV SCH (20:07)
[2022-05-28] MEDS: POLYETHYLENE GLYCOL 3350, 17 GM/ POWD.PACK PO SCH (20:20)
[2022-05-28] MEDS: SODIUM POLYSTYRENE SULFONATE 15 GM/60 ML UDBTL PO SCH (20:20)
--- NOTE | 2022-05-28 21:29 | NUR ---
Shift Summary: patient is AAOX4. vitals are stable. patient updated on plan of care. patient aware stool sample needs to be collected and to call staff if he has BM. patient states he has no further questions at this time. will continue to monitor patient. call informed to use call light if he needs to ambulate for any reason. call light within reach, bed set to low, locked, and alarm on.
[2022-05-29 00:27] VITALS: BP_SYST 146
[2022-05-29] MEDS: PANTOPRAZOLE SODIUM 40 MG TAB PO SCH (06:01)
[2022-05-29 06:58] LABS: BASOPHILS % (AUTO) 0.4 % (0.0-2.0); EOSINOPHILS # (AUTO) 0.1 K/uL (0.0-0.4); EOSINOPHILS % (AUTO) 2.9 % (0.0-4.0); HEMOGLOBIN 7.2 g/dL (14.0-18.0); LYMPHOCYTES # (AUTO) 0.7 K/uL (1.0-5.5); LYMPHOCYTES % (AUTO) 34.3 % (20.5-51.5); MEAN CORPUSCULAR HEMOGLOBIN 30 pg (27-31); MEAN CORPUSCULAR HGB CONC 34 % (32-36); MEAN CORPUSCULAR VOLUME 88 fL (79.0-98.0); MONOCYTES # (AUTO) 0.3 K/uL (0.0-1.0); MONOCYTES % (AUTO) 12.3 % (1.7-9.3); NEUTROPHILS % (AUTO) 50.1 % (40.0-70.0); PLATELET COUNT (AUTO) 99 K/uL (130-430); RED BLOOD CELL COUNT(AUTO) 2.42 MIL/uL (4.2-6.2); RED CELL DISTRIBUTION WIDTH 15.6 % (9.0-15.0); RETICULOCYTE COUNT 4.3 % (0.5-1.5); WHITE BLOOD COUNT (AUTO) 2.1 K/uL (4.8-10.8)
[2022-05-29 07:07] LABS: TOTAL IRON BIND. CAPACITY 164 ug/dL (250-450)
[2022-05-29 07:25] LABS: CALCIUM 7.7 mg/dL (8.4-11.0); CREATININE 1.56 mg/dL (0.55-1.30); TOTAL BILIRUBIN 0.5 mg/dL (0.0-1.0)
[2022-05-29] MEDS: GABAPENTIN 400 MG CAPSULE PO SCH ×2 (08:35→21:11)
[2022-05-29] MEDS: DOCUSATE SODIUM 100 MG CAPSULE PO SCH ×2 (08:35→21:11)
[2022-05-29] MEDS: MAGNESIUM OXIDE 400 MG TABLET PO SCH ×2 (08:35→21:13)
[2022-05-29] MEDS: TACROLIMUS ANHYDROUS 1 MG CAPSULE (PROGRAF) PO SCH ×2 (08:37→21:10)
[2022-05-29 08:39] VITALS: BP_SYST 145
[2022-05-29] MEDS: POLYETHYLENE GLYCOL 3350, 17 GM/ POWD.PACK PO SCH ×2 (08:46→21:33)
[2022-05-29 09:16] LABS: HEMATOCRIT 21.2 % (36-54)
[2022-05-29] MEDS: SODIUM POLYSTYRENE SULFONATE 15 GM/60 ML UDBTL PO SCH (11:17)
[2022-05-29] MEDS: NACL 0.9% 1,000 ML IV SCH (11:22)
[2022-05-29] MEDS ORDERED: SODIUM ZIRCONIUM CYCLOSILICATE 10 GM POWD.PACK PO ONE (13:15)
[2022-05-29] MEDS: INSULIN REGULAR, HUMAN 100 UNITS/ML, 3 ML VIAL (humuLIN R) SUBCUT PRN ×2 (13:32→22:58)
[2022-05-29 21:00] VITALS: BP_SYST 130
[2022-05-29] MEDS: SOD FERRIC GLUC COMPLEX/SUC 125 MG in NS 100 ML IV SCH (21:00)
[2022-05-29] MEDS: SENNOSIDES 8.6 MG TABLET PO SCH (21:09)
--- NOTE | 2022-05-30 00:50 | NUR ---
LATE ENTRY DUE TO PATIENT CARE 2030 RECEIVED AWAKE & ALERT X4. NO C/O PAIN OR DISCOMFORT. ON ROOM AIR, NO SHORTNESS OF BREATH NOTED. CALL LIGHT WITHIN REACH. BED IN LOW, LOCKED POSITION. FALL PRECAUTIONS IN PLACE.
[2022-05-30] MEDS: PANTOPRAZOLE SODIUM 40 MG TAB PO SCH (06:50)
[2022-05-30] MEDS ORDERED: LIDOCAINE 1%, 20 ML MDV 40 ML ONE (07:27)
--- NOTE | 2022-05-30 08:00 | NUR ---
SUMMARY OF CARE 0800- KEPT NPO FOR ABDOMINAL ULTRASOUND. 1000- ABDOMINAL ULTRASOUND DONE, RESUME DIET 1200- SEEN BY AR AND DR PRESCOTT 1400- DR MARROQUIN CAME TO SEE PATIENT WITH ORDERED TO DC HOME IF HEMOGLOBIN ABOVE 7, AWAITING FOR LAB RESULTS. 1600- HEMOGLOBIN 7.8, PATIENT FOR DISCHARGE, NOTIFIED STEPH DAUGHTER OF DISCHARGE. 1800- DISCHARGE HOME VIA WHEELCHAIR, DC INSTRUCTIONS GIVEN TO PATIENT, VERBALIZED OF UNDERSTANDING, NO IV ACCESS, PRESCRIPTION GIVEN TO DAUGHTER.
[2022-05-30] MEDS: DOCUSATE SODIUM 100 MG CAPSULE PO SCH (08:06)
[2022-05-30] MEDS: GABAPENTIN 400 MG CAPSULE PO SCH (08:07)
[2022-05-30] MEDS: TACROLIMUS ANHYDROUS 1 MG CAPSULE (PROGRAF) PO SCH (08:07)
[2022-05-30] MEDS: MAGNESIUM OXIDE 400 MG TABLET PO SCH (08:10)
[2022-05-30 08:11] VITALS: BP_SYST 129
[2022-05-30] MEDS ORDERED: SODIUM ZIRCONIUM CYCLOSILICATE 10 GM POWD.PACK PO SCH (09:00)
[2022-05-30 10:36] LABS: ALBUMIN 3.3 g/dL (3.4-4.8); CALCIUM 7.8 mg/dL (8.4-11.0); CREATININE 1.54 mg/dL (0.55-1.30); TOTAL BILIRUBIN 0.7 mg/dL (0.0-1.0)
[2022-05-30] MEDS: POLYETHYLENE GLYCOL 3350, 17 GM/ POWD.PACK PO SCH (10:43)
[2022-05-30 11:07] LABS: FERRITIN 377 ng/mL (30-400)
[2022-05-30 11:30] VITALS: BP_SYST 134
[2022-05-30] MEDS: INSULIN REGULAR, HUMAN 100 UNITS/ML, 3 ML VIAL (humuLIN R) SUBCUT PRN (12:04)
[2022-05-30 14:23] LABS: BASOPHILS % (AUTO) 0.5 % (0.0-2.0); EOSINOPHILS # (AUTO) 0.1 K/uL (0.0-0.4); HEMATOCRIT 22.9 % (36-54); HEMOGLOBIN 7.8 g/dL (14.0-18.0); LYMPHOCYTES # (AUTO) 1.1 K/uL (1.0-5.5); LYMPHOCYTES % (AUTO) 38.9 % (20.5-51.5); MEAN CORPUSCULAR HEMOGLOBIN 30 pg (27-31); MEAN CORPUSCULAR HGB CONC 34 % (32-36); MEAN CORPUSCULAR VOLUME 89 fL (79.0-98.0); MONOCYTES # (AUTO) 0.3 K/uL (0.0-1.0); MONOCYTES % (AUTO) 10.6 % (1.7-9.3); NEUTROPHILS # (AUTO) 1.3 K/uL (1.8-7.7); PLATELET COUNT (AUTO) 107 K/uL (130-430); RED BLOOD CELL COUNT(AUTO) 2.58 MIL/uL (4.2-6.2); RED CELL DISTRIBUTION WIDTH 15.8 % (9.0-15.0); WHITE BLOOD COUNT (AUTO) 2.8 K/uL (4.8-10.8)
[2022-05-30] MEDS ORDERED: SODI10PO PO (14:26)
[2022-05-30 14:40] VITALS: BP_SYST 140
[2022-05-30 16:33] VITALS: BP_SYST 143
== END 2022-05-30 18:00 | disposition home or self-care (01) | DRG 682 ==
LOC: SED 12:18 → STU 14:56
PROVIDERS: ADMIT Internal Medicine; ATTEND Family Medicine
DX: N17.9 Acute kidney failure, unspecified (principal); D61.811 Other drug-induced pancytopenia; Z94.4 Liver transplant status; E87.5 Hyperkalemia; T45.1X5A Adverse effect of antineoplastic and immunosuppressive drugs, initial encounter; N18.9 Chronic kidney disease, unspecified; D64.9 Anemia, unspecified; E11.22 Type 2 diabetes mellitus with diabetic chronic kidney disease; K21.9 Gastro-esophageal reflux disease without esophagitis; I12.9 Hypertensive chronic kidney disease with stage 1 through stage 4 chronic kidney disease, or unspecified chronic kidney disease; K59.00 Constipation, unspecified; K74.60 Unspecified cirrhosis of liver; Z20.822 Contact with and (suspected) exposure to COVID-19; Y92.89 Other specified places as the place of occurrence of the external cause; Z79.4 Long term (current) use of insulin
CPT/HCPCS: 36415; 71045; 76700-TC; 80048; 80053; 81000; 82607; 82728; 82746; 82962; 83540; 83550; 83880; 84484; 85025; 85044; 85379; 93005; 96365; 96375; 99291; G0378; J1815; J2001; J2916; J7030; J7507

== ENCOUNTER 2022-12-11 11:23 | Outpatient (CLI) | payer OTHER, MEDICAID ==
[~2022-12-11 11:23] MED LIST changes: -DOCU-144 PO; +DOCU-156 PO; +SODI10PO PO
== END 2022-12-11 20:29 | disposition home or self-care (01) ==
LOC: SRD 11:23
PROVIDERS: ATTEND Internal Medicine Critical Care Medicine
DX: J98.11 Atelectasis (principal); J90 Pleural effusion, not elsewhere classified; I70.0 Atherosclerosis of aorta; J98.4 Other disorders of lung
CPT/HCPCS: 71046-TC

== ENCOUNTER 2023-03-14 10:57 | Inpatient (IN) | payer OTHER, MEDICAID ==
[2023-03-14] VITALS (15 sets, daily range): BP systolic 114–194; PULSE 63–81; RESP 14–40; TEMP 97.2–98; O2SAT 96–100
[~2023-03-14] VITALS: Ht 162.6 cm; Wt 63.5 kg
[2023-03-14] MEDS ORDERED: FUROSEMIDE 40 MG/4 ML VIAL IVP ONE (11:30)
[2023-03-14 11:33] LABS: BASOPHILS % (AUTO) 0.4 % (0.0-2.0); EOSINOPHILS # (AUTO) 0.1 K/uL (0.0-0.4); EOSINOPHILS % (AUTO) 2.5 % (0.0-4.0); HEMATOCRIT 24.9 % (36-54); LYMPHOCYTES # (AUTO) 0.5 K/uL (1.0-5.5); LYMPHOCYTES % (AUTO) 14.6 % (20.5-51.5); MEAN CORPUSCULAR HEMOGLOBIN 30 pg (27-31); MEAN CORPUSCULAR HGB CONC 32 % (32-36); MEAN CORPUSCULAR VOLUME 93 fL (79.0-98.0); MONOCYTES # (AUTO) 0.4 K/uL (0.0-1.0); MONOCYTES % (AUTO) 10.2 % (1.7-9.3); NEUTROPHILS # (AUTO) 2.6 K/uL (1.8-7.7); NEUTROPHILS % (AUTO) 72.3 % (40.0-70.0); PLATELET COUNT (AUTO) 147 K/uL (130-430); RED BLOOD CELL COUNT(AUTO) 2.69 MIL/uL (4.2-6.2); RED CELL DISTRIBUTION WIDTH 13.6 % (9.0-15.0); WHITE BLOOD COUNT (AUTO) 3.7 K/uL (4.8-10.8)
[2023-03-14 12:03] LABS: ALANINE AMINOTRANSFERASE 18 U/L (12-78); ALBUMIN 2.8 g/dL (3.4-4.8); ANION GAP -3 (5-15); ASPARTATE AMINOTRANSFERASE 14 U/L (10-37); CALCIUM 7.8 mg/dL (8.4-11.0); CARBON DIOXIDE 37 mmol/L (23-29); CHLORIDE 96 mmol/L (98-107); CREATININE 1.89 mg/dL (0.55-1.30); GLUCOSE 159 mg/dL (74-106); SODIUM SERUM 130 mmol/L (136-145); TOTAL BILIRUBIN 0.4 mg/dL (0.0-1.0); TOTAL PROTEIN, SERUM 8.8 g/dL (6.4-8.3); UREA NITROGEN, BLOOD 65 mg/dL (8-21)
[2023-03-14 12:04] LABS: POTASSIUM 6.3 mmol/L (3.5-5.1)
[2023-03-14 12:08] LABS: BLOOD GAS BASE EXCESS 5.6 mmol/L (-3.0-3.0); BLOOD GAS HCO3 33.6 mmol/L (21.0-27.0); BLOOD GAS PO2 169.9 mmHg (75.0-100.0)
[2023-03-14 12:12] LABS: BLOOD GAS PCO2 63.8 mmHg (32.0-45.0)
[2023-03-14 12:13] LABS: ALLEN'S TEST POSITIVE (P)
[2023-03-14] MEDS ORDERED: SODIUM POLYSTYRENE SULFONATE 15 GM/60 ML UDBTL PO ONE (12:15)
[2023-03-14] MEDS ORDERED: CALCIUM GLUCONATE 1 GM in NS 100 ML IV ONE (12:15)
[2023-03-14] MEDS ORDERED: INSULIN REGULAR, HUMAN 10 UNITS/0.1 ML, 3 ML VIAL IVP ONE (12:15)
[2023-03-14] MEDS ORDERED: DEXTROSE 50% JECT 50 ML DISP.SYRIN IVP ONE ×2 (12:15→17:45)
[2023-03-14] MEDS ORDERED: cefTRIAXone 1 GM in D5W 50 ML IV ONE (12:15)
[2023-03-14] MEDS ORDERED: cefTRIAXone 1 GM VIAL ONE (12:29)
[2023-03-14] MEDS ORDERED: CALCIUM GLUCONATE 1 GM/10 ML VIAL ONE (12:30)
[2023-03-14] MEDS ORDERED: INSULIN REGULAR, HUMAN 10 UNITS/0.1 ML, 3 ML VIAL ONE (12:31)
[2023-03-14 13:45] LABS: PROTHROMBIN TIME 10.3 SECS (9.5-12.5)
[2023-03-14] MEDS ORDERED: DEXTROSE 50% JECT 50 ML DISP.SYRIN IVP PRN (14:15)
[2023-03-14] MEDS ORDERED: IPRATROPIUM/ALBUTEROL SULFATE 3 ML AMPUL.NEB (DUONEB) INH PRN ×2 (14:15→18:15)
[2023-03-14] MEDS ORDERED: LORazepam 2 MG/ML VIAL IVP PRN (14:15)
[2023-03-14] MEDS ORDERED: METHYLPREDNISOLONE SOD SUCC 40 MG/ML VIAL IVP ONE (14:30)
[2023-03-14] MEDS ORDERED: ENOXAPARIN SODIUM 30 MG/0.3 ML SYRINGE SUBCUT ONE (14:30)
[2023-03-14] MEDS ORDERED: PIPERACILLIN/TAZO 2.25G/DEX-IS 50 ML IV ONE (14:30)
[2023-03-14 15:00] LABS: BILIRUBIN,URINE NEGATIVE (NEGATIVE); BLOOD, URINE 1+ (NEGATIVE); CLARITY/URINE CLEAR (CLEAR); COLOR,URINE YELLOW (YELLOW); GLUCOSE,URINE NEGATIVE (NEGATIVE); KETONES,URINE NEGATIVE (NEGATIVE); LEUKOCYTE ESTERASE ,URINE NEGATIVE (NEGATIVE); NITRITE, URINE NEGATIVE (NEGATIVE); PROTEIN URINE NEGATIVE (NEGATIVE); UROBILINOGEN,URINE 0.2 (0.2-1.0)
[2023-03-14] MEDS ORDERED: AZITHROMYCIN 500 MG in NS 250 ML IV ONE (15:00)
[2023-03-14] MEDS ORDERED: IPRATROPIUM/ALBUTEROL SULFATE 3 ML AMPUL.NEB (DUONEB) INH SCH (15:00)
[2023-03-14 15:14] LABS: BACTERIA,URINE None Seen /HPF (None Seen); WBC,URINE NONE SEEN /HPF (0-3)
[2023-03-14 15:15] LABS: MUCUS,URINE None Seen /LPF (None Seen)
[2023-03-14] MEDS ORDERED: AZITHROMYCIN 500 MG/VIAL (ZITHROMAX) IV ONE (15:28)
[2023-03-14 15:33] LABS: ANION GAP -7 (5-15); CALCIUM 7.9 mg/dL (8.4-11.0); CARBON DIOXIDE 39 mmol/L (23-29); CHLORIDE 97 mmol/L (98-107); CREATININE 1.97 mg/dL (0.55-1.30); GLUCOSE 130 mg/dL (74-106); SODIUM SERUM 129 mmol/L (136-145); UREA NITROGEN, BLOOD 68 mg/dL (8-21)
[2023-03-14 15:38] LABS: PROTHROMBIN TIME 10.3 SECS (9.5-12.5)
[2023-03-14 15:41] LABS: POTASSIUM 6.2 mmol/L (3.5-5.1)
[2023-03-14] MEDS ORDERED: METO25TA3 PO (15:48)
[2023-03-14] MEDS ORDERED: GABA-534 PO (15:48)
[2023-03-14] MEDS ORDERED: DEXL60CA4 PO (15:48)
[2023-03-14] MEDS ORDERED: DOCU-144 PO (15:48)
[2023-03-14] MEDS ORDERED: TACR1CAP2 PO (15:48)
[2023-03-14] MEDS ORDERED: ROPI1TAB46 PO (15:48)
[2023-03-14] MEDS ORDERED: FURO-149 PO (15:48)
[2023-03-14] MEDS ORDERED: SODIUM POLYSTYRENE SULFONATE 15 GM/60 ML UDBTL RC ONE (17:30)
[2023-03-14] MEDS ORDERED: ETOMIDATE 20 MG/ 10 ML VIAL (AMIDATE) IVP ONE (17:40)
[2023-03-14] MEDS ORDERED: ROCURONIUM BROMIDE 10 MG/ML (ZEMURON) IV ONE (17:40)
[2023-03-14] MEDS ORDERED: SODIUM BICARBONATE 8.4% JECT 50 MEQ/50 ML SYRINGE IVP ONE (17:45)
[2023-03-14] MEDS ORDERED: CALCIUM GLUC 1 GM/100ML-NACL 100 ML IV ONE (17:45)
[2023-03-14] MEDS ORDERED: ALBUMIN HUMAN 25% 100 ML IV ONE (18:00)
[2023-03-14] MEDS ORDERED: ETOMIDATE 20 MG/ 10 ML VIAL (AMIDATE) ONE (18:27)
[2023-03-14] MEDS ORDERED: ROCURONIUM BROMIDE 10 MG/ML (ZEMURON) ONE (18:27)
[2023-03-14] MEDS ORDERED: hydrALAZINE HCL 20 MG/ML VIAL IVP PRN (18:30)
[2023-03-14] MEDS: FUROSEMIDE 100 MG in D5W 90 ML IV SCH (18:58)
[2023-03-14 19:06] LABS: BLOOD GAS BASE EXCESS 2.3 mmol/L (-3.0-3.0); BLOOD GAS PCO2 52.7 mmHg (32.0-45.0); BLOOD GAS PH 7.358 (7.350-7.450); BLOOD GAS PO2 487.6 mmHg (75.0-100.0)
[2023-03-14 19:07] LABS: ABG O2 SAT% ESTIMATE 99.9 % (94.0-100.0); ALLEN'S TEST POSITIVE (P)
[2023-03-14] MEDS: IPRATROPIUM/ALBUTEROL SULFATE 3 ML AMPUL.NEB (DUONEB) INH SCH ×2 (19:20→23:30)
[2023-03-14] MEDS: PIPERACILLIN/TAZO 2.25G/DEX-IS 50 ML IV SCH (20:08)
[2023-03-14] MEDS ORDERED: SODIUM POLYSTYRENE SULFONATE 15 GM/60 ML UDBTL NG ONE (20:45)
[2023-03-14] MEDS ORDERED: METHYLPREDNISOLONE SOD SUCC 40 MG/ML VIAL IVP SCH (21:00)
[2023-03-14] MEDS ORDERED: GABAPENTIN 400 MG CAPSULE PO SCH (21:00)
[2023-03-14] MEDS: TACROLIMUS ANHYDROUS 1 MG CAPSULE (PROGRAF) PO SCH (21:00)
[2023-03-14] MEDS ORDERED: PANTOPRAZOLE SODIUM 40 MG/VIAL (PROTONIX) IVP ONE (21:00)
[2023-03-14] MEDS: DOCUSATE SODIUM 100 MG CAPSULE PO SCH (21:00)
[2023-03-14 21:16] LABS: ANION GAP 1 (5-15); CALCIUM 7.8 mg/dL (8.4-11.0); CARBON DIOXIDE 35 mmol/L (23-29); CHLORIDE 98 mmol/L (98-107); CREATININE 1.94 mg/dL (0.55-1.30); GLUCOSE 278 mg/dL (74-106); SODIUM SERUM 134 mmol/L (136-145); UREA NITROGEN, BLOOD 68 mg/dL (8-21)
[2023-03-14 21:21] LABS: POTASSIUM 5.9 mmol/L (3.5-5.1)
[2023-03-14 21:29] LABS: ALANINE AMINOTRANSFERASE 15 U/L (12-78); ALBUMIN 2.8 g/dL (3.4-4.8); ASPARTATE AMINOTRANSFERASE 12 U/L (10-37); TOTAL BILIRUBIN 0.4 mg/dL (0.0-1.0); TOTAL PROTEIN, SERUM 7.6 g/dL (6.4-8.3)
[2023-03-14] MEDS: INSULIN REGULAR, HUMAN 100 UNITS/ML, 3 ML VIAL (humuLIN R) SUBCUT PRN (23:21)
[2023-03-14] MEDS: METHYLPREDNISOLONE SOD SUCC 40 MG/ML VIAL IVP SCH (23:24)
[2023-03-15] VITALS (34 sets, daily range): BP systolic 95–149; PULSE 61–99; RESP 20–28; TEMP 96.7–98.9; O2SAT 97–100
[2023-03-15] MEDS: IPRATROPIUM/ALBUTEROL SULFATE 3 ML AMPUL.NEB (DUONEB) INH SCH ×6 (03:20→23:20)
[2023-03-15] MEDS: FUROSEMIDE 100 MG in D5W 90 ML IV SCH ×2 (05:17→15:39)
[2023-03-15] MEDS: PIPERACILLIN/TAZO 2.25G/DEX-IS 50 ML IV SCH ×4 (05:18→19:55)
[2023-03-15 06:30] LABS: MEAN CORPUSCULAR HEMOGLOBIN 31 pg (27-31); MEAN CORPUSCULAR HGB CONC 34 % (32-36); MEAN CORPUSCULAR VOLUME 91 fL (79.0-98.0); PLATELET COUNT (AUTO) 130 K/uL (130-430); RED BLOOD CELL COUNT(AUTO) 2.17 MIL/uL (4.2-6.2); RED CELL DISTRIBUTION WIDTH 13.7 % (9.0-15.0); WHITE BLOOD COUNT (AUTO) 3.5 K/uL (4.8-10.8)
[2023-03-15] MEDS: MIDAZOLAM IN NACL,ISO-OSMOT/PF 100 ML IV PRN ×2 (06:30→21:19)
[2023-03-15] MEDS: METHYLPREDNISOLONE SOD SUCC 40 MG/ML VIAL IVP SCH ×3 (06:32→21:15)
[2023-03-15] MEDS: INSULIN REGULAR, HUMAN 100 UNITS/ML, 3 ML VIAL (humuLIN R) SUBCUT PRN ×3 (06:40→21:19)
[2023-03-15 06:50] LABS: ALANINE AMINOTRANSFERASE 14 U/L (12-78); ALBUMIN 2.7 g/dL (3.4-4.8); ANION GAP 6 (5-15); ASPARTATE AMINOTRANSFERASE 12 U/L (10-37); CALCIUM 8.1 mg/dL (8.4-11.0); CARBON DIOXIDE 33 mmol/L (23-29); CHLORIDE 100 mmol/L (98-107); CREATININE 2.07 mg/dL (0.55-1.30); GLUCOSE 169 mg/dL (74-106); PHOSPHORUS 5.1 mg/dL (2.7-4.5); POTASSIUM 5.7 mmol/L (3.5-5.1); SODIUM SERUM 139 mmol/L (136-145); TOTAL BILIRUBIN 0.3 mg/dL (0.0-1.0); TOTAL PROTEIN, SERUM 7.7 g/dL (6.4-8.3); UREA NITROGEN, BLOOD 70 mg/dL (8-21)
[2023-03-15] MEDS: PANTOPRAZOLE SODIUM 40 MG TAB PO SCH (07:00)
[2023-03-15] MEDS ORDERED: OMEPRAZOLE Non-Formulary 20 MG CAPSULE.DR PO SCH (07:00)
[2023-03-15 08:05] LABS: HEMATOCRIT 19.8 % (36-54); HEMOGLOBIN 6.7 g/dL (14.0-18.0)
[2023-03-15] MEDS: ENOXAPARIN SODIUM 30 MG/0.3 ML SYRINGE SUBCUT SCH (08:31)
[2023-03-15] MEDS: PANTOPRAZOLE SODIUM 40 MG/VIAL (PROTONIX) IVP SCH (08:32)
[2023-03-15] MEDS: TACROLIMUS ANHYDROUS 1 MG CAPSULE (PROGRAF) PO SCH ×2 (08:34→21:15)
[2023-03-15] MEDS: DOCUSATE SODIUM 100 MG CAPSULE PO SCH (09:00)
[2023-03-15] MEDS: SODIUM ZIRCONIUM CYCLOSILICATE 10 GM POWD.PACK PO SCH (09:15)
[2023-03-15] MEDS ORDERED: DOCUSATE SODIUM 100 MG/10 ML UDC PO ONE (09:30)
[2023-03-15] MEDS ORDERED: FLUCONAZOLE 200 mg/ NS 100 ML IV SCH (13:00)
[2023-03-15] MEDS ORDERED: SODIUM POLYSTYRENE SULFONATE 15 GM/60 ML UDBTL GT ONE (14:15)
[2023-03-15] MEDS: AZITHROMYCIN 500 MG in NS 250 ML IV SCH (14:37)
[2023-03-15] MEDS: FENTANYL CITRATE-0.9 % NACL/PF 100 ML IV PRN (17:37)
[2023-03-15 20:16] LABS: HEMATOCRIT 27.6 % (36-54); HEMOGLOBIN 9.1 g/dL (14.0-18.0)
[2023-03-15 20:34] LABS: ANION GAP 3 (5-15); CALCIUM 7.6 mg/dL (8.4-11.0); CARBON DIOXIDE 34 mmol/L (23-29); CHLORIDE 96 mmol/L (98-107); CREATININE 2.51 mg/dL (0.55-1.30); GLUCOSE 339 mg/dL (74-106); POTASSIUM 4.7 mmol/L (3.5-5.1); SODIUM SERUM 133 mmol/L (136-145); UREA NITROGEN, BLOOD 87 mg/dL (8-21)
[2023-03-15] MEDS: DOCUSATE SODIUM 100 MG/10 ML UDC PO SCH (21:15)
[2023-03-16] VITALS (32 sets, daily range): BP systolic 123–198; PULSE 72–95; RESP 20–22; TEMP 97.2–98.5; O2SAT 97–99
[2023-03-16] MEDS ORDERED: FUROSEMIDE 20 MG/2 ML VIAL ONE (00:49)
[2023-03-16] MEDS ORDERED: FUROSEMIDE 40 MG/4 ML VIAL ONE (00:49)
[2023-03-16] MEDS: FUROSEMIDE 100 MG in D5W 90 ML IV SCH ×2 (01:01→16:43)
[2023-03-16] MEDS: PIPERACILLIN/TAZO 2.25G/DEX-IS 50 ML IV SCH ×4 (01:02→20:07)
[2023-03-16] MEDS: IPRATROPIUM/ALBUTEROL SULFATE 3 ML AMPUL.NEB (DUONEB) INH SCH ×6 (03:43→23:25)
[2023-03-16 05:08] LABS: BASOPHILS % (AUTO) 0.1 % (0.0-2.0); HEMATOCRIT 26.4 % (36-54); HEMOGLOBIN 8.7 g/dL (14.0-18.0); LYMPHOCYTES # (AUTO) 0.2 K/uL (1.0-5.5); LYMPHOCYTES % (AUTO) 4.9 % (20.5-51.5); MEAN CORPUSCULAR HEMOGLOBIN 30 pg (27-31); MEAN CORPUSCULAR HGB CONC 33 % (32-36); MEAN CORPUSCULAR VOLUME 92 fL (79.0-98.0); MONOCYTES # (AUTO) 0.2 K/uL (0.0-1.0); NEUTROPHILS # (AUTO) 3.1 K/uL (1.8-7.7); PLATELET COUNT (AUTO) 125 K/uL (130-430); RED BLOOD CELL COUNT(AUTO) 2.88 MIL/uL (4.2-6.2); RED CELL DISTRIBUTION WIDTH 14.2 % (9.0-15.0); WHITE BLOOD COUNT (AUTO) 3.5 K/uL (4.8-10.8)
[2023-03-16 05:22] LABS: ALANINE AMINOTRANSFERASE 17 U/L (12-78); ALBUMIN 2.5 g/dL (3.4-4.8); ANION GAP 8 (5-15); ASPARTATE AMINOTRANSFERASE 13 U/L (10-37); CALCIUM 7.2 mg/dL (8.4-11.0); CARBON DIOXIDE 32 mmol/L (23-29); CHLORIDE 96 mmol/L (98-107); CREATININE 2.88 mg/dL (0.55-1.30); LIPASE 17 U/L (73-393); POTASSIUM 4.3 mmol/L (3.5-5.1); SODIUM SERUM 136 mmol/L (136-145); THYROID STIMULATING HORMONE 0.39 uIu/mL (0.34-4.82); TOTAL BILIRUBIN 0.3 mg/dL (0.0-1.0); TOTAL PROTEIN, SERUM 7.2 g/dL (6.4-8.3); UREA NITROGEN, BLOOD 90 mg/dL (8-21)
[2023-03-16 05:38] LABS: GLUCOSE 435 mg/dL (74-106)
[2023-03-16] MEDS: METHYLPREDNISOLONE SOD SUCC 40 MG/ML VIAL IVP SCH ×3 (06:03→21:56)
[2023-03-16] MEDS: INSULIN REGULAR, HUMAN 100 UNITS/ML, 3 ML VIAL (humuLIN R) SUBCUT PRN ×3 (06:07→20:11)
[2023-03-16] MEDS: PANTOPRAZOLE SODIUM 40 MG TAB PO SCH (06:08)
[2023-03-16] MEDS: FENTANYL CITRATE-0.9 % NACL/PF 100 ML IV PRN ×2 (06:08→21:04)
[2023-03-16] MEDS: ENOXAPARIN SODIUM 30 MG/0.3 ML SYRINGE SUBCUT SCH (09:56)
[2023-03-16] MEDS: TACROLIMUS ANHYDROUS 1 MG CAPSULE (PROGRAF) PO SCH ×2 (09:56→20:08)
[2023-03-16] MEDS: DOCUSATE SODIUM 100 MG/10 ML UDC PO SCH ×2 (09:56→20:07)
[2023-03-16] MEDS: PANTOPRAZOLE SODIUM 40 MG/VIAL (PROTONIX) IVP SCH (09:57)
[2023-03-16] MEDS: MIDAZOLAM IN NACL,ISO-OSMOT/PF 100 ML IV PRN (10:45)
[2023-03-16] MEDS: SODIUM ZIRCONIUM CYCLOSILICATE 10 GM POWD.PACK PO SCH (10:48)
[2023-03-16] MEDS: MICAFUNGIN SODIUM 100 MG in NS 100 ML IV SCH (14:14)
[2023-03-16] MEDS: AZITHROMYCIN 500 MG in NS 250 ML IV SCH (18:10)
[2023-03-17] VITALS (31 sets, daily range): BP systolic 93–177; PULSE 71–95; RESP 20–34; TEMP 97–98.6; O2SAT 87–100
[2023-03-17] MEDS: PIPERACILLIN/TAZO 2.25G/DEX-IS 50 ML IV SCH ×4 (01:12→19:51)
[2023-03-17] MEDS: IPRATROPIUM/ALBUTEROL SULFATE 3 ML AMPUL.NEB (DUONEB) INH SCH ×6 (02:23→23:20)
[2023-03-17] MEDS: MIDAZOLAM IN NACL,ISO-OSMOT/PF 100 ML IV PRN ×2 (02:40→13:36)
[2023-03-17] MEDS: FUROSEMIDE 100 MG in D5W 90 ML IV SCH (02:42)
[2023-03-17 05:21] LABS: HEMATOCRIT 29.5 % (36-54); HEMOGLOBIN 9.6 g/dL (14.0-18.0); LYMPHOCYTES # (AUTO) 0.2 K/uL (1.0-5.5); LYMPHOCYTES % (AUTO) 3.9 % (20.5-51.5); MEAN CORPUSCULAR HEMOGLOBIN 30 pg (27-31); MEAN CORPUSCULAR HGB CONC 33 % (32-36); MEAN CORPUSCULAR VOLUME 93 fL (79.0-98.0); MONOCYTES # (AUTO) 0.3 K/uL (0.0-1.0); MONOCYTES % (AUTO) 6.3 % (1.7-9.3); NEUTROPHILS # (AUTO) 4.2 K/uL (1.8-7.7); NEUTROPHILS % (AUTO) 89.8 % (40.0-70.0); PLATELET COUNT (AUTO) 154 K/uL (130-430); RED BLOOD CELL COUNT(AUTO) 3.18 MIL/uL (4.2-6.2); RED CELL DISTRIBUTION WIDTH 14.2 % (9.0-15.0); WHITE BLOOD COUNT (AUTO) 4.6 K/uL (4.8-10.8)
[2023-03-17] MEDS: METHYLPREDNISOLONE SOD SUCC 40 MG/ML VIAL IVP SCH ×3 (05:38→22:34)
[2023-03-17 06:22] LABS: ALANINE AMINOTRANSFERASE 16 U/L (12-78); ALBUMIN 2.7 g/dL (3.4-4.8); ANION GAP 9 (5-15); ASPARTATE AMINOTRANSFERASE 12 U/L (10-37); CALCIUM 7.7 mg/dL (8.4-11.0); CARBON DIOXIDE 33 mmol/L (23-29); CHLORIDE 97 mmol/L (98-107); CREATININE 3.14 mg/dL (0.55-1.30); GLUCOSE 311 mg/dL (74-106); POTASSIUM 4.6 mmol/L (3.5-5.1); SODIUM SERUM 139 mmol/L (136-145); TOTAL BILIRUBIN 0.2 mg/dL (0.0-1.0); TOTAL PROTEIN, SERUM 7.5 g/dL (6.4-8.3)
[2023-03-17 06:51] LABS: UREA NITROGEN, BLOOD 108 mg/dL (8-21)
[2023-03-17] MEDS ORDERED: FUROSEMIDE 100 MG in D5W 90 ML IV SCH (08:30)
[2023-03-17] MEDS: ENOXAPARIN SODIUM 30 MG/0.3 ML SYRINGE SUBCUT SCH (08:45)
[2023-03-17] MEDS: DOCUSATE SODIUM 100 MG/10 ML UDC PO SCH ×2 (08:45→20:15)
[2023-03-17] MEDS: TACROLIMUS ANHYDROUS 1 MG CAPSULE (PROGRAF) PO SCH ×2 (08:46→20:15)
[2023-03-17] MEDS: PANTOPRAZOLE SODIUM 40 MG/VIAL (PROTONIX) IVP SCH (08:47)
[2023-03-17] MEDS: FENTANYL CITRATE-0.9 % NACL/PF 100 ML IV PRN ×2 (08:49→22:57)
[2023-03-17] MEDS: INSULIN REGULAR, HUMAN 100 UNITS/ML, 3 ML VIAL (humuLIN R) SUBCUT PRN ×3 (09:38→20:17)
[2023-03-17] MEDS: SODIUM ZIRCONIUM CYCLOSILICATE 10 GM POWD.PACK PO SCH (11:00)
[2023-03-17] MEDS: MICAFUNGIN SODIUM 100 MG in NS 100 ML IV SCH (12:00)
[2023-03-17] MEDS: AZITHROMYCIN 500 MG in NS 250 ML IV SCH (15:17)
[2023-03-18] VITALS (31 sets, daily range): BP systolic 115–185; PULSE 63–89; RESP 19–36; TEMP 98–98.6; O2SAT 97–100
[2023-03-18] MEDS: PIPERACILLIN/TAZO 2.25G/DEX-IS 50 ML IV SCH ×2 (01:18→08:49)
[2023-03-18] MEDS: IPRATROPIUM/ALBUTEROL SULFATE 3 ML AMPUL.NEB (DUONEB) INH SCH ×6 (03:11→23:05)
[2023-03-18 05:16] LABS: BASOPHILS % (AUTO) 0.1 % (0.0-2.0); HEMATOCRIT 29.9 % (36-54); HEMOGLOBIN 9.8 g/dL (14.0-18.0); LYMPHOCYTES # (AUTO) 0.3 K/uL (1.0-5.5); LYMPHOCYTES % (AUTO) 5.5 % (20.5-51.5); MEAN CORPUSCULAR HEMOGLOBIN 30 pg (27-31); MEAN CORPUSCULAR HGB CONC 33 % (32-36); MEAN CORPUSCULAR VOLUME 93 fL (79.0-98.0); MONOCYTES # (AUTO) 0.3 K/uL (0.0-1.0); MONOCYTES % (AUTO) 5.9 % (1.7-9.3); NEUTROPHILS % (AUTO) 88.5 % (40.0-70.0); PLATELET COUNT (AUTO) 153 K/uL (130-430); RED BLOOD CELL COUNT(AUTO) 3.24 MIL/uL (4.2-6.2); RED CELL DISTRIBUTION WIDTH 14.1 % (9.0-15.0); WHITE BLOOD COUNT (AUTO) 4.6 K/uL (4.8-10.8)
[2023-03-18 05:26] LABS: ALANINE AMINOTRANSFERASE 17 U/L (12-78); ALBUMIN 2.7 g/dL (3.4-4.8); ANION GAP 6 (5-15); ASPARTATE AMINOTRANSFERASE 12 U/L (10-37); CALCIUM 9.1 mg/dL (8.4-11.0); CARBON DIOXIDE 37 mmol/L (23-29); CHLORIDE 98 mmol/L (98-107); CREATININE 2.82 mg/dL (0.55-1.30); GLUCOSE 266 mg/dL (74-106); POTASSIUM 4.5 mmol/L (3.5-5.1); SODIUM SERUM 141 mmol/L (136-145); TOTAL BILIRUBIN 0.2 mg/dL (0.0-1.0); TOTAL PROTEIN, SERUM 7.7 g/dL (6.4-8.3)
[2023-03-18 05:40] LABS: UREA NITROGEN, BLOOD 108 mg/dL (8-21)
[2023-03-18] MEDS: METHYLPREDNISOLONE SOD SUCC 40 MG/ML VIAL IVP SCH ×3 (05:45→21:46)
[2023-03-18] MEDS ORDERED: ACETYLCYSTEINE 20% 4 ML VIAL (RT) INH SCH (07:00)
[2023-03-18] MEDS: ACETYLCYSTEINE 20% 4 ML VIAL (RT) INH SCH ×3 (07:15→23:05)
[2023-03-18] MEDS: PANTOPRAZOLE SODIUM 40 MG/VIAL (PROTONIX) IVP SCH (08:48)
[2023-03-18] MEDS: DOCUSATE SODIUM 100 MG/10 ML UDC PO SCH ×2 (08:49→20:02)
[2023-03-18] MEDS: TACROLIMUS ANHYDROUS 1 MG CAPSULE (PROGRAF) PO SCH ×2 (08:49→20:02)
[2023-03-18] MEDS: ENOXAPARIN SODIUM 30 MG/0.3 ML SYRINGE SUBCUT SCH (08:50)
[2023-03-18] MEDS: hydrALAZINE HCL 20 MG/ML VIAL IVP PRN (08:51)
[2023-03-18] MEDS: INSULIN REGULAR, HUMAN 100 UNITS/ML, 3 ML VIAL (humuLIN R) SUBCUT PRN ×3 (10:41→20:04)
[2023-03-18] MEDS: SODIUM ZIRCONIUM CYCLOSILICATE 10 GM POWD.PACK PO SCH (11:14)
[2023-03-18] MEDS: MICAFUNGIN SODIUM 100 MG in NS 100 ML IV SCH (11:15)
[2023-03-18] MEDS: CEFEPIME 2 GM in D5W 100 ML IV SCH (13:50)
[2023-03-18] MEDS: AZITHROMYCIN 500 MG in NS 250 ML IV SCH (14:06)
[2023-03-18 18:06] LABS: QUANTIFERON TB GOLD Indeterminate (Negative)
[2023-03-19] VITALS (35 sets, daily range): BP systolic 117–182; PULSE 69–100; RESP 20–37; TEMP 96.8–98.6; O2SAT 97–100
[2023-03-19] MEDS: METOPROLOL TARTRATE 5 MG/5 ML VIAL IVP PRN ×2 (01:18→13:01)
[2023-03-19] MEDS: IPRATROPIUM/ALBUTEROL SULFATE 3 ML AMPUL.NEB (DUONEB) INH SCH ×6 (02:25→23:10)
[2023-03-19] MEDS: METHYLPREDNISOLONE SOD SUCC 40 MG/ML VIAL IVP SCH ×3 (05:30→21:02)
[2023-03-19 06:30] LABS: HEMATOCRIT 33.9 % (36-54); HEMOGLOBIN 10.8 g/dL (14.0-18.0); LYMPHOCYTES # (AUTO) 0.3 K/uL (1.0-5.5); LYMPHOCYTES % (AUTO) 7.4 % (20.5-51.5); MEAN CORPUSCULAR HEMOGLOBIN 30 pg (27-31); MEAN CORPUSCULAR HGB CONC 32 % (32-36); MEAN CORPUSCULAR VOLUME 93 fL (79.0-98.0); MONOCYTES # (AUTO) 0.4 K/uL (0.0-1.0); MONOCYTES % (AUTO) 8.1 % (1.7-9.3); NEUTROPHILS # (AUTO) 3.7 K/uL (1.8-7.7); NEUTROPHILS % (AUTO) 84.5 % (40.0-70.0); PLATELET COUNT (AUTO) 144 K/uL (130-430); RED BLOOD CELL COUNT(AUTO) 3.63 MIL/uL (4.2-6.2); RED CELL DISTRIBUTION WIDTH 14.2 % (9.0-15.0); WHITE BLOOD COUNT (AUTO) 4.4 K/uL (4.8-10.8)
[2023-03-19 07:10] LABS: ALANINE AMINOTRANSFERASE 16 U/L (12-78); ALBUMIN 2.7 g/dL (3.4-4.8); ANION GAP 7 (5-15); ASPARTATE AMINOTRANSFERASE 11 U/L (10-37); CALCIUM 9.2 mg/dL (8.4-11.0); CARBON DIOXIDE 34 mmol/L (23-29); CHLORIDE 101 mmol/L (98-107); CREATININE 2.28 mg/dL (0.55-1.30); GLUCOSE 273 mg/dL (74-106); SODIUM SERUM 142 mmol/L (136-145); TOTAL BILIRUBIN 0.2 mg/dL (0.0-1.0); TOTAL PROTEIN, SERUM 7.6 g/dL (6.4-8.3)
[2023-03-19] MEDS: ACETYLCYSTEINE 20% 4 ML VIAL (RT) INH SCH ×3 (07:16→23:28)
[2023-03-19 07:29] LABS: UREA NITROGEN, BLOOD 107 mg/dL (8-21)
[2023-03-19] MEDS: INSULIN REGULAR, HUMAN 100 UNITS/ML, 3 ML VIAL (humuLIN R) SUBCUT PRN ×4 (08:00→21:23)
[2023-03-19] MEDS: PANTOPRAZOLE SODIUM 40 MG/VIAL (PROTONIX) IVP SCH (09:54)
[2023-03-19] MEDS: DOCUSATE SODIUM 100 MG/10 ML UDC PO SCH ×2 (09:54→21:00)
[2023-03-19] MEDS: ENOXAPARIN SODIUM 30 MG/0.3 ML SYRINGE SUBCUT SCH (09:54)
[2023-03-19] MEDS: TACROLIMUS ANHYDROUS 1 MG CAPSULE (PROGRAF) PO SCH ×2 (09:54→21:01)
[2023-03-19] MEDS: hydrALAZINE HCL 20 MG/ML VIAL IVP PRN ×2 (10:10→14:20)
[2023-03-19] MEDS: SODIUM ZIRCONIUM CYCLOSILICATE 10 GM POWD.PACK PO SCH (10:11)
[2023-03-19] MEDS: MICAFUNGIN SODIUM 100 MG in NS 100 ML IV SCH (12:57)
[2023-03-19] MEDS: CEFEPIME 2 GM in D5W 100 ML IV SCH (13:35)
[2023-03-19] MEDS: AZITHROMYCIN 500 MG in NS 250 ML IV SCH (14:21)
[2023-03-20] VITALS (36 sets, daily range): BP systolic 129–194; PULSE 66–102; RESP 12–34; TEMP 96.5–97.8; O2SAT 29–100
[2023-03-20] MEDS: IPRATROPIUM/ALBUTEROL SULFATE 3 ML AMPUL.NEB (DUONEB) INH SCH ×6 (03:25→22:35)
[2023-03-20 05:19] LABS: BASOPHILS % (AUTO) 0.1 % (0.0-2.0); HEMATOCRIT 37.1 % (36-54); LYMPHOCYTES # (AUTO) 0.4 K/uL (1.0-5.5); LYMPHOCYTES % (AUTO) 6.8 % (20.5-51.5); MEAN CORPUSCULAR HEMOGLOBIN 30 pg (27-31); MEAN CORPUSCULAR HGB CONC 32 % (32-36); MEAN CORPUSCULAR VOLUME 94 fL (79.0-98.0); MONOCYTES # (AUTO) 0.4 K/uL (0.0-1.0); NEUTROPHILS # (AUTO) 4.7 K/uL (1.8-7.7); NEUTROPHILS % (AUTO) 86.1 % (40.0-70.0); PLATELET COUNT (AUTO) 158 K/uL (130-430); RED BLOOD CELL COUNT(AUTO) 3.96 MIL/uL (4.2-6.2); RED CELL DISTRIBUTION WIDTH 14.8 % (9.0-15.0); WHITE BLOOD COUNT (AUTO) 5.5 K/uL (4.8-10.8)
[2023-03-20 05:40] LABS: ANION GAP 7 (5-15); CALCIUM 9.5 mg/dL (8.4-11.0); CARBON DIOXIDE 36 mmol/L (23-29); CHLORIDE 102 mmol/L (98-107); CREATININE 2.15 mg/dL (0.55-1.30); GLUCOSE 320 mg/dL (74-106); POTASSIUM 3.8 mmol/L (3.5-5.1); SODIUM SERUM 145 mmol/L (136-145); UREA NITROGEN, BLOOD 97 mg/dL (8-21)
[2023-03-20] MEDS: METHYLPREDNISOLONE SOD SUCC 40 MG/ML VIAL IVP SCH ×3 (05:40→21:44)
[2023-03-20] MEDS: METOPROLOL TARTRATE 5 MG/5 ML VIAL IVP PRN (07:00)
[2023-03-20] MEDS: ACETYLCYSTEINE 20% 4 ML VIAL (RT) INH SCH ×3 (07:32→22:35)
[2023-03-20] MEDS: INSULIN REGULAR, HUMAN 100 UNITS/ML, 3 ML VIAL (humuLIN R) SUBCUT PRN ×3 (08:09→21:48)
[2023-03-20] MEDS: DOCUSATE SODIUM 100 MG/10 ML UDC PO SCH ×2 (08:40→21:43)
[2023-03-20] MEDS: PANTOPRAZOLE SODIUM 40 MG/VIAL (PROTONIX) IVP SCH (09:17)
[2023-03-20] MEDS: hydrALAZINE HCL 20 MG/ML VIAL IVP PRN (09:18)
[2023-03-20] MEDS: ENOXAPARIN SODIUM 30 MG/0.3 ML SYRINGE SUBCUT SCH (09:18)
[2023-03-20] MEDS: TACROLIMUS ANHYDROUS 1 MG CAPSULE (PROGRAF) PO SCH ×2 (09:44→21:46)
[2023-03-20] MEDS: SODIUM ZIRCONIUM CYCLOSILICATE 10 GM POWD.PACK PO SCH (12:02)
[2023-03-20] MEDS: MICAFUNGIN SODIUM 100 MG in NS 100 ML IV SCH (12:04)
[2023-03-20] MEDS: CEFEPIME 2 GM in D5W 100 ML IV SCH (14:06)
[2023-03-20] MEDS ORDERED: CARVEDILOL 12.5 MG TABLET (COREG) NG ONE (15:00)
[2023-03-20] MEDS: ACETAMINOPHEN 650 MG/20.3 ML UDC GT PRN (21:44)
[2023-03-20] MEDS: CARVEDILOL 12.5 MG TABLET (COREG) NG SCH (21:45)
[2023-03-21] VITALS (37 sets, daily range): BP systolic 102–177; PULSE 61–84; RESP 17–30; TEMP 97–98.4; O2SAT 96–100
[2023-03-21] MEDS: IPRATROPIUM/ALBUTEROL SULFATE 3 ML AMPUL.NEB (DUONEB) INH SCH ×6 (03:40→23:23)
[2023-03-21] MEDS: METHYLPREDNISOLONE SOD SUCC 40 MG/ML VIAL IVP SCH ×3 (06:18→21:01)
[2023-03-21] MEDS: INSULIN REGULAR, HUMAN 100 UNITS/ML, 3 ML VIAL (humuLIN R) SUBCUT PRN ×4 (06:22→21:15)
[2023-03-21] MEDS: ACETYLCYSTEINE 20% 4 ML VIAL (RT) INH SCH ×3 (08:20→23:37)
[2023-03-21] MEDS: DOCUSATE SODIUM 100 MG/10 ML UDC PO SCH ×2 (08:47→20:59)
[2023-03-21] MEDS: ENOXAPARIN SODIUM 30 MG/0.3 ML SYRINGE SUBCUT SCH (08:49)
[2023-03-21] MEDS: CARVEDILOL 12.5 MG TABLET (COREG) NG SCH ×2 (08:49→21:02)
[2023-03-21] MEDS: PANTOPRAZOLE SODIUM 40 MG/VIAL (PROTONIX) IVP SCH (08:49)
[2023-03-21] MEDS: TACROLIMUS ANHYDROUS 1 MG CAPSULE (PROGRAF) PO SCH ×2 (08:50→21:00)
[2023-03-21] MEDS: MICAFUNGIN SODIUM 100 MG in NS 100 ML IV SCH (11:29)
[2023-03-21] MEDS: hydrALAZINE HCL 20 MG/ML VIAL IVP PRN (11:30)
[2023-03-21 11:32] LABS: ABG O2 SAT% ESTIMATE 97.9 % (94.0-100.0); BLOOD GAS BASE EXCESS 6.1 mmol/L (-3.0-3.0); BLOOD GAS PH 7.314 (7.350-7.450); BLOOD GAS PO2 119.1 mmHg (75.0-100.0)
[2023-03-21 11:40] LABS: ALLEN'S TEST POSITIVE (P); BLOOD GAS PCO2 70.4 mmHg (32.0-45.0)
[2023-03-21] MEDS: SODIUM ZIRCONIUM CYCLOSILICATE 10 GM POWD.PACK PO SCH (11:50)
[2023-03-21] MEDS: CEFEPIME 2 GM in D5W 100 ML IV SCH (13:50)
[2023-03-22] VITALS (35 sets, daily range): BP systolic 117–185; PULSE 59–81; RESP 12–36; TEMP 97.5–98.2; O2SAT 95–100
[2023-03-22] MEDS: IPRATROPIUM/ALBUTEROL SULFATE 3 ML AMPUL.NEB (DUONEB) INH SCH ×6 (03:03→23:12)
[2023-03-22 05:42] LABS: EOSINOPHILS % (AUTO) 0.2 % (0.0-4.0); HEMATOCRIT 37.3 % (36-54); HEMOGLOBIN 11.9 g/dL (14.0-18.0); LYMPHOCYTES # (AUTO) 0.5 K/uL (1.0-5.5); LYMPHOCYTES % (AUTO) 10.6 % (20.5-51.5); MEAN CORPUSCULAR HEMOGLOBIN 30 pg (27-31); MEAN CORPUSCULAR HGB CONC 32 % (32-36); MEAN CORPUSCULAR VOLUME 94 fL (79.0-98.0); MONOCYTES # (AUTO) 0.3 K/uL (0.0-1.0); MONOCYTES % (AUTO) 6.7 % (1.7-9.3); NEUTROPHILS # (AUTO) 3.8 K/uL (1.8-7.7); NEUTROPHILS % (AUTO) 82.5 % (40.0-70.0); PLATELET COUNT (AUTO) 133 K/uL (130-430); RED BLOOD CELL COUNT(AUTO) 3.99 MIL/uL (4.2-6.2); RED CELL DISTRIBUTION WIDTH 14.4 % (9.0-15.0); WHITE BLOOD COUNT (AUTO) 4.6 K/uL (4.8-10.8)
[2023-03-22] MEDS: METHYLPREDNISOLONE SOD SUCC 40 MG/ML VIAL IVP SCH ×3 (05:46→22:29)
[2023-03-22] MEDS: INSULIN REGULAR, HUMAN 100 UNITS/ML, 3 ML VIAL (humuLIN R) SUBCUT PRN ×2 (05:48→13:28)
[2023-03-22 06:56] LABS: ALANINE AMINOTRANSFERASE 15 U/L (12-78); ALBUMIN 2.4 g/dL (3.4-4.8); ANION GAP 3 (5-15); ASPARTATE AMINOTRANSFERASE 10 U/L (10-37); CALCIUM 9.4 mg/dL (8.4-11.0); CARBON DIOXIDE 36 mmol/L (23-29); CHLORIDE 109 mmol/L (98-107); GLUCOSE 234 mg/dL (74-106); POTASSIUM 3.6 mmol/L (3.5-5.1); SODIUM SERUM 148 mmol/L (136-145); TOTAL BILIRUBIN 0.2 mg/dL (0.0-1.0)
[2023-03-22 06:58] LABS: UREA NITROGEN, BLOOD 114 mg/dL (8-21)
[2023-03-22] MEDS: ACETYLCYSTEINE 20% 4 ML VIAL (RT) INH SCH ×3 (07:42→23:12)
[2023-03-22] MEDS: ENOXAPARIN SODIUM 30 MG/0.3 ML SYRINGE SUBCUT SCH (08:56)
[2023-03-22] MEDS: DOCUSATE SODIUM 100 MG/10 ML UDC PO SCH ×2 (08:56→21:31)
[2023-03-22] MEDS: TACROLIMUS ANHYDROUS 1 MG CAPSULE (PROGRAF) PO SCH ×2 (08:57→21:31)
[2023-03-22] MEDS: PANTOPRAZOLE SODIUM 40 MG/VIAL (PROTONIX) IVP SCH (08:57)
[2023-03-22] MEDS: CARVEDILOL 12.5 MG TABLET (COREG) NG SCH ×2 (09:08→21:31)
[2023-03-22 11:32] LABS: ABG O2 SAT% ESTIMATE 95.8 % (94.0-100.0); BLOOD GAS BASE EXCESS 6.5 mmol/L (-3.0-3.0); BLOOD GAS HCO3 34.2 mmol/L (21.0-27.0); BLOOD GAS PO2 85.4 mmHg (75.0-100.0)
[2023-03-22 11:39] LABS: ALLEN'S TEST POSITIVE (P); BLOOD GAS PCO2 61.9 mmHg (32.0-45.0)
[2023-03-22] MEDS: SODIUM ZIRCONIUM CYCLOSILICATE 10 GM POWD.PACK PO SCH (11:59)
[2023-03-22] MEDS: MICAFUNGIN SODIUM 100 MG in NS 100 ML IV SCH (11:59)
[2023-03-22] MEDS: CEFEPIME 2 GM in D5W 100 ML IV SCH (14:32)
[2023-03-23] VITALS (27 sets, daily range): BP systolic 115–174; PULSE 71–86; RESP 11–56; TEMP 97.2–98; O2SAT 90–100
[2023-03-23] MEDS: IPRATROPIUM/ALBUTEROL SULFATE 3 ML AMPUL.NEB (DUONEB) INH SCH ×5 (03:00→22:59)
[2023-03-23 04:48] LABS: EOSINOPHILS % (AUTO) 0.1 % (0.0-4.0); HEMATOCRIT 37.8 % (36-54); LYMPHOCYTES # (AUTO) 0.5 K/uL (1.0-5.5); LYMPHOCYTES % (AUTO) 8.3 % (20.5-51.5); MEAN CORPUSCULAR HEMOGLOBIN 30 pg (27-31); MEAN CORPUSCULAR HGB CONC 32 % (32-36); MEAN CORPUSCULAR VOLUME 94 fL (79.0-98.0); MONOCYTES # (AUTO) 0.2 K/uL (0.0-1.0); MONOCYTES % (AUTO) 3.9 % (1.7-9.3); NEUTROPHILS # (AUTO) 5.5 K/uL (1.8-7.7); NEUTROPHILS % (AUTO) 87.7 % (40.0-70.0); PLATELET COUNT (AUTO) 148 K/uL (130-430); RED BLOOD CELL COUNT(AUTO) 4.03 MIL/uL (4.2-6.2); RED CELL DISTRIBUTION WIDTH 14.2 % (9.0-15.0); WHITE BLOOD COUNT (AUTO) 6.3 K/uL (4.8-10.8)
[2023-03-23 05:05] LABS: ANION GAP 9 (5-15); CALCIUM 9.2 mg/dL (8.4-11.0); CARBON DIOXIDE 32 mmol/L (23-29); CHLORIDE 105 mmol/L (98-107); CREATININE 1.69 mg/dL (0.55-1.30); GLUCOSE 246 mg/dL (74-106); POTASSIUM 3.9 mmol/L (3.5-5.1); SODIUM SERUM 146 mmol/L (136-145); UREA NITROGEN, BLOOD 91 mg/dL (8-21)
[2023-03-23] MEDS: METHYLPREDNISOLONE SOD SUCC 40 MG/ML VIAL IVP SCH ×3 (05:51→22:24)
[2023-03-23] MEDS: ACETYLCYSTEINE 20% 4 ML VIAL (RT) INH SCH ×3 (07:18→22:59)
[2023-03-23] MEDS: DOCUSATE SODIUM 100 MG/10 ML UDC PO SCH ×2 (08:51→22:23)
[2023-03-23] MEDS: PANTOPRAZOLE SODIUM 40 MG/VIAL (PROTONIX) IVP SCH (08:53)
[2023-03-23] MEDS: TACROLIMUS ANHYDROUS 1 MG CAPSULE (PROGRAF) PO SCH ×2 (08:54→22:25)
[2023-03-23] MEDS: CARVEDILOL 12.5 MG TABLET (COREG) NG SCH ×2 (08:54→22:24)
[2023-03-23] MEDS: SODIUM ZIRCONIUM CYCLOSILICATE 10 GM POWD.PACK PO SCH (11:28)
[2023-03-23] MEDS: ENOXAPARIN SODIUM 30 MG/0.3 ML SYRINGE SUBCUT SCH (11:28)
[2023-03-23] MEDS: INSULIN REGULAR, HUMAN 100 UNITS/ML, 3 ML VIAL (humuLIN R) SUBCUT PRN ×3 (11:44→22:45)
[2023-03-23] MEDS: CEFEPIME 2 GM in D5W 100 ML IV SCH (14:14)
[2023-03-23 20:06] LABS: MYCOPLASMA PNEUMONIAE IgM <770 U/mL (0-769)
[2023-03-24] VITALS (11 sets, daily range): BP systolic 149–176; PULSE 68–75; RESP 16–18; TEMP 97.5–98.9; O2SAT 97–100
[2023-03-24] MEDS: IPRATROPIUM/ALBUTEROL SULFATE 3 ML AMPUL.NEB (DUONEB) INH SCH ×6 (03:00→23:26)
[2023-03-24] MEDS: METHYLPREDNISOLONE SOD SUCC 40 MG/ML VIAL IVP SCH ×3 (06:53→22:00)
[2023-03-24] MEDS: ACETYLCYSTEINE 20% 4 ML VIAL (RT) INH SCH ×3 (07:51→23:26)
[2023-03-24] MEDS: PANTOPRAZOLE SODIUM 40 MG/VIAL (PROTONIX) IVP SCH (08:27)
[2023-03-24] MEDS: CARVEDILOL 12.5 MG TABLET (COREG) NG SCH ×2 (08:27→22:07)
[2023-03-24] MEDS: DOCUSATE SODIUM 100 MG/10 ML UDC PO SCH ×3 (08:27→22:06)
[2023-03-24] MEDS: TACROLIMUS ANHYDROUS 1 MG CAPSULE (PROGRAF) PO SCH ×2 (08:28→22:08)
[2023-03-24] MEDS: ENOXAPARIN SODIUM 30 MG/0.3 ML SYRINGE SUBCUT SCH (08:31)
[2023-03-24] MEDS: SODIUM ZIRCONIUM CYCLOSILICATE 10 GM POWD.PACK PO SCH (10:47)
[2023-03-24] MEDS: INSULIN REGULAR, HUMAN 100 UNITS/ML, 3 ML VIAL (humuLIN R) SUBCUT PRN ×3 (11:29→22:23)
[2023-03-24] MEDS: CEFEPIME 2 GM in D5W 100 ML IV SCH (13:30)
[2023-03-25] VITALS (11 sets, daily range): BP systolic 133–153; PULSE 68–79; RESP 16–20; TEMP 96.8–99.7; O2SAT 96–100
[2023-03-25] MEDS: ACETAMINOPHEN 650 MG/20.3 ML UDC GT PRN (02:09)
[2023-03-25] MEDS: IPRATROPIUM/ALBUTEROL SULFATE 3 ML AMPUL.NEB (DUONEB) INH SCH ×6 (03:00→23:25)
[2023-03-25 06:19] LABS: EOSINOPHILS % (AUTO) 0.4 % (0.0-4.0); HEMATOCRIT 32.8 % (36-54); HEMOGLOBIN 10.7 g/dL (14.0-18.0); LYMPHOCYTES # (AUTO) 0.8 K/uL (1.0-5.5); LYMPHOCYTES % (AUTO) 15.4 % (20.5-51.5); MEAN CORPUSCULAR HEMOGLOBIN 30 pg (27-31); MEAN CORPUSCULAR HGB CONC 33 % (32-36); MEAN CORPUSCULAR VOLUME 91 fL (79.0-98.0); MONOCYTES # (AUTO) 0.5 K/uL (0.0-1.0); NEUTROPHILS # (AUTO) 4.1 K/uL (1.8-7.7); NEUTROPHILS % (AUTO) 75.2 % (40.0-70.0); PLATELET COUNT (AUTO) 113 K/uL (130-430); RED CELL DISTRIBUTION WIDTH 13.5 % (9.0-15.0); WHITE BLOOD COUNT (AUTO) 5.4 K/uL (4.8-10.8)
[2023-03-25] MEDS: METHYLPREDNISOLONE SOD SUCC 40 MG/ML VIAL IVP SCH ×3 (06:49→22:08)
[2023-03-25 06:55] LABS: ALANINE AMINOTRANSFERASE 16 U/L (12-78); ALBUMIN 2.1 g/dL (3.4-4.8); ANION GAP 4 (5-15); ASPARTATE AMINOTRANSFERASE 13 U/L (10-37); CALCIUM 8.4 mg/dL (8.4-11.0); CARBON DIOXIDE 31 mmol/L (23-29); CHLORIDE 99 mmol/L (98-107); CREATININE 1.86 mg/dL (0.55-1.30); GLUCOSE 168 mg/dL (74-106); POTASSIUM 3.7 mmol/L (3.5-5.1); SODIUM SERUM 134 mmol/L (136-145); TOTAL BILIRUBIN 0.2 mg/dL (0.0-1.0); TOTAL PROTEIN, SERUM 5.7 g/dL (6.4-8.3); UREA NITROGEN, BLOOD 92 mg/dL (8-21)
[2023-03-25] MEDS: ACETYLCYSTEINE 20% 4 ML VIAL (RT) INH SCH ×3 (08:03→23:39)
[2023-03-25] MEDS: CARVEDILOL 12.5 MG TABLET (COREG) NG SCH ×2 (09:54→22:05)
[2023-03-25] MEDS: DOCUSATE SODIUM 100 MG/10 ML UDC PO SCH ×2 (09:55→22:05)
[2023-03-25] MEDS: PANTOPRAZOLE SODIUM 40 MG/VIAL (PROTONIX) IVP SCH (09:55)
[2023-03-25] MEDS: ENOXAPARIN SODIUM 30 MG/0.3 ML SYRINGE SUBCUT SCH (09:55)
[2023-03-25] MEDS: TACROLIMUS ANHYDROUS 1 MG CAPSULE (PROGRAF) PO SCH ×2 (09:58→22:12)
[2023-03-25] MEDS: SODIUM ZIRCONIUM CYCLOSILICATE 10 GM POWD.PACK PO SCH (11:32)
[2023-03-25] MEDS: INSULIN REGULAR, HUMAN 100 UNITS/ML, 3 ML VIAL (humuLIN R) SUBCUT PRN ×3 (11:40→22:10)
[2023-03-26] VITALS (13 sets, daily range): BP systolic 151–166; PULSE 61–77; RESP 17–18; TEMP 97.8–98.8; O2SAT 95–100
[2023-03-26] MEDS: IPRATROPIUM/ALBUTEROL SULFATE 3 ML AMPUL.NEB (DUONEB) INH SCH ×6 (03:12→23:00)
[2023-03-26] MEDS: METHYLPREDNISOLONE SOD SUCC 40 MG/ML VIAL IVP SCH ×3 (05:53→21:02)
[2023-03-26] MEDS: INSULIN REGULAR, HUMAN 100 UNITS/ML, 3 ML VIAL (humuLIN R) SUBCUT PRN ×4 (06:16→21:03)
[2023-03-26] MEDS: ACETYLCYSTEINE 20% 4 ML VIAL (RT) INH SCH ×3 (07:00→23:00)
[2023-03-26] MEDS: TACROLIMUS ANHYDROUS 1 MG CAPSULE (PROGRAF) PO SCH ×2 (09:27→20:29)
[2023-03-26] MEDS: DOCUSATE SODIUM 100 MG/10 ML UDC PO SCH ×2 (09:28→20:28)
[2023-03-26] MEDS: ENOXAPARIN SODIUM 30 MG/0.3 ML SYRINGE SUBCUT SCH (09:28)
[2023-03-26] MEDS: CARVEDILOL 12.5 MG TABLET (COREG) NG SCH ×2 (09:28→20:28)
[2023-03-26] MEDS: PANTOPRAZOLE SODIUM 40 MG/VIAL (PROTONIX) IVP SCH (09:29)
[2023-03-26] MEDS: SODIUM ZIRCONIUM CYCLOSILICATE 10 GM POWD.PACK PO SCH (12:26)
[2023-03-27] MEDS: IPRATROPIUM/ALBUTEROL SULFATE 3 ML AMPUL.NEB (DUONEB) INH SCH ×3 (03:00→11:02)
[2023-03-27 05:49] LABS: BASOPHILS % (AUTO) 0.1 % (0.0-2.0); EOSINOPHILS % (AUTO) 0.1 % (0.0-4.0); HEMATOCRIT 29.7 % (36-54); HEMOGLOBIN 9.9 g/dL (14.0-18.0); LYMPHOCYTES # (AUTO) 0.4 K/uL (1.0-5.5); LYMPHOCYTES % (AUTO) 9.4 % (20.5-51.5); MEAN CORPUSCULAR HEMOGLOBIN 31 pg (27-31); MEAN CORPUSCULAR HGB CONC 33 % (32-36); MEAN CORPUSCULAR VOLUME 92 fL (79.0-98.0); MONOCYTES # (AUTO) 0.2 K/uL (0.0-1.0); MONOCYTES % (AUTO) 4.6 % (1.7-9.3); NEUTROPHILS # (AUTO) 3.9 K/uL (1.8-7.7); NEUTROPHILS % (AUTO) 85.8 % (40.0-70.0); PLATELET COUNT (AUTO) 89 K/uL (130-430); RED BLOOD CELL COUNT(AUTO) 3.23 MIL/uL (4.2-6.2); RED CELL DISTRIBUTION WIDTH 13.6 % (9.0-15.0); WHITE BLOOD COUNT (AUTO) 4.6 K/uL (4.8-10.8)
[2023-03-27 06:02] LABS: ANION GAP 4 (5-15); CALCIUM 8.4 mg/dL (8.4-11.0); CARBON DIOXIDE 30 mmol/L (23-29); CHLORIDE 100 mmol/L (98-107); CREATININE 1.61 mg/dL (0.55-1.30); GLUCOSE 360 mg/dL (74-106); POTASSIUM 4.7 mmol/L (3.5-5.1); SODIUM SERUM 134 mmol/L (136-145); UREA NITROGEN, BLOOD 81 mg/dL (8-21)
[2023-03-27 06:09] VITALS: BP_SYST 149; PULSE 73; RESP 18; TEMP 98; O2SAT 100
[2023-03-27] MEDS: METHYLPREDNISOLONE SOD SUCC 40 MG/ML VIAL IVP SCH (06:13)
[2023-03-27] MEDS: INSULIN REGULAR, HUMAN 100 UNITS/ML, 3 ML VIAL (humuLIN R) SUBCUT PRN ×2 (06:16→12:14)
[2023-03-27] MEDS: ACETYLCYSTEINE 20% 4 ML VIAL (RT) INH SCH (07:48)
[2023-03-27 08:00] VITALS: BP_SYST 159; PULSE 73; RESP 20; TEMP 97.9; O2SAT 100; O2SAT 99
[2023-03-27] MEDS: ENOXAPARIN SODIUM 30 MG/0.3 ML SYRINGE SUBCUT SCH (09:06)
[2023-03-27] MEDS: DOCUSATE SODIUM 100 MG/10 ML UDC PO SCH (09:06)
[2023-03-27] MEDS: PANTOPRAZOLE SODIUM 40 MG/VIAL (PROTONIX) IVP SCH (09:06)
[2023-03-27] MEDS: TACROLIMUS ANHYDROUS 1 MG CAPSULE (PROGRAF) PO SCH (09:06)
[2023-03-27] MEDS: CARVEDILOL 12.5 MG TABLET (COREG) NG SCH (09:07)
[2023-03-27 11:03] VITALS: O2SAT 99
[2023-03-27 12:00] VITALS: BP_SYST 147; PULSE 75; RESP 20; TEMP 97.9; O2SAT 100
[2023-03-27] MEDS: SODIUM ZIRCONIUM CYCLOSILICATE 10 GM POWD.PACK PO SCH (12:03)
[2023-03-27 12:40] VITALS: BP_SYST 147; PULSE 70; RESP 18; TEMP 98; O2SAT 99
== END 2023-03-27 13:30 | disposition home health service (06) | DRG 207 ==
LOC: SED 10:57 → SIC 12:27 → STU 03-23 19:54 → SMU 03-25 14:33
PROVIDERS: ADMIT Family Medicine; ATTEND Family Medicine
PROC: 5A1955Z Respiratory Ventilation, Greater than 96 Consecutive Hours (ICD-10-PCS; principal; 2023-03-14)
PROC: 0B9F8ZX Drainage of Right Lower Lung Lobe, Via Natural or Artificial Opening Endoscopic, Diagnostic (ICD-10-PCS; 2023-03-14)
PROC: 0B9G8ZX Drainage of Left Upper Lung Lobe, Via Natural or Artificial Opening Endoscopic, Diagnostic (ICD-10-PCS; 2023-03-14)
PROC: 0B9D8ZX Drainage of Right Middle Lung Lobe, Via Natural or Artificial Opening Endoscopic, Diagnostic (ICD-10-PCS; 2023-03-14)
PROC: 0B9H8ZX Drainage of Lung Lingula, Via Natural or Artificial Opening Endoscopic, Diagnostic (ICD-10-PCS; 2023-03-14)
PROC: 5A09357 Assistance with Respiratory Ventilation, Less than 24 Consecutive Hours, Continuous Positive Airway Pressure (ICD-10-PCS; 2023-03-14)
PROC: 0BH17EZ Insertion of Endotracheal Airway into Trachea, Via Natural or Artificial Opening (ICD-10-PCS; 2023-03-14)
PROC: 30233N1 Transfusion of Nonautologous Red Blood Cells into Peripheral Vein, Percutaneous Approach (ICD-10-PCS; 2023-03-15)
PROC: 5A09357 Assistance with Respiratory Ventilation, Less than 24 Consecutive Hours, Continuous Positive Airway Pressure (ICD-10-PCS; 2023-03-22)
PROC: 5A09357 Assistance with Respiratory Ventilation, Less than 24 Consecutive Hours, Continuous Positive Airway Pressure (ICD-10-PCS; 2023-03-23)
PROC: 5A09357 Assistance with Respiratory Ventilation, Less than 24 Consecutive Hours, Continuous Positive Airway Pressure (ICD-10-PCS; 2023-03-24)
PROC: 5A09357 Assistance with Respiratory Ventilation, Less than 24 Consecutive Hours, Continuous Positive Airway Pressure (ICD-10-PCS; 2023-03-26)
PROC: 0B9J8ZX Drainage of Left Lower Lung Lobe, Via Natural or Artificial Opening Endoscopic, Diagnostic (ICD-10-PCS; 2023-03-26)
PROC: 02HV33Z Insertion of Infusion Device into Superior Vena Cava, Percutaneous Approach (ICD-10-PCS; 2023-03-26)
PROC: B548ZZA Ultrasonography of Superior Vena Cava, Guidance (ICD-10-PCS; 2023-03-27)
DX: J96.20 Acute and chronic respiratory failure, unspecified whether with hypoxia or hypercapnia (principal); N17.0 Acute kidney failure with tubular necrosis; I50.43 Acute on chronic combined systolic (congestive) and diastolic (congestive) heart failure; R65.11 Systemic inflammatory response syndrome (SIRS) of non-infectious origin with acute organ dysfunction; J18.9 Pneumonia, unspecified organism; I13.0 Hypertensive heart and chronic kidney disease with heart failure and stage 1 through stage 4 chronic kidney disease, or unspecified chronic kidney disease; D84.9 Immunodeficiency, unspecified; Z94.4 Liver transplant status; Z16.24 Resistance to multiple antibiotics; E44.1 Mild protein-calorie malnutrition; E11.51 Type 2 diabetes mellitus with diabetic peripheral angiopathy without gangrene; E11.40 Type 2 diabetes mellitus with diabetic neuropathy, unspecified; E11.319 Type 2 diabetes mellitus with unspecified diabetic retinopathy without macular edema; E87.5 Hyperkalemia; J43.9 Emphysema, unspecified; N18.30 Chronic kidney disease, stage 3 unspecified; I25.10 Atherosclerotic heart disease of native coronary artery without angina pectoris; Z20.822 Contact with and (suspected) exposure to COVID-19; D63.8 Anemia in other chronic diseases classified elsewhere; E11.22 Type 2 diabetes mellitus with diabetic chronic kidney disease; Z66 Do not resuscitate; K74.60 Unspecified cirrhosis of liver; Z79.4 Long term (current) use of insulin; Z85.05 Personal history of malignant neoplasm of liver; Z87.440 Personal history of urinary (tract) infections; Z87.891 Personal history of nicotine dependence; Z95.5 Presence of coronary angioplasty implant and graft; Z99.81 Dependence on supplemental oxygen; Z68.24 Body mass index [BMI] 24.0-24.9, adult
CPT/HCPCS: 36415; 36600; 71045; 76604; 80048; 80053; 81000; 82800-TC; 82803; 82962; 83037; 83051; 83690; 83735; 83880; 84100; 84443; 84484; 85014; 85025; 85610-TC; 85730-TC; 86480; 86738; 86886; 86900; 86901; 86920; 87040; 87070-TC; 87081; 87101; 87116; 87205-TC; 87305; 87449; 87497; 93005; 93306; 94002; 94003; 94640; 94660; 94760; 97116-GP; 97530-GP; 99291; C9113; G0378; J0360; J0456; J0610; J0692; J0696; J1030; J1450; J1650; J1815; J1940; J2060; J2248; J2543; J3010; J3490; J7050; J7060; J7507; J7608; P9021

== ENCOUNTER 2023-05-09 19:06 | Inpatient (IN) | payer MEDICAID, OTHER ==
[~2023-05-09] VITALS: Ht 162.6 cm; Wt 63.5 kg
[~2023-05-09 19:06] MED LIST changes: +DEXL60CA4 PO; -NEU400 PO; -OMEP20CA15 PO; +ROPI1TAB46 PO; -TACR1CAP2 PO
[2023-05-09 19:16] VITALS: BP_SYST 155; PULSE 88; RESP 22; TEMP 98.3; O2SAT 94
[2023-05-09] MEDS ORDERED: FUROSEMIDE 40 MG/4 ML VIAL IVP ONE (20:15)
[2023-05-09] MEDS ORDERED: NITROGLYCERIN 0.4 MG TAB.SUBL SL ONE (20:30)
[2023-05-09 20:47] LABS: BLOOD GAS PCO2 69.5 mmHg (32.0-45.0); BLOOD GAS PH 7.263 (7.350-7.450)
[2023-05-09 20:49] LABS: ABG O2 SAT% ESTIMATE 96.9 % (94.0-100.0); ALLEN'S TEST POSITIVE (P); BLOOD GAS BASE EXCESS 1.5 mmol/L (-3.0-3.0); BLOOD GAS HCO3 30.7 mmol/L (21.0-27.0); BLOOD GAS PO2 105.3 mmHg (75.0-100.0)
[2023-05-09 20:57] LABS: BILIRUBIN,URINE NEGATIVE (NEGATIVE); BLOOD, URINE 1+ (NEGATIVE); CLARITY/URINE CLEAR (CLEAR); COLOR,URINE YELLOW (YELLOW); GLUCOSE,URINE NEGATIVE (NEGATIVE); KETONES,URINE NEGATIVE (NEGATIVE); LEUKOCYTE ESTERASE ,URINE NEGATIVE (NEGATIVE); NITRITE, URINE NEGATIVE (NEGATIVE); PH,URINE 5.5 (5.0-8.0); PROTEIN URINE TRACE (NEGATIVE); UROBILINOGEN,URINE 0.2 (0.2-1.0)
[2023-05-09 21:31] LABS: PROTHROMBIN TIME 10.2 SECS (9.5-12.5)
[2023-05-09 21:41] LABS: ALANINE AMINOTRANSFERASE 15 U/L (12-78); ALBUMIN 2.9 g/dL (3.4-4.8); ASPARTATE AMINOTRANSFERASE 15 U/L (10-37); BILIRUBIN,DIRECT 0.1 mg/dL (0.0-0.3); CALCIUM 8.4 mg/dL (8.4-11.0); CREATININE 1.63 mg/dL (0.55-1.30); GLUCOSE 174 mg/dL (74-106); TOTAL BILIRUBIN 0.1 mg/dL (0.0-1.0); TOTAL PROTEIN, SERUM 7.7 g/dL (6.4-8.3); UREA NITROGEN, BLOOD 63 mg/dL (8-21)
[2023-05-09 21:42] LABS: BASOPHILS % (AUTO) 0.3 % (0.0-2.0); EOSINOPHILS % (AUTO) 1.1 % (0.0-4.0); LYMPHOCYTES # (AUTO) 0.7 K/uL (1.0-5.5); LYMPHOCYTES % (AUTO) 23.6 % (20.5-51.5); MEAN CORPUSCULAR HEMOGLOBIN 31 pg (27-31); MEAN CORPUSCULAR HGB CONC 32 % (32-36); MEAN CORPUSCULAR VOLUME 96 fL (79.0-98.0); MONOCYTES # (AUTO) 0.3 K/uL (0.0-1.0); MONOCYTES % (AUTO) 11.4 % (1.7-9.3); NEUTROPHILS % (AUTO) 63.6 % (40.0-70.0); PLATELET COUNT (AUTO) 124 K/uL (130-430); RED BLOOD CELL COUNT(AUTO) 2.19 MIL/uL (4.2-6.2); RED CELL DISTRIBUTION WIDTH 13.7 % (9.0-15.0); WHITE BLOOD COUNT (AUTO) 3.1 K/uL (4.8-10.8)
[2023-05-09 21:46] LABS: HEMATOCRIT 21.1 % (36-54); HEMOGLOBIN 6.8 g/dL (14.0-18.0)
[2023-05-09 21:50] LABS: CARBON DIOXIDE 33 mmol/L (23-29); CHLORIDE 100 mmol/L (98-107); POTASSIUM 5.7 mmol/L (3.5-5.1); SODIUM SERUM 133 mmol/L (136-145)
[2023-05-09 21:51] LABS: WBC,URINE 0-3 /HPF (0-3)
[2023-05-09 21:52] LABS: BACTERIA,URINE FEW /HPF (None Seen)
[2023-05-09 21:56] LABS: INFLUENZA TYPE A Negative (NEGATIVE); INFLUENZA TYPE B NEGATIVE (NEGATIVE)
[2023-05-09 21:56] LABS: ANION GAP < 3 (5-15)
[2023-05-09] MEDS ORDERED: VANCOMYCIN HCL 1,000 MG in NS 250 ML IV ONE (22:00)
[2023-05-09] MEDS ORDERED: PIPERACILLIN/TAZO 3.375 GM in NS 50 ML IV ONE (22:00)
[2023-05-09] MEDS ORDERED: INSULIN REGULAR, HUMAN 10 UNITS/0.1 ML, 3 ML VIAL IVP ONE (22:15)
[2023-05-09] MEDS ORDERED: DEXTROSE 50% JECT 50 ML DISP.SYRIN IVP ONE (22:15)
[2023-05-09] MEDS ORDERED: CALCIUM GLUCONATE 1 GM in NS 100 ML IV ONE (22:15)
[2023-05-09] MEDS ORDERED: SODIUM POLYSTYRENE SULFONATE 15 GM/60 ML UDBTL PO ONE (22:15)
[2023-05-10] MEDS ORDERED: CALCIUM CHLORIDE 1 GM/10 ML DISP.SYRIN (14 mEq Ca++/SYR) ONE (07:19)
[2023-05-10] MEDS ORDERED: VALPROATE SODIUM 100 MG/ML VIAL (DEPACON) IV ONE (07:20)
[2023-05-10] MEDS ORDERED: CALCIUM GLUCONATE 1 GM/10 ML VIAL ONE (07:23)
[2023-05-10] MEDS ORDERED: VANCOMYCIN HCL 1000 MG/VIAL IV ONE ×2 (07:23→07:50)
[2023-05-10] MEDS ORDERED: DEXTROSE 50% JECT 50 ML DISP.SYRIN ONE (07:23)
[2023-05-10] MEDS ORDERED: ONDANSETRON HCL 4 MG/2 ML VIAL IVP PRN (07:45)
[2023-05-10 08:39] VITALS: BP_SYST 129; PULSE 91; O2SAT 100
[2023-05-10 09:07] LABS: BASOPHILS % (AUTO) 0.4 % (0.0-2.0); EOSINOPHILS % (AUTO) 1.4 % (0.0-4.0); HEMATOCRIT 25.1 % (36-54); HEMOGLOBIN 8.1 g/dL (14.0-18.0); LYMPHOCYTES # (AUTO) 0.8 K/uL (1.0-5.5); LYMPHOCYTES % (AUTO) 25.7 % (20.5-51.5); MEAN CORPUSCULAR HEMOGLOBIN 31 pg (27-31); MEAN CORPUSCULAR HGB CONC 32 % (32-36); MEAN CORPUSCULAR VOLUME 95 fL (79.0-98.0); MONOCYTES # (AUTO) 0.4 K/uL (0.0-1.0); MONOCYTES % (AUTO) 13.9 % (1.7-9.3); NEUTROPHILS # (AUTO) 1.8 K/uL (1.8-7.7); NEUTROPHILS % (AUTO) 58.6 % (40.0-70.0); PLATELET COUNT (AUTO) 118 K/uL (130-430); RED BLOOD CELL COUNT(AUTO) 2.65 MIL/uL (4.2-6.2); RED CELL DISTRIBUTION WIDTH 14.6 % (9.0-15.0); WHITE BLOOD COUNT (AUTO) 3.1 K/uL (4.8-10.8)
[2023-05-10 09:19] LABS: ALANINE AMINOTRANSFERASE 16 U/L (12-78); ALBUMIN 2.9 g/dL (3.4-4.8); ANION GAP 1 (5-15); ASPARTATE AMINOTRANSFERASE 15 U/L (10-37); CARBON DIOXIDE 34 mmol/L (23-29); CHLORIDE 101 mmol/L (98-107); CREATININE 1.64 mg/dL (0.55-1.30); GLUCOSE 68 mg/dL (74-106); POTASSIUM 5.3 mmol/L (3.5-5.1); SODIUM SERUM 136 mmol/L (136-145); TOTAL BILIRUBIN 0.3 mg/dL (0.0-1.0); TOTAL PROTEIN, SERUM 7.4 g/dL (6.4-8.3); UREA NITROGEN, BLOOD 59 mg/dL (8-21)
[2023-05-10 11:25] VITALS: PULSE 85
[2023-05-10] MEDS ORDERED: POLYETHYLENE GLYCOL 3350, 17 GM/ POWD.PACK PO ONE (16:45)
[2023-05-10] MEDS ORDERED: TACR1CAP2 PO (17:16)
[2023-05-10 17:35] VITALS: BP_SYST 152; PULSE 86; RESP 16; TEMP 97.9
[2023-05-10 17:50] VITALS: O2SAT 100
[2023-05-10] MEDS ORDERED: TACROLIMUS ANHYDROUS 1 MG CAPSULE (PROGRAF) PO SCH (18:00)
[2023-05-10] MEDS ORDERED: PIPERACILLIN/TAZOBACTAM 3.375 GM/VIAL (ZOSYN) IV ONE (18:25)
[2023-05-10] MEDS: INSULIN LISPRO SLIDING SCALE 100 UNITS/ML, 3 ML VIAL (humaLOG) SUBCUT PRN (18:27)
[2023-05-10] MEDS: PIPERACILLIN/TAZO 3.375/DEX-IS 50 ML IV SCH ×2 (18:28→23:15)
[2023-05-10 19:00] VITALS: BP_SYST 139; PULSE 89; RESP 16; TEMP 98.6; O2SAT 100; O2SAT 96
[2023-05-10 20:00] VITALS: BP_SYST 139; PULSE 89; RESP 16; TEMP 98.6; O2SAT 100
[2023-05-10] MEDS: DOCUSATE SODIUM 100 MG CAPSULE PO SCH (20:02)
[2023-05-10] MEDS: MAGNESIUM OXIDE 400 MG TABLET PO SCH (20:03)
[2023-05-10] MEDS: TACROLIMUS ANHYDROUS 1 MG CAPSULE (PROGRAF) PO SCH (20:05)
[2023-05-11 00:19] VITALS: BP_SYST 115; PULSE 84; RESP 16; TEMP 97.6; O2SAT 100
[2023-05-11] MEDS: PIPERACILLIN/TAZO 3.375/DEX-IS 50 ML IV SCH ×4 (05:16→23:19)
[2023-05-11 05:51] LABS: BASOPHILS % (AUTO) 0.4 % (0.0-2.0); EOSINOPHILS % (AUTO) 1.5 % (0.0-4.0); HEMATOCRIT 24.9 % (36-54); HEMOGLOBIN 8.1 g/dL (14.0-18.0); LYMPHOCYTES # (AUTO) 0.8 K/uL (1.0-5.5); LYMPHOCYTES % (AUTO) 24.9 % (20.5-51.5); MEAN CORPUSCULAR HEMOGLOBIN 30 pg (27-31); MEAN CORPUSCULAR HGB CONC 32 % (32-36); MEAN CORPUSCULAR VOLUME 93 fL (79.0-98.0); MONOCYTES # (AUTO) 0.4 K/uL (0.0-1.0); MONOCYTES % (AUTO) 12.4 % (1.7-9.3); NEUTROPHILS # (AUTO) 1.9 K/uL (1.8-7.7); NEUTROPHILS % (AUTO) 60.8 % (40.0-70.0); PLATELET COUNT (AUTO) 113 K/uL (130-430); RED BLOOD CELL COUNT(AUTO) 2.67 MIL/uL (4.2-6.2); RED CELL DISTRIBUTION WIDTH 14.5 % (9.0-15.0); WHITE BLOOD COUNT (AUTO) 3.1 K/uL (4.8-10.8)
[2023-05-11 06:09] LABS: ANION GAP 3 (5-15); CALCIUM 7.5 mg/dL (8.4-11.0); CARBON DIOXIDE 33 mmol/L (23-29); CHLORIDE 99 mmol/L (98-107); CREATININE 1.58 mg/dL (0.55-1.30); GLUCOSE 98 mg/dL (74-106); POTASSIUM 5.7 mmol/L (3.5-5.1); SODIUM SERUM 135 mmol/L (136-145); UREA NITROGEN, BLOOD 57 mg/dL (8-21)
[2023-05-11 08:00] VITALS: BP_SYST 136; PULSE 88; RESP 24; TEMP 97.5; O2SAT 100
[2023-05-11] MEDS: DOCUSATE SODIUM 100 MG CAPSULE PO SCH ×2 (09:27→20:13)
[2023-05-11] MEDS: PANTOPRAZOLE SODIUM 40 MG TAB PO SCH (09:27)
[2023-05-11] MEDS: TACROLIMUS ANHYDROUS 1 MG CAPSULE (PROGRAF) PO SCH ×2 (09:27→20:13)
[2023-05-11] MEDS: MAGNESIUM OXIDE 400 MG TABLET PO SCH ×2 (09:27→20:14)
[2023-05-11 11:29] VITALS: BP_SYST 120; PULSE 78; RESP 16; TEMP 97.4; O2SAT 97
[2023-05-11] MEDS: INSULIN LISPRO SLIDING SCALE 100 UNITS/ML, 3 ML VIAL (humaLOG) SUBCUT PRN (12:53)
[2023-05-11] MEDS: SODIUM ZIRCONIUM CYCLOSILICATE 10 GM POWD.PACK PO SCH (13:03)
[2023-05-11 15:07] VITALS: BP_SYST 105; PULSE 55; RESP 16; TEMP 97.5; O2SAT 100
[2023-05-11 17:16] LABS: PROTHROMBIN TIME 10.6 SECS (9.5-12.5)
[2023-05-11 19:00] VITALS: BP_SYST 110; PULSE 58; RESP 16; TEMP 97.8; O2SAT 98
[2023-05-11 20:00] VITALS: BP_SYST 110; PULSE 58; RESP 16; TEMP 97.8; O2SAT 98
[2023-05-12] VITALS: BP_SYST 112; PULSE 62; RESP 16; TEMP 97.6; O2SAT 98
[2023-05-12] MEDS: PIPERACILLIN/TAZO 3.375/DEX-IS 50 ML IV SCH ×3 (06:00→18:01)
[2023-05-12 06:40] LABS: BASOPHILS % (AUTO) 0.2 % (0.0-2.0); EOSINOPHILS % (AUTO) 1.5 % (0.0-4.0); HEMATOCRIT 23.7 % (36-54); HEMOGLOBIN 7.8 g/dL (14.0-18.0); LYMPHOCYTES # (AUTO) 0.7 K/uL (1.0-5.5); MEAN CORPUSCULAR HEMOGLOBIN 31 pg (27-31); MEAN CORPUSCULAR HGB CONC 33 % (32-36); MEAN CORPUSCULAR VOLUME 93 fL (79.0-98.0); MONOCYTES # (AUTO) 0.4 K/uL (0.0-1.0); MONOCYTES % (AUTO) 12.9 % (1.7-9.3); NEUTROPHILS # (AUTO) 1.7 K/uL (1.8-7.7); NEUTROPHILS % (AUTO) 60.4 % (40.0-70.0); PLATELET COUNT (AUTO) 108 K/uL (130-430); RED BLOOD CELL COUNT(AUTO) 2.54 MIL/uL (4.2-6.2); RED CELL DISTRIBUTION WIDTH 14.3 % (9.0-15.0); WHITE BLOOD COUNT (AUTO) 2.9 K/uL (4.8-10.8)
[2023-05-12 07:29] LABS: ANION GAP 4 (5-15); CALCIUM 8.7 mg/dL (8.4-11.0); CARBON DIOXIDE 35 mmol/L (23-29); CHLORIDE 98 mmol/L (98-107); CREATININE 1.55 mg/dL (0.55-1.30); GLUCOSE 113 mg/dL (74-106); POTASSIUM 5.6 mmol/L (3.5-5.1); SODIUM SERUM 137 mmol/L (136-145); UREA NITROGEN, BLOOD 52 mg/dL (8-21)
[2023-05-12 07:53] VITALS: BP_SYST 141; PULSE 88; RESP 18; TEMP 98.6; O2SAT 100
[2023-05-12] MEDS: TACROLIMUS ANHYDROUS 1 MG CAPSULE (PROGRAF) PO SCH ×2 (08:07→20:49)
[2023-05-12] MEDS: DOCUSATE SODIUM 100 MG CAPSULE PO SCH ×2 (08:07→20:49)
[2023-05-12] MEDS: MAGNESIUM OXIDE 400 MG TABLET PO SCH ×2 (08:07→20:50)
[2023-05-12] MEDS: PANTOPRAZOLE SODIUM 40 MG TAB PO SCH (08:07)
[2023-05-12] MEDS ORDERED: SODIUM POLYSTYRENE SULFONATE 15 GM/60 ML UDBTL PO ONE (09:15)
[2023-05-12 10:00] VITALS: O2SAT 97
[2023-05-12] MEDS: ONDANSETRON HCL 4 MG/2 ML VIAL IVP PRN (10:54)
[2023-05-12] MEDS: INSULIN LISPRO SLIDING SCALE 100 UNITS/ML, 3 ML VIAL (humaLOG) SUBCUT PRN ×2 (11:35→16:32)
[2023-05-12 12:00] VITALS: BP_SYST 155; PULSE 82; RESP 18; TEMP 97.6; O2SAT 100
[2023-05-12] MEDS ORDERED: MILK OF MAGNESIA 30 ML UDC PO ONE (12:45)
[2023-05-12] MEDS ORDERED: BISACODYL 10 MG/SUPPOSITORY RC PRN (12:45)
[2023-05-12] MEDS: SODIUM ZIRCONIUM CYCLOSILICATE 10 GM POWD.PACK PO SCH (13:22)
[2023-05-12 16:00] VITALS: BP_SYST 155; PULSE 88; RESP 18; TEMP 97.8; O2SAT 100
[2023-05-12 20:20] VITALS: BP_SYST 158; PULSE 85; RESP 20; TEMP 97.8; O2SAT 100
[2023-05-13] VITALS (10 sets, daily range): BP systolic 126–160; PULSE 82–89; RESP 17–20; TEMP 97.3–98.8; O2SAT 99–100
[2023-05-13] MEDS: PIPERACILLIN/TAZO 3.375/DEX-IS 50 ML IV SCH ×4 (00:47→17:53)
[2023-05-13 07:23] LABS: ALANINE AMINOTRANSFERASE 20 U/L (12-78); ALBUMIN 2.4 g/dL (3.4-4.8); ANION GAP 3 (5-15); ASPARTATE AMINOTRANSFERASE 16 U/L (10-37); CALCIUM 8.8 mg/dL (8.4-11.0); CHLORIDE 98 mmol/L (98-107); CREATININE 1.49 mg/dL (0.55-1.30); GLUCOSE 104 mg/dL (74-106); POTASSIUM 4.7 mmol/L (3.5-5.1); SODIUM SERUM 141 mmol/L (136-145); TOTAL BILIRUBIN 0.2 mg/dL (0.0-1.0); TOTAL PROTEIN, SERUM 6.6 g/dL (6.4-8.3); UREA NITROGEN, BLOOD 40 mg/dL (8-21)
[2023-05-13 07:47] LABS: CARBON DIOXIDE 40 mmol/L (23-29)
[2023-05-13] MEDS: MAGNESIUM OXIDE 400 MG TABLET PO SCH ×2 (08:06→21:03)
[2023-05-13] MEDS: PANTOPRAZOLE SODIUM 40 MG TAB PO SCH (08:06)
[2023-05-13] MEDS: TACROLIMUS ANHYDROUS 1 MG CAPSULE (PROGRAF) PO SCH ×2 (08:06→20:02)
[2023-05-13] MEDS: DOCUSATE SODIUM 100 MG CAPSULE PO SCH ×2 (08:06→21:03)
[2023-05-13 09:53] LABS: BASOPHILS % (AUTO) 0.4 % (0.0-2.0); EOSINOPHILS % (AUTO) 1.8 % (0.0-4.0); HEMOGLOBIN 7.5 g/dL (14.0-18.0); LYMPHOCYTES # (AUTO) 0.6 K/uL (1.0-5.5); LYMPHOCYTES % (AUTO) 21.7 % (20.5-51.5); MEAN CORPUSCULAR HEMOGLOBIN 31 pg (27-31); MEAN CORPUSCULAR HGB CONC 33 % (32-36); MEAN CORPUSCULAR VOLUME 93 fL (79.0-98.0); MONOCYTES # (AUTO) 0.3 K/uL (0.0-1.0); MONOCYTES % (AUTO) 13.4 % (1.7-9.3); NEUTROPHILS # (AUTO) 1.6 K/uL (1.8-7.7); NEUTROPHILS % (AUTO) 62.7 % (40.0-70.0); PLATELET COUNT (AUTO) 99 K/uL (130-430); RED BLOOD CELL COUNT(AUTO) 2.47 MIL/uL (4.2-6.2); RED CELL DISTRIBUTION WIDTH 13.9 % (9.0-15.0)
[2023-05-13 10:03] LABS: WHITE BLOOD COUNT (AUTO) 2.6 K/uL (4.8-10.8)
[2023-05-13] MEDS: SODIUM ZIRCONIUM CYCLOSILICATE 10 GM POWD.PACK PO SCH (12:33)
[2023-05-13] MEDS: INSULIN LISPRO SLIDING SCALE 100 UNITS/ML, 3 ML VIAL (humaLOG) SUBCUT PRN (12:35)
[2023-05-13] MEDS: ONDANSETRON HCL 4 MG/2 ML VIAL IVP PRN (12:54)
[2023-05-14] VITALS: BP_SYST 142; PULSE 82; RESP 18; TEMP 98.8; O2SAT 99
[2023-05-14] MEDS: PIPERACILLIN/TAZO 3.375/DEX-IS 50 ML IV SCH ×3 (00:28→11:20)
[2023-05-14 06:26] LABS: BASOPHILS % (AUTO) 0.4 % (0.0-2.0); EOSINOPHILS # (AUTO) 0.1 K/uL (0.0-0.4); EOSINOPHILS % (AUTO) 2.1 % (0.0-4.0); HEMATOCRIT 24.3 % (36-54); LYMPHOCYTES # (AUTO) 0.7 K/uL (1.0-5.5); MEAN CORPUSCULAR HEMOGLOBIN 31 pg (27-31); MEAN CORPUSCULAR HGB CONC 33 % (32-36); MEAN CORPUSCULAR VOLUME 93 fL (79.0-98.0); MONOCYTES # (AUTO) 0.3 K/uL (0.0-1.0); MONOCYTES % (AUTO) 12.1 % (1.7-9.3); NEUTROPHILS # (AUTO) 1.4 K/uL (1.8-7.7); NEUTROPHILS % (AUTO) 57.4 % (40.0-70.0); PLATELET COUNT (AUTO) 95 K/uL (130-430); RED BLOOD CELL COUNT(AUTO) 2.61 MIL/uL (4.2-6.2); RED CELL DISTRIBUTION WIDTH 13.8 % (9.0-15.0); WHITE BLOOD COUNT (AUTO) 2.5 K/uL (4.8-10.8)
[2023-05-14 06:52] LABS: ANION GAP 3 (5-15); CALCIUM 8.6 mg/dL (8.4-11.0); CHLORIDE 97 mmol/L (98-107); CREATININE 1.67 mg/dL (0.55-1.30); GLUCOSE 93 mg/dL (74-106); POTASSIUM 4.5 mmol/L (3.5-5.1); SODIUM SERUM 140 mmol/L (136-145); UREA NITROGEN, BLOOD 39 mg/dL (8-21)
[2023-05-14 06:57] LABS: TOTAL IRON BIND. CAPACITY 139 ug/dL (250-450)
[2023-05-14 07:01] LABS: CARBON DIOXIDE 40 mmol/L (23-29)
[2023-05-14] MEDS: TACROLIMUS ANHYDROUS 1 MG CAPSULE (PROGRAF) PO SCH (07:40)
[2023-05-14 08:34] VITALS: BP_SYST 152; PULSE 82; RESP 18; TEMP 98
[2023-05-14] MEDS: DOCUSATE SODIUM 100 MG CAPSULE PO SCH (09:16)
[2023-05-14] MEDS: PANTOPRAZOLE SODIUM 40 MG TAB PO SCH (09:16)
[2023-05-14] MEDS: MAGNESIUM OXIDE 400 MG TABLET PO SCH (09:16)
[2023-05-14] MEDS: INSULIN LISPRO SLIDING SCALE 100 UNITS/ML, 3 ML VIAL (humaLOG) SUBCUT PRN ×2 (11:17→16:34)
[2023-05-14] MEDS: SODIUM ZIRCONIUM CYCLOSILICATE 10 GM POWD.PACK PO SCH (11:20)
[2023-05-14 16:04] VITALS: BP_SYST 126; PULSE 82; RESP 18; TEMP 98
[2023-05-15 08:06] LABS: FOLATE (FOLIC ACID) 16.4 ng/mL (>3.0)
== END 2023-05-14 18:45 | disposition home health service (06) | DRG 640 ==
LOC: SED 19:06 → STU 05-10 04:12
PROVIDERS: ADMIT Preventive Medicine Preventive Medicine/Occupational Environmental Medicine; ATTEND Family Medicine
PROC: 30233N1 Transfusion of Nonautologous Red Blood Cells into Peripheral Vein, Percutaneous Approach (ICD-10-PCS; principal; 2023-05-10)
PROC: 5A09357 Assistance with Respiratory Ventilation, Less than 24 Consecutive Hours, Continuous Positive Airway Pressure (ICD-10-PCS; 2023-05-10)
PROC: 5A09357 Assistance with Respiratory Ventilation, Less than 24 Consecutive Hours, Continuous Positive Airway Pressure (ICD-10-PCS; 2023-05-10)
PROC: 05HY33Z Insertion of Infusion Device into Upper Vein, Percutaneous Approach (ICD-10-PCS; 2023-05-12)
PROC: B54MZZA Ultrasonography of Right Upper Extremity Veins, Guidance (ICD-10-PCS; 2023-05-12)
PROC: 5A09357 Assistance with Respiratory Ventilation, Less than 24 Consecutive Hours, Continuous Positive Airway Pressure (ICD-10-PCS; 2023-05-14)
DX: E87.5 Hyperkalemia (principal); J96.21 Acute and chronic respiratory failure with hypoxia; Z94.4 Liver transplant status; I13.0 Hypertensive heart and chronic kidney disease with heart failure and stage 1 through stage 4 chronic kidney disease, or unspecified chronic kidney disease; I50.32 Chronic diastolic (congestive) heart failure; I25.10 Atherosclerotic heart disease of native coronary artery without angina pectoris; F03.90 Unspecified dementia, unspecified severity, without behavioral disturbance, psychotic disturbance, mood disturbance, and anxiety; N18.9 Chronic kidney disease, unspecified; E11.22 Type 2 diabetes mellitus with diabetic chronic kidney disease; K59.09 Other constipation; E11.40 Type 2 diabetes mellitus with diabetic neuropathy, unspecified; K74.60 Unspecified cirrhosis of liver; Z85.05 Personal history of malignant neoplasm of liver; Z87.891 Personal history of nicotine dependence; Z95.5 Presence of coronary angioplasty implant and graft; Z99.81 Dependence on supplemental oxygen; D63.1 Anemia in chronic kidney disease
CPT/HCPCS: 36415; 36600; 71045; 71250-TC; 76376; 76604; 80048; 80053; 80076; 81000; 81001; 81015; 82607; 82728; 82746; 82803; 82962; 83540; 83550; 83605; 83735; 83880; 84484; 85025; 85610-TC; 85730-TC; 86886; 86900; 86901; 86920; 87040; 87086; 93005; 94660; 94760; 96365; 96368; 97116-GP; 97530-GP; 99285; G0378; J0610; J1940; J2405; J2543; J3370; J7507; P9021